=== PATIENT | male | born 1960 | race Caucasian/White ===

== ENCOUNTER 2020-09-20 09:23 | Emergency (ER) | payer OTHER, SELFPAY ==
--- NOTE | ~2020-09-20 | XR_ITS ---
EXAMINATION: XR LUMBOSACRAL SPINE CLINICAL INFORMATION: Low back pain. COMPARISON: None TECHNIQUE: Three views of the lumbosacral spine. FINDINGS: There is normal lumbar lordosis. The vertebral heights, alignment and disc heights are normal. There is moderate bilateral L5-S1 facet joint arthropathy. No acute fracture, lytic or sclerotic process seen. There are multiple sutures seen scattered throughout the upper and mid abdomen. No lytic or sclerotic process seen. XR/XR lumbar spine 2-3V IMPRESSION: Moderate bilateral L5-S1 facet joint arthropathy.
[2020-09-20 09:52] VITALS: BP 127/70; BP 139/85; PULSE 68; PULSE 69; RESP 16; TEMP 37.3; O2SAT 96; BMI 29.5
--- NOTE | 2020-09-20 11:43 | ED.BACK ---
HPI - Back Pain/Injury General Chief Complaint: Back Pain/Injury Stated Complaint: back pain since saturday Time Seen by Provider: 09/20/20 11:41 History of Present Illness HPI Narrative: Patient is a 60-year-old male presents today with having back pain. The back pain is over the lower back on going for the last 2 days. Happen while patient was working. He reached for something subsequently had the back pain. Patient denies any bowel urinary incontinence. No focal weakness. Patient is from home. Has a history of chronic renal disease. Patient denies any fever chills. No history of IV drug use. Pain worsened with movement improved with staying still. Patient is from home. Related Data Previous Rx's Medication Instructions Recorded hydromorphone 2 mg tablet 2 mg PO Q4-6H PRN #14 tab 09/20/20 (Dilaudid) lorazepam 0.5 mg tablet 0.5 mg PO TID PRN 3 Days #10 tab 09/20/20 Allergies Allergy/AdvReac Type Severity Reaction Status Date / Time No Known Drug Allergies Allergy Unknown NONE Unverified 10/29/19 14:57 Review of Systems Review of Systems: Positive back pain No bowel urinary incontinence No focal weakness Yes all other systems are reviewed and are negative [facility] Past Medical History Attestation statement: The following information was validated with the patient. Medical History Colostomy in place Crohn's disease Kidney disease Social History Social History Smoked in Last 30 Days: No Use of substances other than those prescribed or required for medical reasons: No Advance Directives: No Advance Directives Information Provided: No Physical Exam Vital Signs: Vital Signs: Last Vital Signs Temp 99.1 F 09/20/20 09:52 Pulse 74 09/20/20 14:59 Resp 16 09/20/20 14:59 BP 136/70 09/20/20 14:59 Pulse Ox 98 09/20/20 14:59 Body Mass Index 29.5 Appearance: Alert. Oriented X3. No acute distress. Eyes: Pupils equal, round and reactive to light. ENT: Pharynx normal. Neck: Normal inspection. Neck supple. No lymph nodes noted. No crepitus CVS: Normal heart rate and rhythm. Pulses normal. Normal S1 and S2 Respiratory: No respiratory distress. Breath sounds normal. No Wheezing. No rales Abdomen: Soft and nontender. No rigidity. No distention. good BS x4 Skin: Skin warm and dry. Normal skin color. Normal skin turgor. Extremities: No lower extremity edema. Neurovascular intact to all extremities. No Lacerations. No Rash. Sensation in the lower extremity intact. Pulse 2 +at dorsalis pedis. Positive pain on lifting bilateral lower extremity 2 proximally 30 degrees. Reflexes 2+ at patella bilaterally. Neuro: Oriented X 3. No motor deficit. No sensory deficit. Moving all extermities. No slurred speech MDM - Back Pain/Injury MDM Narrative Medical decision making narrative: Patient 60 years old given pain medication x2 doses. Symptom improving now is able to stand. There was no bowel urinary incontinence. There is no focal weakness. X-ray did not show any acute fracture. No evidence for cauda equina syndrome. Will discharge patient home with additional pain meds follow-up on an outpatient basis. Differential Diagnosis Differential diagnosis: Likely lumbar radiculopathy and sciatica Medical Records Attestation: I reviewed the patient's medical records. Lab Data Attestation: I reviewed the patient's lab results. Result diagrams: 09/20/20 11:50 09/20/20 11:50 Labs: Lab Results 09/20/20 09/20/20 Range/Units 11:50 11:50 WBC 9.4 (4.8-10.8) X10*3/uL RBC 4.94 (4.60-5.80) X10*6/uL Hgb 16.4 (14.0-18.0) g/dl Hct 47.7 (42-52) % MCV 96.6 (80-98) fL MCH 33.2 H (27.0-33.0) pg MCHC 34.4 (31.0-36.0) g/dl RDW 13.1 (11.0-16.0) % Plt Count 179 (160-400) X10*3/uL MPV 9.8 (9.4-12.4) fL Immature Gran % (Auto) 0.3 (0.0-0.4) % Neut % (Auto) 72.2 (45-73) % Lymph % (Auto) 19.7 L (20-40) % Schleicher % (Auto) 5.7 (2-11) % Eos % (Auto) 1.3 (0-4) % Baso % (Auto) 0.8 (0-2) % Lymph # (Auto) 1.9 (1.2-4.9) X10*3/uL Schleicher # (Auto) 0.5 (0.1-1.2) X10*3/uL Eos # (Auto) 0.1 (0.0-0.4) X10*3/uL Baso # (Auto) 0.1 (0.0-0.2) X10*3/uL Abs Immat Gran (auto) 0.03 (0.00-0.03) X10*3/uL Absolute Neuts (auto) 6.8 (2.0-8.3) X10*3/uL Absolute Nucleated RBC 0.000 (0.0-0.012) X10*3/uL Nucleated RBC % (auto) 0.0 (0.0-0.2) /100WBC Sodium 138 (135-145) mmol/L Potassium 4.9 (3.3-5.1) mmol/L Chloride 112 H (96-108) mmol/L Carbon Dioxide 20 L (22-29) mmol/L Anion Gap 11 L (12-20) BUN 20 H (9-16) mg/dL Creatinine 1.63 H (0.5-1.4) mg/dL Estim Creat Clear Calc 54.3 Estimated GFR 44 Random Glucose 101 (60-115) mg/dL Calcium 8.4 (8.4-10.2) mg/dL Discharge Plan Discharge Clinical Impression: Lumbar radiculopathy, Sciatica Patient Disposition: Home, Self-Care Instructions: Sciatica (ED), Lumbar Radiculopathy (ED) Prescriptions: New hydromorphone [Dilaudid] 2 mg tablet 2 mg PO Q4-6H PRN (Reason: pain) Qty: 14 RF: 0 lorazepam 0.5 mg tablet 0.5 mg PO TID PRN (Reason: spasm) 3 Days Qty: 10 RF: 0 Referrals: Hansel Martinez MD [Primary Care Provider] - 2 days Stand Alone Forms: Work/School Release
[2020-09-20] MEDS: LORazepam 2 MG/ML VIAL 0.5 MG IVPUSH ×2 (11:52→14:57)
[2020-09-20 11:55] VITALS: BP 154/94; PULSE 75; RESP 16; O2SAT 100
[2020-09-20] MEDS: HYDROmorphone HCl 0.5 MG/0.5 ML SYRINGE IVPUSH ×2 (11:56→14:57)
[2020-09-20 12:05] LABS: MANUAL DIFF FLAG NO
[2020-09-20 12:10] LABS: Basophils Absolute Auto 0.1 X10*3/uL (0.0-0.2); Basophils Percent Auto 0.8 % (0-2); Eosinophils Absolute Auto 0.1 X10*3/uL (0.0-0.4); Eosinophils Percent Auto 1.3 % (0-4); Hematocrit 47.7 % (42-52); Hemoglobin 16.4 g/dl (14.0-18.0); Imm Gran Abs Auto 0.03 X10*3/uL (0.00-0.03); Imm Gran Pct Auto 0.3 % (0.0-0.4); Lymphocytes Absolute Auto 1.9 X10*3/uL (1.2-4.9); Lymphocytes Percent Auto 19.7 % (20-40); Mean Corpuscular HGB Conc 34.4 g/dl (31.0-36.0); Mean Corpuscular Hemoglobin 33.2 pg (27.0-33.0); Mean Corpuscular Volume 96.6 fL (80-98); Mean Platelet Volume 9.8 fL (9.4-12.4); Monocytes Absolute Auto 0.5 X10*3/uL (0.1-1.2); Monocytes Percent Auto 5.7 % (2-11); Neutrophils Absolute Auto 6.8 X10*3/uL (2.0-8.3); Neutrophils Percent Auto 72.2 % (45-73); Platelet Count 179 X10*3/uL (160-400); Red Blood Count 4.94 X10*6/uL (4.60-5.80); Red Cell Distribution Width 13.1 % (11.0-16.0); White Blood Count 9.4 X10*3/uL (4.8-10.8)
[2020-09-20 12:39] LABS: Anion Gap 11 (12-20); Blood Urea Nitrogen 20 mg/dL (9-16); Calcium 8.4 mg/dL (8.4-10.2); Carbon Dioxide 20 mmol/L (22-29); Chloride 112 mmol/L (96-108); Creatinine Clr Calc Pharmacy 54.3; Estimated Glomerular Filt Rate 44; Glucose Random 101 mg/dL (60-115); Potassium 4.9 mmol/L (3.3-5.1); Sodium 138 mmol/L (135-145)
[2020-09-20 14:59] VITALS: BP 136/70; PULSE 74; RESP 16; O2SAT 98
== END 2020-09-20 16:16 | disposition home or self-care (01) ==
PROVIDERS: Emergency Provider Emergency Medicine Emergency Medical Services; PCP Internal Medicine
DX: M54.16 Radiculopathy, lumbar region (principal); M54.32 Sciatica, left side; M54.31 Sciatica, right side
CPT/HCPCS: 36415; 72100; 80048; 85025; 96374; 96375; 96376; 99284; J1170; J2060

== ENCOUNTER 2022-01-25 17:10 | Inpatient (IN) | payer OTHER, SELFPAY ==
--- NOTE | ~2022-01-25 | FL_ITS ---
EXAMINATION: Intraoperative fluoroscopy CLINICAL INFORMATION: Cystoscopy, ureteroscopy and stent placement COMPARISON: CT abdomen pelvis January 25, 2022 TECHNIQUE: Intraoperative fluoroscopy was provided for use by Dr. Escobedo. A total of 12 images were saved to PACS. A radiologist was not present during imaging. Today's dictation is only for administrative purposes to document intraoperative fluoroscopic usage. TOTAL FLUOROSCOPIC TIME: 18 seconds FL/FL guidance in OR FINDINGS~\^^ Intraoperative fluoroscopy provided for use by Dr. Escobedo. Please see operative note for detailed findings.
--- NOTE | ~2022-01-25 | CT_ITS ---
EXAMINATION: CT ABDOMEN AND PELVIS WITHOUT CONTRAST CLINICAL INFORMATION: Left-sided back/flank pain. Question kidney stones. COMPARISON: Lumbar spine x-ray September 2020 TECHNIQUE: Multidetector volumetric imaging was performed from the superior aspect of the liver through the pubic symphysis. Sagittal and coronal reformatted images were obtained on the technologist's workstation. This CT examination was performed using dose optimization techniques as appropriate, variously including the following: *Automated exposure control *Adjustment of mA and/or kV according to patient size (this includes techniques or standardized protocols for targeted exams where dose is matched to indication/reason for exam; i.e. extremities or head) *Use of iterative reconstruction technique DLP: 659 mGy-cm FINDINGS: LUNG BASES: The visualized lung bases are unremarkable. LIVER, GALLBLADDER, AND BILIARY TREE: The liver is normal in size, shape, and attenuation. No focal hepatic lesion or biliary ductal dilatation is present. The gallbladder is unremarkable with no evidence of radiopaque gallstones, gallbladder wall thickening, or obvious pericholecystic inflammatory changes. PANCREAS: Unremarkable. SPLEEN: Unremarkable. ADRENAL GLANDS: Unremarkable. KIDNEYS AND URETERS: There is severe left hydronephrosis and ureteral dilatation from 3 adjacent left distal ureteral stones measuring 3 x 6 mm and 2 x 3 mm and 3 x 6 mm. There are small left lower pole renal stones. The right kidney is normal. BLADDER: Not optimally distended. GASTROINTESTINAL TRACT: Postsurgical changes from colectomy and right lower quadrant ileostomy. 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 There is remaining rectum appears dilated and filled with fluid. Inferiorly this is to the left of midline and it is difficult to exclude a perirectal fluid collection or abscess. ABDOMINAL WALL: No significant hernia is appreciated. LYMPH NODES: Normal. VASCULAR: Unremarkable. PELVIC VISCERA: Unremarkable. OSSEOUS STRUCTURES: Degenerative changes of the spine. CT/CT abdomen pelvis wo IV con IMPRESSION: Severe left hydronephrosis and ureteral dilatation from a 3 adjacent left distal ureteral stones. Small left renal stones. Postsurgical changes following colectomy and right lower quadrant ileostomy. Question dilated fluid-filled rectum in the pelvis versus perirectal fluid collection or abscess. Fleischner guidelines were followed.
[2022-01-25 17:50] VITALS: BP 135/90; PULSE 83; RESP 20; TEMP 36.2; O2SAT 100; BMI 29.4
--- NOTE | 2022-01-25 17:53 | ED.ABDPAIN ---
HPI - Abdominal Pain General Chief Complaint: Abdominal Pain Stated Complaint: Kidney stone? Dehydrated Time Seen by Provider: 01/25/22 19:46 Related Data Home Medications Medication Instructions Recorded Confirmed adalimumab 40 mg/0.4 mL 40 mg subcut QWEEK 01/25/22 01/25/22 subcutaneous pen kit (Humira(CF) Pen) tadalafil 2.5 mg tablet (Cialis) 5 mg PO DAILY PRN Sexual Activity 01/25/22 01/25/22 Allergies Allergy/AdvReac Type Severity Reaction Status Date / Time No Known Drug Allergies Allergy Unknown NONE Verified 01/25/22 20:46 [facility] Past Medical History Medical History Colostomy in place Crohn's disease Kidney disease Surgical History History of ileostomy Family History Family History Father Colon cancer Social History Social History Household Members: Spouse Housing: House Do you presently have visiting nurse or other home services: No Patient Tobacco Use Status: Never used Tobacco Use of substances other than those prescribed or required for medical reasons: No Advance Directives: No Advance Directives Information Provided: No Do you have thoughts of harming others: None Do you have a plan to hurt others: No Plan Recently lost weight without trying: No Nutrition Risks: No Nutritional Risk service: No Current occupational status: employed Physical Exam ED Vital Signs: Vital Signs - 24 hr 01/25/22 17:50 01/25/22 19:53 01/25/22 21:48 Temperature 97.1 F 98.4 F 97.8 F Pulse Rate 83 82 91 Respiratory Rate 20 16 16 Blood Pressure 135/90 H 155/93 H 147/88 H Pulse Oximetry 100 97 98 Oxygen Delivery Method Room Air Room Air Room Air BMI result Body Mass Index 29.4 Course Course Course Narrative: RME-17:55pm - 61yoM c PMHx of kidney stones and has an ileostomy recently had the stomach bug presenting to the ER c c/o left flank/back pain with associated nausea/vomiting unable to keep any fluids down that started this morning. Plan: Labs, UA, CT scan abdomen pelvis with IV contrast ordered. Patient will be sent to the main ER for further evaluation and treatment. Medical Decision Making Lab Data Result Diagrams: 01/26/22 05:21 01/26/22 05:21 Labs: Lab Results 01/25/22 01/25/22 01/25/22 Range/Units 18:53 18:53 18:53 WBC 17.9 H (4.8-10.8) X10*3/uL RBC 5.65 (4.60-5.80) X10*6/uL Hgb 18.5 H (14.0-18.0) g/dl Hct 51.9 (42.0-52.0) % MCV 91.9 (80.0-98.0) fL MCH 32.7 (27.0-33.0) pg MCHC 35.6 (31.0-36.0) g/dl RDW 12.9 (11.0-16.0) % Plt Count 218 (160-400) X10*3/uL MPV 9.9 (9.4-12.4) fL Immature Gran % (Auto) 0.3 (0.0-0.4) % Neut % (Auto) 88.1 H (45-73) % Lymph % (Auto) 7.0 L (20-40) % Routt % (Auto) 4.2 (2-11) % Eos % (Auto) 0.2 (0-4) % Baso % (Auto) 0.2 (0-2) % Lymph # (Auto) 1.3 (1.2-4.9) X10*3/uL Routt # (Auto) 0.8 (0.1-1.2) X10*3/uL Eos # (Auto) 0.0 (0.0-0.4) X10*3/uL Baso # (Auto) 0.0 (0.0-0.2) X10*3/uL Abs Immat Gran (auto) 0.06 H (0.00-0.03) X10*3/uL Absolute Neuts (auto) 15.8 H (2.0-8.3) x10*3/uL Absolute Nucleated RBC 0.000 (0.0-0.012) X10*3/uL Nucleated RBC % (auto) 0.0 (0.0-0.2) /100WBC PT 12.0 (10.0-13.1) SEC INR 1.0 (0.9-1.1) Sodium 126 L (135-145) mmol/L Potassium 3.8 D (3.3-5.1) mmol/L Chloride 97 (96-108) mmol/L Carbon Dioxide 16 L (22-29) mmol/L Anion Gap 17 (12-20) BUN 58 H (9-16) mg/dL Creatinine 3.38 H (0.5-1.4) mg/dL Estim Creat Clear Calc 26.6 Estimated GFR 19 Random Glucose 168 H (60-115) mg/dL Calcium 8.3 L (8.4-10.2) mg/dL Magnesium 2.3 (1.6-2.6) mg/dL Total Bilirubin 0.9 (0.0-1.0) mg/dL AST 77 H (5-37) U/L ALT 74 H (0-40) U/L Alkaline Phosphatase 84 (39-117) U/L Total Protein 9.4 H (6.5-8.0) g/dL Albumin 4.4 (3.5-5.0) g/dL Urine Color Urine Appearance Urine pH (5.0-9.0) Ur Specific Robbins (1.005-1.025) Urine Protein (Neg-Trace) mg/dL Urine Glucose (UA) (Negative) mg/dL Urine Ketones (Negative) mg/dL Urine Blood (Negative) Urine Nitrite (Negative) Ur Leukocyte Esterase (Negative) Urine RBC (0-2) /HPF Urine WBC (0-5) /HPF Ur Squamous Epith Cells (0-2) /HPF Urine Bacteria (None Seen) Hyaline Casts (0-2) /LPF COVID-19 (ALISHA) (Negative) COVID-19 Clin Com 01/25/22 01/25/22 Range/Units 18:53 20:50 WBC (4.8-10.8) X10*3/uL RBC (4.60-5.80) X10*6/uL Hgb (14.0-18.0) g/dl Hct (42.0-52.0) % MCV (80.0-98.0) fL MCH (27.0-33.0) pg MCHC (31.0-36.0) g/dl RDW (11.0-16.0) % Plt Count (160-400) X10*3/uL MPV (9.4-12.4) fL Immature Gran % (Auto) (0.0-0.4) % Neut % (Auto) (45-73) % Lymph % (Auto) (20-40) % Routt % (Auto) (2-11) % Eos % (Auto) (0-4) % Baso % (Auto) (0-2) % Lymph # (Auto) (1.2-4.9) X10*3/uL Routt # (Auto) (0.1-1.2) X10*3/uL Eos # (Auto) (0.0-0.4) X10*3/uL Baso # (Auto) (0.0-0.2) X10*3/uL Abs Immat Gran (auto) (0.00-0.03) X10*3/uL Absolute Neuts (auto) (2.0-8.3) x10*3/uL Absolute Nucleated RBC (0.0-0.012) X10*3/uL Nucleated RBC % (auto) (0.0-0.2) /100WBC PT (10.0-13.1) SEC INR (0.9-1.1) Sodium (135-145) mmol/L Potassium (3.3-5.1) mmol/L Chloride (96-108) mmol/L Carbon Dioxide (22-29) mmol/L Anion Gap (12-20) BUN (9-16) mg/dL Creatinine (0.5-1.4) mg/dL Estim Creat Clear Calc Estimated GFR Random Glucose (60-115) mg/dL Calcium (8.4-10.2) mg/dL Magnesium (1.6-2.6) mg/dL Total Bilirubin (0.0-1.0) mg/dL AST (5-37) U/L ALT (0-40) U/L Alkaline Phosphatase (39-117) U/L Total Protein (6.5-8.0) g/dL Albumin (3.5-5.0) g/dL Urine Color Yellow Urine Appearance Clear Urine pH 5.5 (5.0-9.0) Ur Specific Robbins 1.020 (1.005-1.025) Urine Protein 100 (2+) H (Neg-Trace) mg/dL Urine Glucose (UA) Negative (Negative) mg/dL Urine Ketones Negative (Negative) mg/dL Urine Blood Large (3+) H (Negative) Urine Nitrite Negative (Negative) Ur Leukocyte Esterase Negative (Negative) Urine RBC >20 H (0-2) /HPF Urine WBC 0-5 (0-5) /HPF Ur Squamous Epith Cells 0-2 (0-2) /HPF Urine Bacteria None Seen (None Seen) Hyaline Casts 3-5 (0-2) /LPF COVID-19 (ALISHA) Negative (Negative) COVID-19 Clin Com See Note Medications Administered Generic Name Dose Route Start Last Admin Trade Name Freq PRN Reason Stop Dose Admin Sodium Chloride 1,000 mls @ 75 mls/hr 01/26/22 06:15 01/26/22 06:23 Ns IVCONT 75 mls/hr .[id number] SILVIA Administration Morphine Sulfate 4 mg 01/25/22 22:32 01/26/22 11:50 Morphine Sulfate 4 Mg/Ml Cartridge IVPUSH 4 mg Q4H PRN Administration Pain, Severe (Pain Scale 7-10) Protocol Ondansetron HCl 4 mg 01/25/22 22:29 01/26/22 06:15 Ondansetron Hcl 4 Mg/2 Ml Vial IVPUSH 4 mg Q8H PRN Administration Nausea and Vomiting Sodium Chloride 3 ml 01/26/22 00:00 01/26/22 07:09 0.9 % Sodium Chloride Flush 3 Ml Syringe IVFLUSH Not Given QSHIFT [facility] Discontinued Medications Generic Name Dose Route Start Last Admin Trade Name Freq PRN Reason Stop Dose Admin Hydromorphone HCl 0.5 mg 01/25/22 20:19 01/25/22 20:43 Hydromorphone Hcl 0.5 Mg/0.5 Ml Syringe IVPUSH 01/25/22 20:20 0.5 mg ONCE ONE Administration Protocol Sodium Chloride 1,000 mls @ 999 mls/hr 01/25/22 20:00 01/25/22 22:12 Ns IVCONT 01/25/22 21:00 Infused .Q1H1M SILVIA Infusion Sodium Chloride 1,000 mls @ 999 mls/hr 01/25/22 20:00 01/25/22 22:12 Ns IVCONT 01/25/22 21:00 Infused .Q1H1M SILVIA Infusion Ceftriaxone Sodium 1 gm/ 50 mls @ 100 mls/hr 01/25/22 20:37 01/25/22 22:12 Sodium Chloride IV 01/25/22 21:06 Infused ONCE ONE Infusion Lactated Ringer's 1,000 mls @ 100 mls/hr 01/25/22 22:30 01/26/22 07:01 Lr IVCONT Infused .Q10H SILVIA Infusion Ondansetron HCl 4 mg 01/25/22 19:56 01/25/22 20:08 Ondansetron Hcl 4 Mg/2 Ml Vial IVPUSH 01/25/22 19:57 4 mg ONCE ONE Administration Discharge Plan Discharge Clinical Impression: Acute hyponatremia, Hydronephrosis of left kidney Renal failure (ARF), acute on chronic Qualifiers: Acute renal failure type: unspecified Chronic kidney disease stage: unspecified stage Qualified Code(s): N17.9 - Acute kidney failure, unspecified Patient Disposition: Admitted As Inpatient Interventions: Admission Worksheet (ED) Last Done: 01/26/22 00:19 Discharge Date/Time: 01/26/22 00:44
[2022-01-25 18:58] LABS: MANUAL DIFF FLAG NO
[2022-01-25 19:00] LABS: Basophils Percent Auto 0.2 % (0-2); Eosinophils Percent Auto 0.2 % (0-4); Hematocrit 51.9 % (42.0-52.0); Hemoglobin 18.5 g/dl (14.0-18.0); Imm Gran Abs Auto 0.06 X10*3/uL (0.00-0.03); Imm Gran Pct Auto 0.3 % (0.0-0.4); Lymphocytes Absolute Auto 1.3 X10*3/uL (1.2-4.9); Mean Corpuscular HGB Conc 35.6 g/dl (31.0-36.0); Mean Corpuscular Hemoglobin 32.7 pg (27.0-33.0); Mean Corpuscular Volume 91.9 fL (80.0-98.0); Mean Platelet Volume 9.9 fL (9.4-12.4); Monocytes Absolute Auto 0.8 X10*3/uL (0.1-1.2); Monocytes Percent Auto 4.2 % (2-11); Neutrophils Absolute Auto 15.8 x10*3/uL (2.0-8.3); Neutrophils Percent Auto 88.1 % (45-73); Platelet Count 218 X10*3/uL (160-400); Red Blood Count 5.65 X10*6/uL (4.60-5.80); Red Cell Distribution Width 12.9 % (11.0-16.0); White Blood Count 17.9 X10*3/uL (4.8-10.8)
[2022-01-25 19:01] LABS: Appearance Urine Clear; Color Urine Yellow; Glucose Urine UA Negative (Negative); Leukocyte Esterase Urine Negative (Negative); Nitrite Urine Negative (Negative); PH 5.5 (5.0-9.0); UMIC TRIGGER UACC YES; Urine Blood Large (3+) (Negative); Urine Ketones Negative (Negative); Urine Protein 100 (2+) mg/dL (Neg-Trace)
[2022-01-25 19:07] LABS: Bacteria Urine None Seen (None Seen); RBC Urine >20 /HPF (0-2); Squamous Epithelial Cell Urine 0-2 /HPF (0-2); WBC Urine 0-5 /HPF (0-5)
[2022-01-25 19:18] LABS: Alanine Aminotransferase 74 U/L (0-40); Albumin Level 4.4 g/dL (3.5-5.0); Alkaline Phosphatase 84 U/L (39-117); Anion Gap 17 (12-20); Aspartate Amino Transferase 77 U/L (5-37); Bilirubin Total 0.9 mg/dL (0.0-1.0); Blood Urea Nitrogen 58 mg/dL (9-16); Calcium 8.3 mg/dL (8.4-10.2); Carbon Dioxide 16 mmol/L (22-29); Chloride 97 mmol/L (96-108); Creatinine Clr Calc Pharmacy 26.6; Estimated Glomerular Filt Rate 19; Glucose Random 168 mg/dL (60-115); Magnesium 2.3 mg/dL (1.6-2.6); Potassium 3.8 mmol/L (3.3-5.1); Sodium 126 mmol/L (135-145); Total Protein 9.4 g/dL (6.5-8.0)
--- NOTE | 2022-01-25 19:52 | ED.GENADULT ---
HPI - General Adult General Chief complaint: Abdominal Pain Stated complaint: Kidney stone? Dehydrated Time Seen by Provider: 01/25/22 19:46 Source: patient Mode of arrival: ambulatory Limitations: no limitations History of Present Illness HPI narrative: THIS IS A VERY PLEASANT 7 YEARS OLD MALE WITH HISTORY OF CROHN DISEASE STATUS POST COLECTOMY, HAS ILEOSTOMY BAG PRESENTED TO EMERGENCY ROOM BECAUSE OF VOMITING , HE STATES THAT OVER THE WEEKEND HE HAD DIARRHEA FOR FEW DAYS DIARRHEA NOW RESOLVED THE AND WAS VOMITING AND TODAY Onset (ago): day(s) (4) Radiation: non-radiation Severity: moderate Relieving factors: none Exacerbating factors: none Related Data Home Medications Medication Instructions Recorded Confirmed adalimumab 40 mg/0.4 mL 40 mg subcut QWEEK 01/25/22 01/25/22 subcutaneous pen kit (Humira(CF) Pen) tadalafil 2.5 mg tablet (Cialis) 5 mg PO DAILY PRN Sexual Activity 01/25/22 01/25/22 Allergies Allergy/AdvReac Type Severity Reaction Status Date / Time No Known Drug Allergies Allergy Unknown NONE Verified 01/25/22 20:46 Review of Systems Constitutional: Constitutional: Reports no additional constitutional complaints Eyes: Eyes: Reports no additional eye complaints Cardiovascular: Cardiovascular: Reports no additional cardiovascular complaints Respiratory: Respiratory: Reports no additional respiratory complaints Gastrointestinal: Gastrointestinal: Reports loose stools, Reports nausea and Reports vomiting Musculoskeletal: Musculoskeletal: Reports no additional musculoskeletal complaints PMFSH Past Medical History Medical History Colostomy in place Crohn's disease Kidney disease Social History Social History Advance Directives: No Advance Directives Information Provided: No Physical Exam ED Vital Signs: Vital Signs - 24 hr 01/25/22 17:50 01/25/22 19:53 01/25/22 21:48 Temperature 97.1 F 98.4 F 97.8 F Pulse Rate 83 82 91 Respiratory Rate 20 16 16 Blood Pressure 135/90 H 155/93 H 147/88 H Pulse Oximetry 100 97 98 Oxygen Delivery Method Room Air Room Air Room Air BMI result Body Mass Index 29.4 Const Other: HE LOOKS WELL IS NOT TOXIC-APPEARING General: cooperative Orientation/consciousness: oriented to person, oriented to place, oriented to time and patient oriented x3 Limitations: no limitations HENMT Head: Yes normal to inspection General nose exam: Normal external nose present Face and sinus: Yes normal facial exam Mouth: Normal oral and palatal mucosa present Throat: Yes posterior oropharynx normal Neck Neck: Yes normal visual inspection Chest Chest palpation & inspection: normal inspection of the chest Resp Effort & Inspection: normal respiratory effort Auscultation: clear to auscultation bilaterally Cardio Jugular venous distension: no JVD Rate: regular rate Rhythm: regular rhythm GI Inspection: Yes normal to inspection Palpation (GI): Soft to palpation, not firm and nontender General: Yes no CVA tenderness Back/Spine/Pelvis Back: no CVA tenderness Skin General skin exam: no rashes or lesions noted and elasticity normal Lesions: no lesions Neuro General: oriented to person, oriented to place, oriented to time and patient oriented x3 Course Reevaluation(s) Reevaluation #1: DISCUSSED WITH UROLOGIST dR WOOTEN Time: 20:35 Reevaluation #2: SPOKE WITH HOSPITALIST Time: 20:36 Medications Administered Generic Name Dose Route Start Last Admin Trade Name Freq PRN Reason Stop Dose Admin Lactated Ringer's 1,000 mls @ 100 mls/hr 01/25/22 22:30 01/25/22 22:49 Lr IVCONT 100 mls/hr .Q10H SILVIA Administration Discontinued Medications Generic Name Dose Route Start Last Admin Trade Name Freq PRN Reason Stop Dose Admin Hydromorphone HCl 0.5 mg 01/25/22 20:19 01/25/22 20:43 Hydromorphone Hcl 0.5 Mg/0.5 Ml Syringe IVPUSH 01/25/22 20:20 0.5 mg ONCE ONE Administration Protocol Sodium Chloride 1,000 mls @ 999 mls/hr 01/25/22 20:00 01/25/22 22:12 Ns IVCONT 01/25/22 21:00 Infused .Q1H1M SILVIA Infusion Sodium Chloride 1,000 mls @ 999 mls/hr 01/25/22 20:00 01/25/22 22:12 Ns IVCONT 01/25/22 21:00 Infused .Q1H1M SILVIA Infusion Ceftriaxone Sodium 1 gm/ 50 mls @ 100 mls/hr 01/25/22 20:37 01/25/22 22:12 Sodium Chloride IV 01/25/22 21:06 Infused ONCE ONE Infusion Ondansetron HCl 4 mg 01/25/22 19:56 01/25/22 20:08 Ondansetron Hcl 4 Mg/2 Ml Vial IVPUSH 01/25/22 19:57 4 mg ONCE ONE Administration Medical Decision Making Differential Diagnosis renal failure/sepsis/kidney stones Consult Healthcare Provider Management of the patient was discussed with: Hospitalist and Instructor [employer] (urologist) Lab Data MDM Lab Attestation statement: I reviewed the patient's lab results. Result Diagrams: 01/25/22 18:53 01/25/22 18:53 Labs: Lab Results 01/25/22 01/25/22 01/25/22 Range/Units 18:53 18:53 18:53 WBC 17.9 H (4.8-10.8) X10*3/uL RBC 5.65 (4.60-5.80) X10*6/uL Hgb 18.5 H (14.0-18.0) g/dl Hct 51.9 (42.0-52.0) % MCV 91.9 (80.0-98.0) fL MCH 32.7 (27.0-33.0) pg MCHC 35.6 (31.0-36.0) g/dl RDW 12.9 (11.0-16.0) % Plt Count 218 (160-400) X10*3/uL MPV 9.9 (9.4-12.4) fL Immature Gran % (Auto) 0.3 (0.0-0.4) % Neut % (Auto) 88.1 H (45-73) % Lymph % (Auto) 7.0 L (20-40) % Mathews % (Auto) 4.2 (2-11) % Eos % (Auto) 0.2 (0-4) % Baso % (Auto) 0.2 (0-2) % Lymph # (Auto) 1.3 (1.2-4.9) X10*3/uL Mathews # (Auto) 0.8 (0.1-1.2) X10*3/uL Eos # (Auto) 0.0 (0.0-0.4) X10*3/uL Baso # (Auto) 0.0 (0.0-0.2) X10*3/uL Abs Immat Gran (auto) 0.06 H (0.00-0.03) X10*3/uL Absolute Neuts (auto) 15.8 H (2.0-8.3) x10*3/uL Absolute Nucleated RBC 0.000 (0.0-0.012) X10*3/uL Nucleated RBC % (auto) 0.0 (0.0-0.2) /100WBC PT 12.0 (10.0-13.1) SEC INR 1.0 (0.9-1.1) Sodium 126 L (135-145) mmol/L Potassium 3.8 D (3.3-5.1) mmol/L Chloride 97 (96-108) mmol/L Carbon Dioxide 16 L (22-29) mmol/L Anion Gap 17 (12-20) BUN 58 H (9-16) mg/dL Creatinine 3.38 H (0.5-1.4) mg/dL Estim Creat Clear Calc 26.6 Estimated GFR 19 Random Glucose 168 H (60-115) mg/dL Calcium 8.3 L (8.4-10.2) mg/dL Magnesium 2.3 (1.6-2.6) mg/dL Total Bilirubin 0.9 (0.0-1.0) mg/dL AST 77 H (5-37) U/L ALT 74 H (0-40) U/L Alkaline Phosphatase 84 (39-117) U/L Total Protein 9.4 H (6.5-8.0) g/dL Albumin 4.4 (3.5-5.0) g/dL Urine Color Urine Appearance Urine pH (5.0-9.0) Ur Specific Greer (1.005-1.025) Urine Protein (Neg-Trace) mg/dL Urine Glucose (UA) (Negative) mg/dL Urine Ketones (Negative) mg/dL Urine Blood (Negative) Urine Nitrite (Negative) Ur Leukocyte Esterase (Negative) Urine RBC (0-2) /HPF Urine WBC (0-5) /HPF Ur Squamous Epith Cells (0-2) /HPF Urine Bacteria (None Seen) Hyaline Casts (0-2) /LPF COVID-19 (ALISHA) (Negative) COVID-19 Clin Com 01/25/22 01/25/22 Range/Units 18:53 20:50 WBC (4.8-10.8) X10*3/uL RBC (4.60-5.80) X10*6/uL Hgb (14.0-18.0) g/dl Hct (42.0-52.0) % MCV (80.0-98.0) fL MCH (27.0-33.0) pg MCHC (31.0-36.0) g/dl RDW (11.0-16.0) % Plt Count (160-400) X10*3/uL MPV (9.4-12.4) fL Immature Gran % (Auto) (0.0-0.4) % Neut % (Auto) (45-73) % Lymph % (Auto) (20-40) % Mathews % (Auto) (2-11) % Eos % (Auto) (0-4) % Baso % (Auto) (0-2) % Lymph # (Auto) (1.2-4.9) X10*3/uL Mathews # (Auto) (0.1-1.2) X10*3/uL Eos # (Auto) (0.0-0.4) X10*3/uL Baso # (Auto) (0.0-0.2) X10*3/uL Abs Immat Gran (auto) (0.00-0.03) X10*3/uL Absolute Neuts (auto) (2.0-8.3) x10*3/uL Absolute Nucleated RBC (0.0-0.012) X10*3/uL Nucleated RBC % (auto) (0.0-0.2) /100WBC PT (10.0-13.1) SEC INR (0.9-1.1) Sodium (135-145) mmol/L Potassium (3.3-5.1) mmol/L Chloride (96-108) mmol/L Carbon Dioxide (22-29) mmol/L Anion Gap (12-20) BUN (9-16) mg/dL Creatinine (0.5-1.4) mg/dL Estim Creat Clear Calc Estimated GFR Random Glucose (60-115) mg/dL Calcium (8.4-10.2) mg/dL Magnesium (1.6-2.6) mg/dL Total Bilirubin (0.0-1.0) mg/dL AST (5-37) U/L ALT (0-40) U/L Alkaline Phosphatase (39-117) U/L Total Protein (6.5-8.0) g/dL Albumin (3.5-5.0) g/dL Urine Color Yellow Urine Appearance Clear Urine pH 5.5 (5.0-9.0) Ur Specific Greer 1.020 (1.005-1.025) Urine Protein 100 (2+) H (Neg-Trace) mg/dL Urine Glucose (UA) Negative (Negative) mg/dL Urine Ketones Negative (Negative) mg/dL Urine Blood Large (3+) H (Negative) Urine Nitrite Negative (Negative) Ur Leukocyte Esterase Negative (Negative) Urine RBC >20 H (0-2) /HPF Urine WBC 0-5 (0-5) /HPF Ur Squamous Epith Cells 0-2 (0-2) /HPF Urine Bacteria None Seen (None Seen) Hyaline Casts 3-5 (0-2) /LPF COVID-19 (ALISHA) Negative (Negative) COVID-19 Clin Com See Note Independent Interpretation I performed an independent interpretation of an: CT Scan Interpretation: BLADDER: Not optimally distended.? GASTROINTESTINAL TRACT: Postsurgical changes from colectomy and right lower quadrant ileostomy. 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 There is remaining rectum appears dilated and filled with fluid. Inferiorly this is to the left of midline and it is difficult to exclude a perirectal fluid collection or abscess. ABDOMINAL WALL: No significant hernia is appreciated.? LYMPH NODES: Normal. VASCULAR: Unremarkable. PELVIC VISCERA: Unremarkable.? OSSEOUS STRUCTURES: Degenerative changes of the spine. CT/CT abdomen pelvis wo IV con IMPRESSION: Severe left hydronephrosis and ureteral dilatation from a 3 adjacent left distal ureteral stones. Small left renal stones. ? Postsurgical changes following colectomy and right lower quadrant ileostomy. Question dilated fluid-filled rectum in the pelvis versus perirectal fluid collection or abscess.? ? Fleischner guidelines were followed. Radiology Impression Discussion of test interpretation with radiology: I have reviewed the radiologist's reading. Radiologist Impression: ght lower quadrant ileostomy. 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 There is remaining rectum appears dilated and filled with fluid. Inferiorly this is to the left of midline and it is difficult to exclude a perirectal fluid collection or abscess. ABDOMINAL WALL: No significant hernia is appreciated.? LYMPH NODES: Normal. VASCULAR: Unremarkable. PELVIC VISCERA: Unremarkable.? OSSEOUS STRUCTURES: Degenerative changes of the spine. CT/CT abdomen pelvis wo IV con IMPRESSION: Severe left hydronephrosis and ureteral dilatation from a 3 adjacent left distal ureteral stones. Small left renal stones. ? Postsurgical changes following colectomy and right lower quadrant ileostomy. Question dilated fluid-filled rectum in the pelvis versus perirectal fluid collection or abscess.? ? Fleischner guidelines were followed. Dictated By: Bridget Montaño MD Signed By: <Electronically signed by Bridget Montaño MD in [place]> 01/25/221953 DD/ 23 TD/TT:? [employer]: [employer] Discharge Plan Discharge Clinical Impression: Renal failure (ARF), acute on chronic, Acute hyponatremia, Hydronephrosis of left kidney
[2022-01-25 19:53] VITALS: BP 155/93; PULSE 82; RESP 16; TEMP 36.9; O2SAT 97
[2022-01-25] MEDS: 0.9 % Sodium Chloride 1,000 ML 999 ML IVCONT ×2 (20:07→20:08)
[2022-01-25] MEDS: ondansetron HCL 4 MG/2 ML VIAL IVPUSH (20:08)
[2022-01-25] MEDS: HYDROmorphone HCl 0.5 MG/0.5 ML SYRINGE IVPUSH (20:43)
[2022-01-25] MEDS: cefTRIAXone sodium 1 GM in 0.9 % Sodium Chloride 50 ML IV (20:44)
[2022-01-25 21:15] LABS: COVID-19 Test Negative (Negative)
[2022-01-25 21:48] VITALS: BP 147/88; PULSE 91; RESP 16; TEMP 36.6; O2SAT 98
--- NOTE | 2022-01-25 22:12 | PC.NURSE ---
Pt resting quietly, no needs expressed at this time.
--- NOTE | 2022-01-25 22:33 | P.HPHOSP_ITS ---
History of Present Illness Date of Service: 01/25/22 Chief Complaint: flank pain 7-year-old male with past medical history of Crohn's presents to the hospital with complaints of left flank pain. Patient reports that on Saturday he developed significant diarrhea which is typical of his Crohn's disease, then this morning he started developing left flank pain that progressively worsened, pain is constant, 8/10, radiating down the groin, associated with vomiting. No relieving or exacerbating factors. Patient reports that he has history of kidney stones and this felt like another kidney stone. He denies any fever no chills, no chest pain no palpitations, no 8 urinary symptoms including no dysuria, frequency or urgency, no lower extremity edema. No numbness tingling On arrival to the ED patient hemodynamically stable with no significant abnormal vitals Labs are significant for WBC count of 17.9, sodium 110 is 6, creatinine of 3.38 with a baseline of 1.63 from September, AST of 77, ALT of 74, urine negative for acute infection but shows large RBC and blood Abdomen pelvic CT shows severe left hydronephrosis and ureteral dilatation from a 3 adjacent left distal ureteral stones, small left renal stones, urology consult, will see patient in a.m. Review of Systems Review of Systems: Yes all other systems are reviewed and are negative [facility] Medical History Colostomy in place Crohn's disease Kidney disease Family History Father Colon cancer Surgical History History of ileostomy Social History Household Members: Spouse Housing: House Do you presently have visiting nurse or other home services: No Patient Tobacco Use Status: Never used Tobacco Use of substances other than those prescribed or required for medical reasons: No Advance Directives: No Advance Directives Information Provided: No Do you have thoughts of harming others: None Do you have a plan to hurt others: No Plan Recently lost weight without trying: No Nutrition Risks: No Nutritional Risk Meds Allergies Allergy/AdvReac Type Severity Reaction Status Date / Time No Known Drug Allergies Allergy Unknown NONE Verified 01/25/22 20:46 Active Medications: Current Medications Pharmacy Consult (Consult Rx Perform Med Rec) 1 each MISCELLANE ONCE PRN PRN Reason: Consult order Home Medications Medication Instructions Recorded Confirmed Last Taken Type adalimumab 40 mg/0.4 mL 40 mg subcut QWEEK 01/25/22 01/25/22 Unknown History subcutaneous pen kit (Humira(CF) Pen) tadalafil 2.5 mg tablet (Cialis) 5 mg PO DAILY PRN Sexual Activity 01/25/22 01/25/22 Unknown History Physical Exam Vital Signs and Narrative: Vital Signs: Last Vital Signs Temp 97.8 F 01/25/22 21:48 Pulse 91 01/25/22 21:48 Resp 16 01/25/22 21:48 BP 147/88 H 01/25/22 21:48 Pulse Ox 98 01/25/22 21:48 O2 Del Method 01/25/22 21:48 BMI result Body Mass Index 29.4 Const: General: cooperative and no acute distress Orientation/con sciousness: patient oriented x3 Eyes: General: appearance normal, both eyes and all related structures Pupils: Equal, round and reactive pupils present Resp: Effort & Inspection: normal respiratory effort Auscultation: clear to auscultation bilaterally Cardio: Rate: regular rate Rhythm: regular rhythm GI: Palpation (GI): Soft to palpation Auscultation: normal bowel sounds : Other: left CVA tenderness Skin: General skin exam: no rashes or lesions noted Neuro: General: patient oriented x3 Cranial nerves: Yes Equal, round and reactive pupils present Cognition (Neuro): normal cognition Extrem: General: Yes normal to inspection and Yes no pedal edema Results Labs CBC and Chem 7: 01/25/22 18:53 01/25/22 23:23 Labs: Laboratory Results - last 24 hr 01/25/22 01/25/22 01/25/22 18:53 18:53 18:53 MCV 91.9 MCH 32.7 MCHC 35.6 RDW 12.9 Plt Count 218 MPV 9.9 Immature Gran % (Auto) 0.3 Neut % (Auto) 88.1 H Lymph % (Auto) 7.0 L [place] % (Auto) 4.2 Eos % (Auto) 0.2 Baso % (Auto) 0.2 Lymph # (Auto) 1.3 [place] # (Auto) 0.8 Eos # (Auto) 0.0 Baso # (Auto) 0.0 Abs Immat Gran (auto) 0.06 H Absolute Neuts (auto) 15.8 H Absolute Nucleated RBC 0.000 Nucleated RBC % (auto) 0.0 PT 12.0 INR 1.0 Anion Gap 17 Estim Creat Clear Calc 26.6 Estimated GFR 19 Random Glucose 168 H Calcium 8.3 L Magnesium 2.3 Total Bilirubin 0.9 AST 77 H ALT 74 H Alkaline Phosphatase 84 Total Protein 9.4 H Albumin 4.4 Urine Color Urine Appearance Urine pH Ur Specific [place] Urine Protein Urine Glucose (UA) Urine Ketones Urine Blood Urine Nitrite Ur Leukocyte Esterase Urine RBC Urine WBC Ur Squamous Epith Cells Urine Bacteria Hyaline Casts COVID-19 (ALISHA) COVID-19 Filter Squad Com 01/25/22 01/25/22 18:53 20:50 MCV MCH MCHC RDW Plt Count MPV Immature Gran % (Auto) Neut % (Auto) Lymph % (Auto) [place] % (Auto) Eos % (Auto) Baso % (Auto) Lymph # (Auto) [place] # (Auto) Eos # (Auto) Baso # (Auto) Abs Immat Gran (auto) Absolute Neuts (auto) Absolute Nucleated RBC Nucleated RBC % (auto) PT INR Anion Gap Estim Creat Clear Calc Estimated GFR Random Glucose Calcium Magnesium Total Bilirubin AST ALT Alkaline Phosphatase Total Protein Albumin Urine Color Yellow Urine Appearance Clear Urine pH 5.5 Ur Specific [place] 1.020 Urine Protein 100 (2+) H Urine Glucose (UA) Negative Urine Ketones Negative Urine Blood Large (3+) H Urine Nitrite Negative Ur Leukocyte Esterase Negative Urine RBC >20 H Urine WBC 0-5 Ur Squamous Epith Cells 0-2 Urine Bacteria None Seen Hyaline Casts 3-5 COVID-19 (ALISHA) Negative COVID-19 Clin Com See Note Imaging Radiologist's Impressions: Impressions Abdomen/Pelvis CT 01/25/22 19:24 IMPRESSION: Severe left hydronephrosis and ureteral dilatation from a 3 adjacent left distal ureteral stones. Small left renal stones. Postsurgical changes following colectomy and right lower quadrant ileostomy. Question dilated fluid-filled rectum in the pelvis versus perirectal fluid collection or abscess. Fleischner guidelines were followed. Assessment and Plan (1) Hydronephrosis with renal and ureteral calculous obstruction: Status: Acute (2) Renal failure (ARF), acute on chronic: Qualifiers: Acute renal failure type: unspecified Chronic kidney disease stage: unspecified stage Qualified Code(s): N17.9 - Acute kidney failure, unspecified; N18.9 - Chronic kidney disease, unspecified Status: Acute (3) Acute hyponatremia: Status: Acute Plan 61-year-old male with past medical history of Crohn's disease presents to the hospital with left flank pain found to have obstructing kidney stone # hydronephrosis with obstructing ureteral calculus - will make patient NPO - scheduled for surgical intervention by Urology in a.m. - IV antibiotics - IV fluids # [place] on CKD - likely secondary to dehydration - will treat with IV fluids - follow BMP # hyponatremia - unclear etiology - asymptomatic - appears acute - will treat with NS - follow BMP q.6 hours # Crohn's - continue home medications DVT prophylaxis: SCDs in the setting of surgical intervention in a.m. given patient's calculus requiring surgical intervention as well as management of severe [place] patient will require minimum too late inpatient hospital stay for further management and monitoring Time Spent With Patient Time: Total time managing care of this patient today ____ minutes. Quality Stroke Does the patient have a stroke diagnosis?: No VTE Prior VTE?: No VTE Risk Level:: Medical - moderate - high VTE Device Contraindication: N/A - Device Ordered VTE Drug Contraindication: Treatment Not Indicated
[2022-01-25] MEDS: Lactated Ringers 1,000 ML 100 ML IVCONT (22:49)
[2022-01-25] MEDS: Morphine Sulfate 4 MG/ML CARTRIDGE IVPUSH (23:31)
--- NOTE | 2022-01-25 23:35 | PC.NURSE ---
Pt c/o increasing pain, pt given PRN pain medications.
[2022-01-25 23:57] VITALS: BP 141/82; PULSE 91; RESP 16; TEMP 36.9; O2SAT 95
[2022-01-26] VITALS (11 sets, daily range): BP systolic 113–160; BP diastolic 71–92; PULSE 84–93; RESP 16–18; TEMP 36.3–37.3; O2SAT 97–99
[2022-01-26 00:16] LABS: Anion Gap 16 (12-20); Blood Urea Nitrogen 58 mg/dL (9-16); Calcium 7.3 mg/dL (8.4-10.2); Carbon Dioxide 15 mmol/L (22-29); Chloride 103 mmol/L (96-108); Creatinine Clr Calc Pharmacy 29.3; Estimated Glomerular Filt Rate 21; Glucose Random 125 mg/dL (60-115); Potassium 4.4 mmol/L (3.3-5.1); Sodium 130 mmol/L (135-145)
[2022-01-26] MEDS: Morphine Sulfate 4 MG/ML CARTRIDGE IVPUSH ×3 (03:09→11:50)
[2022-01-26 05:52] LABS: MANUAL DIFF FLAG NO
[2022-01-26 06:00] LABS: Basophils Percent Auto 0.1 % (0-2); Hematocrit 46.8 % (42.0-52.0); Hemoglobin 16.6 g/dl (14.0-18.0); Imm Gran Abs Auto 0.07 X10*3/uL (0.00-0.03); Imm Gran Pct Auto 0.5 % (0.0-0.4); Lymphocytes Absolute Auto 1.4 X10*3/uL (1.2-4.9); Lymphocytes Percent Auto 9.4 % (20-40); Mean Corpuscular HGB Conc 35.5 g/dl (31.0-36.0); Mean Platelet Volume 10.2 fL (9.4-12.4); Monocytes Absolute Auto 1.1 X10*3/uL (0.1-1.2); Monocytes Percent Auto 7.4 % (2-11); Neutrophils Absolute Auto 12.4 x10*3/uL (2.0-8.3); Neutrophils Percent Auto 82.6 % (45-73); Platelet Count 177 X10*3/uL (160-400); Red Blood Count 5.03 X10*6/uL (4.60-5.80); Red Cell Distribution Width 12.8 % (11.0-16.0); White Blood Count 14.9 X10*3/uL (4.8-10.8)
[2022-01-26] MEDS: ondansetron HCL 4 MG/2 ML VIAL IVPUSH (06:15)
[2022-01-26 06:17] LABS: Anion Gap 15 (12-20); Blood Urea Nitrogen 56 mg/dL (9-16); Calcium 7.5 mg/dL (8.4-10.2); Carbon Dioxide 16 mmol/L (22-29); Chloride 103 mmol/L (96-108); Creatinine Clr Calc Pharmacy 28.6; Estimated Glomerular Filt Rate 20; Glucose Random 111 mg/dL (60-115); Potassium 4.1 mmol/L (3.3-5.1); Sodium 130 mmol/L (135-145)
[2022-01-26] MEDS: 0.9 % Sodium Chloride 1,000 ML 75 ML IVCONT ×2 (06:23→20:10)
--- NOTE | 2022-01-26 08:33 | PM.UROCN ---
History of Present Illness Consult details Consult date: 01/26/22 Narrative: 61-year-old male with past medical history of Crohn's, he states he had ilieostomy at age 19, has had a h/o kidney stones and passed stones in the past. He presents to the hospital with complaints of left flank pain.? Patient reports a viral infection with symptoms of vomiting, he started developing left flank pain that progressively worsened, pain is constant, 8/10, radiating down the groin, associated with vomiting.? No relieving or exacerbating factors.? He denies any fever no chills, no chest pain no palpitations, no 8 urinary symptoms including no dysuria, frequency or urgency, no lower extremity edema.? No numbness tingling. He has chronic kidney disease and is followed by Nephrology, labs on admission: Labs are significant for? WBC count of 17.9, sodium 110 is 6, creatinine of 3.38 with a baseline of 1.63 from September. Abdomen pelvic CT shows severe left hydronephrosis and ureteral dilatation from a 3 adjacent left distal ureteral stones, small left renal stones, Review of Systems Review of Systems: 10 point ROS negative other than stated in HPI [facility] Past Medical History Medical History Colostomy in place Crohn's disease Kidney disease Family History Family History Father Colon cancer Surgical History Surgical History History of ileostomy Social History Social History Household Members: Spouse Housing: House Do you presently have visiting nurse or other home services: No Patient Tobacco Use Status: Never used Tobacco Use of substances other than those prescribed or required for medical reasons: No Advance Directives: No Advance Directives Information Provided: No Do you have thoughts of harming others: None Do you have a plan to hurt others: No Plan Recently lost weight without trying: No Nutrition Risks: No Nutritional Risk Meds Allergies Allergy/AdvReac Type Severity Reaction Status Date / Time No Known Drug Allergies Allergy Unknown NONE Verified 01/25/22 20:46 Active Medications: Current Medications Acetaminophen (Acetaminophen 325 Mg Tablet) 650 mg PO Q6H PRN PRN Reason: Pain, Mild (Pain Scale 1-3) Docusate Sodium (Docusate Sodium 100 Mg Capsule) 100 mg PO DAILY PRN PRN Reason: Constipation Ceftriaxone Sodium 1 gm/ (Sodium Chloride) 50 mls @ 100 mls/hr IV Q24H [facility] Sodium Chloride (Ns) 1,000 mls @ 75 mls/hr IVCONT .[id number] [facility] Last Admin: 01/26/22 06:23 Dose: 75 mls/hr Morphine Sulfate (Morphine Sulfate 4 Mg/Ml Cartridge) 4 mg IVPUSH Q4H PRN; Protocol PRN Reason: Pain, Severe (Pain Scale 7-10) Last Admin: 01/26/22 07:16 Dose: 4 mg Ondansetron HCl (Ondansetron Hcl 4 Mg/2 Ml Vial) 4 mg IVPUSH Q8H PRN PRN Reason: Nausea and Vomiting Last Admin: 01/26/22 06:15 Dose: 4 mg Pharmacy Consult (Consult Rx Perform Med Rec) 1 each MISCELLANE ONCE PRN PRN Reason: Consult order Sodium Chloride (0.9 % Sodium Chloride Flush 3 Ml Syringe) 3 ml IVFLUSH QSHIFT [facility] Last Admin: 01/26/22 07:09 Dose: Not Given Home Medications Medication Instructions Recorded Confirmed Last Taken Type adalimumab 40 mg/0.4 mL 40 mg subcut QWEEK 01/25/22 01/25/22 Unknown History subcutaneous pen kit (Humira(CF) Pen) tadalafil 2.5 mg tablet (Cialis) 5 mg PO DAILY PRN Sexual Activity 01/25/22 01/25/22 Unknown History Physical Exam Vital Signs: Vital Signs: Last Vital Signs Temp 98.9 F 01/26/22 08:00 Pulse 85 01/26/22 08:00 Resp 18 01/26/22 08:00 BP 134/74 01/26/22 08:00 Pulse Ox 97 01/26/22 08:00 O2 Del Method 01/26/22 08:00 BMI result Body Mass Index 29.4 Const: General: no acute distress and well developed Orientation/consciousness: patient oriented x3 HEENT: Head: Yes normocephalic and Yes atraumatic Eyes: Conjunctivae: conjunctivae normal Neck: Neck: Yes normal visual inspection Chest: Chest palpation & inspection: normal inspection of the chest Resp: Effort & Inspection: normal respiratory effort Cardio: Rate: regular rate GI: Other: right lower quadrant - iieostomy Inspection: Yes normal to inspection Palpation (GI): Soft to palpation : General: Yes CVA tenderness (Left) Back/Spine/Pelvis: Back: CVA tenderness (Left) Skin: General skin exam: no rashes or lesions noted Neuro: General: patient oriented x3 Extrem: General: No pedal edema Psych: Appearance: grossly normal Affect: normal affect Results Labs Result diagrams: 01/26/22 05:21 01/26/22 05:21 Labs: Abnormal lab results 01/25/22 01/25/22 01/25/22 Range/Units 18:53 18:53 18:53 WBC 17.9 H (4.8-10.8) X10*3/uL Hgb 18.5 H (14.0-18.0) g/dl Immature Gran % (Auto) (0.0-0.4) % Neut % (Auto) 88.1 H (45-73) % Lymph % (Auto) 7.0 L (20-40) % Abs Immat Gran (auto) 0.06 H (0.00-0.03) X10*3/uL Absolute Neuts (auto) 15.8 H (2.0-8.3) x10*3/uL Sodium 126 L (135-145) mmol/L Carbon Dioxide 16 L (22-29) mmol/L BUN 58 H (9-16) mg/dL Creatinine 3.38 H (0.5-1.4) mg/dL Random Glucose 168 H (60-115) mg/dL Calcium 8.3 L (8.4-10.2) mg/dL AST 77 H (5-37) U/L ALT 74 H (0-40) U/L Total Protein 9.4 H (6.5-8.0) g/dL Urine Protein 100 (2+) H (Neg-Trace) mg/dL Urine Blood Large (3+) H (Negative) Urine RBC >20 H (0-2) /HPF 01/25/22 01/26/22 01/26/22 Range/Units 23:23 05:21 05:21 WBC 14.9 H (4.8-10.8) X10*3/uL Hgb (14.0-18.0) g/dl Immature Gran % (Auto) 0.5 H (0.0-0.4) % Neut % (Auto) 82.6 H (45-73) % Lymph % (Auto) 9.4 L (20-40) % Abs Immat Gran (auto) 0.07 H (0.00-0.03) X10*3/uL Absolute Neuts (auto) 12.4 H (2.0-8.3) x10*3/uL Sodium 130 L 130 L (135-145) mmol/L Carbon Dioxide 15 L 16 L (22-29) mmol/L BUN 58 H 56 H (9-16) mg/dL Creatinine 3.07 H 3.14 H (0.5-1.4) mg/dL Random Glucose 125 H (60-115) mg/dL Calcium 7.3 L D 7.5 L (8.4-10.2) mg/dL AST (5-37) U/L ALT (0-40) U/L Total Protein (6.5-8.0) g/dL Urine Protein (Neg-Trace) mg/dL Urine Blood (Negative) Urine RBC (0-2) /HPF Short CBC 01/25/22 01/26/22 Range/Units 18:53 05:21 WBC 17.9 H 14.9 H (4.8-10.8) X10*3/uL Hgb 18.5 H 16.6 (14.0-18.0) g/dl Hct 51.9 46.8 (42.0-52.0) % Plt Count 218 177 (160-400) X10*3/uL BMP 01/25/22 01/25/22 01/26/22 18:53 23:23 05:21 Sodium 126 L 130 L 130 L Potassium 3.8 D 4.4 4.1 Chloride 97 103 103 Carbon Dioxide 16 L 15 L 16 L BUN 58 H 58 H 56 H Creatinine 3.38 H 3.07 H 3.14 H Calcium 8.3 L 7.3 L D 7.5 L Liver Function 01/25/22 Range/Units 18:53 Total Bilirubin 0.9 (0.0-1.0) mg/dL AST 77 H (5-37) U/L ALT 74 H (0-40) U/L Alkaline Phosphatase 84 (39-117) U/L Albumin 4.4 (3.5-5.0) g/dL Urine 01/25/22 Range/Units 18:53 Urine Color Yellow Urine Appearance Clear Urine pH 5.5 (5.0-9.0) Ur Specific [place] 1.020 (1.005-1.025) Urine Protein 100 (2+) H (Neg-Trace) mg/dL Urine Glucose (UA) Negative (Negative) mg/dL Imaging Abdomen CT scan report/results: report reviewed and image reviewed CT scan - pelvis: report reviewed and image reviewed Additional studies: Date of Service: 01/25/22 EXAMINATION: CT ABDOMEN AND PELVIS WITHOUT CONTRAST? CLINICAL INFORMATION: Left-sided back/flank pain. Question kidney stones.? COMPARISON: Lumbar spine x-ray September 2020? FINDINGS: LUNG BASES: The visualized lung bases are unremarkable.? LIVER, GALLBLADDER, AND BILIARY TREE: The liver is normal in size, shape, and attenuation. No focal hepatic lesion or biliary ductal dilatation is present. The gallbladder is unremarkable with no evidence of radiopaque gallstones, gallbladder wall thickening, or obvious pericholecystic inflammatory changes.? PANCREAS: Unremarkable.? SPLEEN: Unremarkable.? ADRENAL GLANDS: Unremarkable.? KIDNEYS AND URETERS: There is severe left hydronephrosis and ureteral dilatation from 3 adjacent left distal ureteral stones measuring 3 x 6 mm and 2 x 3 mm and 3 x 6 mm. There are small left lower pole renal stones. The right kidney is normal. BLADDER: Not optimally distended.? GASTROINTESTINAL TRACT: Postsurgical changes from colectomy and right lower quadrant ileostomy. 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 There is remaining rectum appears dilated and filled with fluid. Inferiorly this is to the left of midline and it is difficult to exclude a perirectal fluid collection or abscess. ABDOMINAL WALL: No significant hernia is appreciated.? LYMPH NODES: Normal. VASCULAR: Unremarkable. PELVIC VISCERA: Unremarkable.? OSSEOUS STRUCTURES: Degenerative changes of the spine. IMPRESSION: Severe left hydronephrosis and ureteral dilatation from a 3 adjacent left distal ureteral stones. Small left renal stones. ? Postsurgical changes following colectomy and right lower quadrant ileostomy. Question dilated fluid-filled rectum in the pelvis versus perirectal fluid collection or abscess.? ? Assessment and Plan (1) Hydronephrosis with renal and ureteral calculous obstruction: Status: Acute (2) Renal failure (ARF), acute on chronic: Qualifiers: Acute renal failure type: unspecified Chronic kidney disease stage: unspecified stage Qualified Code(s): N17.9 - Acute kidney failure, unspecified; N18.9 - Chronic kidney disease, unspecified Status: Acute Plan Plan for Cystoscopy, Left ureteral stent possible ureteroscopy, laser lithotripsy. Risks discussed included but not limited to, possible need to repeat procedure if stone is not completely fragmented, Irritative voiding symptoms, bladder spasms, urgency, blood in urine. Time Spent With Patient Time: Total time managing care of this patient today ____ minutes. Procedures Date of Service Date of Service: 01/26/22
--- NOTE | 2022-01-26 09:37 | PHA.MEDREC ---
Pharmacy Consult ? Medication Reconciliation Pharmacy has completed the medication reconciliation. TEE Elizalde spoke with patient 01/25 and patient reported he was BP medication. Contact [facility] pharmacy this morning they have no medications on file. Almita Perez, PharmD
--- NOTE | 2022-01-26 10:04 | HO.PM.IMPN ---
Subjective Subjective Date of Service: 01/26/22 Interval History: 7-year-old male admitted with severe left hydronephrosis secondary to left distal ureteral stone. Pain control adequate overnight Review of Systems Denies chest pain Denies shortness of breath Denies nausea vomiting diarrhea Denies fever chills Admits left leg pain Physical Exam Vital Signs: Vital Signs: Last Vital Signs Temp 98.9 F 01/26/22 08:00 Pulse 85 01/26/22 08:00 Resp 18 01/26/22 08:00 BP 134/74 01/26/22 08:00 Pulse Ox 97 01/26/22 08:00 O2 Del Method 01/26/22 08:00 BMI result Body Mass Index 29.4 Const: Other: No acute distress lying comfortably in bed Resp: Other: Clear to auscultation bilaterally no rales rhonchi or wheezes Cardio: Other: No S4; positive S1-S2; no S3 murmurs rubs or gallops GI: Other: Soft nontender nondistended normoactive bowel sounds Extrem: Other: No edema bilaterally Objective Data Active Medications Acetaminophen (Acetaminophen 325 Mg Tablet) 650 mg PO Q6H PRN PRN Reason: Pain, Mild (Pain Scale 1-3) Docusate Sodium (Docusate Sodium 100 Mg Capsule) 100 mg PO DAILY PRN PRN Reason: Constipation Ceftriaxone Sodium 1 gm/ (Sodium Chloride) 50 mls @ 100 mls/hr IV Q24H [facility] Sodium Chloride (Ns) 1,000 mls @ 75 mls/hr IVCONT .[id number] [facility] Last Admin: 01/26/22 06:23 Dose: 75 mls/hr Documented By: CLIFTON Morphine Sulfate (Morphine Sulfate 4 Mg/Ml Cartridge) 4 mg IVPUSH Q4H PRN; Protocol PRN Reason: Pain, Severe (Pain Scale 7-10) Last Admin: 01/26/22 07:16 Dose: 4 mg Documented By: VASQUEZ Ondansetron HCl (Ondansetron Hcl 4 Mg/2 Ml Vial) 4 mg IVPUSH Q8H PRN PRN Reason: Nausea and Vomiting Last Admin: 01/26/22 06:15 Dose: 4 mg Documented By: CLIFTON Pharmacy Consult (Consult Rx Perform Med Rec) 1 each MISCELLANE ONCE PRN PRN Reason: Consult order Sodium Chloride (0.9 % Sodium Chloride Flush 3 Ml Syringe) 3 ml IVFLUSH QSHIFT [facility] Last Admin: 01/26/22 07:09 Dose: Not Given Documented By: VASQUEZ Non-Admin Reason: IV Running Labs CBC & Chem 7: 01/26/22 05:21 01/26/22 05:21 Labs: Laboratory Results - last 24 hr 01/25/22 01/25/22 01/25/22 18:53 18:53 18:53 MCV 91.9 MCH 32.7 MCHC 35.6 RDW 12.9 Plt Count 218 MPV 9.9 Immature Gran % (Auto) 0.3 Neut % (Auto) 88.1 H Lymph % (Auto) 7.0 L [place] % (Auto) 4.2 Eos % (Auto) 0.2 Baso % (Auto) 0.2 Lymph # (Auto) 1.3 [place] # (Auto) 0.8 Eos # (Auto) 0.0 Baso # (Auto) 0.0 Abs Immat Gran (auto) 0.06 H Absolute Neuts (auto) 15.8 H Absolute Nucleated RBC 0.000 Nucleated RBC % (auto) 0.0 PT 12.0 INR 1.0 Anion Gap 17 Estim Creat Clear Calc 26.6 Estimated GFR 19 Random Glucose 168 H Calcium 8.3 L Magnesium 2.3 Total Bilirubin 0.9 AST 77 H ALT 74 H Alkaline Phosphatase 84 Total Protein 9.4 H Albumin 4.4 Urine Color Urine Appearance Urine pH Ur Specific [place] Urine Protein Urine Glucose (UA) Urine Ketones Urine Blood Urine Nitrite Ur Leukocyte Esterase Urine RBC Urine WBC Ur Squamous Epith Cells Urine Bacteria Hyaline Casts COVID-19 (ALISHA) COVID-19 Clin Com 01/25/22 01/25/22 01/25/22 18:53 20:50 23:23 MCV MCH MCHC RDW Plt Count MPV Immature Gran % (Auto) Neut % (Auto) Lymph % (Auto) [place] % (Auto) Eos % (Auto) Baso % (Auto) Lymph # (Auto) [place] # (Auto) Eos # (Auto) Baso # (Auto) Abs Immat Gran (auto) Absolute Neuts (auto) Absolute Nucleated RBC Nucleated RBC % (auto) PT INR Anion Gap 16 Estim Creat Clear Calc 29.3 Estimated GFR 21 Random Glucose 125 H Calcium 7.3 L D Magnesium Total Bilirubin AST ALT Alkaline Phosphatase Total Protein Albumin Urine Color Yellow Urine Appearance Clear Urine pH 5.5 Ur Specific [place] 1.020 Urine Protein 100 (2+) H Urine Glucose (UA) Negative Urine Ketones Negative Urine Blood Large (3+) H Urine Nitrite Negative Ur Leukocyte Esterase Negative Urine RBC >20 H Urine WBC 0-5 Ur Squamous Epith Cells 0-2 Urine Bacteria None Seen Hyaline Casts 3-5 COVID-19 (ALISHA) Negative COVID-19 Clin Com See Note 01/26/22 01/26/22 05:21 05:21 MCV 93.0 MCH 33.0 MCHC 35.5 RDW 12.8 Plt Count 177 MPV 10.2 Immature Gran % (Auto) 0.5 H Neut % (Auto) 82.6 H Lymph % (Auto) 9.4 L [place] % (Auto) 7.4 Eos % (Auto) 0.0 Baso % (Auto) 0.1 Lymph # (Auto) 1.4 [place] # (Auto) 1.1 Eos # (Auto) 0.0 Baso # (Auto) 0.0 Abs Immat Gran (auto) 0.07 H Absolute Neuts (auto) 12.4 H Absolute Nucleated RBC 0.000 Nucleated RBC % (auto) 0.0 PT INR Anion Gap 15 Estim Creat Clear Calc 28.6 Estimated GFR 20 Random Glucose 111 Calcium 7.5 L Magnesium Total Bilirubin AST ALT Alkaline Phosphatase Total Protein Albumin Urine Color Urine Appearance Urine pH Ur Specific [place] Urine Protein Urine Glucose (UA) Urine Ketones Urine Blood Urine Nitrite Ur Leukocyte Esterase Urine RBC Urine WBC Ur Squamous Epith Cells Urine Bacteria Hyaline Casts COVID-19 (ALISHA) COVID-19 Clin Com Assessment and Plan (1) Hydronephrosis with renal and ureteral calculous obstruction: Status: Acute (2) Renal failure (ARF), acute on chronic: Status: Acute Plan 61-year-old male with past medical history of Crohn's disease presents to the hospital with left flank pain found to have obstructing kidney stone 1.Hydronephrosis with obstructing ureteral calculus - NPO - scheduled for surgical intervention by Urology this afternoon - IV antibiotics - IV fluids 2.[place] on CKD - likely secondary to dehydration.. Follow response to stone removal and stent placement - will treat with IV fluids - follow renals/divalents 3.Hyponatremia - follow clinically 4. Crohn's - continue home medications -no acute issues DVT prophylaxis: SCDs in the setting of surgical intervention in a.m. Will require ongoing hospitalization for IV antibiotics to treat hydro and left ureteral stone prior to removal Time Spent With Patient Time: Total time managing care of this patient today ____ minutes. Quality Stroke Does the patient have a stroke diagnosis?: No VTE Prior VTE?: No VTE Risk Level:: Medical - moderate - high VTE Device Contraindication: N/A - Device Ordered VTE Drug Contraindication: Treatment Not Indicated
--- NOTE | 2022-01-26 11:19 | P.CDIC_ITS ---
CDI Concurrent Query Documentation Clarification: PHYSICIAN'S DOCUMENTATION REQUEST Date of Query: 01/26/22 1119 Patient Name: Sarbjit Jay Admit Date: 01/25/22 Dear Doctor, A review of the medical record indicates additional documentation may be needed. Please review below and update the documentation accordingly. Is there a diagnosis that correlates with these lab findings: Risk Factors/Clinical Indicators/Treatments LABS: calcium 7.3 7.5 Based on the above, could you clarify in the Progress Notes the appropriate diagnosis, if significant, that supports the above abnormalities and additional evaluation, monitoring, and/or treatment rendered: * Hypocalcemia * Labs indicate a diagnosis of (please specify) * Other (please specify) * Unable to determine Use of terms such as suspected, likely, concern for, or probable (associated with a specific diagnosis that is being evaluated, monitored, or treated as if it exists) are acceptable and can be coded in the inpatient setting, when documented at the time of discharge. Thank you, Heather Fan [place], CDIS Extension: [phone] Please use your independent medical judgment in providing your response. THIS QUERY IS PART OF THE PERMANENT MEDICAL RECORD Provider Response: Other Other Diagnosis: Hypocalcemia
--- NOTE | 2022-01-26 11:23 | MHC.CM.PN ---
EMR REVIEWED, PT ADMITTED W/OBSTRUCTING KIDNEY STONE W/PLAN FOR OR TODAY, CM MET W/PT WHO REPORTS HE LIVES W/, IS INDEP W/ALL CARE, DENIES USE OF DME AND HOME SERVICES AND DOES NOT ANTIC NEED. PT VERIFIES PCP COLT SIMPSON, PFIZER X2 AND MODERNA X2, HCP IS [facility] AND COPY REQUESTED. D/C PLAN: HOME SELF CARE WHEN MEDICALLY CLEAR W/FAMILY FOR TRANSPORT
--- NOTE | 2022-01-26 15:33 | HO.ANESPROP2 ---
HPI - Anesthesia Eval Consult details Narrative: ureter-blocking stone PMFSH Active Problems Active Problems: All Active Problems (Updated 01/26/22 @ 10:07 by Merrill Bass DO) Crohn's disease (Acute) Hydronephrosis with renal and ureteral calculous obstruction (Acute) Renal failure (ARF), acute on chronic (Acute) Acute hyponatremia (Acute) Hydronephrosis of left kidney (Acute) Past Medical History Medical History Colostomy in place Crohn's disease Kidney disease Family History Family History Father Colon cancer Family history of problems with anesthesia: No Surgical History Surgical History History of ileostomy History of Problems with Anesthesia: No Social History Social History Household Members: Spouse Housing: House Do you presently have visiting nurse or other home services: No Patient Tobacco Use Status: Never used Tobacco Use of substances other than those prescribed or required for medical reasons: No Currently Displaying Signs/Symptoms of Drug Intoxication Withdrawal: No Advance Directives: No Advance Directives Information Provided: No Do you have thoughts of harming others: None Do you have a plan to hurt others: No Plan Recently lost weight without trying: No Nutrition Risks: No Nutritional Risk service: No Current occupational status: employed Meds Allergies Allergy/AdvReac Type Severity Reaction Status Date / Time No Known Drug Allergies Allergy Unknown NONE Verified 01/25/22 20:46 Active Medications: Current Medications Acetaminophen (Acetaminophen 325 Mg Tablet) 650 mg PO Q6H PRN PRN Reason: Pain, Mild (Pain Scale 1-3) Docusate Sodium (Docusate Sodium 100 Mg Capsule) 100 mg PO DAILY PRN PRN Reason: Constipation Ceftriaxone Sodium 1 gm/ (Sodium Chloride) 50 mls @ 100 mls/hr IV Q24H [facility] Sodium Chloride (Ns) 1,000 mls @ 75 mls/hr IVCONT .[id number] [facility] Last Admin: 01/26/22 06:23 Dose: 75 mls/hr Morphine Sulfate (Morphine Sulfate 4 Mg/Ml Cartridge) 4 mg IVPUSH Q4H PRN; Protocol PRN Reason: Pain, Severe (Pain Scale 7-10) Last Admin: 01/26/22 11:50 Dose: 4 mg Ondansetron HCl (Ondansetron Hcl 4 Mg/2 Ml Vial) 4 mg IVPUSH Q8H PRN PRN Reason: Nausea and Vomiting Last Admin: 01/26/22 06:15 Dose: 4 mg Pharmacy Consult (Consult Rx Perform Med Rec) 1 each MISCELLANE ONCE PRN PRN Reason: Consult order Sodium Chloride (0.9 % Sodium Chloride Flush 3 Ml Syringe) 3 ml IVFLUSH QSHIFT [facility] Last Admin: 01/26/22 07:09 Dose: Not Given Home Medications Medication Instructions Recorded Confirmed Last Taken Type adalimumab 40 mg/0.4 mL 40 mg subcut QWEEK 01/25/22 01/25/22 Unknown History subcutaneous pen kit (Humira(CF) Pen) tadalafil 2.5 mg tablet (Cialis) 5 mg PO DAILY PRN Sexual Activity 01/25/22 01/25/22 Unknown History Exam Exam Date and Time: January 26, 2022 1533 Height,Weight and Vital Signs: Height 5 ft 10 in Weight 92.986 kg Last Vital Signs Temp 97.6 F 01/26/22 15:04 Pulse 85 01/26/22 15:04 Resp 18 01/26/22 15:04 BP 141/74 H 01/26/22 15:04 Pulse Ox 98 01/26/22 15:04 O2 Del Method 01/26/22 15:04 Pertinent Lab Results Pertinent Lab Results: Laboratory Tests 01/25/22 01/25/22 01/25/22 18:53 18:53 18:53 WBC 17.9 H RBC 5.65 Hgb 18.5 H Hct 51.9 MCV 91.9 MCH 32.7 MCHC 35.6 RDW 12.9 Plt Count 218 MPV 9.9 Immature Gran % (Auto) 0.3 Neut % (Auto) 88.1 H Lymph % (Auto) 7.0 L [place] % (Auto) 4.2 Eos % (Auto) 0.2 Baso % (Auto) 0.2 Lymph # (Auto) 1.3 [place] # (Auto) 0.8 Eos # (Auto) 0.0 Baso # (Auto) 0.0 Abs Immat Gran (auto) 0.06 H Absolute Neuts (auto) 15.8 H Absolute Nucleated RBC 0.000 Nucleated RBC % (auto) 0.0 PT 12.0 INR 1.0 Sodium 126 L Potassium 3.8 D Chloride 97 Carbon Dioxide 16 L Anion Gap 17 BUN 58 H Creatinine 3.38 H Estim Creat Clear Calc 26.6 Estimated GFR 19 Random Glucose 168 H Calcium 8.3 L Magnesium 2.3 Total Bilirubin 0.9 AST 77 H ALT 74 H Alkaline Phosphatase 84 Total Protein 9.4 H Albumin 4.4 Urine Color Urine Appearance Urine pH Ur Specific [place] Urine Protein Urine Glucose (UA) Urine Ketones Urine Blood Urine Nitrite Ur Leukocyte Esterase Urine RBC Urine WBC Ur Squamous Epith Cells Urine Bacteria Hyaline Casts COVID-19 (ALISHA) COVID-19 Clin Com 01/25/22 01/25/22 01/25/22 18:53 20:50 23:23 WBC RBC Hgb Hct MCV MCH MCHC RDW Plt Count MPV Immature Gran % (Auto) Neut % (Auto) Lymph % (Auto) [place] % (Auto) Eos % (Auto) Baso % (Auto) Lymph # (Auto) [place] # (Auto) Eos # (Auto) Baso # (Auto) Abs Immat Gran (auto) Absolute Neuts (auto) Absolute Nucleated RBC Nucleated RBC % (auto) PT INR Sodium 130 L Potassium 4.4 Chloride 103 Carbon Dioxide 15 L Anion Gap 16 BUN 58 H Creatinine 3.07 H Estim Creat Clear Calc 29.3 Estimated GFR 21 Random Glucose 125 H Calcium 7.3 L D Magnesium Total Bilirubin AST ALT Alkaline Phosphatase Total Protein Albumin Urine Color Yellow Urine Appearance Clear Urine pH 5.5 Ur Specific [place] 1.020 Urine Protein 100 (2+) H Urine Glucose (UA) Negative Urine Ketones Negative Urine Blood Large (3+) H Urine Nitrite Negative Ur Leukocyte Esterase Negative Urine RBC >20 H Urine WBC 0-5 Ur Squamous Epith Cells 0-2 Urine Bacteria None Seen Hyaline Casts 3-5 COVID-19 (ALISHA) Negative COVID-19 Clin Com See Note 01/26/22 01/26/22 05:21 05:21 WBC 14.9 H RBC 5.03 Hgb 16.6 Hct 46.8 MCV 93.0 MCH 33.0 MCHC 35.5 RDW 12.8 Plt Count 177 MPV 10.2 Immature Gran % (Auto) 0.5 H Neut % (Auto) 82.6 H Lymph % (Auto) 9.4 L [place] % (Auto) 7.4 Eos % (Auto) 0.0 Baso % (Auto) 0.1 Lymph # (Auto) 1.4 [place] # (Auto) 1.1 Eos # (Auto) 0.0 Baso # (Auto) 0.0 Abs Immat Gran (auto) 0.07 H Absolute Neuts (auto) 12.4 H Absolute Nucleated RBC 0.000 Nucleated RBC % (auto) 0.0 PT INR Sodium 130 L Potassium 4.1 Chloride 103 Carbon Dioxide 16 L Anion Gap 15 BUN 56 H Creatinine 3.14 H Estim Creat Clear Calc 28.6 Estimated GFR 20 Random Glucose 111 Calcium 7.5 L Magnesium Total Bilirubin AST ALT Alkaline Phosphatase Total Protein Albumin Urine Color Urine Appearance Urine pH Ur Specific [place] Urine Protein Urine Glucose (UA) Urine Ketones Urine Blood Urine Nitrite Ur Leukocyte Esterase Urine RBC Urine WBC Ur Squamous Epith Cells Urine Bacteria Hyaline Casts COVID-19 (ALISHA) COVID-19 Clin Com Airway Mallampati Class: II TM Dist: >3cm Neck ROM: Full Heart: RRR Lungs: CTA Assessment and Plan Assessment Anesthesia Assessment: Anesthesia Plan Discussed and Chart Reviewed Final Anesthetic Review Family History of Problems with Anesthesia: No History of Problems with Anesthesia: No NPO: Yes ASA Class: III and Emergency Final Preanesthetic Review: No Changes in Pt Med Stat, Meds/Allgs Chart Reviewed and Consent Obtained/Reviewed Patient Risk: Intermediate Procedure Risk: Low Anesthetic Plan Anesthetic Plan: GA Disposition: Standard PACU
--- NOTE | 2022-01-26 16:12 | P.HPSUR_ITS ---
Pre-Procedural Eval Section A Date of Service: 01/26/22 The patient is an INPATIENT: Yes Section B Chief Complaint: obstructing kidney stone, [place] Allergies: Allergies Allergy/AdvReac Type Severity Reaction Status Date / Time No Known Drug Allergies Allergy Unknown NONE Verified 01/25/22 20:46 Plan Diagnosis/Plan: Unchanged I have reviewed the history and physical and performed a pertinent physical examination on my patient. No changes have occurred unless specified. Plan for Cystoscopy, Left ureteral stent, possible ureteroscopy, laser li thotripsy. Risks discussed included but not limited to, possible need to repeat procedure if stone is not completely fragmented, Irritative voiding symptoms, bladder spasms, urgency, blood in urine. Time Spent With Patient Time: Total time managing care of this patient today ____ minutes.
--- NOTE | 2022-01-26 17:11 | W.PM.OPN ---
Operative Note Operative Note Date of Service: 01/26/22 Narrative: PreOperative Diagnosis:?? Left obstructive ureteral stones Post Operative Diagnosis:?? left obstructive ureteral stones Procedure: - Cystoscopy, Left retrograde, insertion 6 [place] by 26 cm on the left, Right retrograde Surgeon:?Dr Minnie Evangelista Anesthesia:? General Indications for procedure: Sarbjit is a 61-year-old male with history of Crohn's disease status post bowel resection and APR, status post ileostomy, history of kidney stones admitted with left flank pain acute kidney injury on top of chronic kidney disease secondary to obstructing left ureteral stones. Procedure: After informed consent was verified the patient was brought to the operating placed on the OR table in supine position.? General Anesthesia was administered per protocol.? The patient was placed in lithotomy position, prepped and draped in the usual sterile fashion.? Safety pause time-out and side of surgery confirmed.? Antibiotics confirmed. 2% lidocaine jelly 10 mL was passed transurethrally. A 22 [place]inese cystoscope was inserted transurethrally, the bulbous urethra was within normal limits. The prostatic urethra was nonobstructive. The bladder was visualized.? The trigone was irregular, an open-ended was passed through the right ureteral orifice and a retrograde was done noting the distal right ureter. An open-ended ureteral catheter was passed into the left ureteral orifice and a retrograde examination was performed. There was a filling defect in the Upper 3rd of the distal ureter and significant dilatation proximal. A guidewire was passed through the ureteral catheter into the kidney. There was brown tinged cloudy urine consistent with low blood and pyuria that was draining from the left kidney.A? 6 [place] by 26 cm stent was placed into the ureter and renal pelvis under a combination of fluoroscopy and direct visualization. The bladder was emptied.? The rigid cystoscope was removed. ? The patient tolerated the procedure well and was brought to the recovery room in stable condition. Complications: None Drains: Ureteral stent as dictated above
[2022-01-26] MEDS: cefTRIAXone sodium 1 GM in 0.9 % Sodium Chloride 50 ML IV (20:08)
[2022-01-27 03:29] VITALS: BP 110/61; PULSE 73; RESP 16; TEMP 36.4; O2SAT 98
[2022-01-27 06:41] LABS: Anion Gap 11 (12-20); Blood Urea Nitrogen 54 mg/dL (9-16); Calcium 7.4 mg/dL (8.4-10.2); Carbon Dioxide 18 mmol/L (22-29); Chloride 109 mmol/L (96-108); Creatinine Clr Calc Pharmacy 31.3; Estimated Glomerular Filt Rate 23; Glucose Random 91 mg/dL (60-115); Potassium 4.1 mmol/L (3.3-5.1); Sodium 134 mmol/L (135-145)
[2022-01-27] MEDS: 0.9 % Sodium Chloride Flush 3 ML SYRINGE IVFLUSH (07:09)
[2022-01-27 07:33] VITALS: BP 100/57; PULSE 71; RESP 17; TEMP 36.2; O2SAT 96
[2022-01-27] MEDS: Lactated Ringers 1,000 ML 150 ML IVCONT ×2 (10:57→17:12)
--- NOTE | 2022-01-27 11:06 | HO.POSTANES ---
Post Anesthesia Evaluation Post Anesthesia Evaluation Vital Signs: Vital Signs Temp Pulse Resp BP Pulse Ox O2 Del Method 01/27/22 07:33 97.1 F 71 17 100/57 L 96 Room Air 01/27/22 03:29 97.6 F 73 16 110/61 98 Anesthesia: General LMA Mental Status: Awake Pain Control: Satisfactory Nausea/Vomiting: None Hydration: Adequate Anesthesia-Related Issues: No Anes. Related Issues
[2022-01-27 12:08] LABS: Anion Gap 11 (12-20); Blood Urea Nitrogen 55 mg/dL (9-16); Calcium 7.5 mg/dL (8.4-10.2); Carbon Dioxide 19 mmol/L (22-29); Chloride 110 mmol/L (96-108); Estimated Glomerular Filt Rate 24; Glucose Random 76 mg/dL (60-115); Potassium 3.4 mmol/L (3.3-5.1); Sodium 137 mmol/L (135-145)
--- NOTE | 2022-01-27 12:14 | HO.PM.IMPN ---
Subjective Subjective Date of Service: 01/27/22 Interval History: Admitted for left hydronephrosis secondary to obstructing renal calculus. Did well with stenting; creatinine slow to return to baseline. No acute issues overnight Review of Systems Denies chest pain Denies shortness of breath Denies nausea vomiting diarrhea Denies fever chills Admits left leg pain Physical Exam Vital Signs: Vital Signs: Last Vital Signs Temp 97.1 F 01/27/22 07:33 Pulse 71 01/27/22 07:33 Resp 17 01/27/22 07:33 BP 100/57 L 01/27/22 07:33 Pulse Ox 96 01/27/22 07:33 O2 Del Method 01/27/22 07:33 O2 Flow Rate 6 01/26/22 17:22 BMI result Body Mass Index 29.4 Const: Other: No acute distress lying comfortably in bed Resp: Other: Clear to auscultation bilaterally no rales rhonchi or wheezes Cardio: Other: No S4; positive S1-S2; no S3 murmurs rubs or gallops GI: Other: Soft nontender nondistended normoactive bowel sounds Extrem: Other: No edema bilaterally Objective Data Active Medications Acetaminophen (Acetaminophen 325 Mg Tablet) 650 mg PO Q6H PRN PRN Reason: Pain, Mild (Pain Scale 1-3) Docusate Sodium (Docusate Sodium 100 Mg Capsule) 100 mg PO DAILY PRN PRN Reason: Constipation Fentanyl (Fentanyl Citrate/Pf 100 Mcg/2 Ml Vial) 25 mcg IVPUSH Q5M PRN; Protocol PRN Reason: Pain, Moderate (Pain Scale 4-6 Hydromorphone HCl (Hydromorphone Hcl 0.5 Mg/0.5 Ml Syringe) 0.5 mg IVPUSH Q5M PRN; Protocol PRN Reason: Pain, Severe (Pain Scale 7-10) Ceftriaxone Sodium 1 gm/ (Sodium Chloride) 50 mls @ 100 mls/hr IV Q24H [facility] Last Infusion: 01/26/22 20:48 Dose: 0 mls/hr Documented By: CHIARA Promethazine HCl 12.5 mg/ (Sodium Chloride) 50.5 mls @ 202 mls/hr IV ONCE PRN PRN Reason: Nausea and Vomiting Lactated Ringer's (Lr) 1,000 mls @ 150 mls/hr IVCONT .[id number] [facility] Last Admin: 01/27/22 10:57 Dose: 150 mls/hr Documented By: SIDNEY Morphine Sulfate (Morphine Sulfate 4 Mg/Ml Cartridge) 4 mg IVPUSH Q4H PRN; Protocol PRN Reason: Pain, Severe (Pain Scale 7-10) Last Admin: 01/26/22 11:50 Dose: 4 mg Documented By: MEHRDAD Ondansetron HCl (Ondansetron Hcl 4 Mg/2 Ml Vial) 4 mg IVPUSH Q8H PRN PRN Reason: Nausea and Vomiting Last Admin: 01/26/22 06:15 Dose: 4 mg Documented By: CLIFTON Pharmacy Consult (Consult Rx Perform Med Rec) 1 each MISCELLANE ONCE PRN PRN Reason: Consult order Sodium Chloride (0.9 % Sodium Chloride Flush 3 Ml Syringe) 3 ml IVFLUSH QSHIFT [facility] Last Admin: 01/27/22 07:09 Dose: 3 ml Documented By: SIDNEY Labs CBC & Chem 7: 01/26/22 05:21 01/27/22 11:38 Labs: Laboratory Results - last 24 hr 01/27/22 01/27/22 05:57 11:38 Anion Gap 11 L 11 L Estim Creat Clear Calc 31.3 33.0 Estimated GFR 23 24 Random Glucose 91 76 Calcium 7.4 L 7.5 L Microbiology Microbiology Results: Microbiology 01/26/22 16:50 Urine Culture - Preliminary Urine clean catch - Clean Catch Midstream No growth to date. Assessment and Plan (1) Hydronephrosis with renal and ureteral calculous obstruction: Status: Acute (2) Renal failure (ARF), acute on chronic: Status: Acute Plan 61-year-old male with past medical history of Crohn's disease presents to the hospital with left flank pain found to have obstructing kidney stone 1.Hydronephrosis with obstructing ureteral calculus - no issues with stenting -follow-up cultures 2.[place] on CKD - sluggish response in creatinine after stent - will treat with IV fluids - follow renals/divalents in a.m. 3.Hyponatremia - normalized - follow clinically 4. Crohn's - continue home medications -no acute issues DVT prophylaxis: SCDs in the setting of surgical intervention in a.m. Will require ongoing hospitalization for IV antibiotics to treat hydro and left ureteral stone prior to removal Time Spent With Patient Time: Total time managing care of this patient today ____ minutes. Quality Stroke Does the patient have a stroke diagnosis?: No VTE Prior VTE?: No VTE Risk Level:: Medical - moderate - high VTE Device Contraindication: N/A - Device Ordered VTE Drug Contraindication: Treatment Not Indicated
--- NOTE | 2022-01-27 12:53 | P.PNUR_ITS ---
Subjective Subjective Date of Service: 01/27/22 Patient reports: no new complaints Interval history: 61-year-old male with past medical history of Crohn's, he states he had ilieostomy at age 19, has had a h/o kidney stones and passed stones in the past.? He presents to the hospital with complaints of left flank pain.? He has chronic kidney disease and is followed by Nephrology, labs on admission: Labs are significant for? WBC count of 17.9, sodium 110 is 6, creatinine of 3.38 with a baseline of 1.63 from September. Abdomen pelvic CT shows severe left hydronephro sis and ureteral dilatation from a 3 adjacent left distal ureteral stones, small left renal stones S/P cystoscopy left ureteral stent on 01/26/2022. Renal function improving slowly. Plan will be for further stone management as an outpatient. Physical Exam Vital Signs: Vital Signs: Last Vital Signs Temp 97.1 F 01/27/22 07:33 Pulse 71 01/27/22 07:33 Resp 17 01/27/22 07:33 BP 100/57 L 01/27/22 07:33 Pulse Ox 96 01/27/22 07:33 O2 Del Method 01/27/22 07:33 O2 Flow Rate 6 01/26/22 17:22 BMI result Body Mass Index 29.4 Const: General: no acute distress and well developed Orientatio n/consciousness: patient oriented x3 HEENT: Head: Yes normocephalic and Yes atraumatic Eyes: Conjunctivae: conjunctivae normal Neck: Neck: Yes normal visual inspection Chest: Chest palpation & inspection: normal inspection of the chest Resp: Effort & Inspection: normal respiratory effort Cardio: Rate: regular rate GI: Inspection: Yes normal to inspection Palpation (GI): Soft to palpation Skin: General skin exam: no rashes or lesions noted Neuro: General: patient oriented x3 Extrem: General: No pedal edema Psych: Appearance: grossly normal Affect: normal affect Urology Results Labs CBC & Chem 7: 01/26/22 05:21 01/27/22 11:38 Labs: Laboratory Results - last 24 hr 01/27/22 01/27/22 05:57 11:38 Sodium 134 L 137 Potassium 4.1 3.4 Chloride 109 H 110 H Carbon Dioxide 18 L 19 L Anion Gap 11 L 11 L BUN 54 H 55 H Creatinine 2.87 H 2.72 H Estim Creat Clear Calc 31.3 33.0 Estimated GFR 23 24 Random Glucose 91 76 Calcium 7.4 L 7.5 L Progress Note: A&P Assessment and plan (1) Crohn's disease: Status: Acute (2) Hydronephrosis with renal and ureteral calculous obstruction: Status: Acute (3) Renal failure (ARF), acute on chronic: Status: Acute Plan S/P cystoscopy left ureteral stent on 01/26/2022. Renal function improving slowly. Plan will be for further stone management as an outpatient. Time Spent With Patient Time: Total time managing care of this patient today ____ minutes. Progress Note: Quality Stroke Does the patient have a stroke diagnosis?: No
[2022-01-27 15:09] VITALS: BP 114/61; PULSE 75; RESP 18; TEMP 37.6; O2SAT 97
[2022-01-27 17:51] LABS: Anion Gap 10 (12-20); Blood Urea Nitrogen 54 mg/dL (9-16); Calcium 7.7 mg/dL (8.4-10.2); Carbon Dioxide 21 mmol/L (22-29); Chloride 111 mmol/L (96-108); Creatinine Clr Calc Pharmacy 34.7; Estimated Glomerular Filt Rate 25; Glucose Random 100 mg/dL (60-115); Potassium 3.5 mmol/L (3.3-5.1); Sodium 138 mmol/L (135-145)
[2022-01-27 19:24] VITALS: BP 114/57; PULSE 68; RESP 18; TEMP 36.6; O2SAT 97
[2022-01-27] MEDS: cefTRIAXone sodium 1 GM in 0.9 % Sodium Chloride 50 ML IV (20:22)
[2022-01-28] MEDS: Lactated Ringers 1,000 ML 150 ML IVCONT (00:20)
[2022-01-28 06:07] LABS: Hematocrit 44.9 % (42.0-52.0); Hemoglobin 15.8 g/dl (14.0-18.0); Mean Corpuscular HGB Conc 35.2 g/dl (31.0-36.0); Mean Corpuscular Hemoglobin 33.4 pg (27.0-33.0); Mean Corpuscular Volume 94.9 fL (80.0-98.0); Mean Platelet Volume 10.1 fL (9.4-12.4); Platelet Count 166 X10*3/uL (160-400); Red Blood Count 4.73 X10*6/uL (4.60-5.80); Red Cell Distribution Width 13.2 % (11.0-16.0)
[2022-01-28 06:42] LABS: Alanine Aminotransferase 36 U/L (0-40); Albumin Level 3.1 g/dL (3.5-5.0); Alkaline Phosphatase 53 U/L (39-117); Anion Gap 12 (12-20); Aspartate Amino Transferase 30 U/L (5-37); Bilirubin Total 0.7 mg/dL (0.0-1.0); Blood Urea Nitrogen 43 mg/dL (9-16); Calcium 7.8 mg/dL (8.4-10.2); Carbon Dioxide 21 mmol/L (22-29); Chloride 113 mmol/L (96-108); Creatinine Clr Calc Pharmacy 40.1; Estimated Glomerular Filt Rate 30; Glucose Fasting 84 mg/dL (60-99); Potassium 3.6 mmol/L (3.3-5.1); Sodium 142 mmol/L (135-145); Total Protein 6.8 g/dL (6.5-8.0)
--- NOTE | 2022-01-28 08:46 | MHC.CM.PN ---
PT MEDICALLY CLEARED FOR D/C HOME SELF-CARE W/ FOR TRANSPORT
--- NOTE | 2022-01-28 09:55 | PM.DS ---
DS: Providers Provider Date of Service: 01/28/22 Date of admission: 01/25/22 22:30 Date of discharge: 01/28/22 Primary care physician: Hansel Martinez MD Consults: 01/25/22 22:32 Consult to Urology Routine Consulting Provider: Minnie Evangelista Reason for consultation: obstructing stone Has provider been notified: No 01/28/22 07:13 Consult to Nephrology Stat Consulting Provider: Reinier Babb Reason for consultation: [place] Has provider been notified: Yes DS: Diagnosis Discharge Diagnosis (1) Crohn's disease: Status: Acute (2) Hydronephrosis with renal and ureteral calculous obstruction: Status: Acute (3) Renal failure (ARF), acute on chronic: Status: Acute DS: Summary Hospital Course Hospital Course: 61-year-old male with past medical history of Crohn's presents to the hospital with complaints of left flank pain.? Patient reports that on Saturday he developed significant diarrhea which is typical of his Crohn's disease, then this morning he started developing left flank pain that progressively worsened, pain is constant, 8/10, radiating down the groin, associated with vomiting.? No relieving or exacerbating factors.? Patient reports that he has history of kidney stones and this felt like another kidney stone.? He denies any fever no chills, no chest pain no palpitations, no 8 urinary symptoms including no dysuria, frequency or urgency, no lower extremity edema.? No numbness tingling On arrival to the ED patient hemodynamically stable with no significant abnormal vitals Labs are significant for? WBC count of 17.9, sodium 110 is 6, creatinine of 3.38 with a baseline of 1.63 from September, AST of 77, ALT of 74, urine negative for acute infection but shows large RBC and blood Abdomen pelvic CT shows severe left hydronephrosis and ureteral dilatation from a 3 adjacent left distal ureteral stones, small left renal stones. [facility] Admitted to general medical floor. Seen in consultation by Urology; on 01/26/2022 underwent cystoscopy left retrograde with insertion of 6 [place] by 26 cm stent with removal of stone. Postprocedure his creatinine remained somewhat elevated; he was kept additional 24 hours on IV fluids and creatinine was less than 2.5 he was seen in consultation by Nephrology who agreed was appropriate for discharge and he can follow up with Dr. Mendez whom he was seen in the past Time Spent with Patient Time attestation: Total time managing care of this patient today ____ minutes. Discharge coordination time: Greater than 30 minutes Quality: Safe Use of Opioids Does Pt have an Active Cancer Diagnosis on the Problem List?: No Quality: Stroke Does the patient have a stroke diagnosis?: No Physical Exam Vital Signs: Vital Signs: Last Vital Signs Temp 97.8 F 01/27/22 19:24 Pulse 68 01/27/22 19:24 Resp 18 01/27/22 19:24 BP 114/57 L 01/27/22 19:24 Pulse Ox 97 01/27/22 19:24 O2 Del Method 01/27/22 19:24 O2 Flow Rate 6 01/26/22 17:22 BMI result Body Mass Index 29.4 Const: Other: No acute distress lying comfortably in bed Resp: Other: Clear to auscultation bilaterally no rales rhonchi or wheezes Cardio: Other: No S4; positive S1-S2; no S3 murmurs rubs or gallops GI: Other: Soft nontender nondistended normoactive bowel sounds Extrem: Other: No edema bilaterally DS: Data Data Completed and Pending Labs on day of discharge: Laboratory Results - last 24 hr 01/27/22 01/27/22 01/28/22 11:38 17:13 05:03 WBC 10.0 RBC 4.73 Hgb 15.8 Hct 44.9 MCV 94.9 MCH 33.4 H MCHC 35.2 RDW 13.2 Plt Count 166 MPV 10.1 Absolute Nucleated RBC 0.000 Nucleated RBC % (auto) 0.0 Sodium 137 138 Potassium 3.4 3.5 Chloride 110 H 111 H Carbon Dioxide 19 L 21 L Anion Gap 11 L 10 L BUN 55 H 54 H Creatinine 2.72 H 2.59 H Estim Creat Clear Calc 33.0 34.7 Estimated GFR 24 25 Random Glucose 76 100 Fasting Glucose Calcium 7.5 L 7.7 L Total Bilirubin AST ALT Alkaline Phosphatase Total Protein Albumin 01/28/22 05:03 WBC RBC Hgb Hct MCV MCH MCHC RDW Plt Count MPV Absolute Nucleated RBC Nucleated RBC % (auto) Sodium 142 Potassium 3.6 Chloride 113 H Carbon Dioxide 21 L Anion Gap 12 BUN 43 H Creatinine 2.24 H Estim Creat Clear Calc 40.1 Estimated GFR 30 Random Glucose Fasting Glucose 84 Calcium 7.8 L Total Bilirubin 0.7 AST 30 ALT 36 Alkaline Phosphatase 53 Total Protein 6.8 Albumin 3.1 L Preliminary micro results at discharge 01/26/22 16:50 Urine Culture - Preliminary Urine clean catch - Clean Catch Midstream No growth to date. Discharge Plan Discharge Anticipated Discharge Date/Time: 01/28/22 09:54 Patient Disposition: Home, Self-Care Discharge Diagnosis: Hydronephrosis with renal and ureteral calculus obstruction on the left Referrals: Hansel Martinez MD [Primary Care Provider] - 1 Week Discharge Medications: Continued tadalafil [Cialis] 2.5 mg Tablet 5 mg PO DAILY PRN (Reason: Sexual Activity) Rx Instructions: administer approximately 30min before sexual activity; do not use more than 1 dose per 24hrs Humira(CF) Pen 40 mg/0.4 mL pen injector kit 40 mg subcut QWEEK Discharge Orders: Discharge Order (Routine); Ordered 01/28/22 Ordered By: Merrill Bass Diet: Advance to usual diet Activity on Discharge: As tolerated Stand Alone Forms: Patient Portal Discharge page Care Plan Goals: Resume all pre-hospital medications Health Concerns: Follow-up with urology as indicated Plan of Treatment: Plenty of fluids. Follow-up with PCP 2 weeks Assessment: See discharge summary
== END 2022-01-28 10:18 | disposition home or self-care (01) | DRG 660 ==
LOC: HO.ED 19:46 → HO.EDOVER 22:46 → HO.S3 01-26 00:07
PROVIDERS: Physician Assistant Medical; Urology; Admitting Provider Internal Medicine; Emergency Provider Emergency Medicine; PCP Internal Medicine; Visit Provider Hospitalist
PROC: 0T778DZ Dilation of Left Ureter with Intraluminal Device, Via Natural or Artificial Opening Endoscopic (ICD-10-PCS; principal; 2022-01-26 16:10)
DX: N13.2 Hydronephrosis with renal and ureteral calculous obstruction (principal); E87.1 Hypo-osmolality and hyponatremia; K50.90 Crohn's disease, unspecified, without complications; N17.9 Acute kidney failure, unspecified; E86.0 Dehydration; N18.9 Chronic kidney disease, unspecified; E83.51 Hypocalcemia; Z20.822 Contact with and (suspected) exposure to COVID-19; Z93.2 Ileostomy status; Z79.899 Other long term (current) drug therapy
CPT/HCPCS: 36415; 74176; 80048; 80053; 81001; 81003; 83735; 85025; 85027; 85610; 87086; 87635; 96361; 96374; 96375; 99285; C2617; J0690; J0696; J1100; J1170; J2270; J2405; J3010; Q9967

== ENCOUNTER 2022-02-20 08:17 | Outpatient (REF) | payer OTHER, SELFPAY ==
--- NOTE | ~2022-02-20 | XR_ITS ---
EXAMINATION: XR ABDOMEN KUB CLINICAL INDICATION: Renal calculus COMPARISON: CT abdomen pelvis on 01/25/2022 TECHNIQUE: AP view of the abdomen. FINDINGS: The bowel gas pattern is normal with no evidence of ileus or obstruction. No unusual soft tissue calcifications are noted. The bones are unremarkable. There is a left-sided ureteral stent. There are are multiple surgical clips throughout the abdomen. XR/XR KUB IMPRESSION: No renal calculi.
== END 2022-02-20 08:18 | disposition home or self-care (01) ==
LOC: HO.XRAY 08:17
PROVIDERS: PCP Internal Medicine; Visit Provider Urology
DX: N13.2 Hydronephrosis with renal and ureteral calculous obstruction (principal)
CPT/HCPCS: 74018; 87086

== ENCOUNTER 2022-03-06 05:51 | Day surgery (SDC) | payer OTHER, SELFPAY ==
[2022-02-28 15:08] VITALS: BMI 30.4
--- NOTE | 2022-03-05 09:49 | P.CONAN_ITS ---
Documented by User: Nimisha Tuttle NP 03/05/22 09:52 HPI - Anesthesia Eval Consult details Narrative: 62yo M for Left Cystoscopy, Ureteroroscopy, Retro, Laser,with poss stent placement s/p cysto 01/2022 with GA-LMA 5 ileostomy in situ PMFSH Active Problems Active Problems: All Active Problems (Updated 02/28/22 @ 15:07 by Pau Mckinney RN) Crohn's disease (Acute) Past Medical History Medical History (Updated 02/28/22 @ 15:07 by Pau Mckinney RN) Colostomy in place Crohn's disease Family history of adverse response to anesthesia in father Kidney disease Renal calculus Family History Family History Father Colon cancer Family history of problems with anesthesia: No Surgical History Surgical History (Updated 02/28/22 @ 15:06 by Pau Mckinney RN) H/O colonoscopy History of ileostomy Hx of cystoscopy History of Problems with Anesthesia: No Social History Social History Household Members: Spouse Housing: House Are you a primary long term care social worker to a significant other at home: No Do you presently have visiting nurse or other home services: No Patient Tobacco Use Status: Never used Tobacco Use of substances other than those prescribed or required for medical reasons: No Have you been hit, kicked, punched, or otherwise hurt by someone within the past year? If so, by whom?: No Are you DNR?: No Advance Directives: No Advance Directives Information Provided: Yes (brochure mailed) Advance Directives on File: No Recently lost weight without trying: No Eating poorly because of decreased appetite: No Nutrition Risks: No Nutritional Risk Poor oral hygiene: No service: No Current occupational status: employed Meds Allergies Allergy/AdvReac Type Severity Reaction Status Date / Time No Known Allergies Allergy Verified 02/28/22 14:57 Home Medications Medication Instructions Recorded Confirmed Last Taken Type adalimumab 40 mg/0.4 mL 40 mg subcut QWEEK 01/25/22 02/28/22 Unknown History subcutaneous pen kit (Humira(CF) Pen) tadalafil 2.5 mg tablet (Cialis) 5 mg PO DAILY PRN Sexual Activity 12/15/22 01/18/23 Unknown History losartan 25 mg tablet 12.5 mg PO DAILY 02/28/22 02/28/22 03/02/22 History Exam Exam Date and Time: March 05, [id number] Height,Weight and Vital Signs: Height 5 ft 9 in Weight 93.44 kg Pertinent Lab Results Pertinent Lab Results: Laboratory Tests 01/28/22 05:03 WBC 10.0 Hgb 15.8 Hct 44.9 Plt Count 166 Assessment and Plan Assessment Anesthesia Assessment: Chart Reviewed Final Anesthetic Review Family History of Problems with Anesthesia: No History of Problems with Anesthesia: No Documented by User: Catracho Dougherty MD 03/06/22 07:31 [facility] Past Medical History Medical History (Updated 02/28/22 @ 15:07 by Pau Mckinney RN) Colostomy in place Crohn's disease Family history of adverse response to anesthesia in father Kidney disease Renal calculus Family History Family History Father Colon cancer Family history of problems with anesthesia: No Surgical History Surgical History (Updated 02/28/22 @ 15:06 by Pau Mckinney RN) H/O colonoscopy History of ileostomy Hx of cystoscopy History of Problems with Anesthesia: No Social History Social History Household Members: Spouse Housing: House Are you a primary long term care social worker to a significant other at home: No Do you presently have visiting nurse or other home services: No Patient Tobacco Use Status: Never used Tobacco Use of substances other than those prescribed or required for medical reasons: No Have you been hit, kicked, punched, or otherwise hurt by someone within the past year? If so, by whom?: No Are you DNR?: No Advance Directives: No Advance Directives Information Provided: Yes (brochure mailed) Advance Directives on File: No Recently lost weight without trying: No Eating poorly because of decreased appetite: No Nutrition Risks: No Nutritional Risk Poor oral hygiene: No service: No Current occupational status: employed Meds Allergies Allergy/AdvReac Type Severity Reaction Status Date / Time No Known Allergies Allergy Verified 02/28/22 14:57 Home Medications Medication Instructions Recorded Confirmed Last Taken Type adalimumab 40 mg/0.4 mL 40 mg subcut QWEEK 01/25/22 02/28/22 Unknown History subcutaneous pen kit (Humira(CF) Pen) tadalafil 2.5 mg tablet (Cialis) 5 mg PO DAILY PRN Sexual Activity 01/25/22 02/28/22 Unknown History losartan 25 mg tablet 12.5 mg PO DAILY 02/28/22 02/28/22 03/02/22 History Exam Narrative Narrative: bun/creat /1.8 Airway Mallampati Class: III TM Dist: >3cm Neck ROM: Full Heart: ok Lungs: ok Assessment and Plan Final Anesthetic Review Family History of Problems with Anesthesia: No History of Problems with Anesthesia: No NPO: Yes ASA Class: III Final Preanesthetic Review: No Changes in Pt Med Stat, Meds/Allgs Chart Reviewed, Consent Obtained/Reviewed and Anes Risks/Benef Reviewed Patient Risk: Intermediate Procedure Risk: Low Anesthetic Plan Anesthetic Plan: GA and Agree w/ Assess. and Plan Disposition: Standard PACU
[2022-03-06] VITALS (8 sets, daily range): BP systolic 105–136; BP diastolic 70–85; PULSE 66–80; RESP 14–18; TEMP 36.2–36.6; O2SAT 95–98; BMI 30.2
--- NOTE | ~2022-03-06 | FL_ITS ---
EXAMINATION: XR FLUOROSCOPY WITH IMAGES CLINICAL INFORMATION: Left hydronephrosis and hydroureter. Left ureteral calculi. COMPARISON: KUB 02/20/2022, CT abdomen and pelvis noncontrast 01/25/2022 TECHNIQUE: Fluoroscopy Supervised By: Dr. Evangelista. Fluoroscopy Time: 46 seconds. Cumulative Dose: 19.91 mGy. Images: 2. FINDINGS: A left ureteral stent is in position. There are scattered surgical clips again seen throughout the abdomen. FL/FL guidance in OR IMPRESSION: Fluoroscopy for urologic procedures.
[2022-03-06] MEDS: Lactated Ringers 1,000 ML 100 ML IVCONT (06:29)
--- NOTE | 2022-03-06 06:30 | P.HPSUR_ITS ---
Pre-Procedural Eval Section A Date of Service: 03/06/22 The patient is an INPATIENT: No Section B Chief Complaint: Calculus of ureter Details of Present Illness: 61-year-old male with past medical history of Crohn's, he states he had ilieostomy at age 19, has had a h/o kidney stones and passed stones in the past. He has chronic kidney disease and is followed by Nephrology, He had recent hospital admission; labs on admission: Labs are significant for WBC count of 17.9, sodium 110 is 6, creatinine of 3.38 with a baseline of 1.63 from September. Abdomen pelvic CT shows severe left hydronephrosis and ureteral dilatation from a 3 adjacent left distal ureteral stones, small left renal stones. S/P cystoscopy left ureteral stent on 01/26/2022. Allergies: Allergies Allergy/AdvReac Type Severity Reaction Status Date / Time No Known Allergies Allergy Verified 02/28/22 14:57 Review of Systems Review of Systems Comment: 10 point ROS negative other than stated in HPI Exam Surgical H&P Exam: Normal: HEENT, Normal: Heart, Normal: Lungs, Normal: Extremit ies and Normal: Neurological Plan Diagnosis/Plan: Unchanged I have reviewed the history and physical and performed a pertinent physical examination on my patient. No changes have occurred unless specified. Plan for Cystoscopy, Left ureteroscopy, possible laser lithotripsy, possible ureteral stent exchange. Risks discussed included but not limited to, possible need to repeat procedure if stone is not completely fragmented, Irritative voiding symptoms, bladder spasms, urgency, blood in urine. Time Spent With Patient Time: Total time managing care of this patient today ____ minutes.
[2022-03-06 06:46] LABS: Anion Gap 12 (12-20); Blood Urea Nitrogen 21 mg/dL (9-16); Calcium 8.9 mg/dL (8.4-10.2); Carbon Dioxide 25 mmol/L (22-29); Chloride 108 mmol/L (96-108); Creatinine Clr Calc Pharmacy 48.8; Estimated Glomerular Filt Rate 39; Glucose Fasting 103 mg/dL (60-99); Potassium 4.6 mmol/L (3.3-5.1); Sodium 140 mmol/L (135-145)
--- NOTE | 2022-03-06 08:55 | P.OP_ITS ---
Operative Note Operative Note Date of Service: 03/06/22 Narrative: PreOperative Diagnosis:?? Left obstructive ureteral stones Post Operative Diagnosis:??? left obstructive ureteral stones Procedure:? - ??Cystoscopy, ? Left ureteroscopy,?stent exchange 6 [place] by? 26 cm? on the left, ? Surgeon:?Tenzin Evangelista Anesthesia:? General Indications for procedure:??Sarbjit is a 61-year-old male with history of Crohn's disease status post bowel resection and APR,? status post ileostomy, history of kidney stones, chronic kidney? disease, s/p left ureteral stent secondary to obstructing left ureteral stones. Procedure:??After informed consent was verified the patient was brought to the operating placed on the OR table in supine position.? General Anesthesia was administered per protocol.? The patient was placed in? lithotomy position, p repped and draped in the usual sterile fashion.? Safety pause time-out and side of surgery confirmed.? Antibiotics confirmed.? 2% lidocaine jelly? 10 mL was passed transurethrally.? A 22 [place] cystoscope was inserted transurethrally,? the bulbous urethra was within normal limits.? The prostatic urethra had obstructive median lobe. The bladder was visualized.? ? The trigone was irregular, the distal end of the stent was noted and a grasping forceps was used to pull the stent distally out the the penile meatus. The guide wire was then passed through the stent into the kidney. Initially a rigid ureteroscope was used and passed alongside the guide wire into the distal ureter but was difficult to manipulate past the distal ureter. The ureteroscope was removed. An access shealth was passed over the guide wire and a second guide wire was placed and used as a safety. The flexible ureteroscope was passed over one guide wire, there was inflammatory changes and oozing of blood from the ureteral mucosa and due to the tissue swelling, edema and tortuousity, the flexible ureteroscope was not able to be muanipulated beyond the distal ureter, no stones were visualized. After removing the ureteroscope, the cystoscope was passed over the safety wire and 6 [place] by? 26 cm stent was placed into the ureter and renal pelvis? under a combination of fluoroscopy and direct visualization.? The bladder was emptied.? The rigid cystoscope was removed. ?2% lidocaine jelly? 10 mL was passed transurethrally.? The patient tolerated the procedure well and was? brought to? the recovery room in stable condition. Complications:?None Drains:? Ureteral stent as dictated above
== END 2022-03-06 10:35 | disposition home or self-care (01) ==
PROVIDERS: Nurse Practitioner; PCP Internal Medicine; Visit Provider Urology
PROC: (CPT 52332; principal; 2022-03-06 07:30)
DX: N20.1 Calculus of ureter (principal); K50.90 Crohn's disease, unspecified, without complications; Z93.2 Ileostomy status; Z79.899 Other long term (current) drug therapy
CPT/HCPCS: 52332; 36415; 80048; C1769; C1894; C2617; J0690; J1885; J3010; Q9967

== ENCOUNTER 2022-03-26 05:57 | Emergency (ER) | payer OTHER, SELFPAY ==
--- NOTE | ~2022-03-26 | US_ITS ---
EXAMINATION: US KIDNEY, LEFT CLINICAL INFORMATION: Flank pain. History urinary tract calculi. COMPARISON: CT abdomen and pelvis 01/25/2022. Fluoroscopic spot views left urinary tract 03/06/2022. TECHNIQUE: Real-time imaging of the left kidney and bladder is performed using grayscale imaging and color Doppler. FINDINGS: RIGHT KIDNEY: Not imaged. LEFT KIDNEY/BLADDER: 14.7 x 6.1 x 8.1 cm (SAG x AP x TRV). There is prominent hydronephrosis. A ureteral stent is present with proximal end residing at the ureteropelvic junction. The distal end of the ureteral stent is in the urinary bladder. There is nonspecific intermediate echogenicity clumped debris in the bladder near the distal ureteral stent measuring approximately 1.6 x 1.8 cm. There is no visible cystic or solid renal mass. No perinephric fluid. No visible ureteral or bladder calculi. US/US renal LT IMPRESSION: -Prominent left hydronephrosis. Nonspecific clumped debris in the urinary bladder adjacent to distal end of the left ureteral stent. Proximal end of ureteral stent at UPJ.
[2022-03-26 06:08] VITALS: BP 171/107; PULSE 94; RESP 14; TEMP 36.6; O2SAT 99; BMI 30.2
[2022-03-26 06:25] LABS: Basophils Absolute Auto 0.1 X10*3/uL (0.0-0.2); Basophils Percent Auto 0.6 % (0-2); Eosinophils Percent Auto 0.3 % (0-4); Hematocrit 46.1 % (42.0-52.0); Hemoglobin 16.2 g/dl (14.0-18.0); Imm Gran Abs Auto 0.05 X10*3/uL (0.00-0.03); Imm Gran Pct Auto 0.4 % (0.0-0.4); Lymphocytes Absolute Auto 1.8 X10*3/uL (1.2-4.9); Lymphocytes Percent Auto 12.6 % (20-40); MANUAL DIFF FLAG NO; Mean Corpuscular HGB Conc 35.1 g/dl (31.0-36.0); Mean Corpuscular Hemoglobin 32.7 pg (27.0-33.0); Mean Corpuscular Volume 93.1 fL (80.0-98.0); Mean Platelet Volume 8.9 fL (9.4-12.4); Monocytes Absolute Auto 1.1 X10*3/uL (0.1-1.2); Monocytes Percent Auto 7.4 % (2-11); Neutrophils Absolute Auto 11.2 x10*3/uL (2.0-8.3); Neutrophils Percent Auto 78.7 % (45-73); Platelet Count 186 X10*3/uL (160-400); Red Blood Count 4.95 X10*6/uL (4.60-5.80); Red Cell Distribution Width 13.1 % (11.0-16.0); White Blood Count 14.2 X10*3/uL (4.8-10.8)
[2022-03-26 06:46] LABS: Alanine Aminotransferase 22 U/L (0-40); Albumin Level 3.6 g/dL (3.5-5.0); Alkaline Phosphatase 62 U/L (39-117); Anion Gap 16 (12-20); Aspartate Amino Transferase 22 U/L (5-37); Blood Urea Nitrogen 18 mg/dL (9-16); Calcium 8.2 mg/dL (8.4-10.2); Carbon Dioxide 21 mmol/L (22-29); Chloride 101 mmol/L (96-108); Creatinine Clr Calc Pharmacy 36.5; Estimated Glomerular Filt Rate 28; Glucose Random 119 mg/dL (60-115); Potassium 3.9 mmol/L (3.3-5.1); Sodium 134 mmol/L (135-145); Total Protein 7.6 g/dL (6.5-8.0)
--- NOTE | 2022-03-26 06:59 | ED.ABDPAIN ---
HPI - Abdominal Pain General Chief Complaint: General Medical Stated Complaint: kidney stone Time Seen by Provider: 03/26/22 06:44 Source: patient and old records reviewed Mode of arrival: ambulatory Limitations: no limitations History of Present Illness HPI narrative: 62 yo male with hx of Crohns on Humira with ileostomy, HTN, and kidney stones with reported ESWL in February and stent in January by Dr. Yost who comes in with c/o 24 hours of L flank pain that he states feels like a typical stone to him. He has been able to urinate. Has no fevers or vomiting. He denies change in ostomy. He tried to flush the stone out on its own but states the pain persists. MD elicited complaint: flank pain Pertinent past history: kidney stones Onset (ago): day(s) (1) Pain Consistency: constant Location: L flank Severity: moderate Quality: stabbing Radiation: none Migration to: no migration Exacerbating factors: nothing Context: history of similar episodes Associated symptoms: denies other symptoms Related Data Home Medications Medication Instructions Recorded Confirmed adalimumab 40 mg/0.4 mL 40 mg subcut QWEEK 01/25/22 02/28/22 subcutaneous pen kit (Humira(CF) Pen) tadalafil 2.5 mg tablet (Cialis) 5 mg PO DAILY PRN Sexual Activity 01/25/22 02/28/22 losartan 25 mg tablet 12.5 mg PO DAILY 02/28/22 02/28/22 Previous Rx's Medication Instructions Recorded cefuroxime axetil 500 mg tablet 500 mg PO BID 7 days #14 tabs 03/06/22 oxybutynin chloride 10 mg 10 mg PO DAILY bladder spasms, 03/06/22 tablet,extended release 24 hr leakage #90 tabs oxycodone-acetaminophen 5 mg-325 1 tab PO Q6H PRN pain #10 tabs 03/06/22 mg tablet (Percocet) morphine 15 mg immediate release 15 mg PO TID PRN pain #10 tabs 03/26/22 tablet ondansetron 4 mg disintegrating 4 mg PO Q8H PRN nausea and 03/26/22 tablet vomiting #20 tabs Allergies Allergy/AdvReac Type Severity Reaction Status Date / Time No Known Allergies Allergy Verified 02/28/22 14:57 Review of Systems Review of Systems Constitutional : No Weight loss, No Fever, No Chills ENT/Mouth : No sore throat, No Rhinorrhea Eyes: No Swelling, No Redness Cardiovascular : No Chest Pain, No SOB, NoEdema Respiratory : No Cough, No Sputum, No Wheezing Gastrointestinal : no Nausea, no Vomiting, no Diarrhea, positive abdominal Pain, No Hematochezia, No Melena Genitourinary : No Dysuria, No Urinary Frequency, No Hematuria, No Urgency Musculoskeletal : No joint pain, No Myalgias, No Joint Swelling Skin : No Skin Lesions, No rash Neuro : No Weakness, No Numbness, No Dizziness, No Headache Psych : No Anxiety/Panic, No Depression Heme/Lymph: No Bruising, No Lymphadenopathy Endocrine : No Polyuria, No Polydipsia All other systems reviewed and are negative. [facility] Past Medical History Attestation statement: The following information was validated with the patient. Medical History Colostomy in place Crohn's disease Family history of adverse response to anesthesia in father Kidney disease Renal calculus Surgical History H/O colonoscopy History of ileostomy Hx of cystoscopy Family History Family History Father Colon cancer Social History Social History Household Members: Spouse Housing: House Are you a primary career and transition teacher to a significant other at home: No Do you presently have visiting nurse or other home services: No Patient Tobacco Use Status: Never used Tobacco Advance Directives: Yes Advance Directives Information Provided: Yes Advance Directives on File: No service: No Current occupational status: employed Physical Exam ED Vital Signs: Vital Signs - 24 hr 03/26/22 06:08 03/26/22 09:50 03/26/22 12:51 Temperature 97.8 F 98.7 F 98.6 F Pulse Rate 94 83 80 Respiratory Rate 14 16 16 Blood Pressure 171/107 H 153/85 H 128/78 Pulse Oximetry 99 96 94 Oxygen Delivery Method Room Air Room Air Room Air 03/26/22 14:47 Temperature 97.7 F Pulse Rate 74 Respiratory Rate 16 Blood Pressure 130/72 Pulse Oximetry 94 Oxygen Delivery Method Room Air BMI result Body Mass Index 30.2 Appearance: Alert. Oriented X3. No acute distress. Eyes: Pupils equal, round and reactive to light. ENT: Pharynx normal. Neck: Normal inspection. Neck supple. CVS: Normal heart rate and rhythm. Pulses normal. Respiratory: No respiratory distress. Breath sounds normal. Abdomen: Soft and nontender. Ostomy is productive Skin: Skin warm and dry. Normal skin color. Normal skin turgor. Extremities: No lower extremity edema. No calf ttp Neuro: Oriented X 3. No motor deficit. No sensory deficit. Course Course Course Narrative: Dr. Ying aware and will review images discussed with Dr. Ying - call the office this afternoon and he can follow up as outpatient discussed US findings. can be managed as outpatient per Dr. Ying Medical Decision Making Medical Decision Making [facility] Narrative: 62 yo male with hx of Crohns on Humira with ileostomy, HTN, and kidney stones with reported ESWL in February and stent in January at this time L flank pain feels typical of his stone. He denies fevers, n/v change in ostomy. He has a benign abdominal exam at this time. Will obtain basic labs, UA, US to evaluate for hydronephrosis and treat pain with IV dilaudid. Dispo per results and findings. Differential Diagnosis Differential Diagnoses: The differential diagnosis associated with the presentation includes constipation, UTI, renal colic Consult Healthcare Provider Management of the patient was discussed with: Political Theory Professor Lab Data [facility] Lab Attestation statement: I reviewed the patient's lab results. 03/26/22 06:22 03/26/22 06:22 Labs: Lab Results 03/26/22 03/26/22 03/26/22 Range/Units 06:22 06:22 07:12 WBC 14.2 H (4.8-10.8) X10*3/uL RBC 4.95 (4.60-5.80) X10*6/uL Hgb 16.2 (14.0-18.0) g/dl Hct 46.1 (42.0-52.0) % MCV 93.1 (80.0-98.0) fL MCH 32.7 (27.0-33.0) pg MCHC 35.1 (31.0-36.0) g/dl RDW 13.1 (11.0-16.0) % Plt Count 186 (160-400) X10*3/uL MPV 8.9 L (9.4-12.4) fL Immature Gran % (Auto) 0.4 (0.0-0.4) % Neut % (Auto) 78.7 H (45-73) % Lymph % (Auto) 12.6 L (20-40) % [place] % (Auto) 7.4 (2-11) % Eos % (Auto) 0.3 (0-4) % Baso % (Auto) 0.6 (0-2) % Lymph # (Auto) 1.8 (1.2-4.9) X10*3/uL [place] # (Auto) 1.1 (0.1-1.2) X10*3/uL Eos # (Auto) 0.0 (0.0-0.4) X10*3/uL Baso # (Auto) 0.1 (0.0-0.2) X10*3/uL Abs Immat Gran (auto) 0.05 H (0.00-0.03) X10*3/uL Absolute Neuts (auto) 11.2 H (2.0-8.3) x10*3/uL Absolute Nucleated RBC 0.000 (0.0-0.012) X10*3/uL Nucleated RBC % (auto) 0.0 (0.0-0.2) /100WBC Sodium 134 L (135-145) mmol/L Potassium 3.9 (3.3-5.1) mmol/L Chloride 101 (96-108) mmol/L Carbon Dioxide 21 L (22-29) mmol/L Anion Gap 16 (12-20) BUN 18 H (9-16) mg/dL Creatinine 2.39 H (0.5-1.4) mg/dL Estim Creat Clear Calc 36.5 Estimated GFR 28 Random Glucose 119 H (60-115) mg/dL Calcium 8.2 L D (8.4-10.2) mg/dL Total Bilirubin 1.0 (0.0-1.0) mg/dL AST 22 (5-37) U/L ALT 22 (0-40) U/L Alkaline Phosphatase 62 (39-117) U/L Total Protein 7.6 (6.5-8.0) g/dL Albumin 3.6 (3.5-5.0) g/dL Urine Color Yellow Urine Appearance Turbid Urine pH 5.0 (5.0-9.0) Ur Specific [place] 1.015 (1.005-1.025) Urine Protein 100 (2+) H (Neg-Trace) mg/dL Urine Glucose (UA) Negative (Negative) mg/dL Urine Ketones Negative (Negative) mg/dL Urine Blood Large (3+) H (Negative) Urine Nitrite Negative (Negative) Ur Leukocyte Esterase Negative (Negative) Urine RBC 11-20 H (0-2) /HPF Urine WBC 0-5 (0-5) /HPF Ur Squamous Epith Cells 0-2 (0-2) /HPF Other Crystals Present Urine Bacteria None Seen (None Seen) Hyaline Casts 0-2 (0-2) /LPF Granular Casts Present COVID-19 (ALISHA) (Negative) COVID-19 Clin Com 03/26/22 Range/Units 15:02 WBC (4.8-10.8) X10*3/uL RBC (4.60-5.80) X10*6/uL Hgb (14.0-18.0) g/dl Hct (42.0-52.0) % MCV (80.0-98.0) fL MCH (27.0-33.0) pg MCHC (31.0-36.0) g/dl RDW (11.0-16.0) % Plt Count (160-400) X10*3/uL MPV (9.4-12.4) fL Immature Gran % (Auto) (0.0-0.4) % Neut % (Auto) (45-73) % Lymph % (Auto) (20-40) % [place] % (Auto) (2-11) % Eos % (Auto) (0-4) % Baso % (Auto) (0-2) % Lymph # (Auto) (1.2-4.9) X10*3/uL [place] # (Auto) (0.1-1.2) X10*3/uL Eos # (Auto) (0.0-0.4) X10*3/uL Baso # (Auto) (0.0-0.2) X10*3/uL Abs Immat Gran (auto) (0.00-0.03) X10*3/uL Absolute Neuts (auto) (2.0-8.3) x10*3/uL Absolute Nucleated RBC (0.0-0.012) X10*3/uL Nucleated RBC % (auto) (0.0-0.2) /100WBC Sodium (135-145) mmol/L Potassium (3.3-5.1) mmol/L Chloride (96-108) mmol/L Carbon Dioxide (22-29) mmol/L Anion Gap (12-20) BUN (9-16) mg/dL Creatinine (0.5-1.4) mg/dL Estim Creat Clear Calc Estimated GFR Random Glucose (60-115) mg/dL Calcium (8.4-10.2) mg/dL Total Bilirubin (0.0-1.0) mg/dL AST (5-37) U/L ALT (0-40) U/L Alkaline Phosphatase (39-117) U/L Total Protein (6.5-8.0) g/dL Albumin (3.5-5.0) g/dL Urine Color Urine Appearance Urine pH (5.0-9.0) Ur Specific [place] (1.005-1.025) Urine Protein (Neg-Trace) mg/dL Urine Glucose (UA) (Negative) mg/dL Urine Ketones (Negative) mg/dL Urine Blood (Negative) Urine Nitrite (Negative) Ur Leukocyte Esterase (Negative) Urine RBC (0-2) /HPF Urine WBC (0-5) /HPF Ur Squamous Epith Cells (0-2) /HPF Other Crystals Urine Bacteria (None Seen) Hyaline Casts (0-2) /LPF Granular Casts COVID-19 (ALISHA) Negative (Negative) COVID-19 Clin Com See Note Independent Interpretation I performed an independent interpretation of an: Ultrasound External Record Review External record reviewed: Office record Prescription Management I considered prescription management with: Pain Medication and Other Medications Administered Discontinued Medications Generic Name Dose Route Start Last Admin Trade Name Freq PRN Reason Stop Dose Admin Hydromorphone HCl 0.5 mg 03/26/22 06:45 03/26/22 07:01 Hydromorphone Hcl 0.5 Mg/0.5 Ml Syringe IVPUSH 03/26/22 06:46 0.5 mg ONCE ONE Administration Protocol Hydromorphone HCl 1 mg 03/26/22 11:31 03/26/22 11:38 Hydromorphone Hcl 1 Mg/Ml Syringe IVPUSH 03/26/22 11:32 1 mg ONCE ONE Administration Protocol Lactated Ringer's 1,000 mls @ 999 mls/hr 03/26/22 06:45 03/26/22 10:22 Lr IV 03/26/22 07:45 Infused .Q1H1M SILVIA Infusion Lactated Ringer's 1,000 mls @ 100 mls/hr 03/26/22 11:15 03/26/22 11:38 Lr IVCONT 100 mls/hr .Q10H SILVIA Administration Ondansetron HCl 4 mg 03/26/22 06:45 03/26/22 07:01 Ondansetron Hcl 4 Mg/2 Ml Vial IVPUSH 03/26/22 06:46 4 mg ONCE ONE Administration Discharge Plan Discharge Clinical Impression: Acute left flank pain Patient Disposition: Home, Self-Care Instructions: Flank Pain (ED) Additional Instructions: return to ED for any worsening symptoms or concerns please follow up with your urologist - call the office today as it seems you have an outpatient appointment tomorrow return tonight for severe pain, nausea, vomiting, fevers or any other concerns. Prescriptions: New morphine 15 mg tablet 15 mg PO TID PRN (Reason: pain) Qty: 10 0RF Rx Instructions: partial fill okay; Partial Fill upon patient request. ondansetron 4 mg tablet,disintegrating 4 mg PO Q8H PRN (Reason: nausea and vomiting) Qty: 20 0RF No Action losartan 25 mg Tablet 12.5 mg PO DAILY cefuroxime axetil 500 mg tablet 500 mg PO BID 7 Days Qty: 14 0RF oxycodone-acetaminophen [Percocet] 5-325 mg tablet 1 tab PO Q6H PRN (Reason: pain) Qty: 10 0RF Rx Instructions: Partial Fill upon patient request. oxybutynin chloride 10 mg tablet extended release 24hr 10 mg PO DAILY Qty: 90 3RF tadalafil [Cialis] 2.5 mg Tablet 5 mg PO DAILY PRN (Reason: Sexual Activity) Rx Instructions: administer approximately 30min before sexual activity; do not use more than 1 dose per 24hrs Humira(CF) Pen 40 mg/0.4 mL pen injector kit 40 mg subcut QWEEK Referrals: Minnie Evangelista MD [Physician] - 1 day (call office today) Interventions: ED Discharge Assessment Last Done: 03/26/22 15:53 Discharge Date/Time: 03/26/22 15:53
[2022-03-26] MEDS: HYDROmorphone HCl 0.5 MG/0.5 ML SYRINGE IVPUSH (07:01)
[2022-03-26] MEDS: ondansetron HCL 4 MG/2 ML VIAL IVPUSH (07:01)
[2022-03-26] MEDS: Lactated Ringers 1,000 ML 999 ML IV (07:05)
[2022-03-26 07:25] LABS: Appearance Urine Turbid; Color Urine Yellow; Glucose Urine UA Negative (Negative); Leukocyte Esterase Urine Negative (Negative); Nitrite Urine Negative (Negative); Specific Gravity - Urine 1.015 (1.005-1.025); UMIC TRIGGER UACC YES; Urine Blood Large (3+) (Negative); Urine Ketones Negative (Negative); Urine Protein 100 (2+) mg/dL (Neg-Trace)
[2022-03-26 07:43] LABS: Bacteria Urine None Seen (None Seen); Granular Casts Urine Present; Hyaline Casts Urine 0-2 /LPF (0-2); Other Crystals Urine Present; Squamous Epithelial Cell Urine 0-2 /HPF (0-2); WBC Urine 0-5 /HPF (0-5)
[2022-03-26 09:50] VITALS: BP 153/85; PULSE 83; RESP 16; TEMP 37.1; O2SAT 96
[2022-03-26] MEDS: HYDROmorphone HCl 1 MG/ML SYRINGE IVPUSH (11:38)
[2022-03-26] MEDS: Lactated Ringers 1,000 ML 100 ML IVCONT (11:38)
--- NOTE | 2022-03-26 11:47 | PC.NURSE ---
Alert and oriented, resp even and unlabored. Ambulates with steady gait to the bathroom. LR running and medicated for pain per the MAR. Awaiting urology
[2022-03-26 12:51] VITALS: BP 128/78; PULSE 80; RESP 16; TEMP 37; O2SAT 94
[2022-03-26 14:47] VITALS: BP 130/72; PULSE 74; RESP 16; TEMP 36.5; O2SAT 94
[2022-03-26 15:23] LABS: COVID-19 Test Negative (Negative); IDNOW Serial# 55D5AD1C
== END 2022-03-26 15:53 | disposition home or self-care (01) ==
PROVIDERS: Emergency Provider Emergency Medicine; PCP Internal Medicine
DX: R10.9 Unspecified abdominal pain (principal); K50.90 Crohn's disease, unspecified, without complications; Z93.3 Colostomy status; Z20.822 Contact with and (suspected) exposure to COVID-19
CPT/HCPCS: 36415; 76775; 80053; 81001; 85025; 87635; 96361; 96374; 96375; 96376; 99284; J1170; J2405

== ENCOUNTER → 2022-03-27 09:34 | Outpatient (BNVA) | payer OTHER, SELFPAY | PROVIDERS: PCP Internal Medicine; Visit Provider Nurse Practitioner Family | DX: Z13.89 Encounter for screening for other disorder (principal) ==

== ENCOUNTER 2022-04-19 07:44 | Outpatient (REF) | payer OTHER, SELFPAY ==
--- NOTE | ~2022-04-19 | CT_ITS ---
EXAMINATION: CT KIDNEY STONE CLINICAL INFORMATION: Calculus of kidney. COMPARISON: Left renal ultrasound 03/26/2022 the right kidneys. TECHNIQUE: 5 mm thin axial and reformatted 3 mm thin sagittal and coronal images of abdomen and pelvis were obtained without contrast. This CT examination was performed using dose optimization technique as appropriate, variously including the following: Automated exposure control Adjustment of MA and/or KV according to patient size(this includes techniques or standardized protocols for targeted exams where dose is matched to indication/reason for exam; extremities or head. Use of iterative reconstruction techniques. DLP: 528.00 mGy-cm FINDINGS: Lung bases: Lung bases are clear. Heart size is normal. Liver, gallbladder and ducts: The liver is homogeneous in density, normal size and contour. No focal lesions or intrahepatic ductal dilatation. The gallbladder is contracted. Pancreas: Unremarkable. Spleen: Unremarkable. Adrenal glands: Unremarkable. Kidneys and ureters: The right kidney is slightly malrotated and lies in anterior posterior destruction. No radiopaque calculi or hydronephrosis seen. It measures 10.83 cm. Left kidney measures 10.4 cm in length. There is a left ureteral stent in good position. There is a left ureteral thickening and mild hydronephrosis. No radiopaque calculi seen along the course of the ureter. A radiopaque calculi as was visualized in the left distal ureter on the previous CT 01/25/2022. GI tract: There is colectomy changes with right lower quadrant ileostomy. The small bowel loops are widely patent. The ileostomy appears patent. Haziness is seen in the mesentery. Lymphovascular structures: The abdominal aorta is normal caliber. Small shotty lymph nodes are seen in the retroperitoneum. Abdominal wall: There is a right lower quadrant ileostomy. No evidence of abdominal wall hernia. Pelvis: There is a blind-ending rectal stump with complex fluid within. The stump is approximately 10 cm long. No fat stranding seen in the perirectal soft tissues. The prostate gland is normal size. Osseous structures: No aggressive lytic or sclerotic process seen. CT/CT kidney stone IMPRESSION: 1. Left internal ureteral stent with ureteral wall thickening throughout but no radiopaque calculi seen along the course of the ureteral stent. There is mild hydronephrosis. No radiopaque calculi seen in the kidneys. 2. Total colectomy with right lower quadrant ileostomy which appears widely patent. 3. Contracted gallbladder.
== END 2022-04-19 07:45 | disposition home or self-care (01) ==
LOC: HO.CT 07:44
PROVIDERS: Visit Provider Nurse Practitioner Family
DX: N20.0 Calculus of kidney (principal)
CPT/HCPCS: 74176

== ENCOUNTER → 2022-05-07 08:40 | Outpatient (BNVA) | payer OTHER, SELFPAY | PROVIDERS: PCP Internal Medicine; Visit Provider Urology | DX: Z13.89 Encounter for screening for other disorder (principal) ==

== ENCOUNTER 2022-06-19 05:54 | Day surgery (SDC) | payer OTHER, SELFPAY ==
--- NOTE | 2022-06-18 09:50 | P.CONAN_ITS ---
Documented by User: Nimisha Tuttle NP 06/18/22 09:51 HPI - Anesthesia Eval Consult details Narrative: 62yo M for Cystoscopy & Stent Removal with left retro grade s/p cyst 02/2022 with GA-LMA 4 ileostomy PMFSH Active Problems Active Problems: All Active Problems (Updated 05/07/22 @ 08:57 by Minnie Evangelista MD) Recurrent nephrolithiasis (Acute) Hematuria (Acute) Chronic kidney disease (Acute) Hydronephrosis (Acute) Ureteral stent present (Acute) Left ureteral calculus (Acute) Crohn's disease (Acute) Past Medical History Medical History Colostomy in place Crohn's disease Family history of adverse response to anesthesia in father Kidney disease Renal calculus Family History Family History Father Colon cancer Family history of problems with anesthesia: No Surgical History Surgical History H/O colonoscopy History of ileostomy Hx of cystoscopy History of Problems with Anesthesia: No Social History Social History Household Members: Spouse Housing: House Are you a primary elderly caregiver to a significant other at home: No Do you presently have visiting nurse or other home services: No Patient Tobacco Use Status: Never used Tobacco Are you DNR?: No Advance Directives: No Advance Directives Information Provided: Yes Nutrition Risks: No Nutritional Risk service: No Current occupational status: employed Meds Allergies Allergy/AdvReac Type Severity Reaction Status Date / Time No Known Allergies Allergy Verified 06/19/22 06:26 Home Medications Medication Instructions Recorded Confirmed Last Taken Type adalimumab 40 mg/0.4 mL 40 mg subcut QWEEK 01/25/22 06/14/22 Unknown History subcutaneous pen kit (Humira(CF) Pen) losartan 25 mg tablet 12.5 mg PO DAILY 02/28/22 06/14/22 03/02/22 History Exam Exam Date and Time: June 18, 2022 0950 Pertinent Lab Results Pertinent Lab Results: Laboratory Tests 03/26/22 03/26/22 06:22 06:22 WBC 14.2 H Hgb 16.2 Hct 46.1 Plt Count 186 Sodium 134 L Potassium 3.9 Chloride 101 Carbon Dioxide 21 L BUN 18 H Creatinine 2.39 H Assessment and Plan Assessment Anesthesia Assessment: Chart Reviewed Final Anesthetic Review Family History of Problems with Anesthesia: No History of Problems with Anesthesia: No Documented by User: Catracho Dougherty MD 06/19/22 07:52 PMFSH Past Medical History Medical History Colostomy in place Crohn's disease Family history of adverse response to anesthesia in father Kidney disease Renal calculus Family History Family History Father Colon cancer Surgical History Surgical History H/O colonoscopy History of ileostomy Hx of cystoscopy Social History Social History Household Members: Spouse Housing: House Are you a primary elderly caregiver to a significant other at home: No Do you presently have visiting nurse or other home services: No Patient Tobacco Use Status: Never used Tobacco Are you DNR?: No Advance Directives: No Advance Directives Information Provided: Yes Nutrition Risks: No Nutritional Risk service: No Current occupational status: employed Meds Allergies Allergy/AdvReac Type Severity Reaction Status Date / Time No Known Allergies Allergy Verified 06/19/22 06:26 Home Medications Medication Instructions Recorded Confirmed Last Taken Type adalimumab 40 mg/0.4 mL 40 mg subcut QWEEK 01/25/22 06/14/22 Unknown History subcutaneous pen kit (Humira(CF) Pen) losartan 25 mg tablet 12.5 mg PO DAILY 02/28/22 06/14/22 03/02/22 History Exam Narrative Narrative: CKD, creat 2.3 Airway Mallampati Class: I TM Dist: >3cm Neck ROM: Full Heart: ok Lungs: ok Assessment and Plan Assessment Anesthesia Assessment: Anesthesia Plan Discussed Final Anesthetic Review NPO: Yes ASA Class: III Final Preanesthetic Review: No Changes in Pt Med Stat, Meds/Allgs Chart Reviewed, Consent Obtained/Reviewed and Anes Risks/Benef Reviewed Patient Risk: Intermediate Procedure Risk: Low Anesthetic Plan Anesthetic Plan: GA and Agree w/ Assess. and Plan Disposition: Standard PACU
--- NOTE | ~2022-06-19 | FL_ITS ---
EXAMINATION: XR FLUOROSCOPY WITH IMAGES CLINICAL INFORMATION: Reason flank pain, history urinary tract calculi. COMPARISON: CT abdomen 04/19/2022, 01/25/2022 TECHNIQUE: Fluoroscopy Supervised By: Dr. Evangelista. Fluoroscopy Time: 5 seconds. Cumulative Dose: 1.62 mGy. Images: 1. FINDINGS: Cannula seen overlying bladder base. Left ureteral stent noted on CT not visualized. FL/FL guidance in OR IMPRESSION: Fluoroscopy for urologic procedure.
[2022-06-19 06:07] VITALS: BMI 29.5
[2022-06-19] MEDS: Lactated Ringers 1,000 ML 100 ML IVCONT (06:14)
[2022-06-19 06:25] VITALS: BP 132/84; PULSE 65; RESP 18; TEMP 36.3; O2SAT 98
--- NOTE | 2022-06-19 06:59 | MHC.SHP ---
Pre-Procedural Eval Section A Date of Service: 06/19/22 The patient is an INPATIENT: No The History & Physical has been completed within 30 days and I have reviewed it.: No Section B Chief Complaint: Unspecified hydronephrosis Details of Present Illness: Sarbjit is a 62 year old male with history of kidney stones. S/P left ureteral stent for hydronephrosis. The patient states passing stones while voiding complains having gross hematuria with increased physical activity since stent in place. CTAP scan results reviewed?04/19/2022-- Left internal ureteral stent with ureteral wall thickening along the stent and no stone was seen around the stent. Kidneys: WNL, no renal calculi visualized. Relevant Family History (Specify if Yes): No Allergies: Allergies Allergy/AdvReac Type Severity Reaction Status Date / Time No Known Allergies Allergy Verified 06/19/22 06:26 Exam Surgical H&P Exam: Normal: HEENT, Normal: Heart, Normal: Lungs and Normal: Extremities Plan Diagnosis/Plan: Unchanged I have reviewed the history and physical and performed a pertinent physical examination on my patient. No changes have occurred unless specified. Cystoscopy Left retrograde, left ureteral stent removal. Time Spent With Patient Time: Total time managing care of this patient today ____ minutes.
[2022-06-19 08:14] VITALS: BP 132/88; PULSE 80; RESP 14; TEMP 36.9; O2SAT 97
--- NOTE | 2022-06-19 08:15 | P.OP_ITS ---
Operative Note Operative Note Date of Service: 06/19/22 Narrative: PreOperative Diagnosis:?? Left hydronephrosis Post Operative Diagnosis:?? ?Left hydronephrosis Procedure:- cystoscopy, left stent removal Surgeon:?Dr Minnie Evangelista Anesthesia:? General Indications for procedure: 62 year old male with history of kidney stones.? S/P left ureteral stent for hydronephrosis.? The patient states he passed stones at home, follow-up- CTAP scan results reviewed?04/19/2022-- Left internal ureteral stent with ureteral wall thickening along the stent and no stone was seen around the stent. Kidneys: WNL, no renal calculi visualized. Procedure: After informed consent was verified the patient was brought to the operating placed on the OR table in supine position.? General Anesthesia was administered per protocol.? The patient was placed in lithotomy position, prepped and draped in the usual sterile fashion.? Safety pause time-out and side of surgery confirmed.? Antibiotics confirmed. 2% lidocaine jelly 10 mL was passed transurethrally. A 22 Ethiopian cystoscope was inserted transurethrally, the bulbous urethra was within normal limits. The prostatic urethra was noted elevated median lobe. The bladder was visualized.? The stent was visualized there was significant calcification of the distal end of the stent. There were edematous changes at the left ureteral orifice an expected finding due to the presence of the stent. Using the grasping forceps the stent was removed without difficulty. Attempts with open -ended ureteral catheter and retrograde was done, due to edema at left hemitrigone once stent was removed left ureteral orifice opening not easily visualized and due to CAT scan findings no further attempts pursued. The bladder was emptied.? The rigid cystoscope was removed. ? The patient tolerated the procedure well and was brought to the recovery room in stable condition. Complications: None Drains: None
[2022-06-19 08:19] VITALS: BP 133/84; PULSE 81; RESP 17; O2SAT 97
[2022-06-19 08:24] VITALS: BP 128/88; PULSE 75; RESP 17; O2SAT 98
[2022-06-19 08:29] VITALS: BP 131/87; PULSE 72; RESP 17; O2SAT 98
[2022-06-19 08:48] VITALS: BP 113/75; PULSE 65; RESP 17; TEMP 36.3; O2SAT 98
[2022-06-19 11:17] LABS: Anion Gap 9 (12-20); Blood Urea Nitrogen 19 mg/dL (9-16); Calcium 8.5 mg/dL (8.4-10.2); Carbon Dioxide 25 mmol/L (22-29); Chloride 112 mmol/L (96-108); Creatinine Clr Calc Pharmacy 43.1; Estimated Glomerular Filt Rate 34; Glucose Fasting 103 mg/dL (60-99); Potassium 4.7 mmol/L (3.3-5.1); Sodium 141 mmol/L (135-145)
== END 2022-06-19 09:22 | disposition home or self-care (01) ==
PROVIDERS: Nurse Practitioner; PCP Internal Medicine; Visit Provider Urology
PROC: (CPT 52310; principal; 2022-06-19 07:30)
DX: N13.30 Unspecified hydronephrosis (principal); Z96.0 Presence of urogenital implants; Z87.442 Personal history of urinary calculi; N18.9 Chronic kidney disease, unspecified; K50.90 Crohn's disease, unspecified, without complications; R31.9 Hematuria, unspecified; Z79.899 Other long term (current) drug therapy; Z93.2 Ileostomy status; Z90.49 Acquired absence of other specified parts of digestive tract
CPT/HCPCS: 52310; 36415; 80048; C1758; J0690; J3010; Q9967

== ENCOUNTER 2022-07-05 06:37 | Outpatient (REF) | payer OTHER, SELFPAY ==
--- NOTE | ~2022-07-05 | XR_ITS ---
EXAMINATION: Bilateral shoulder x-ray CLINICAL INFORMATION: Pain COMPARISON: None. TECHNIQUE: 3 views of each shoulder FINDINGS: Left: Bone alignment is normal. No fracture or dislocation. Normal glenohumeral joint. Mild arthritis at the acromioclavicular joint. Normal soft tissues. Right: Bone alignment is normal. No fracture or dislocation. Normal glenohumeral joint. Mild arthritis at the acromioclavicular joint. Normal soft tissues. XR/XR shoulder LT min 2V IMPRESSION: Mild bilateral acromioclavicular joint arthritis.
--- NOTE | ~2022-07-05 | XR_ITS ---
EXAMINATION: Bilateral shoulder x-ray CLINICAL INFORMATION: Pain COMPARISON: None. TECHNIQUE: 3 views of each shoulder FINDINGS: Left: Bone alignment is normal. No fracture or dislocation. Normal glenohumeral joint. Mild arthritis at the acromioclavicular joint. Normal soft tissues. Right: Bone alignment is normal. No fracture or dislocation. Normal glenohumeral joint. Mild arthritis at the acromioclavicular joint. Normal soft tissues. XR/XR shoulder RT min 2V IMPRESSION: Mild bilateral acromioclavicular joint arthritis.
== END 2022-07-05 06:38 | disposition home or self-care (01) ==
LOC: HO.HOSX 06:37
PROVIDERS: Visit Provider Physician Assistant
DX: M19.011 Primary osteoarthritis, right shoulder (principal); M75.81 Other shoulder lesions, right shoulder; M25.512 Pain in left shoulder
CPT/HCPCS: 20610; 73030; J1040

== ENCOUNTER 2022-07-11 13:22 | Outpatient (AMB) | payer OTHER, SELFPAY ==
--- NOTE | 2022-07-11 13:22 | A.OFFVIS_ITS ---
Intake Intake Visit Reasons: post op follow up Driver License Reviewing Officer Required: No Allergies No Known Allergies Allergy (Verified 07/11/22 13:23) HPI HPI Comments History of Present Illness0 Details Sarbjit is a 62-year-old male who is here for tele-health visit for s/p cystoscopy and left stent removal. The patient underwent the procedure on 06/19/22 for left kidney stone. LV--05/07/2022--The patient states passing stones while voiding before his last visit with PROTECTION AGENT Myrna Lang. Complains having gross hematuria after a physical activity. The patient has h/o chronic kidney disease. He is going to follow-up with nephrology after the stent is removed and will undergo 24-hour urine testing. CTAP scan results reviewed?04/19/2022-- Left internal ureteral stent with ureteral wall thickening along the stent and no stone was seen around the stent. Kidneys: WNL, no renal calculi visualized. CAT scan results reviewed--01/25/2022-- Suggestive of severe left hydronephrosis and ureteral dilatation from 3 adjacent left distal ureteral stones measuring 3 x 6 mm and 2 x 3 mm and 3 x 6 mm. There are small left lower pole renal stones. Plan: Outpatient procedure will be scheduled for removal of stent. Patient was educated to drink adequate amount of water. 07/11/2022-- The patient states doing well post the procedure. Denies pain and hematuria. The patient is following up tool maintenance technician and states that he completed 24-hour urine collection test which they will be reviewing with him. I will continue to monitor for kidney stones. Plan: Renal US in prior. Tele-health follow-up after 6 months. ON LICENSE OF [facility] Medical History (Updated 07/11/22 @ 14:57 by Justin Clifford) Colostomy in place Crohn's disease Family history of adverse response to anesthesia in father Kidney disease Renal calculus Surgical History H/O colonoscopy History of ileostomy Hx of cystoscopy Family History Father Colon cancer Social History Household Members: Spouse Housing: House Are you a primary foster care case manager to a significant other at home: No Do you presently have visiting nurse or other home services: No Patient Tobacco Use Status: Never used Tobacco service: No Current occupational status: employed 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, right handed Review of Systems Const Reports no additional complaints Eyes Reports no additional complaints ENT Denies neck pain Card Denies leg edema Resp Denies cough GI Denies constipation Musc Reports no additional complaints and Denies neck pain Skin/Breast Denies rash and Denies unusual bruising Neuro Reports no additional complaints Psych Reports no additional complaints Endo Reports no additional complaints Akhil/Lymph Reports no additional complaints Aller/Immun Reports no additional complaints Assessment & Plan Assessment & Plan (1) Crohn's disease: Code(s): K50.90 - Crohn's disease, unspecified, without complications (2) Chronic kidney disease: Code(s): N18.9 - Chronic kidney disease, unspecified (3) Renal calculus: Code(s): N20.0 - Calculus of kidney Plan Renal US in prior. Tele-health follow-up after 6 months. Patient Instructions: The patient had an opportunity to ask questions regarding treatment plan. All questions were answered. Laboratory studies and physical exam results were discussed and reviewed in detail. No major barriers to understanding were identified. The patient expressed understanding and agreement with the above treatment plan. The patient is aware they should contact our office by phone for worsening of their current condition or the appearance of new symptoms. Compliance is encouraged with any medications and followup testing that is ordered. It is a privilege to be allowed the opportunity to participate in the urologic care of your patient. If you have any questions or concerns regarding treatment for the above conditions please do not hesitate to contact me. The office telephone contact is [phone]. This note is constructed in part using voice recognition software. While every effort has been made to ensure accuracy motor grader operator errors may have been included. Yours sincerely, Minnie Evangelista MD Telehealth Telehealth Location of provider rendering services: practice address Location of patient: address on file Patient Identification confirmed using: Name, : Yes Telehealth method: voice only Patient verbally consented to treatment: Yes Patient verbally consented to billing insurance company: Yes Patient informed of any privacy concerns related to visit: Yes Minutes spent on Phone/Video with Pt.: 15 Coding Level of Care Code Tele New Pt Level 3 (56728) Diagnoses Crohn's disease K50.90 Chronic kidney disease N18.9 Renal calculus N20.0
== END 2022-07-11 15:19 | disposition home or self-care (01) ==
LOC: HO.HUSH 13:22
PROVIDERS: PCP Internal Medicine; Visit Provider Urology
DX: K50.90 Crohn's disease, unspecified, without complications (principal); N18.9 Chronic kidney disease, unspecified; N20.0 Calculus of kidney
CPT/HCPCS: 99213

== ENCOUNTER → 2022-07-11 13:22 | Outpatient (BNVA) | payer OTHER, SELFPAY | PROVIDERS: PCP Internal Medicine; Visit Provider Urology ==

== ENCOUNTER 2023-04-08 14:07 | Outpatient (AMB) | payer OTHER, SELFPAY ==
--- NOTE | 2023-04-08 14:15 | A.OFFVIS_ITS ---
Intake Vital Signs 04/08/23 14:19 Height 5 ft 9 in Weight 200 lb BMI 29.5 Intake Visit Reasons: O/V rt shdr O.A pain s/p inj Intake Note: Sarbjit 63 yr old male presents today for his right shoulder O.A pain S/P injection from 07/05/22. States injection lasted till february and he is now having mild pain. States he would like to discuss repeat of injection today. Allergies No Known Allergies Allergy (Verified 04/08/23 14:19) HPI O/V rt shdr O.A pain s/p inj HPI Details 63-year-old male who returns to the [facility] today for a follow-up of right shoulder pain. He had his last injection on 07/05/22 which provided him relief until February. He currently states he has mild pain in his shoulder. He would like to repeat the injection today. [facility] Medical History (Updated 07/11/22 @ 14:57 by Justin Clifford) Family history of adverse response to anesthesia in father Renal calculus Colostomy in place Kidney disease Crohn's disease Surgical History H/O colonoscopy Hx of cystoscopy History of ileostomy Family History Father Colon cancer Social History Household Members: Spouse Housing: House Are you a primary careers adviser to a significant other at home: No Do you presently have visiting nurse or other home services: No Patient Tobacco Use Status: Never used Tobacco service: No Current occupational status: employed 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, right handed Review of Systems Const All systems reviewed & are unremarkable except as noted in HPI and below Physical Exam Vital Signs: BMI result Body Mass Index 29.5 Const General: cooperative, healthy appearing, comfortable, no acute distress, well developed and alert Orientation/consciousness: patient oriented x3 HEENT Head: Yes normal to inspection, Yes normocephalic and Yes atraumatic Eyes General: appearance normal, both eyes and all related structures Resp Effort & Inspection: normal respiratory effort and able to speak in complete sentences Cardio Rate: regular rate Peripheral pulses: Peripheral pulses 2+ throughout GI Palpation (GI): Soft to palpation Skin Lesions: no lesions Rashes: no rashes Neuro General: patient oriented x3 Extrem Other: Right shoulder normal to inspection. Tenderness over the bicipital groove and along the deltoid region of the shoulder. Forward flexion to 175, external rotation to 90, internal rotation to S1. 5/5 RTC strength. Positive Lynn and cross body abduction. NVI. Office Procedures Joint Injection/Drain Joint Injection/Drain Primary Site: right shoulder Prep: site was prepped using aseptic technique, ethochloride spray was applied and injection warnings given Injected: 80 mg of, DepoMedrol, with 8 mL of, 1% plain lidocaine and in the subcromial space Approach Used: posterolateral Procedure: The patient tolerated the procedure well and there was some relief with the local anesthesia Coding 42596 - Glenohumeral/Tronchanteric Bursa/Intraarticular Procedure code (CPT) selection complete Assessment & Plan Assessment & Plan (1) Tendinitis of right rotator cuff: Code(s): M75.81 - Other shoulder lesions, right shoulder (2) Osteoarthritis of right AC (acromioclavicular) joint: Code(s): M19.011 - Primary osteoarthritis, right shoulder Plan We discussed options today which include steroid injection. They did consent to move forward with the right shoulder injection, which was tolerated well. I recommended rest, ice and elevation and OTC anti-inflammatories PRN for discomfort. If symptoms persist or worsens over the next 6-8 weeks, patient will contact the office, otherwise follow-up as needed. Patient Instructions: Scribed for Domingo Mckinney PA-C, by Husam Pineda medical records receptionist, on 04/08/2023 at 2:30 PM EST. IDomingo PA-C, have personally reviewed and agree with the information entered by the scribe. Coding Level of Care Code Est Pt Level 3 (69341) Diagnoses Tendinitis of right rotator cuff M75.81 Osteoarthritis of right AC (acromioclavicular) joint M19.011 CPT Codes Coding - Joint 7: 07464 - Glenohumeral/Tronchanteric Bursa/Intraarticular ([id number])
[2023-04-08 14:19] VITALS: BMI 29.5
== END 2023-04-08 14:52 | disposition home or self-care (01) ==
PROVIDERS: PCP Internal Medicine; Visit Provider Physician Assistant
DX: M75.81 Other shoulder lesions, right shoulder (principal); M19.011 Primary osteoarthritis, right shoulder
CPT/HCPCS: 20610; 99213

== ENCOUNTER → 2023-04-08 14:07 | Outpatient (BNVA) | payer OTHER, SELFPAY | PROVIDERS: PCP Internal Medicine; Visit Provider Physician Assistant | DX: M19.011 Primary osteoarthritis, right shoulder (principal); M75.81 Other shoulder lesions, right shoulder | CPT/HCPCS: 20610; J1040 ==

== ENCOUNTER 2023-04-08 21:20 | Emergency (ER) | payer OTHER, SELFPAY ==
--- NOTE | ~2023-04-08 | CT_ITS ---
EXAMINATION: CT ABDOMEN AND PELVIS WITHOUT CONTRAST CLINICAL INFORMATION: Left flank pain with history of kidney stone COMPARISON: 04/19/2022 TECHNIQUE: Multidetector volumetric imaging was performed from the superior aspect of the liver through the pubic symphysis. Sagittal and coronal reformatted images were obtained on the technologist's workstation. This CT examination was performed using dose optimization techniques as appropriate, variously including the following: *Automated exposure control *Adjustment of mA and/or kV according to patient size (this includes techniques or standardized protocols for targeted exams where dose is matched to indication/reason for exam; i.e. extremities or head) *Use of iterative reconstruction technique DLP: 616 mGy-cm FINDINGS: LUNG BASES: Mild bibasilar atelectasis. LIVER, GALLBLADDER, AND BILIARY TREE: The liver is normal in size, shape, and attenuation. No focal hepatic lesion or biliary ductal dilatation is identified on this noncontrast exam. Cholelithiasis is noted. PANCREAS: Unremarkable. SPLEEN: Unremarkable. ADRENAL GLANDS: Unremarkable. KIDNEYS AND URETERS: There is a distal left ureteral calculus measuring approximately 8 mm with severe hydronephrosis and perinephric stranding. Additional smaller faint calcifications are present near the left ureterovesicular junction. There is also a small amount of calcification which appears layering in the mid to lower left renal calyces. No right-sided hydronephrosis or obstructing calculus. BLADDER: Mildly distended. There is a 4 mm calcification along the right aspect of the posterior bladder. GASTROINTESTINAL TRACT: Patient appears status post colectomy with fluid-filled rectal stump, similar to prior. No convincing evidence for bowel obstruction. ABDOMINAL WALL: Redemonstrated right lower quadrant ileostomy. LYMPH NODES: Normal. VASCULAR: Unremarkable. PELVIC VISCERA: Unremarkable. OSSEOUS STRUCTURES: Degenerative changes are noted in the spine. CT/CT abdomen pelvis wo IV con IMPRESSION: 1. Distal left ureteral calculus measuring approximately 8 mm with severe hydronephrosis. Additional smaller calcifications noted near the left ureterovesicular junction. 2. Calcification in the right aspect of the bladder measuring 4 mm. 3. Cholelithiasis.
[2023-04-08 21:50] VITALS: BP 163/88; PULSE 74; RESP 20; TEMP 36.7; O2SAT 97; BMI 30.2
[2023-04-08 22:06] LABS: MANUAL DIFF FLAG NO
[2023-04-08 22:10] LABS: Basophils Absolute Auto 0.1 X10*3/uL (0.0-0.2); Basophils Percent Auto 0.7 % (0-2); Eosinophils Percent Auto 0.1 % (0-4); Hematocrit 47.3 % (42.0-52.0); Hemoglobin 16.4 g/dl (14.0-18.0); Imm Gran Abs Auto 0.06 X10*3/uL (0.00-0.03); Imm Gran Pct Auto 0.4 % (0.0-0.4); Lymphocytes Absolute Auto 1.8 X10*3/uL (1.2-4.9); Lymphocytes Percent Auto 12.8 % (20-40); Mean Corpuscular HGB Conc 34.7 g/dl (31.0-36.0); Mean Corpuscular Hemoglobin 32.5 pg (27.0-33.0); Mean Corpuscular Volume 93.7 fL (80.0-98.0); Mean Platelet Volume 9.7 fL (9.4-12.4); Monocytes Absolute Auto 0.5 X10*3/uL (0.1-1.2); Monocytes Percent Auto 3.8 % (2-11); Neutrophils Absolute Auto 11.3 x10*3/uL (2.0-8.3); Neutrophils Percent Auto 82.2 % (45-73); Platelet Count 168 X10*3/uL (160-400); Red Blood Count 5.05 X10*6/uL (4.60-5.80); Red Cell Distribution Width 12.8 % (11.0-16.0); White Blood Count 13.7 X10*3/uL (4.8-10.8)
[2023-04-08 22:23] LABS: Alanine Aminotransferase 21 U/L (0-40); Albumin Level 3.9 g/dL (3.5-5.0); Alkaline Phosphatase 65 U/L (39-117); Anion Gap 12 (12-20); Aspartate Amino Transferase 23 U/L (5-37); Bilirubin Total 0.5 mg/dL (0.0-1.0); Blood Urea Nitrogen 17 mg/dL (9-16); Carbon Dioxide 22 mmol/L (22-29); Chloride 107 mmol/L (96-108); Creatinine Clr Calc Pharmacy 45.3; Estimated Glomerular Filt Rate 36; Glucose Random 137 mg/dL (60-115); Potassium 4.4 mmol/L (3.3-5.1); Sodium 137 mmol/L (135-145); Total Protein 8.4 g/dL (6.5-8.0)
[2023-04-09 02:00] VITALS: BP 173/98; PULSE 84; RESP 18; TEMP 36.4; O2SAT 98
--- NOTE | 2023-04-09 03:04 | ED_ITS ---
HPI - Male Genitourinary General Chief complaint: Urogenital-Male Stated complaint: left lower back pain-kidney stones Time Seen by Provider: 04/09/23 02:07 Source: patient Mode of arrival: ambulatory Limitations: no limitations History of Present Illness HPI Narrative: Patient's history of kidney stone comes here for pain in the left flank area started earlier today history with nausea pain localized to left flank radiating to left upper abdomen no fever no chills no hematuria no urinary symptoms patient had ureteric stent last year Related Data Home Medications Medication Instructions Recorded Confirmed adalimumab 40 mg/0.4 mL 40 mg subcut QWEEK 01/25/22 06/14/22 subcutaneous pen kit (Humira(CF) Pen) losartan 25 mg tablet 12.5 mg PO DAILY 02/28/22 06/14/22 Allergies Allergy/AdvReac Type Severity Reaction Status Date / Time No Known Allergies Allergy Verified 04/08/23 21:50 Review of Systems 2 Review of Systems: Yes all other systems are reviewed and are negative PMFSH Past Medical History Medical History Family history of adverse response to anesthesia in father Renal calculus Colostomy in place Kidney disease Crohn's disease Surgical History H/O colonoscopy Hx of cystoscopy History of ileostomy Family History Family History Father Colon cancer Social History Social History Household Members: Spouse Housing: House Are you a primary career technical education instructor to a significant other at home: No Do you presently have visiting nurse or other home services: No Alcohol intake: current Alcohol intake frequency: holidays/special occasions only Patient Tobacco Use Status: Never used Tobacco Smoked in Last 30 Days: No Use of substances other than those prescribed or required for medical reasons: No Advance Directives: No Advance Directives Information Provided: No service: No Current occupational status: employed 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 Oriented X3. In moderate distress Eyes: No pallor or icterus ENT: Pharynx normal. Oral Mucosa moist Neck: Normal inspection. Neck supple. CVS: Normal heart rate and rhythm. Pulses normal. Respiratory: No respiratory distress. Equal air entry bilateral, Abdomen: Soft and nontender. Bowel sounds are present, no mass palpable ,left CVA tenderness++ Skin: Skin warm and dry. Normal skin color. Normal skin turgor. Extremities: No lower extremity edema. No calf tenderness Neuro: Oriented X 3. No motor deficit. Medications Administered Discontinued Medications Generic Name Dose Route Start Last Admin Trade Name Freq PRN Reason Stop Dose Admin Dexamethasone Sodium Phosphate 10 mg 04/09/23 05:08 04/09/23 05:17 Dexamethasone Sod Phosphate 10 Mg/Ml Vial IVPUSH 04/09/23 05:09 10 mg ONCE ONE Administration Sodium Chloride 1,000 mls @ 999 mls/hr 04/09/23 03:06 04/09/23 04:30 Ns IV 04/09/23 04:06 Infused .Q1H1M ONE Infusion Sodium Chloride 1,000 mls @ 999 mls/hr 04/09/23 05:08 04/09/23 05:19 Ns IV 04/09/23 06:08 999 mls/hr .Q1H1M ONE Administration Ketorolac Tromethamine 30 mg 04/09/23 03:07 04/09/23 03:30 Ketorolac Tromethamine 30 Mg/Ml Vial IVPUSH 04/09/23 03:08 30 mg ONCE ONE Administration Morphine Sulfate 4 mg 04/09/23 03:07 04/09/23 03:27 Morphine Sulfate 4 Mg/Ml Cartridge IVPUSH 04/09/23 03:08 4 mg ONCE ONE Administration Protocol Ondansetron HCl 4 mg 04/09/23 03:07 04/09/23 03:26 Ondansetron Hcl 4 Mg/2 Ml Vial IVPUSH 04/09/23 03:08 4 mg ONCE ONE Administration Tamsulosin HCl 0.4 mg 04/09/23 05:08 04/09/23 05:17 Tamsulosin Hcl 0.4 Mg Capsule PO 04/09/23 05:09 0.4 mg ONCE ONE Administration Medical Decision Making Medical Decision Making [facility] Narrative: 05:00 Patient feeling much better now CT scan showed 8 mm left urinating distal stone with severe hydronephrosis will continue IV fluids Flomax steroids plan for admission/discharge depending upon pain level 630 AM patient is still feeling discomfort. Case discussed with Dr. Ying will take the patient to OR today NPO for now Differential Diagnosis Differential Diagnoses: The differential diagnosis associated with the presentation includes Renal colic/UTI Admission/Observation Consideration of admission/observation: Escalation of care including admission/observation considered Lab Data [facility] Lab Attestation statement: I reviewed the patient's lab results. 04/08/23 22:01 04/08/23 22:01 Labs: Lab Results 04/08/23 04/09/23 Range/Units 22:01 05:23 WBC 13.7 H (4.8-10.8) X10*3/uL RBC 5.05 (4.60-5.80) X10*6/uL Hgb 16.4 (14.0-18.0) g/dl Hct 47.3 (42.0-52.0) % MCV 93.7 (80.0-98.0) fL MCH 32.5 (27.0-33.0) pg MCHC 34.7 (31.0-36.0) g/dl RDW 12.8 (11.0-16.0) % Plt Count 168 (160-400) X10*3/uL MPV 9.7 (9.4-12.4) fL Immature Gran % (Auto) 0.4 (0.0-0.4) % Neut % (Auto) 82.2 H (45-73) % Lymph % (Auto) 12.8 L (20-40) % [place] % (Auto) 3.8 (2-11) % Eos % (Auto) 0.1 (0-4) % Baso % (Auto) 0.7 (0-2) % Lymph # (Auto) 1.8 (1.2-4.9) X10*3/uL [place] # (Auto) 0.5 (0.1-1.2) X10*3/uL Eos # (Auto) 0.0 (0.0-0.4) X10*3/uL Baso # (Auto) 0.1 (0.0-0.2) X10*3/uL Abs Immat Gran (auto) 0.06 H (0.00-0.03) X10*3/uL Absolute Neuts (auto) 11.3 H (2.0-8.3) x10*3/uL Absolute Nucleated RBC 0.000 (0.0-0.012) X10*3/uL Nucleated RBC % (auto) 0.0 (0.0-0.2) /100WBC Sodium 137 (135-145) mmol/L Potassium 4.4 (3.3-5.1) mmol/L Chloride 107 (96-108) mmol/L Carbon Dioxide 22 (22-29) mmol/L Anion Gap 12 (12-20) BUN 17 H (9-16) mg/dL Creatinine 1.90 H (0.5-1.4) mg/dL Estim Creat Clear Calc 45.3 Estimated GFR 36 Random Glucose 137 H (60-115) mg/dL Calcium 9.0 (8.4-10.2) mg/dL Total Bilirubin 0.5 (0.0-1.0) mg/dL AST 23 (5-37) U/L ALT 21 (0-40) U/L Alkaline Phosphatase 65 (39-117) U/L Total Protein 8.4 H (6.5-8.0) g/dL Albumin 3.9 (3.5-5.0) g/dL Urine Color Yellow Urine Appearance Turbid Urine pH 5.0 (5.0-9.0) Ur Specific [place] 1.025 (1.005-1.025) Urine Protein 100 (2+) H (Neg-Trace) mg/dL Urine Glucose (UA) Negative (Negative) mg/dL Urine Ketones Negative (Negative) mg/dL Urine Blood Large (3+) H (Negative) Urine Nitrite Negative (Negative) Ur Leukocyte Esterase Negative (Negative) Urine RBC >20 H (0-2) /HPF Urine WBC 0-5 (0-5) /HPF Ur Squamous Epith Cells 0-2 (0-2) /HPF Other Crystals Present Urine Bacteria None Seen (None Seen) Hyaline Casts 3-5 (0-2) /LPF Independent Interpretation I performed an independent interpretation of an: CT Scan Radiology Impression Discussion of test interpretation with radiology: I have reviewed the radiologist's reading. Radiologist Impression: CT/CT abdomen pelvis wo IV con IMPRESSION: 1. Distal left ureteral calculus measuring approximately 8 mm with severe hydronephrosis. Additional smaller calcifications noted near the left ureterovesicular junction. 2. Calcification in the right aspect of the bladder measuring 4 mm. 3. Cholelithiasis. Discharge Plan Discharge Clinical Impression: Urinary tract obstruction by kidney stone Patient Disposition: Still a Patient Prescriptions: No Action losartan 25 mg Tablet 12.5 mg PO DAILY Humira(CF) Pen 40 mg/0.4 mL pen injector kit 40 mg subcut QWEEK
[2023-04-09] MEDS: 0.9 % Sodium Chloride 1,000 ML 999 ML IV ×2 (03:25→05:19)
[2023-04-09] MEDS: ondansetron HCL 4 MG/2 ML VIAL IVPUSH (03:26)
[2023-04-09 03:27] VITALS: RESP 16
[2023-04-09] MEDS: Morphine Sulfate 4 MG/ML CARTRIDGE IVPUSH (03:27)
[2023-04-09] MEDS: Ketorolac Tromethamine 30 MG/ML VIAL IVPUSH (03:30)
[2023-04-09] MEDS: Tamsulosin HCL 0.4 MG CAPSULE PO (05:17)
[2023-04-09] MEDS: dexAMETHasone sod phosphate 10 MG/ML VIAL IVPUSH (05:17)
[2023-04-09 05:25] VITALS: BP 164/100; PULSE 96; RESP 16; TEMP 36.3; O2SAT 95
[2023-04-09 05:29] LABS: Appearance Urine Turbid; Color Urine Yellow; Glucose Urine UA Negative (Negative); Leukocyte Esterase Urine Negative (Negative); Nitrite Urine Negative (Negative); Specific Gravity - Urine 1.025 (1.005-1.025); UMIC TRIGGER UACC YES; Urine Blood Large (3+) (Negative); Urine Ketones Negative (Negative); Urine Protein 100 (2+) mg/dL (Neg-Trace)
[2023-04-09 05:43] LABS: Bacteria Urine None Seen (None Seen); Other Crystals Urine Present; RBC Urine >20 /HPF (0-2); Squamous Epithelial Cell Urine 0-2 /HPF (0-2); WBC Urine 0-5 /HPF (0-5)
== END 2023-04-09 09:12 | disposition home or self-care (01) ==
PROVIDERS: Emergency Provider Internal Medicine; PCP Internal Medicine
DX: N20.0 Calculus of kidney (principal); N13.8 Other obstructive and reflux uropathy; M54.50 Low back pain, unspecified; R10.12 Left upper quadrant pain; Z79.899 Other long term (current) drug therapy
CPT/HCPCS: 36415; 74176; 80053; 81001; 85025; 96361; 96374; 96375; 99284; 99285; J1100; J1885; J2270; J2405

== ENCOUNTER 2023-07-15 09:31 | Outpatient (REF) | payer OTHER, SELFPAY ==
[2023-07-15 10:56] LABS: Appearance Urine Clear; Color Urine Yellow; Glucose Urine UA Negative (Negative); Leukocyte Esterase Urine Negative (Negative); Nitrite Urine Negative (Negative); PH 5.5 (5.0-9.0); UMIC TRIGGER UA YES; Urine Blood Small (1+) (Negative); Urine Ketones Negative (Negative); Urine Protein 30 (1+) mg/dL (Neg-Trace)
[2023-07-15 11:13] LABS: Bacteria Urine None Seen (None Seen); RBC Urine 0-2 /HPF (0-2); Squamous Epithelial Cell Urine 0-2 /HPF (0-2); WBC Urine 0-5 /HPF (0-5)
== END 2023-07-15 09:32 | disposition home or self-care (01) ==
LOC: HO.LAB 09:31
PROVIDERS: PCP Internal Medicine; Visit Provider Urology
DX: R31.9 Hematuria, unspecified (principal); N20.0 Calculus of kidney; N18.9 Chronic kidney disease, unspecified; N20.1 Calculus of ureter
CPT/HCPCS: 81001; 87086

== ENCOUNTER 2023-07-18 13:01 | Outpatient (REF) | payer OTHER, SELFPAY ==
--- NOTE | ~2023-07-18 | US_ITS ---
EXAMINATION: US RETROPERITONEAL LIMITED (RENAL ONLY) CLINICAL INFORMATION: Calculus of kidney. COMPARISON: CT abdomen and pelvis 04/09/2023. Renal ultrasound 03/26/2022. X-ray abdomen KUB 02/20/2022. TECHNIQUE: Real-time imaging of the kidneys. Limited visualization due to bowel gas. FINDINGS: RIGHT KIDNEY: 10.8 x 4.1 x 5.6 cm (SAG x AP x TRV). 0.5 cm right renal upper pole echogenic focus characteristic of a calcification. No hydronephrosis. Renal cortical thickness is normal. Limited visualization. LEFT KIDNEY: 11.6 x 5.9 x 4.6 cm (SAG x AP x TRV). A 0.6 cm [id number] pole calculus. 1.2 cm left midpole pole cyst with benign features. There is no indication for follow-up imaging. Renal cortical thickness is normal. No hydronephrosis. Limited visualization. US/US renal BI IMPRESSION: Bilateral renal calculi. No hydronephrosis.
== END 2023-07-18 13:02 | disposition home or self-care (01) ==
LOC: HO.US 13:01
PROVIDERS: Visit Provider Urology
DX: N20.0 Calculus of kidney (principal); N20.1 Calculus of ureter
CPT/HCPCS: 76775

== ENCOUNTER 2023-08-09 14:40 | Outpatient (AMB) | payer OTHER, SELFPAY ==
--- NOTE | 2023-08-09 15:06 | MHC.OFFVIS ---
Intake Visit Reasons: follow up/US(set) Intake Note: Patient is Present for Follow Up Urology Medication: None Antibiotic Allergies:None Blood Thinners:None Patient states he was only on tamsulosin in past for a week but no longer take it Water Manager Required: No Allergies No Known Allergies Allergy (Verified 08/09/23 15:09) Medication List - Last Reconciled 08/09/23 by Chavo Ying MD adalimumab (Humira(CF) Pen) 40 mg subcut QWEEK losartan 12.5 mg PO DAILY tamsulosin 0.4 mg PO BEDTIME 90 days HPI Comments Details: Sarbjit is a pleasant male. He is a patient of Dr. Martinez. He has seen for the following urologic conditions - recurrent nephrolithiasis The patient underwent the procedure on 06/19/22 for left kidney stone. Discussed follow-up ultrasound Would add Tums to main meal for oxalate binding Six-month follow-up Flomax Weak stream Nephrolithiasis Background of Crohn's with ileostomy high output The patient has h/o chronic kidney disease. He is going to follow-up with nephrology after the stent is removed and will undergo 24-hour urine testing. CTAP scan results reviewed?04/19/2022-- Left internal ureteral stent with ureteral wall thickening along the stent and no stone was seen around the stent. Kidneys: WNL, no renal calculi visualized. CAT scan results reviewed--01/25/2022-- Suggestive of severe left hydronephrosis and ureteral dilatation from 3 adjacent left distal ureteral stones measuring 3 x 6 mm and 2 x 3 mm and 3 x 6 mm. There are small left lower pole renal stones. Intervention - 07/03 ureteroscopy left side Imaging - 08/04 renal ultrasound bilateral 5 mm stone Had follow-up [facility] Medical History Family history of adverse response to anesthesia in father Renal calculus Colostomy in place Kidney disease Crohn's disease Surgical History H/O colonoscopy Hx of cystoscopy History of ileostomy Family History Father Colon cancer Social History (Reviewed 08/09/23 @ 15:11 by CAMERON Manuel Household Members: Spouse Housing: House Are you a primary child care leader to a significant other at home: No Do you presently have visiting nurse or other home services: No Alcohol intake: current Alcohol intake frequency: holidays/special occasions only Patient Tobacco Use Status: Never used Tobacco service: No Current occupational status: employed 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, right handed Review of Systems Const Denies chills and Denies fever(s) Card Reports no additional complaints and Denies syncope Resp Denies cough GI Denies abdominal pain and Denies heartburn Reports as per HPI and Denies change in libido Neuro Denies syncope Psych Denies change in libido Endo Denies change in libido Physical Exam Const General: cooperative, healthy appearing, comfortable and no acute distress Orientation/consciousness: patient oriented x3 HEENT Face and sinus: Yes normal facial exam Mouth: moist mucous membranes Neck Neck: Yes normal visual inspection, Yes full ROM and Yes trachea midline Chest Chest palpation & inspection: normal inspection of the chest Resp Effort & Inspection: normal respiratory effort, able to speak in complete sentences and no respiratory distress GI Inspection: Yes normal to inspection Back/Spine/Pelvis Cervical Spine: normal cervical lordosis Thoracic/Lumbar Spine: thoracic and lumbar spine normal to inspection Skin General skin exam: no rashes or lesions noted Neuro General: patient oriented x3, gait normal, tone normal and moves all extremities Extrem General: Yes normal to inspection and Yes capillary refill normal Assessment & Plan Assessment & Plan (1) Recurrent nephrolithiasis: Code(s): N20.0 - Calculus of kidney Category: Medical (2) Weak urinary stream: Code(s): R39.12 - Poor urinary stream Category: Medical Plan Six-month follow-up Orders: Orders URORISK Today N20.0 - Calculus of kidney US renal BI 6 Months N20.0 - Calculus of kidney Medications: New tamsulosin 0.4 mg PO BEDTIME 90 days 90 caps 1RF N13.8 - Other obstructive and reflux uropathy, N40.1 - Benign prostatic hyperplasia with lower urinary tract symptoms, R39.12 - Poor urinary stream Patient Instructions: Imaging studies, laboratory and physical exam results were discussed and reviewed in detail. No major barriers to patient understanding were identified. An opportunity to ask questions regarding the treatment plan was provided. All questions were answered. The patient expressed understanding and agreement with the above treatment plan. The patient is aware they should contact our office by phone for worsening of their current condition or the appearance of new urologic symptoms. Compliance is encouraged with any medications and followup testing that is ordered. It is a privilege to participate in the urologic care of your patient. If you have any questions or concerns regarding treatment for the above conditions, or other urologic issues, please do not hesitate to contact me. The office telephone contact is [phone]. This note is constructed using voice recognition software. While every effort has been made to ensure accuracy paleontological helper errors may have been included. Yours sincerely, Dr Chavo Ying MD, [facility] - Urology Providers of Expert, Compassionate Care for the Genitourinary System Coding Level of Care Code Est Pt Level 4 (28674) Diagnoses Recurrent nephrolithiasis N20.0 Weak urinary stream R39.12
== END 2023-08-09 15:48 | disposition home or self-care (01) ==
PROVIDERS: PCP Internal Medicine; Visit Provider Urology
DX: N20.0 Calculus of kidney (principal); R39.12 Poor urinary stream
CPT/HCPCS: 99214

== ENCOUNTER → 2023-08-09 14:40 | Outpatient (BNVA) | payer OTHER, SELFPAY | PROVIDERS: PCP Internal Medicine; Visit Provider Urology ==

== ENCOUNTER 2023-12-12 10:23 | Outpatient (REF) | payer OTHER, SELFPAY ==
[2023-12-12 11:37] LABS: Appearance Urine Clear; Color Urine Yellow; Glucose Urine UA Negative (Negative); Leukocyte Esterase Urine Negative (Negative); Nitrite Urine Negative (Negative); UMIC TRIGGER UA YES; Urine Blood Large (3+) (Negative); Urine Ketones Negative (Negative); Urine Protein 30 (1+) mg/dL (Neg-Trace)
[2023-12-12 11:49] LABS: Bacteria Urine None Seen (None Seen); Granular Casts Urine Present; Hyaline Casts Urine 0-2 /LPF (0-2); Squamous Epithelial Cell Urine 0-2 /HPF (0-2); WBC Urine 0-5 /HPF (0-5)
== END 2023-12-12 10:24 | disposition home or self-care (01) ==
LOC: HO.LAB 10:23
PROVIDERS: PCP Internal Medicine; Visit Provider Urology
DX: N20.0 Calculus of kidney (principal); R39.12 Poor urinary stream; R31.9 Hematuria, unspecified
CPT/HCPCS: 81001; 87086

== ENCOUNTER 2024-01-10 20:52 | Inpatient (IN) | payer OTHER, SELFPAY ==
--- NOTE | ~2024-01-10 | FL_ITS ---
EXAMINATION: FLUOROSCOPY GUIDANCE FOR NEEDLE PLACEMENT CLINICAL INFORMATION: Cystoscopy Left COMPARISON: CT abdomen and pelvis following 2924 TECHNIQUE: Fluoroscopy in the operating room FINDINGS: Bilateral ureteral stent placements FLUOROSCOPY TIME: 53.5 seconds NUMBER OF IMAGES: 6 images FL/FL guidance in OR IMPRESSION: Fluoroscopy performed by urology. Please see operative report for additional information. Electronically signed by: Karen Cheng MD 01/12/2024 09:[address] [facility]
--- NOTE | ~2024-01-10 | CT_ITS ---
EXAMINATION: CT ABDOMEN AND PELVIS WITHOUT CONTRAST CLINICAL INFORMATION: Left-sided pain. COMPARISON: April 09, 2023 TECHNIQUE: Multidetector volumetric imaging was performed from the superior aspect of the liver through the pubic symphysis. Sagittal and coronal reformatted images were obtained on the 6 mm each. Workstation. This CT examination was performed using dose optimization techniques as appropriate, variously including the following: *Automated exposure control *Adjustment of mA and/or kV according to patient size (this includes techniques or standardized protocols for targeted exams where dose is matched to indication/reason for exam; i.e. extremities or head) *Use of iterative reconstruction technique DLP: 545 mGy-cm FINDINGS: LUNG BASES: The visualized lung bases are unremarkable. LIVER, GALLBLADDER, AND BILIARY TREE: The liver is normal in size, shape, and attenuation. No focal hepatic lesion or biliary ductal dilatation is present. The gallbladder is unremarkable with no evidence of radiopaque gallstones, gallbladder wall thickening, or obvious pericholecystic inflammatory changes. PANCREAS: Unremarkable. SPLEEN: Unremarkable. ADRENAL GLANDS: Unremarkable. KIDNEYS AND URETERS: The kidneys are normal in size, shape, and attenuation. There is moderate to severe left hydronephrosis and hydroureter extending into the pelvis to the level two distal left ureteric calculi measuring 8 and 6.5 mm. There is mild right hydronephrosis and hydroureter without ureteral calculus. BLADDER: Unremarkable. GASTROINTESTINAL TRACT: The right midabdominal ostomy. A fluid-filled rectal stump is again noted. The patient is status post colectomy. ABDOMINAL WALL: No significant hernia is appreciated. LYMPH NODES: Normal. VASCULAR: Unremarkable. PELVIC VISCERA: Unremarkable. OSSEOUS STRUCTURES: There is diffuse thoracolumbar degenerative change. CT/CT abdomen pelvis wo IV con IMPRESSION: 1. Moderate to severe left hydronephrosis and hydroureter extending into the pelvis to the level of two distal left ureteric calculi measuring 8 and 6.5 mm. 2. Mild right hydronephrosis and hydroureter without ureteral calculus. Fleischner guidelines were followed. Electronically signed by: Kavon Singh MD 01/11/2024 01:53 AM [facility]
[2024-01-10 20:54] VITALS: BP 181/104; PULSE 90; RESP 22; TEMP 36; O2SAT 100; BMI 29.5
--- NOTE | 2024-01-10 20:56 | ECG_ITS ---
Test Reason : back pain Blood Pressure : / mmHG Vent. Rate : 092 BPM Atrial Rate : 092 BPM P-R Int : 194 ms QRS Dur : 100 ms QT Int : 402 ms P-R-T Axes : 045 -11 036 degrees QTc Int : 497 ms Normal sinus rhythm Incomplete right bundle branch block Prolonged QT Abnormal ECG No previous ECGs available Referred By: Lillie Cao Electronically Signed By:ENID REEVES
--- NOTE | 2024-01-10 20:59 | ED_ITS ---
HPI - General Adult General Chief complaint: Back Pain/Injury Stated complaint: Extreme lower back pain Time Seen by Provider: 01/10/24 21:27 Source: patient, RN notes reviewed and old records reviewed Mode of arrival: ambulatory Limitations: no limitations History of Present Illness ED Provider: Sidney LINCOLN narrative: 63-year-old male with past medical history significant for Crohn's disease status post ileostomy, chronic kidney disease presents for evaluation of left flank pain. Patient reports his pain started at 1:00 p.m. today, a few hours prior to arrival. He reports 10/10 pain. He reports this feels consistent with his history of kidney stones. He has not had any fevers or chills or numbness any blood in the urine Related Data Home Medications ?Medication ?Instructions ?Recorded ?Confirmed adalimumab 40 mg/0.4 mL 40 mg subcut QWEEK 01/25/22 08/09/23 subcutaneous pen kit (Humira(CF) Pen) losartan 25 mg tablet 12.5 mg PO DAILY 02/28/22 08/09/23 Previous Rx's ?Medication ?Instructions ?Recorded tamsulosin 0.4 mg capsule 0.4 mg PO BEDTIME 90 days #90 caps 08/09/23 Allergies Allergy/AdvReac Type Severity Reaction Status Date / Time No Known Allergies Allergy Verified 01/10/24 20:56 Review of Systems 2 Constitutional: Constitutional: Denies body ache(s), Denies chills, Denies fever(s) and Denies headache(s) Eyes: Eyes: Denies blurry vision ENT: Denies vertigo, Denies dizziness and Denies headache(s) Cardiovascular: Cardiovascular: Denies chest pain and Denies dyspnea Respiratory: Respiratory: Denies cough and Denies dyspnea Gastrointestinal: Gastrointestinal: Reports abdominal pain, Reports nausea and Denies vomiting Genitourinary: Genitourinary: Denies genital pain, Denies dysuria, Reports flank pain and Denies urinary urgency Integumentary/Breasts: Skin/Breast: Denies rash Neurologic: Denies vertigo, Denies dizziness and Denies headache(s) [facility] Past Medical History Medical History Family history of adverse response to anesthesia in father Renal calculus Colostomy in place Kidney disease Crohn's disease Surgical History H/O colonoscopy Hx of cystoscopy History of ileostomy Family History Family History Father Colon cancer Social History Social History Household Members: Spouse Housing: House Are you a primary ocular care technician to a significant other at home: No Do you presently have visiting nurse or other home services: No Alcohol intake: current Alcohol intake frequency: holidays/special occasions only Patient Tobacco Use Status: Never used Tobacco Smoked in Last 30 Days: No Use of substances other than those prescribed or required for medical reasons: No Advance Directives: No Advance Directives Information Provided: No service: No Current occupational status: employed 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, right handed Physical Exam ED Vital Signs: Vital Signs - 24 hr 01/10/24 20:54 01/10/24 21:39 01/10/24 23:58 Temperature 96.8 F 98.8 F 98.4 F Pulse Rate 90 110 H 94 Respiratory Rate 22 H 33 H 16 Blood Pressure 181/104 H 177/103 H 154/92 H Pulse Oximetry 100 100 95 Oxygen Delivery Method Room Air Room Air 01/11/24 02:00 Temperature 97.6 F Pulse Rate 92 Respiratory Rate 16 Blood Pressure 138/89 Pulse Oximetry 96 Oxygen Delivery Method Room Air BMI result Body Mass Index 29.5 Const General: healthy appearing, alert and awake Nutritional Appearance: well nourished Orientation/consciousness: patient oriented x3 HENMT Head: Yes normocephalic and Yes atraumatic Eyes Eyelids: Yes eyelids normal Conjunctivae: conjunctivae normal Sclerae: sclerae normal Corneas: corneas normal Pupils: Equal, round and reactive pupils present EOM: EOMs intact bilaterally Neck Neck: Yes full ROM Resp Effort & Inspection: normal respiratory effort, able to speak in complete sentences and not labored Cardio Rate: regular rate Rhythm: regular rhythm GI Other: Ileostomy present Inspection: No distended Palpation (GI): Soft to palpation, not firm, Tenderness to palpation present (GI), no guarding and not rigid Skin General skin exam: elasticity normal Neuro General: patient oriented x3 Cranial nerves: Yes Equal, round and reactive pupils present and Yes Bilaterally intact EOM present Cognition (Neuro): normal cognition Extrem Other: Moving all extremities well without any obvious deformities Course Course Course Narrative: This is an RME: Additional HPI, ROS, PE not included below will be deferred to primary provider. RME assessment and note performed by: Lillie Cao PA-C This is a 63-year-old male, with a history of Crohn's and kidney stones, who presents emergency department with complaints of left low back pain which started at noon today. On arrival, blood pressure 181/104, respirations 22. He is visibly uncomfortable secondary to left flank pain. Also reports decreased urine output. He states he has a history of kidney stones in symptoms feel similar. Plan: labs, CT, advised charge nurse that patient was very uncomfortable and should be brought back sooner rather than later. Reevaluation(s) Reevaluation #1: I called [facility] as the patient's CT scan has not yet been dictated. The patient has complained of pain again, he received a 3rd dose of analgesia. We will likely require admission. I did order IV fluids. He is still awaiting urinalysis. Time: 01:54 Medications Administered Generic Name Dose Route Start Last Admin Trade Name Freq PRN Reason Stop Dose Admin Sodium Chloride 1,000 mls @ 999 mls/hr 01/11/24 01:45 01/11/24 02:00 Ns IV 01/11/24 02:45 999 mls/hr .Q1H1M SILVIA Administration Discontinued Medications Generic Name Dose Route Start Last Admin Trade Name Freq PRN Reason Stop Dose Admin Hydromorphone HCl 1 mg 01/10/24 23:24 01/10/24 23:32 Hydromorphone Hcl 1 Mg/Ml Syringe IVPUSH 01/10/24 23:25 1 mg ONCE ONE Administration Protocol Hydromorphone HCl 1 mg 01/11/24 01:45 01/11/24 02:00 Hydromorphone Hcl 1 Mg/Ml Syringe IVPUSH 01/11/24 01:46 1 mg ONCE ONE Administration Protocol Morphine Sulfate 4 mg 01/10/24 21:34 01/10/24 21:43 Morphine Sulfate 4 Mg/Ml Cartridge IVPUSH 01/10/24 21:35 4 mg ONCE ONE Administration Protocol Ondansetron HCl 4 mg 01/10/24 21:34 01/10/24 21:43 Ondansetron Hcl 4 Mg/2 Ml Vial IVPUSH 01/10/24 21:35 4 mg ONCE ONE Administration Medical Decision Making Medical Decision Making [facility] Narrative: 63-year-old male with history of obstructive uropathy presents for evaluation of left flank pain. He had labs and a CT scan of the abdomen pelvis ordered in triage. I ordered a urinalysis. The patient's pain was treated with morphine Differential Diagnosis Differential Diagnoses: The differential diagnosis associated with the presentation includes Obstructive uropathy UTI Cystitis Flank pain Constipation Bowel obstruction Admission/Observation Consideration of admission/observation: Escalation of care including admission/observation considered Patient will likely require admission due to obstructive uropathy, [place] on CKD and intractable pain Lab Data [facility] Lab Attestation statement: I reviewed the patient's lab results. Patient has a leukocytosis to 15.6, this may be related to his left flank pain versus obstructive uropathy. no significant anemia. Normal platelet count. No significant electrolyte abnormalities. The patient's carbon dioxide level is low at 17 which is likely related to hyperventilating due to his pain level. He has an elevated BUN and creatinine to 28 and 2.84 respectively. This is likely partially related to his history of chronic kidney disease with associated exacerbation due to obstructive uropathy 01/10/24 21:33 01/10/24 21:33 Labs: Lab Results 01/10/24 Range/Units 21:33 WBC 15.8 H (4.8-10.8) X10*3/uL RBC 4.90 (4.60-5.80) X10*6/uL Hgb 16.3 (14.0-18.0) g/dl Hct 45.0 (42.0-52.0) % MCV 91.8 (80.0-98.0) fL MCH 33.3 H (27.0-33.0) pg MCHC 36.2 H (31.0-36.0) g/dl RDW 12.4 (11.0-16.0) % Plt Count 174 (160-400) X10*3/uL MPV 9.5 (9.4-12.4) fL Immature Gran % (Auto) 0.4 (0.0-0.4) % Neut % (Auto) 84.9 H (45-73) % Lymph % (Auto) 9.4 L (20-40) % [place] % (Auto) 4.7 (2-11) % Eos % (Auto) 0.1 (0-4) % Baso % (Auto) 0.5 (0-2) % Lymph # (Auto) 1.5 (1.2-4.9) X10*3/uL [place] # (Auto) 0.7 (0.1-1.2) X10*3/uL Eos # (Auto) 0.0 (0.0-0.4) X10*3/uL Baso # (Auto) 0.1 (0.0-0.2) X10*3/uL Abs Immat Gran (auto) 0.06 H (0.00-0.03) X10*3/uL Absolute Neuts (auto) 13.4 H (2.0-8.3) x10*3/uL Absolute Nucleated RBC 0.000 (0.0-0.012) X10*3/uL Nucleated RBC % (auto) 0.0 (0.0-0.2) /100WBC Sodium 140 (135-145) mmol/L Potassium 4.3 (3.3-5.1) mmol/L Chloride 112 H (96-108) mmol/L Carbon Dioxide 17 L (22-29) mmol/L Anion Gap 15 (12-20) BUN 28 H (9-16) mg/dL Creatinine 2.84 H (0.5-1.4) mg/dL Estim Creat Clear Calc 30.0 Estimated GFR 23 Random Glucose 152 H (60-115) mg/dL Calcium 8.6 (8.4-10.2) mg/dL Magnesium 1.9 (1.6-2.6) mg/dL Total Bilirubin 0.6 (0.0-1.0) mg/dL Direct Bilirubin 0.2 (0.0-0.5) mg/dL AST 33 (5-37) U/L ALT 30 (0-40) U/L Alkaline Phosphatase 59 (39-117) U/L Troponin I High Sens 3.1 (<3.5-35.0) ng/L Total Protein 7.9 (6.5-8.0) g/dL Albumin 3.9 (3.5-5.0) g/dL Lipase 33 (8-78) U/L Independent Interpretation I performed an independent interpretation of an: CT Scan Interpretation: Agree with Radiology interpretation Radiology Impression Discussion of test interpretation with radiology: I have reviewed the radiologist's reading. Radiologist Impression: FINDINGS: LUNG BASES: The visualized lung bases are unremarkable. LIVER, GALLBLADDER, AND BILIARY TREE: The liver is normal in size, shape, and attenuation. No focal hepatic lesion or biliary ductal dilatation is present. The gallbladder is unremarkable with no evidence of radiopaque gallstones, gallbladder wall thickening, or obvious pericholecystic inflammatory changes. PANCREAS: Unremarkable. SPLEEN: Unremarkable. ADRENAL GLANDS: Unremarkable. KIDNEYS AND URETERS: The kidneys are normal in size, shape, and attenuation. There is moderate to severe left hydronephrosis and hydroureter extending into the pelvis to the level two distal left ureteric calculi measuring 8 and 6.5 mm. There is mild right hydronephrosis and hydroureter without ureteral calculus. BLADDER: Unremarkable. GASTROINTESTINAL TRACT: The right midabdominal ostomy. A fluid-filled rectal stump is again noted. The patient is status post colectomy. ABDOMINAL WALL: No significant hernia is appreciated. LYMPH NODES: Normal. VASCULAR: Unremarkable. PELVIC VISCERA: Unremarkable. OSSEOUS STRUCTURES: There is diffuse thoracolumbar degenerative change. CT/CT abdomen pelvis wo IV con IMPRESSION: 1. Moderate to severe left hydronephrosis and hydroureter extending into the pelvis to the level of two distal left ureteric calculi measuring 8 and 6.5 mm. 2. Mild right hydronephrosis and hydroureter without ureteral calculus. Fleischner guidelines were followed. Electronically signed by: Kavon Singh MD 01/11/2024 01:53 AM EST Discharge Plan Discharge Clinical Impression: Acute left flank pain, Ureteral stent present Patient Disposition: Admitted As Inpatient Prescriptions: No Action losartan 25 mg Tablet 12.5 mg PO DAILY Humira(CF) Pen 40 mg/0.4 mL pen injector kit 40 mg subcut QWEEK tamsulosin 0.4 mg capsule 0.4 mg PO BEDTIME 90 Days Qty: 90 1RF Print Language: Belarusian
[2024-01-10 21:37] LABS: MANUAL DIFF FLAG NO
[2024-01-10 21:39] VITALS: BP 177/103; PULSE 110; RESP 33; TEMP 37.1; O2SAT 100
[2024-01-10 21:39] LABS: Basophils Absolute Auto 0.1 X10*3/uL (0.0-0.2); Basophils Percent Auto 0.5 % (0-2); Eosinophils Percent Auto 0.1 % (0-4); Hemoglobin 16.3 g/dl (14.0-18.0); Imm Gran Abs Auto 0.06 X10*3/uL (0.00-0.03); Imm Gran Pct Auto 0.4 % (0.0-0.4); Lymphocytes Absolute Auto 1.5 X10*3/uL (1.2-4.9); Lymphocytes Percent Auto 9.4 % (20-40); Mean Corpuscular HGB Conc 36.2 g/dl (31.0-36.0); Mean Corpuscular Hemoglobin 33.3 pg (27.0-33.0); Mean Corpuscular Volume 91.8 fL (80.0-98.0); Mean Platelet Volume 9.5 fL (9.4-12.4); Monocytes Absolute Auto 0.7 X10*3/uL (0.1-1.2); Monocytes Percent Auto 4.7 % (2-11); Neutrophils Absolute Auto 13.4 x10*3/uL (2.0-8.3); Neutrophils Percent Auto 84.9 % (45-73); Platelet Count 174 X10*3/uL (160-400); Red Cell Distribution Width 12.4 % (11.0-16.0); White Blood Count 15.8 X10*3/uL (4.8-10.8)
--- NOTE | 2024-01-10 21:42 | MHC.EDTECH ---
This pct just assumed care of Patient ,ekg taken and was read by Provider ,blood drawn and sent to lab ,Patient was change into hospital gown ,Patient was hooked up to environmental monitoring technician ,RN Lizzy is aware of Pt high resp ,blood pressure and high heart rate .
[2024-01-10] MEDS: Morphine Sulfate 4 MG/ML CARTRIDGE IVPUSH (21:43)
[2024-01-10] MEDS: ondansetron HCL 4 MG/2 ML VIAL IVPUSH (21:43)
[2024-01-10 21:57] LABS: Alanine Aminotransferase 30 U/L (0-40); Albumin Level 3.9 g/dL (3.5-5.0); Alkaline Phosphatase 59 U/L (39-117); Anion Gap 15 (12-20); Aspartate Amino Transferase 33 U/L (5-37); Bilirubin Direct 0.2 mg/dL (0.0-0.5); Bilirubin Total 0.6 mg/dL (0.0-1.0); Blood Urea Nitrogen 28 mg/dL (9-16); Calcium 8.6 mg/dL (8.4-10.2); Carbon Dioxide 17 mmol/L (22-29); Chloride 112 mmol/L (96-108); Estimated Glomerular Filt Rate 23; Glucose Random 152 mg/dL (60-115); Lipase 33 U/L (8-78); Magnesium 1.9 mg/dL (1.6-2.6); Potassium 4.3 mmol/L (3.3-5.1); Sodium 140 mmol/L (135-145); Total Protein 7.9 g/dL (6.5-8.0)
[2024-01-10 22:04] LABS: Troponin-I High Sensitivity 3.1 ng/L (<3.5-35.0)
[2024-01-10] MEDS: HYDROmorphone HCl 1 MG/ML SYRINGE IVPUSH (23:32)
[2024-01-10 23:58] VITALS: BP 154/92; PULSE 94; RESP 16; TEMP 36.9; O2SAT 95
[2024-01-11] VITALS (15 sets, daily range): BP systolic 118–173; BP diastolic 68–100; PULSE 51–96; RESP 12–18; TEMP 36–36.8; O2SAT 96–100
[2024-01-11] MEDS: 0.9 % Sodium Chloride 1,000 ML 999 ML IV (02:00)
[2024-01-11] MEDS: HYDROmorphone HCl 1 MG/ML SYRINGE IVPUSH ×4 (02:00→21:58)
--- NOTE | 2024-01-11 02:41 | P.HPHOSP_ITS ---
History of Present Illness Date of Service: 01/11/24 Chief Complaint: Left lower abdominal pain A 63-year-old male with a history of Crohn?s disease, recurrent kidney stones (status post stent placement in the past), and stage 3b chronic kidney disease presents with severe left lower abdominal and back pain, resembling prior kidney stone episodes. Symptoms began around noon the day after Thanksgiving. He reports decreased urine output but denies dysuria, hematuria, or fever. Imaging Findings: CT scan reveals: * Moderate to severe left hydronephrosis and hydroureter extending to the pelvis, with two distal left ureteric calculi measuring 8 mm and 6.5 mm. * Mild right hydronephrosis and hydroureter without evidence of ureteral calculus. UA is pending Review of Systems 2 Review of Systems: nausea, + left lower abd pain, decrease urine output Yes all other systems are reviewed and are negative [facility] Medical History (Updated 01/11/24 @ 02:44 by Nitish Aguilera MD) Family history of adverse response to anesthesia in father Renal calculus Colostomy in place Kidney disease Crohn's disease Family History Father Colon cancer Surgical History H/O colonoscopy Hx of cystoscopy History of ileostomy Social History Household Members: Spouse Housing: House Are you a primary pet care attendant to a significant other at home: No Do you presently have visiting nurse or other home services: No Alcohol intake: current Alcohol intake frequency: holidays/special occasions only Patient Tobacco Use Status: Never used Tobacco Smoked in Last 30 Days: No Use of substances other than those prescribed or required for medical reasons: No Advance Directives: No Advance Directives Information Provided: No service: No Current occupational status: employed 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, right handed Meds Allergies Allergy/AdvReac Type Severity Reaction Status Date / Time No Known Allergies Allergy Verified 01/10/24 20:56 Active Medications: Current Medications Sodium Chloride (Ns) 1,000 mls @ 999 mls/hr IV .Q1H1M SILVIA Stop: 01/11/24 02:45 Last Admin: 01/11/24 02:00 Dose: 999 mls/hr Home Medications ?Medication ?Instructions ?Recorded ?Confirmed ?Last Taken ?Type adalimumab 40 mg/0.4 mL 40 mg subcut QWEEK 01/25/22 08/09/23 Unknown History subcutaneous pen kit (Humira(CF) Pen) losartan 25 mg tablet 12.5 mg PO DAILY 02/28/22 08/09/23 03/02/22 History Physical Exam 2 Vital Signs and Narrative: Vital Signs: Last Vital Signs Temp 97.6 F 01/11/24 02:00 Pulse 92 01/11/24 02:00 Resp 16 01/11/24 02:00 BP 138/89 01/11/24 02:00 Pulse Ox 96 01/11/24 02:00 O2 Del Method Room Air 01/11/24 02:00 BMI result Body Mass Index 29.5 Const: Other: General: AO X 3, no acute distress heent: normal scleara, normal eye movement Resp: CTA bilateral CVS: S1,S2,RRR GI: +BS, NT, no distention : no flank tenderness Skin: No rash Neuro: motor grossly intact, cn 2 to 12 intact Psych: appropriate affect Results Labs 01/10/24 21:33 01/10/24 21:33 Labs: Laboratory Results - last 24 hr 01/10/24 21:33 MCV 91.8 MCH 33.3 H MCHC 36.2 H RDW 12.4 Plt Count 174 MPV 9.5 Immature Gran % (Auto) 0.4 Neut % (Auto) 84.9 H Lymph % (Auto) 9.4 L [place] % (Auto) 4.7 Eos % (Auto) 0.1 Baso % (Auto) 0.5 Lymph # (Auto) 1.5 [place] # (Auto) 0.7 Eos # (Auto) 0.0 Baso # (Auto) 0.1 Abs Immat Gran (auto) 0.06 H Absolute Neuts (auto) 13.4 H Absolute Nucleated RBC 0.000 Nucleated RBC % (auto) 0.0 Anion Gap 15 Estim Creat Clear Calc 30.0 Estimated GFR 23 Random Glucose 152 H Calcium 8.6 Magnesium 1.9 Total Bilirubin 0.6 Direct Bilirubin 0.2 AST 33 ALT 30 Alkaline Phosphatase 59 Troponin I High Sens 3.1 Total Protein 7.9 Albumin 3.9 Lipase 33 Imaging Radiologist's Impressions: Impressions Abdomen/Pelvis CT 01/10/24 21:03 IMPRESSION: 1. Moderate to severe left hydronephrosis and hydroureter extending into the pelvis to the level of two distal left ureteric calculi measuring 8 and 6.5 mm. 2. Mild right hydronephrosis and hydroureter without ureteral calculus. Fleischner guidelines were followed. Electronically signed by: Kavon Singh MD 01/11/2024 01:53 AM [facility] Assessment and Plan (1) Acute left flank pain: Status: Acute (2) Left ureteral calculus: Status: Acute (3) Hydronephrosis: Status: Acute Plan 63-year-old male with a past medical history of Crohn's disease, CKD 3, and recurrent kidney stones presents with obstructive left kidney stone and associated hydronephrosis. Hydronephrosis with obstructing left ureteral calculus: urology consultation keep NPO in preparation for likely cystoscopy and stent placement. start empiric ceftriaxone to cover potential infection. obtain urinalysis to assess for infection or hematuria. initiate IV fluids for hydration and to optimize renal perfusion. Acute Kidney Injury ([place]) on CKD:Likely secondary to obstruction and volume depletion. IV fluids to address dehydration. monitor renal function closely with serial BMP to assess recovery. Mild Hyperchloremic Metabolic Acidosis: Likely related to underlying CKD and volume depletion. use Lactated Ringer?s for IV fluids. repeat metabolic panel after hydration. Crohn?s Disease: continue home medications for Crohn?s management once verified. DVT Prophylaxis: Utilize sequential compression devices (SCDs) in preparation for surgical intervention in the morning. Disposition:Admit for early surgical intervention for obstructive uropathy, IVF and IV Abx Quality Stroke Does the patient have a stroke diagnosis?: No VTE Prior VTE?: No VTE Risk Level:: Medical - moderate - high VTE Device Contraindication: N/A - Device Ordered VTE Drug Contraindication: Treatment Not Indicated
[2024-01-11] MEDS: Lactated Ringers 1,000 ML 125 ML IVCONT ×2 (03:52→17:36)
[2024-01-11] MEDS: cefTRIAXone sodium 1 GM VIAL IVPUSH (03:52)
[2024-01-11 04:26] LABS: Appearance Urine Cloudy; Color Urine Yellow; Glucose Urine UA Negative (Negative); Leukocyte Esterase Urine Negative (Negative); Nitrite Urine Negative (Negative); PH 5.5 (5.0-9.0); UMIC TRIGGER UACC YES; Urine Blood Large (3+) (Negative); Urine Ketones Negative (Negative); Urine Protein 30 (1+) mg/dL (Neg-Trace)
[2024-01-11 04:37] LABS: Bacteria Urine None Seen (None Seen); RBC Urine >20 /HPF (0-2); UACC Culture Trigger YES
[2024-01-11 05:07] LABS: Hemoglobin 15.4 g/dl (14.0-18.0); Mean Corpuscular HGB Conc 34.2 g/dl (31.0-36.0); Mean Corpuscular Hemoglobin 32.4 pg (27.0-33.0); Mean Corpuscular Volume 94.7 fL (80.0-98.0); Mean Platelet Volume 9.4 fL (9.4-12.4); Platelet Count 158 X10*3/uL (160-400); Red Blood Count 4.75 X10*6/uL (4.60-5.80); Red Cell Distribution Width 12.5 % (11.0-16.0); White Blood Count 13.9 X10*3/uL (4.8-10.8)
[2024-01-11 05:20] LABS: Anion Gap 15 (12-20); Blood Urea Nitrogen 33 mg/dL (9-16); Calcium 7.6 mg/dL (8.4-10.2); Carbon Dioxide 20 mmol/L (22-29); Chloride 112 mmol/L (96-108); Estimated Glomerular Filt Rate 22; Glucose Random 117 mg/dL (60-115); Sodium 142 mmol/L (135-145)
[2024-01-11] MEDS: oxyCODONE HCl Immed Release 5 MG TABLET PO ×2 (05:39→20:27)
[2024-01-11] MEDS: 0.9 % Sodium Chloride Flush 3 ML SYRINGE IVFLUSH (07:33)
--- NOTE | 2024-01-11 09:52 | PHA.MEDREC ---
Addendum entered by Sharyn Alston RPh 01/11/24 11:09: med rec reviewed by cirilo Original Note: Pharmacy Consult ? Medication Reconciliation Pharmacy has completed the medication reconciliation. Spoke to pt to confirm meds. Patient reports taking losartan 12.5 mg daily, but only when they take another set of supplements for a kidney stone regimen . Leaving confirmed as PRN and pt reports it is not for BP management.
--- NOTE | 2024-01-11 10:13 | PM.UROCN ---
History of Present Illness Consult details Consult date: 01/11/24 Narrative: CC: Left flank pain 63-year-old male Prior history Crohn's disease, recurrent kidney stone, stage IIIB chronic kidney disease Presents with severe left lower abdominal pain radiating from his back. Resembles his prior stone episodes. Symptoms started proximally known on Saturday. Denies dysuria, hematuria, fever Creatinine 2.9 baseline 2.0, calcium 7.6, WBC 13.9, UA positive blood otherwise negative CT - Moderate to severe left hydronephrosis and hydroureter extending to the pelvis, with two distal left ureteric calculi measuring 8 mm and 6.5 mm. Based on consideration of stone location and clinical findings recommend cystoscopy, left retrograde, left ureteroscopy with laser lithotripsy and stent placement Review of Systems Constitutional: Constitutional: Reports as per HPI and Reports no additional constitutional complaints Cardiovascular: Cardiovascular: Reports as per HPI and Reports no additional cardiovascular complaints Respiratory: Respiratory: Reports as per HPI and Reports no additional respiratory complaints Gastrointestinal: Gastrointestinal: Reports as per HPI and Reports no additional gastrointestinal complaints Genitourinary: Genitourinary: Reports as per HPI Musculoskeletal: Musculoskeletal: Reports no additional musculoskeletal complaints and Reports as per HPI Neurologic: Reports system reviewed and no additional complaints, except as documented and Reports as per HPI [facility] Past Medical History Medical History (Updated 01/11/24 @ 10:16 by Chavo Ying MD) Family history of adverse response to anesthesia in father Renal calculus Colostomy in place Kidney disease Crohn's disease Family History Family History Father Colon cancer Surgical History Surgical History H/O colonoscopy Hx of cystoscopy History of ileostomy Social History Social History Household Members: Spouse Housing: House Are you a primary hemodialysis patient care specialist to a significant other at home: No Do you presently have visiting nurse or other home services: No Alcohol intake: current Alcohol intake frequency: holidays/special occasions only Patient Tobacco Use Status: Never used Tobacco Smoked in Last 30 Days: No Patient Interested in Nicotine Replacement: No Patient Given Instructions on How to Stop Smoking: No Second Hand Smoke Exposure: No Use of substances other than those prescribed or required for medical reasons: No Currently Displaying Signs/Symptoms of Drug Intoxication Withdrawal: No Any prior treatment program specific to substance use: No Have you been hit, kicked, punched, or otherwise hurt by someone within the past year? 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, right handed Meds Allergies Allergy/AdvReac Type Severity Reaction Status Date / Time No Known Allergies Allergy Verified 01/10/24 20:56 Active Medications: Current Medications Acetaminophen (Acetaminophen 325 Mg Tablet) 650 mg PO Q6H PRN PRN Reason: Pain, Mild (Pain Scale 1-3), fever or headache Calcium Carbonate (Calcium Carbonate 750 Mg Tab.Chew) 750 mg PO Q4H PRN PRN Reason: Heartburn Ceftriaxone Sodium (Ceftriaxone Sodium 1 Gm Vial) 1 gm IVPUSH Q24H [facility] Last Admin: 01/11/24 03:52 Dose: 1 gm Hydromorphone HCl (Hydromorphone Hcl 1 Mg/Ml Syringe) 1 mg IVPUSH Q4H PRN; Protocol PRN Reason: Pain, Severe (Pain Scale 7-10) Last Admin: 01/11/24 07:33 Dose: 1 mg Lactated Ringer's (Lr) 1,000 mls @ 125 mls/hr IVCONT .Q8H [facility] Last Admin: 01/11/24 03:52 Dose: 125 mls/hr Acetaminophen (Ofirmev) 1,000 mg in 100 mls @ 400 mls/hr IV PREOP ONE Stop: 01/11/24 10:24 Levofloxacin (Levaquin) 500 mg in 100 mls @ 100 mls/hr IV PREOP ONE Stop: 01/11/24 11:09 Magnesium Hydroxide (Milk Of Magnesia 30 Ml Oral.Susp) 30 ml PO DAILY PRN PRN Reason: Constipation Melatonin (Melatonin 3 Mg Tablet) 6 mg PO BEDTIME PRN PRN Reason: Insomnia Ondansetron HCl (Ondansetron Hcl 4 Mg/2 Ml Vial) 4 mg IVPUSH Q8H PRN PRN Reason: Nausea and Vomiting Oxycodone HCl (Oxycodone Hcl Immed Release 5 Mg Tablet) 5 mg PO Q6H PRN PRN Reason: Pain, Moderate(Pain Scale 4-6) Last Admin: 01/11/24 05:39 Dose: 5 mg Sodium Chloride (0.9 % Sodium Chloride Flush 3 Ml Syringe) [facility] Last Admin: 01/11/24 07:33 Dose: 3 ml Home Medications ?Medication ?Instructions ?Recorded ?Confirmed ?Last Taken ?Type adalimumab 40 mg/0.4 mL 40 mg subcut TU@0900 01/25/22 01/11/24 01/07/24 History subcutaneous pen kit (Humira(CF) Pen) losartan 25 mg tablet 12.5 mg PO DAILY PRN KIDNEY STONE 01/11/24 01/11/24 01/10/24 History REGIMEN Physical Exam Vital Signs: Vital Signs: Last Vital Signs Temp 97.3 F 01/11/24 09:21 Pulse 69 01/11/24 09:21 Resp 16 01/11/24 09:21 BP 129/70 01/11/24 09:21 Pulse Ox 97 01/11/24 09:21 O2 Del Method Room Air 01/11/24 09:21 BMI result Body Mass Index 29.5 Const: General: cooperative, healthy appearing, comfortable and no acute distress Orientation/consciousness: patient oriented x3 HEENT: Face and sinus: Yes normal facial exam Mouth: moist mucous membranes Neck: Neck: Yes normal visual inspection, Yes full ROM and Yes trachea midline Chest: Chest palpation & inspection: normal inspection of the chest Resp: Effort & Inspection: normal respiratory effort, able to speak in complete sentences and no respiratory distress GI: Inspection: Yes normal to inspection Back/Spine/Pelvis: Cervical Spine: normal cervical lordosis Thoracic/Lumbar Spine: thoracic and lumbar spine normal to inspection Skin: General skin exam: no rashes or lesions noted Neuro: General: patient oriented x3, tone normal and moves all extremities Extrem: General: Yes normal to inspection and Yes capillary refill normal Results Labs 01/11/24 04:52 01/11/24 04:51 Labs: Abnormal lab results 01/10/24 01/11/24 01/11/24 Range/Units 21:33 04:02 04:51 WBC 15.8 H (4.8-10.8) X10*3/uL MCH 33.3 H (27.0-33.0) pg MCHC 36.2 H (31.0-36.0) g/dl Plt Count (160-400) X10*3/uL Neut % (Auto) 84.9 H (45-73) % Lymph % (Auto) 9.4 L (20-40) % Abs Immat Gran (auto) 0.06 H (0.00-0.03) X10*3/uL Absolute Neuts (auto) 13.4 H (2.0-8.3) x10*3/uL Chloride 112 H 112 H (96-108) mmol/L Carbon Dioxide 17 L 20 L (22-29) mmol/L BUN 28 H 33 H (9-16) mg/dL Creatinine 2.84 H 2.94 H (0.5-1.4) mg/dL Random Glucose 152 H 117 H (60-115) mg/dL Calcium 7.6 L D (8.4-10.2) mg/dL Urine Protein 30 (1+) H (Neg-Trace) mg/dL Urine Blood Large (3+) H (Negative) Urine RBC >20 H (0-2) /HPF Urine WBC 6-10 H (0-5) /HPF 01/11/24 Range/Units 04:52 WBC 13.9 H (4.8-10.8) X10*3/uL MCH (27.0-33.0) pg MCHC (31.0-36.0) g/dl Plt Count 158 L (160-400) X10*3/uL Neut % (Auto) (45-73) % Lymph % (Auto) (20-40) % Abs Immat Gran (auto) (0.00-0.03) X10*3/uL Absolute Neuts (auto) (2.0-8.3) x10*3/uL Chloride (96-108) mmol/L Carbon Dioxide (22-29) mmol/L BUN (9-16) mg/dL Creatinine (0.5-1.4) mg/dL Random Glucose (60-115) mg/dL Calcium (8.4-10.2) mg/dL Urine Protein (Neg-Trace) mg/dL Urine Blood (Negative) Urine RBC (0-2) /HPF Urine WBC (0-5) /HPF Short CBC 01/10/24 01/11/24 Range/Units 21:33 04:52 WBC 15.8 H 13.9 H (4.8-10.8) X10*3/uL Hgb 16.3 15.4 (14.0-18.0) g/dl Hct 45.0 45.0 (42.0-52.0) % Plt Count 174 158 L (160-400) X10*3/uL BMP 01/10/24 01/11/24 21:33 04:51 Sodium 140 142 Potassium 4.3 5.0 Chloride 112 H 112 H Carbon Dioxide 17 L 20 L BUN 28 H 33 H Creatinine 2.84 H 2.94 H Calcium 8.6 7.6 L D Liver Function 01/10/24 Range/Units 21:33 Total Bilirubin 0.6 (0.0-1.0) mg/dL Direct Bilirubin 0.2 (0.0-0.5) mg/dL AST 33 (5-37) U/L ALT 30 (0-40) U/L Alkaline Phosphatase 59 (39-117) U/L Albumin 3.9 (3.5-5.0) g/dL Urine 01/11/24 Range/Units 04:02 Urine Color Yellow Urine Appearance Cloudy Urine pH 5.5 (5.0-9.0) Ur Specific [place] 1.020 (1.005-1.025) Urine Protein 30 (1+) H (Neg-Trace) mg/dL Urine Glucose (UA) Negative (Negative) mg/dL All other labs normal. Assessment and Plan (1) Hydronephrosis: Status: Acute (2) Left ureteral calculus: Status: Acute (3) Acute renal injury: Status: Acute Plan Ureteroscopy We discussed the nature of the decision and reasonable alternatives for performing ureteroscopy. Options such as medical therapy were discussed. Interventions include chemical dissolution, ESWL, ureteroscopy with laser lithotripsy and stent placement, PCNL. The relative uncertainties and benefits related to each alternate procedure were adequately discussed. General surgical risks including, but not limited to - pain, bleeding, infection, myocardial infarction, pulmonary embolus, deep vein thrombosis and cerebrovascular accident which may result in further hospitalization were discussed. Full disclosure of the procedure as well as all major risks, benefits and complications were discussed including but not limited to damage to the urethra, bladder and kidney infection, damage to the ureter, stent migration or malposition, scarring to the renal pelvis, remnant stone fragments, subsequent stone passage with need for secondary procedures. The overall secondary procedure rate is approximately 10-15%. The overall clearance rate is approximately 90-95%. Success of the procedure in the short-term does not necessarily guarantee that long-term success will be maintained. Suitable follow up will need to be maintained. The patient showed understanding of discussion and wishes to proceed with - cystoscopy, retrograde, ureteroscopy, possible lithotripsy/stone basketing and stent on the left side Procedures Date of Service Date of Service: 01/11/24
--- NOTE | 2024-01-11 10:52 | PC.NURSE ---
Report called to short stay
--- NOTE | 2024-01-11 11:07 | P.CONAN_ITS ---
HPI - Anesthesia Eval Consult details Narrative: Ureter obstruction by stone PMFSH Active Problems Active Problems: All Active Problems Acute renal injury (Acute) Acute left flank pain (Acute) Weak urinary stream (Acute) Renal calculus (Acute) Osteoarthritis of right AC (acromioclavicular) joint (Acute) Tendinitis of right rotator cuff (Acute) Recurrent nephrolithiasis (Acute) Hematuria (Acute) Chronic kidney disease (Acute) Hydronephrosis (Acute) Ureteral stent present (Acute) Left ureteral calculus (Acute) Crohn's disease (Acute) Past Medical History Medical History (Updated 01/11/24 @ 10:16 by Chavo Ying MD) Family history of adverse response to anesthesia in father Renal calculus Colostomy in place Kidney disease Crohn's disease Family History Family History Father Colon cancer Family history of problems with anesthesia: No Surgical History Surgical History H/O colonoscopy Hx of cystoscopy History of ileostomy History of Problems with Anesthesia: No Social History Social History Household Members: Spouse Housing: House Are you a primary caretaker to a significant other at home: No Do you presently have visiting nurse or other home services: No Alcohol intake: current Alcohol intake frequency: holidays/special occasions only Patient Tobacco Use Status: Never used Tobacco Smoked in Last 30 Days: No Patient Interested in Nicotine Replacement: No Patient Given Instructions on How to Stop Smoking: No Second Hand Smoke Exposure: No Use of substances other than those prescribed or required for medical reasons: No Currently Displaying Signs/Symptoms of Drug Intoxication Withdrawal: No Any prior treatment program specific to substance use: No Have you been hit, kicked, punched, or otherwise hurt by someone within the past year? 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, right handed Meds Allergies Allergy/AdvReac Type Severity Reaction Status Date / Time No Known Allergies Allergy Verified 01/10/24 20:56 Active Medications: Current Medications Acetaminophen (Acetaminophen 325 Mg Tablet) 650 mg PO Q6H PRN PRN Reason: Pain, Mild (Pain Scale 1-3), fever or headache Calcium Carbonate (Calcium Carbonate 750 Mg Tab.Chew) 750 mg PO Q4H PRN PRN Reason: Heartburn Ceftriaxone Sodium (Ceftriaxone Sodium 1 Gm Vial) 1 gm IVPUSH Q24H [facility] Last Admin: 01/11/24 03:52 Dose: 1 gm Hydromorphone HCl (Hydromorphone Hcl 1 Mg/Ml Syringe) 1 mg IVPUSH Q4H PRN; Protocol PRN Reason: Pain, Severe (Pain Scale 7-10) Last Admin: 01/11/24 07:33 Dose: 1 mg Lactated Ringer's (Lr) 1,000 mls @ 125 mls/hr IVCONT .Q8H [facility] Last Admin: 01/11/24 03:52 Dose: 125 mls/hr Levofloxacin (Levaquin) 500 mg in 100 mls @ 100 mls/hr IV PREOP ONE Stop: 01/11/24 11:09 Magnesium Hydroxide (Milk Of Magnesia 30 Ml Oral.Susp) 30 ml PO DAILY PRN PRN Reason: Constipation Melatonin (Melatonin 3 Mg Tablet) 6 mg PO BEDTIME PRN PRN Reason: Insomnia Ondansetron HCl (Ondansetron Hcl 4 Mg/2 Ml Vial) 4 mg IVPUSH Q8H PRN PRN Reason: Nausea and Vomiting Oxycodone HCl (Oxycodone Hcl Immed Release 5 Mg Tablet) 5 mg PO Q6H PRN PRN Reason: Pain, Moderate(Pain Scale 4-6) Last Admin: 01/11/24 05:39 Dose: 5 mg Sodium Chloride (0.9 % Sodium Chloride Flush 3 Ml Syringe) 3 ml IVFLUSH QSHIFT [facility] Last Admin: 01/11/24 07:33 Dose: 3 ml Home Medications ?Medication ?Instructions ?Recorded ?Confirmed ?Last Taken ?Type adalimumab 40 mg/0.4 mL 40 mg subcut TU@0900 01/25/22 01/11/24 01/07/24 History subcutaneous pen kit (Humira(CF) Pen) losartan 25 mg tablet 12.5 mg PO DAILY PRN KIDNEY STONE 01/11/24 01/11/24 01/10/24 History REGIMEN Exam Height,Weight and Vital Signs: Height 5 ft 9 in Weight 90.718 kg Last Vital Signs Temp 97.3 F 01/11/24 09:21 Pulse 69 01/11/24 09:21 Resp 16 01/11/24 09:21 BP 129/70 01/11/24 09:21 Pulse Ox 97 01/11/24 09:21 O2 Del Method Room Air 01/11/24 09:21 Pertinent Lab Results Pertinent Lab Results: Laboratory Tests 01/10/24 01/11/24 01/11/24 21:33 04:02 04:51 WBC 15.8 H RBC 4.90 Hgb 16.3 Hct 45.0 MCV 91.8 MCH 33.3 H MCHC 36.2 H RDW 12.4 Plt Count 174 MPV 9.5 Immature Gran % (Auto) 0.4 Neut % (Auto) 84.9 H Lymph % (Auto) 9.4 L [place] % (Auto) 4.7 Eos % (Auto) 0.1 Baso % (Auto) 0.5 Lymph # (Auto) 1.5 [place] # (Auto) 0.7 Eos # (Auto) 0.0 Baso # (Auto) 0.1 Abs Immat Gran (auto) 0.06 H Absolute Neuts (auto) 13.4 H Absolute Nucleated RBC 0.000 Nucleated RBC % (auto) 0.0 Sodium 140 142 Potassium 4.3 5.0 Chloride 112 H 112 H Carbon Dioxide 17 L 20 L Anion Gap 15 15 BUN 28 H 33 H Creatinine 2.84 H 2.94 H Estim Creat Clear Calc 30.0 29.0 Estimated GFR 23 22 Random Glucose 152 H 117 H Calcium 8.6 7.6 L D Magnesium 1.9 Total Bilirubin 0.6 Direct Bilirubin 0.2 AST 33 ALT 30 Alkaline Phosphatase 59 Troponin I High Sens 3.1 Total Protein 7.9 Albumin 3.9 Lipase 33 Urine Color Yellow Urine Appearance Cloudy Urine pH 5.5 Ur Specific [place] 1.020 Urine Protein 30 (1+) H Urine Glucose (UA) Negative Urine Ketones Negative Urine Blood Large (3+) H Urine Nitrite Negative Ur Leukocyte Esterase Negative Urine RBC >20 H Urine WBC 6-10 H Ur Squamous Epith Cells 3-5 Urine Bacteria None Seen Hyaline Casts 6-10 01/11/24 04:52 WBC 13.9 H RBC 4.75 Hgb 15.4 Hct 45.0 MCV 94.7 MCH 32.4 MCHC 34.2 RDW 12.5 Plt Count 158 L MPV 9.4 Immature Gran % (Auto) Neut % (Auto) Lymph % (Auto) [place] % (Auto) Eos % (Auto) Baso % (Auto) Lymph # (Auto) [place] # (Auto) Eos # (Auto) Baso # (Auto) Abs Immat Gran (auto) Absolute Neuts (auto) Absolute Nucleated RBC 0.000 Nucleated RBC % (auto) 0.0 Sodium Potassium Chloride Carbon Dioxide Anion Gap BUN Creatinine Estim Creat Clear Calc Estimated GFR Random Glucose Calcium Magnesium Total Bilirubin Direct Bilirubin AST ALT Alkaline Phosphatase Troponin I High Sens Total Protein Albumin Lipase Urine Color Urine Appearance Urine pH Ur Specific [place] Urine Protein Urine Glucose (UA) Urine Ketones Urine Blood Urine Nitrite Ur Leukocyte Esterase Urine RBC Urine WBC Ur Squamous Epith Cells Urine Bacteria Hyaline Casts Airway Mallampati Class: II TM Dist: >3cm Neck ROM: Full Loose/Missing/Broken Teeth: No Heart: RRR Lungs: CTA Assessment and Plan Assessment Anesthesia Assessment: Anesthesia Plan Discussed and Chart Reviewed Final Anesthetic Review Family History of Problems with Anesthesia: No History of Problems with Anesthesia: No NPO: Yes ASA Class: III and Emergency Final Preanesthetic Review: No Changes in Pt Med Stat, Meds/Allgs Chart Reviewed, Consent Obtained/Reviewed and Anes Risks/Benef Reviewed Patient Risk: Intermediate Procedure Risk: Low Anesthetic Plan Anesthetic Plan: GA Disposition: Standard PACU
--- NOTE | 2024-01-11 11:16 | MHC.CM.PN ---
PT REPORTS HE LIVES WITH HIS AND IS INDEPENDENT WITH CARE HE HAS NO SERVICES AND NO DME AND WORKS PT REPORTS HE HAS A HCP, COPY REQUESTED PCP: COLT SIMPSON DCP: HOME NO SERVICES VIA PRIVATE TRANSPORT
--- NOTE | 2024-01-11 11:33 | PC.NURSE ---
Levaquin 500 mg IV pulled for use by anesthesia. Given to Dr Ernst.
--- NOTE | 2024-01-11 13:28 | P.PNIM_ITS ---
Subjective Subjective Date of Service: 01/11/24 Interval History: seen and evaluated this morning Feels little better, pain tolerated no fever or chills no other events Review of Systems Review of Systems: Yes all other systems are reviewed and are negative Physical Exam 2 Vital Signs: Vital Signs: Last Vital Signs Temp 96.8 F 01/11/24 11:08 Pulse 70 01/11/24 11:08 Resp 16 01/11/24 11:08 BP 122/68 01/11/24 11:08 Pulse Ox 98 01/11/24 11:08 O2 Del Method Room Air 01/11/24 11:08 BMI result Body Mass Index 29.5 Const: Other: Constitutional : Awake, interactive, not in distress Neck : Normal inspection, Supple Cardiovascular : RRR, no JVP, no lower extremity edema Respiratory : good bilateral air entry, no crackles, wheezes or rhonchi Gastrointestinal: soft, lax, Normal bowel sounds, Non tender Skin : Warm, Dry Neurological : Alert & oriented x3, No focal deficit Objective Data Active Medications Acetaminophen (Acetaminophen 325 Mg Tablet) 650 mg PO Q6H PRN PRN Reason: Pain, Mild (Pain Scale 1-3), fever or headache Calcium Carbonate (Calcium Carbonate 750 Mg Tab.Chew) 750 mg PO Q4H PRN PRN Reason: Heartburn Ceftriaxone Sodium (Ceftriaxone Sodium 1 Gm Vial) 1 gm IVPUSH Q24H [facility] Last Admin: 01/11/24 03:52 Dose: 1 gm Documented By: KIMBERLY Fentanyl (Fentanyl Citrate/Pf 100 Mcg/2 Ml Vial) 25 mcg IVPUSH Q5M PRN PRN Reason: Pain, Moderate(Pain Scale 4-6) Stop: 01/11/24 17:08 Hydromorphone HCl (Hydromorphone Hcl 1 Mg/Ml Syringe) 1 mg IVPUSH Q4H PRN; Protocol PRN Reason: Pain, Severe (Pain Scale 7-10) Last Admin: 01/11/24 07:33 Dose: 1 mg Documented By: GALEN Hydromorphone HCl (Hydromorphone Hcl 0.5 Mg/0.5 Ml Syringe) 0.5 mg IVPUSH Q5M PRN PRN Reason: Pain, Moderate to Severe (Pain Scale 4-10) Stop: 01/11/24 17:08 Lactated Ringer's (Lr) 1,000 mls @ 125 mls/hr IVCONT .Q8H [facility] Last Admin: 01/11/24 03:52 Dose: 125 mls/hr Documented By: KIMBERLY Ketorolac Tromethamine (Ketorolac Tromethamine 30 Mg/Ml Vial) 30 mg IVPUSH ONCE PRN PRN Reason: Pain, Severe (Pain Scale 7-10) Stop: 01/11/24 17:08 Magnesium Hydroxide (Milk Of Magnesia 30 Ml Oral.Susp) 30 ml PO DAILY PRN PRN Reason: Constipation Melatonin (Melatonin 3 Mg Tablet) 6 mg PO BEDTIME PRN PRN Reason: Insomnia Naloxone HCl (Naloxone Hcl 0.4 Mg/Ml Vial) 0.04 mg IVPUSH Q5M PRN PRN Reason: Excessive sedation or RR < 8 Ondansetron HCl (Ondansetron Hcl 4 Mg/2 Ml Vial) 4 mg IVPUSH Q8H PRN PRN Reason: Nausea and Vomiting Oxycodone HCl (Oxycodone Hcl Immed Release 5 Mg Tablet) 5 mg PO Q6H PRN PRN Reason: Pain, Moderate(Pain Scale 4-6) Last Admin: 01/11/24 05:39 Dose: 5 mg Documented By: KIMBERLY Promethazine HCl (Promethazine Hcl 25 Mg/Ml Vial) 6.25 mg IM ONCE PRN PRN Reason: Nausea and Vomiting Stop: 01/11/24 17:08 Sodium Chloride (0.9 % Sodium Chloride Flush 3 Ml Syringe) 3 ml IVFLUSH [facility] Last Admin: 01/11/24 07:33 Dose: 3 ml Documented By: GALEN Labs 01/11/24 04:52 01/11/24 04:51 Labs: Laboratory Results - last 24 hr 01/10/24 01/11/24 01/11/24 21:33 04:02 04:51 MCV 91.8 MCH 33.3 H MCHC 36.2 H RDW 12.4 Plt Count 174 MPV 9.5 Immature Gran % (Auto) 0.4 Neut % (Auto) 84.9 H Lymph % (Auto) 9.4 L Rogers % (Auto) 4.7 Eos % (Auto) 0.1 Baso % (Auto) 0.5 Lymph # (Auto) 1.5 Rogers # (Auto) 0.7 Eos # (Auto) 0.0 Baso # (Auto) 0.1 Abs Immat Gran (auto) 0.06 H Absolute Neuts (auto) 13.4 H Absolute Nucleated RBC 0.000 Nucleated RBC % (auto) 0.0 Anion Gap 15 15 Estim Creat Clear Calc 30.0 29.0 Estimated GFR 23 22 Random Glucose 152 H 117 H Calcium 8.6 7.6 L D Magnesium 1.9 Total Bilirubin 0.6 Direct Bilirubin 0.2 AST 33 ALT 30 Alkaline Phosphatase 59 Troponin I High Sens 3.1 Total Protein 7.9 Albumin 3.9 Lipase 33 Urine Color Yellow Urine Appearance Cloudy Urine pH 5.5 Ur Specific [place] 1.020 Urine Protein 30 (1+) H Urine Glucose (UA) Negative Urine Ketones Negative Urine Blood Large (3+) H Urine Nitrite Negative Ur Leukocyte Esterase Negative Urine RBC >20 H Urine WBC 6-10 H Ur Squamous Epith Cells 3-5 Urine Bacteria None Seen Hyaline Casts 6-10 01/11/24 04:52 MCV 94.7 MCH 32.4 MCHC 34.2 RDW 12.5 Plt Count 158 L MPV 9.4 Immature Gran % (Auto) Neut % (Auto) Lymph % (Auto) Rogers % (Auto) Eos % (Auto) Baso % (Auto) Lymph # (Auto) Rogers # (Auto) Eos # (Auto) Baso # (Auto) Abs Immat Gran (auto) Absolute Neuts (auto) Absolute Nucleated RBC 0.000 Nucleated RBC % (auto) 0.0 Anion Gap Estim Creat Clear Calc Estimated GFR Random Glucose Calcium Magnesium Total Bilirubin Direct Bilirubin AST ALT Alkaline Phosphatase Troponin I High Sens Total Protein Albumin Lipase Urine Color Urine Appearance Urine pH Ur Specific [place] Urine Protein Urine Glucose (UA) Urine Ketones Urine Blood Urine Nitrite Ur Leukocyte Esterase Urine RBC Urine WBC Ur Squamous Epith Cells Urine Bacteria Hyaline Casts Assessment and Plan (1) Acute renal injury: Status: Acute (2) Acute left flank pain: Status: Acute (3) Renal calculus: Status: Acute Plan 63-year-old male with a past medical history of Crohn's disease, CKD 3, and recurrent kidney stones presents with obstructive left kidney stone and associated hydronephrosis. Hydronephrosis with obstructing left ureteral calculus: pain better controlled, PRN pain meds keep empiric ceftriaxone . IV fluids Urology input appreciated, cystoscopy, retrograde, ureteroscopy, possible lithotripsy/stone basketing and stent on the left side Acute Kidney Injury ([place]) on CKD with metabolic acidosis secondary to obstruction and volume depletion. IV fluids should improve once stone taken care of BMP to assess recovery. Crohn?s Disease: continue home medications for Crohn?s management once verified. DVT Prophylaxis: Utilize sequential compression devices (SCDs) in preparation for surgical intervention in the morning. Admit for early surgical intervention for obstructive uropathy, IVF and IV Abx pending intervention and Cr improvement Quality Stroke Does the patient have a stroke diagnosis?: No VTE Prior VTE?: No VTE Risk Level:: Medical - moderate - high VTE Device Contraindication: N/A - Device Ordered VTE Drug Contraindication: Treatment Not Indicated
--- NOTE | 2024-01-11 13:41 | P.OP_ITS ---
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 Patient has stated he has had more difficulty in urinating in the last few months. Procedure: After informed consent was verified the patient was brought to the operating room and placed in a supine position. Anesthesia was administered per protocol. Patient was placed in modified dorsal lithotomy position and prepped and draped in a sterile fashion. Safety pause time-out was performed. Antibiotics being given. Twenty-two [place] cystoscope passed per urethra. No abnormality noted of the anterior posterior urethra as soon as we entered the prostate there appeared to be some shaggy tissue around the prostate area up to the trigone of the bladder. The scope also felt as though it was difficult to pass due to rigidity of pelvic floor soft tissue. The patient has had a previous API and there is no rectum to examine for pelvic floor bladder lack of mobility. We were unable to find either ureteric orifice as the reactive tissue from the trigone area prevented these from being seen. Decision was made to proceed with resection of the trigone floor. Using bipolar cautery extensive resection greater than 5 cm was performed across the bladder trigone running from the left to the right and down as far as the prostate to the verumontanum. Resection was performed across this entire area. There was no clear evidence of either ureteric orifice during resection. Modifier 22 for time taken to perform resection and size of resection performed. Tissue sent for pathology. When resection was complete we were able to see what appeared to be the right ureteric orifice which had been resected. The internal ureteric mucosa was visible. Using the regular cystoscope we are able to advance a 4 [place] open- ended catheter and a retrograde performed. There was hydroureteronephrosis and tortuous ureter to course. A sensor guidewire was placed. A 6 [place] by 26 cm stent was then placed. Good coil seen within the renal pelvis and in the bladder. Attention was directed to the left side. Resection was performed in area that was a mirror of where the right ureteric orifice was found. We were able to expose the left ureteric orifice. Using the 4 [place] open-ended cannulation and retrograde examination was performed. Filling defects seen in the distal portion of the left ureter consistent with stones seen on CT scan. Proximal hydroureteronephrosis was seen. Sensor guidewire was placed An attempt was then made to place the rigid ureteral scope alongside the sensor wire. Due to the rigidity of the pelvic floor this was unable to be performed. The access sheath was then placed and a 2nd sensor guidewire placed. We were then able to advance the rigid ureteral scope over the wire into the distal portion of the ureter. The wire was removed. The stones were encountered h owever we were not able to reach the stone which floated back up the ureter. An attempt was then made to place the flexible ureteral scope however this was unable to be advanced due to narrowing at the opening of the ureter consistent with rigidity from the pelvic floor mass. Given the difficulty with access a decision was made to place a stent. The 2nd wire which had been left as a safety wire was backloaded into the cystoscope. A 6 [place] by 26 cm double-J stent was then placed without difficulty. Good coil seen within the renal pelvis and in the bladder. A decision was made to place a three-way Bermudez catheter with CBI given the area of resection that was performed. A 20 [place] Bermudez catheter three-way silicon was placed and 30 cc placed in the balloon. Patient tolerated the procedure and was extubated in operating. He was sent in stable condition to the recovery area. Pathology: Bladder trigone resection Drains: Bermudez catheter
[2024-01-11] MEDS: Phenazopyridine HCL 100 MG TABLET PO (14:12)
[2024-01-11] MEDS: Acetaminophen 1,000 MG/100 ML PIGGYBACK 400 MG IV (14:16)
[2024-01-11] MEDS: fentaNYL citrate/PF 100 MCG/2 ML VIAL 25 MCG IVPUSH (14:24)
[2024-01-11] MEDS: Tamsulosin HCL 0.4 MG CAPSULE PO (20:28)
[2024-01-12] VITALS (8 sets, daily range): BP systolic 111–134; BP diastolic 67–78; PULSE 67–87; RESP 16–18; TEMP 36.2–36.6; O2SAT 97–99
[2024-01-12] MEDS: Lactated Ringers 1,000 ML 125 ML IVCONT ×2 (01:31→08:50)
[2024-01-12] MEDS: HYDROmorphone HCl 1 MG/ML SYRINGE IVPUSH ×4 (01:59→22:18)
[2024-01-12] MEDS: cefTRIAXone sodium 1 GM VIAL IVPUSH (02:03)
[2024-01-12 08:00] LABS: Hematocrit 40.1 % (42.0-52.0); Hemoglobin 13.6 g/dl (14.0-18.0); Mean Corpuscular HGB Conc 33.9 g/dl (31.0-36.0); Mean Corpuscular Hemoglobin 32.9 pg (27.0-33.0); Mean Corpuscular Volume 96.9 fL (80.0-98.0); Mean Platelet Volume 10.1 fL (9.4-12.4); Platelet Count 132 X10*3/uL (160-400); Red Blood Count 4.14 X10*6/uL (4.60-5.80); Red Cell Distribution Width 12.7 % (11.0-16.0); White Blood Count 10.7 X10*3/uL (4.8-10.8)
[2024-01-12 08:28] LABS: Anion Gap 10 (12-20); Blood Urea Nitrogen 31 mg/dL (9-16); Carbon Dioxide 22 mmol/L (22-29); Chloride 111 mmol/L (96-108); Creatinine Clr Calc Pharmacy 32.4; Estimated Glomerular Filt Rate 25; Glucose Random 82 mg/dL (60-115); Potassium 3.4 mmol/L (3.3-5.1); Sodium 140 mmol/L (135-145)
[2024-01-12 11:44] LABS: Prostate Specific Antigen 5.73 ng/mL (<0.05-4.0)
--- NOTE | 2024-01-12 12:30 | HO.PM.IMPN ---
Subjective Subjective Date of Service: 01/12/24 Interval History: seen and evaluated this morning Feels little better, pain tolerated no fever or chills no other events Physical Exam Vital Signs: Vital Signs: Last Vital Signs Temp 97.5 F 01/12/24 11:41 Pulse 76 01/12/24 11:41 Resp 18 01/12/24 11:41 BP 118/71 01/12/24 11:41 Pulse Ox 98 01/12/24 11:41 O2 Del Method Room Air 01/12/24 11:41 O2 Flow Rate 3 01/11/24 14:34 Oxygen Flow Rate 96 01/12/24 11:08 BMI result Body Mass Index 29.5 Const: Other: Constitutional : Awake, interactive, not in distress Neck : Normal inspection, Supple Cardiovascular : RRR, no JVP, no lower extremity edema Respiratory : good bilateral air entry, no crackles, wheezes or rhonchi Gastrointestinal: soft, lax, Normal bowel sounds, Non tender Skin : Warm, Dry Neurological : Alert & oriented x3, No focal deficit Objective Data Active Medications Acetaminophen (Acetaminophen 325 Mg Tablet) 650 mg PO Q6H PRN PRN Reason: Pain, Mild (Pain Scale 1-3), fever or headache Calcium Carbonate (Calcium Carbonate 750 Mg Tab.Chew) 750 mg PO Q4H PRN PRN Reason: Heartburn Ceftriaxone Sodium (Ceftriaxone Sodium 1 Gm Vial) 1 gm IVPUSH Q24H [facility] Last Admin: 01/12/24 02:03 Dose: 1 gm Documented By: BETTYE Hydromorphone HCl (Hydromorphone Hcl 1 Mg/Ml Syringe) 1 mg IVPUSH Q4H PRN; Protocol PRN Reason: Pain, Severe (Pain Scale 7-10) Last Admin: 01/12/24 07:17 Dose: 1 mg Documented By: NAOMIE Lactated Ringer's (Lr) 1,000 mls @ 125 mls/hr IVCONT .Q8H [facility] Last Admin: 01/12/24 08:50 Dose: 125 mls/hr Documented By: NAOMIE Magnesium Hydroxide (Milk Of Magnesia 30 Ml Oral.Susp) 30 ml PO DAILY PRN PRN Reason: Constipation Melatonin (Melatonin 3 Mg Tablet) 6 mg PO BEDTIME PRN PRN Reason: Insomnia Naloxone HCl (Naloxone Hcl 0.4 Mg/Ml Vial) 0.04 mg IVPUSH Q5M PRN PRN Reason: Excessive sedation or RR < 8 Ondansetron HCl (Ondansetron Hcl 4 Mg/2 Ml Vial) 4 mg IVPUSH Q8H PRN PRN Reason: Nausea and Vomiting Oxycodone HCl (Oxycodone Hcl Immed Release 5 Mg Tablet) 5 mg PO Q6H PRN PRN Reason: Pain, Moderate(Pain Scale 4-6) Last Admin: 01/11/24 20:27 Dose: 5 mg Documented By: VASQUEZ Sodium Chloride (0.9 % Sodium Chloride Flush 3 Ml Syringe) 3 ml IVFLUSH QSHIFT [facility] Last Admin: 01/12/24 07:18 Dose: Not Given Documented By: NAOMIE Non-Admin Reason: IV Running Tamsulosin HCl (Tamsulosin Hcl 0.4 Mg Capsule) 0.4 mg PO BEDTIME [facility] Last Admin: 01/11/24 20:28 Dose: 0.4 mg Documented By: VASQUEZ Labs 01/12/24 06:26 01/12/24 06:26 Labs: Laboratory Results - last 24 hr 01/12/24 01/12/24 06:26 10:59 MCV 96.9 MCH 32.9 MCHC 33.9 RDW 12.7 Plt Count 132 L MPV 10.1 Absolute Nucleated RBC 0.000 Nucleated RBC % (auto) 0.0 Anion Gap 10 L Estim Creat Clear Calc 32.4 Estimated GFR 25 Random Glucose 82 Calcium 8.0 L Prostate Specific Ag 5.73 H Microbiology Microbiology Results: Microbiology 01/11/24 Unknown Urine Culture - Final Urine clean catch - Clean Catch Midstream Assessment and Plan (1) Acute renal injury: Status: Acute (2) Acute left flank pain: Status: Acute (3) Renal calculus: Status: Acute (4) Bladder mass: Status: Acute Plan 63-year-old male with a past medical history of Crohn's disease, CKD 3, and recurrent kidney stones presents with obstructive left kidney stone and associated hydronephrosis. Hydronephrosis with obstructing left ureteral calculus s/p bilateral stents 01/10 complicated with hematuria pain better controlled keep empiric ceftriaxone . IV fluids Urology input appreciated, bladder mass found, pending pathology CBI for hematuria, wean as tolerated Acute Kidney Injury ([place]) on CKD with metabolic acidosissecondary to obstruction and volume depletion. improving slowly IV fluids should improve once stone taken care of BMP to assess recovery. Crohn?s Disease: continue home medications for Crohn?s management once verified. DVT Prophylaxis: Utilize sequential compression devices (SCDs) in preparation for surgical intervention in the morning. Admit for early surgical intervention for obstructive uropathy, IVF and IV Abx pending Cr improvement and hematuria resolution Quality Stroke Does the patient have a stroke diagnosis?: No VTE Prior VTE?: No VTE Risk Level:: Medical - moderate - high VTE Device Contraindication: N/A - Device Ordered VTE Drug Contraindication: Treatment Not Indicated
--- NOTE | 2024-01-12 16:57 | HO.POSTANES ---
Post Anesthesia Evaluation Post Anesthesia Evaluation Date of Service: 01/12/24 Vital Signs: Vital Signs Temp Pulse Resp BP Pulse Ox O2 Del Method 01/12/24 15:08 97.8 F 81 18 125/72 98 Room Air 01/12/24 11:41 97.5 F 76 18 118/71 98 Room Air 01/12/24 07:15 97.5 F 68 18 118/67 98 Room Air Anesthesia: General LMA Mental Status: Awake Pain Control: Satisfactory Nausea/Vomiting: None Hydration: Adequate Anesthesia-Related Issues: No Anes. Related Issues
--- NOTE | 2024-01-12 18:33 | P.PNUR_ITS ---
Subjective Subjective Date of Service: 01/12/24 Interval history: Mild improvement in creatinine from 3.0-2.6 since placement of bilateral stents Discussed operative finding Bladder base and appeared to be significantly inflamed. Multiple different possible diagnoses Discuss these options with patient and his who was on the phone PSA 5.7 which is not extraordinarily high CT scan no evidence of metastatic bony disease Will await path If continues to clear Bermudez catheter may be removed tomorrow Physical Exam 2 Vital Signs: Vital Signs: Last Vital Signs Temp 97.8 F 01/12/24 15:08 Pulse 81 01/12/24 15:08 Resp 18 01/12/24 15:08 BP 125/72 01/12/24 15:08 Pulse Ox 98 01/12/24 15:08 O2 Del Method Room Air 01/12/24 15:08 O2 Flow Rate 3 01/11/24 14:34 Oxygen Flow Rate 96 01/12/24 11:08 BMI result Body Mass Index 29.5 Const: General: cooperative, healthy appearing, comfortable and no acute distress Orientation/consciousness: patient oriented x3 HEENT: Face and sinus: Yes normal facial exam Mouth: moist mucous membranes Neck: Neck: Yes normal visual inspection, Yes full ROM and Yes trachea midline Chest: Chest palpation & inspection: normal inspection of the chest Resp: Effort & Inspection: normal respiratory effort, able to speak in complete sentences and no respiratory distress GI: Inspection: Yes normal to inspection Back/Spine/Pelvis: Cervical Spine: normal cervical lordosis Thoracic/Lumbar Spine: thoracic and lumbar spine normal to inspection Skin: General skin exam: no rashes or lesions noted Neuro: General: patient oriented x3, tone normal and moves all extremities Extrem: General: Yes normal to inspection and Yes capillary refill normal Urology Results Labs 01/12/24 06:26 01/12/24 06:26 Labs: Laboratory Results - last 24 hr 01/12/24 01/12/24 06:26 10:59 WBC 10.7 RBC 4.14 L Hgb 13.6 L Hct 40.1 L MCV 96.9 MCH 32.9 MCHC 33.9 RDW 12.7 Plt Count 132 L MPV 10.1 Absolute Nucleated RBC 0.000 Nucleated RBC % (auto) 0.0 Sodium 140 Potassium 3.4 D Chloride 111 H Carbon Dioxide 22 Anion Gap 10 L BUN 31 H Creatinine 2.63 H Estim Creat Clear Calc 32.4 Estimated GFR 25 Random Glucose 82 Calcium 8.0 L Prostate Specific Ag 5.73 H Progress Note: A&P Assessment and plan (1) Renal calculus: Status: Acute (2) Hydronephrosis: Status: Acute (3) Acute renal injury: Status: Acute Plan Followed creatinine Will need stone Procedure Time Spent With Patient Time: Total time managing care of this patient today ____ minutes. Progress Note: Quality Stroke Does the patient have a stroke diagnosis?: No
[2024-01-12] MEDS: 0.9 % Sodium Chloride Flush 3 ML SYRINGE IVFLUSH (21:07)
[2024-01-12] MEDS: Tamsulosin HCL 0.4 MG CAPSULE PO (21:07)
[2024-01-13] MEDS: cefTRIAXone sodium 1 GM VIAL IVPUSH (02:37)
[2024-01-13 03:08] VITALS: BP 136/84; PULSE 69; RESP 18; TEMP 36.4; O2SAT 98
[2024-01-13] MEDS: HYDROmorphone HCl 1 MG/ML SYRINGE IVPUSH (04:33)
[2024-01-13 05:55] LABS: Hematocrit 41.9 % (42.0-52.0); Hemoglobin 14.7 g/dl (14.0-18.0); Mean Corpuscular HGB Conc 35.1 g/dl (31.0-36.0); Mean Corpuscular Hemoglobin 33.6 pg (27.0-33.0); Mean Corpuscular Volume 95.9 fL (80.0-98.0); Mean Platelet Volume 9.7 fL (9.4-12.4); Platelet Count 140 X10*3/uL (160-400); Red Blood Count 4.37 X10*6/uL (4.60-5.80); Red Cell Distribution Width 12.3 % (11.0-16.0); White Blood Count 8.9 X10*3/uL (4.8-10.8)
[2024-01-13 06:17] LABS: Anion Gap 12 (12-20); Blood Urea Nitrogen 26 mg/dL (9-16); Calcium 8.1 mg/dL (8.4-10.2); Carbon Dioxide 27 mmol/L (22-29); Chloride 107 mmol/L (96-108); Creatinine Clr Calc Pharmacy 34.5; Estimated Glomerular Filt Rate 27; Glucose Random 97 mg/dL (60-115); Potassium 3.5 mmol/L (3.3-5.1); Sodium 142 mmol/L (135-145)
[2024-01-13 07:21] VITALS: BP 135/79; PULSE 69; RESP 12; TEMP 36.2; O2SAT 97
[2024-01-13 11:15] VITALS: BP 125/74; PULSE 78; RESP 16; TEMP 36.7; O2SAT 97
--- NOTE | 2024-01-13 11:46 | P.PNUR_ITS ---
Subjective Subjective Date of Service: 01/13/24 Interval history: Urine clear May DC Bermudez PSA 5.7 - not consistent with aggressive disease Organize follow-up tele visit Will need follow-up procedure for distal left ureteric stone Physical Exam 2 Vital Signs: Vital Signs: Last Vital Signs Temp 98.1 F 01/13/24 11:15 Pulse 78 01/13/24 11:15 Resp 16 01/13/24 11:15 BP 125/74 01/13/24 11:15 Pulse Ox 97 01/13/24 11:15 O2 Del Method Room Air 01/13/24 11:15 O2 Flow Rate 3 01/11/24 14:34 Oxygen Flow Rate 96 01/12/24 11:08 BMI result Body Mass Index 29.5 Const: General: cooperative, healthy appearing, comfortable and no acute distress Orientation/consciousness: patient oriented x3 HEENT: Face and sinus: Yes normal facial exam Mouth: moist mucous membranes Neck: Neck: Yes normal visual inspection, Yes full ROM and Yes trachea midline Chest: Chest palpation & inspection: normal inspection of the chest Resp: Effort & Inspection: normal respiratory effort, able to speak in complete sentences and no respiratory distress GI: Inspection: Yes normal to inspection Back/Spine/Pelvis: Cervical Spine: normal cervical lordosis Thoracic/Lumbar Spine: thoracic and lumbar spine normal to inspection Skin: General skin exam: no rashes or lesions noted Neuro: General: patient oriented x3, gait normal, tone normal and moves all extremities Extrem: General: Yes normal to inspection and Yes capillary refill normal Urology Results Labs 01/13/24 05:29 01/13/24 05:29 Labs: Laboratory Results - last 24 hr 01/13/24 05:29 WBC 8.9 RBC 4.37 L Hgb 14.7 Hct 41.9 L MCV 95.9 MCH 33.6 H MCHC 35.1 RDW 12.3 Plt Count 140 L MPV 9.7 Absolute Nucleated RBC 0.000 Nucleated RBC % (auto) 0.0 Sodium 142 Potassium 3.5 Chloride 107 Carbon Dioxide 27 Anion Gap 12 BUN 26 H Creatinine 2.47 H Estim Creat Clear Calc 34.5 Estimated GFR 27 Random Glucose 97 Calcium 8.1 L Progress Note: A&P Assessment and plan (1) Hydronephrosis: Status: Acute (2) Left ureteral calculus: Status: Acute (3) Bladder mass: Status: Acute Plan Outpatient follow-up Time Spent With Patient Time: Total time managing care of this patient today ____ minutes. Progress Note: Quality Stroke Does the patient have a stroke diagnosis?: No
--- NOTE | 2024-01-13 12:39 | HO.PM.IMPN ---
Subjective Subjective Date of Service: 01/13/24 Interval History: seen and evaluated this morning Feels little better, pain tolerated Hematuria resolved, CBI held no fever or chills no other events Review of Systems Review of Systems: Yes all other systems are reviewed and are negative Physical Exam Vital Signs: Vital Signs: Last Vital Signs Temp 98.1 F 01/13/24 11:15 Pulse 78 01/13/24 11:15 Resp 16 01/13/24 11:15 BP 125/74 01/13/24 11:15 Pulse Ox 97 01/13/24 11:15 O2 Del Method Room Air 01/13/24 11:15 O2 Flow Rate 3 01/11/24 14:34 Oxygen Flow Rate 96 01/12/24 11:08 BMI result Body Mass Index 29.5 Const: Other: Constitutional : Awake, interactive, not in distress Neck : Normal inspection, Supple Cardiovascular : RRR, no JVP, no lower extremity edema Respiratory : good bilateral air entry, no crackles, wheezes or rhonchi Gastrointestinal: soft, lax, Normal bowel sounds, Non tender Skin : Warm, Dry Urology: Urine clearing up Neurological : Alert & oriented x3, No focal deficit Objective Data Active Medications Acetaminophen (Acetaminophen 325 Mg Tablet) 650 mg PO Q6H PRN PRN Reason: Pain, Mild (Pain Scale 1-3), fever or headache Calcium Carbonate (Calcium Carbonate 750 Mg Tab.Chew) 750 mg PO Q4H PRN PRN Reason: Heartburn Ceftriaxone Sodium (Ceftriaxone Sodium 1 Gm Vial) 1 gm IVPUSH Q24H SILVIA Last Admin: 01/13/24 02:37 Dose: 1 gm Documented By: VASQUEZ Hydromorphone HCl (Hydromorphone Hcl 1 Mg/Ml Syringe) 1 mg IVPUSH Q4H PRN; Protocol PRN Reason: Pain, Severe (Pain Scale 7-10) Last Admin: 01/13/24 04:33 Dose: 1 mg Documented By: VASQUEZ Magnesium Hydroxide (Milk Of Magnesia 30 Ml Oral.Susp) 30 ml PO DAILY PRN PRN Reason: Constipation Melatonin (Melatonin 3 Mg Tablet) 6 mg PO BEDTIME PRN PRN Reason: Insomnia Naloxone HCl (Naloxone Hcl 0.4 Mg/Ml Vial) 0.04 mg IVPUSH Q5M PRN PRN Reason: Excessive sedation or RR < 8 Ondansetron HCl (Ondansetron Hcl 4 Mg/2 Ml Vial) 4 mg IVPUSH Q8H PRN PRN Reason: Nausea and Vomiting Oxycodone HCl (Oxycodone Hcl Immed Release 5 Mg Tablet) 5 mg PO Q6H PRN PRN Reason: Pain, Moderate(Pain Scale 4-6) Last Admin: 01/11/24 20:27 Dose: 5 mg Documented By: VASQUEZ Sodium Chloride (0.9 % Sodium Chloride Flush 3 Ml Syringe) 3 ml IVFLUSH QSHIFT [facility] Last Admin: 01/12/24 21:07 Dose: 3 ml Documented By: VASQUEZ Tamsulosin HCl (Tamsulosin Hcl 0.4 Mg Capsule) 0.4 mg PO BEDTIME [facility] Last Admin: 01/12/24 21:07 Dose: 0.4 mg Documented By: VASQUEZ Labs 01/13/24 05:29 01/13/24 05:29 Labs: Laboratory Results - last 24 hr 01/13/24 05:29 MCV 95.9 MCH 33.6 H MCHC 35.1 RDW 12.3 Plt Count 140 L MPV 9.7 Absolute Nucleated RBC 0.000 Nucleated RBC % (auto) 0.0 Anion Gap 12 Estim Creat Clear Calc 34.5 Estimated GFR 27 Random Glucose 97 Calcium 8.1 L Microbiology Microbiology Results: Microbiology 01/11/24 Unknown Urine Culture - Final Urine clean catch - Clean Catch Midstream Assessment and Plan Plan 63-year-old male with a past medical history of Crohn's disease, CKD 3, and recurrent kidney stones presents with obstructive left kidney stone and associated hydronephrosis. Hydronephrosis with obstructing left ureteral calculus s/p bilateral stents 01/10 complicated with hematuria pain better controlled keep empiric ceftriaxone . IV fluids Urology input appreciated, bladder mass found, pending pathology DC CBI as hematuria resolving, to DC catheter Acute Kidney Injury ([place]) on CKD with metabolic acidosissecondary to obstruction and volume depletion. improving back to baseline IV fluids BMP to assess recovery. Crohn?s Disease: continue home medications for Crohn?s management once verified. DVT Prophylaxis: Utilize sequential compression devices (SCDs) in preparation for surgical intervention in the morning. Admit for early surgical intervention for obstructive uropathy, IVF and IV Abx pending Cr improvement and hematuria resolution Quality Stroke Does the patient have a stroke diagnosis?: No VTE Prior VTE?: No VTE Risk Level:: Medical - moderate - high VTE Device Contraindication: N/A - Device Ordered VTE Drug Contraindication: Treatment Not Indicated
--- NOTE | 2024-01-13 14:28 | PM.DS ---
DS: Providers Provider Date of Service: 01/13/24 Date of admission: 01/11/24 03:00 Date of discharge: 01/13/24 Primary care physician: Hansel Martinez MD Consults: 01/11/24 03:04 Consult to Urology Routine Consulting Provider: [facility] Reason for consultation: obstructive kidney stone Has provider been notified: No DS: Diagnosis Discharge Diagnosis (1) Hydronephrosis: Status: Acute (2) Left ureteral calculus: Status: Acute (3) Bladder mass: Status: Acute (4) Acute renal injury: Status: Acute (5) Acute left flank pain: Status: Acute (6) Hematuria: Status: Acute DS: Summary Hospital Course Hospital Course: Admission note HPI A 63-year-old male with a history of Crohn?s disease, recurrent kidney stones (status post stent placement in the past), and stage 3b chronic kidney disease presents with severe left lower abdominal and back pain, resembling prior kidney stone episodes. Symptoms began around noon the day after Thanksgiving. He reports decreased urine output but denies dysuria, hematuria, or fever. Imaging Findings: CT scan reveals Moderate to severe left hydronephrosis and hydroureter extending to the pelvis, with two distal left ureteric calculi measuring 8 mm and 6.5 mm. Mild right hydronephrosis and hydroureter without evidence of ureteral calculus. Hospital course The patient was admitted for treatment of left sided Hydronephrosis with obstructing left ureteral calculus which was evaluated by dr Ying from Urology who did Cystoscopy and placed bilateral stents 01/10 complicated with mild hematuria as pain was well controlled and he was kept on empiric ceftriaxone and IV fluids. cultures remained negative so antibiotics discontinued. Urology reported bladder mass found in cystoscopy pending pathology report. He was placed on CBI for hematuria which was discontinued and robin was removed when his urine cleared up. To follow with Dr Ying in office. He was found to have mild Acute Kidney Injury ([place]) on CKD with metabolic acidosissecondary to obstruction and volume depletion. Improved back to baseline of 2.5. To follow as outpatient. Discharge plan Follow up with dr Ying as outpatient for pathology report and left uretric stone plan Keep yourself well hydrated Time Attestation Discharge Coordination Time (in mins): 38 Quality: Safe Use of Opioids Does Pt have an Active Cancer Diagnosis on the Problem List?: No Quality: Stroke Does the patient have a stroke diagnosis?: No Physical Exam Vital Signs: Vital Signs: Last Vital Signs Temp 98.1 F 01/13/24 11:15 Pulse 78 01/13/24 11:15 Resp 16 01/13/24 11:15 BP 125/74 01/13/24 11:15 Pulse Ox 97 01/13/24 11:15 O2 Del Method Room Air 01/13/24 11:15 O2 Flow Rate 3 01/11/24 14:34 Oxygen Flow Rate 96 01/12/24 11:08 BMI result Body Mass Index 29.5 Const: Other: Constitutional : Awake, interactive, not in distress Neck : Normal inspection, Supple Cardiovascular : RRR, no JVP, no lower extremity edema Respiratory : good bilateral air entry, no crackles, wheezes or rhonchi Gastrointestinal: soft, lax, Normal bowel sounds, Non tender Skin : Warm, Dry Neurological : Alert & oriented x3, No focal deficit DS: Data Data Completed and Pending Completed studies during hospitalization [Text1]: Procedures Dilation of Left Ureter with Intraluminal Device, Via Natural or Artificial Opening Endoscopic (01/25/22) Fluoroscopy of Kidneys, Ureters and Bladder (01/25/22) Pending studies at discharge: Pending at discharge 01/11/24 12:23 Surgical [PTH] Routine Labs on day of discharge: Laboratory Results - last 24 hr 01/13/24 05:29 WBC 8.9 RBC 4.37 L Hgb 14.7 Hct 41.9 L MCV 95.9 MCH 33.6 H MCHC 35.1 RDW 12.3 Plt Count 140 L MPV 9.7 Absolute Nucleated RBC 0.000 Nucleated RBC % (auto) 0.0 Sodium 142 Potassium 3.5 Chloride 107 Carbon Dioxide 27 Anion Gap 12 BUN 26 H Creatinine 2.47 H Estim Creat Clear Calc 34.5 Estimated GFR 27 Random Glucose [address]cium 8[address] scan - abdomen: Radiologist's impression: ITS Impressions Abdomen/Pelvis CT 01/10/24 21:03 IMPRESSION: 1. Moderate to severe left hydronephrosis and hydroureter extending into the pelvis to the level of two distal left ureteric calculi measuring 8 and 6.5 mm. 2. Mild right hydronephrosis and hydroureter without ureteral calculus. Fleischner guidelines were followed. Electronically signed by: Kavon Singh MD 01/11/2024 01:53 AM EST RP Guidance Fluoroscopy 01/11/24 12:00 IMPRESSION: Fluoroscopy performed by urology. Please see operative report for additional information. Electronically signed by: Karen Cheng MD 01/12/2024 09:10 AM EST RP Discharge Plan Discharge Anticipated Discharge Date/Time: 01/13/24 14:24 Patient Disposition: Home, Self-Care Discharge Diagnosis: Obstructive stone Bladder mass Renal injury Referrals: Hansel Martinez MD [Primary Care Provider] - 1 Week Discharge Medications: Continued Humira(CF) Pen 40 mg/0.4 mL pen injector kit 40 mg subcut TU@0900 losartan 25 mg Tablet 12.5 mg PO DAILY PRN (Reason: KIDNEY STONE REGIMEN) Rx Instructions: TAKES ONLY WITH SUPPLEMENTS FOR KIDNEY STONES tamsulosin 0.4 mg capsule 0.4 mg PO BEDTIME 90 Days Qty: 90 1RF Discharge Orders: Discharge Order (Routine); Ordered 01/13/24 Ordered By: Calos Fernandez Diet: Advance to usual diet Activity on Discharge: As tolerated Stand Alone Forms: Patient Portal Discharge page Print Language: Greenlandic Care Plan Goals: Follow up with dr Ying as outpatient for pathology report and left uretric stone plan Keep yourself well hydrated Health Concerns: Uretric stone with obstruction Plan of Treatment: Urology follow up Assessment: as above
--- NOTE | 2024-01-13 15:39 | MHC.CM.PN ---
PT WILL DC HOME TODAY WITH NO SERVICES VIA PRIVATE TRANSPORT
== END 2024-01-13 15:54 | disposition home or self-care (01) | DRG 660 ==
LOC: HO.ED 01-11 02:05 → HO.EDOVER 01-11 03:35 → HO.S3 01-11 07:33
PROVIDERS: Physician Assistant; Physician Assistant Medical; Urology; Admitting Provider Internal Medicine; Emergency Provider Emergency Medicine; PCP Internal Medicine; Visit Provider Student in an Organized Health Care Education/Training Program
PROC: 0T788DZ Dilation of Bilateral Ureters with Intraluminal Device, Via Natural or Artificial Opening Endoscopic (ICD-10-PCS; principal; 2024-01-11 11:00)
DX: N13.2 Hydronephrosis with renal and ureteral calculous obstruction (principal); E87.20 Acidosis, unspecified; K50.90 Crohn's disease, unspecified, without complications; N17.9 Acute kidney failure, unspecified; R31.9 Hematuria, unspecified; N32.9 Bladder disorder, unspecified; N18.32 Chronic kidney disease, stage 3b; Z87.442 Personal history of urinary calculi; Z79.620 Long term (current) use of immunosuppressive biologic; Z79.899 Other long term (current) drug therapy
CPT/HCPCS: 36415; 74176; 80048; 80076; 81001; 83690; 83735; 84153; 84484; 85025; 85027; 87086; 88307; 88341; 88342; 93005; 99285; C1758; C1769; C2617; J0131; J0696; J1171; J1956; J2003; J2270; J2405; J2704; J3010; J7120

== ENCOUNTER → 2024-01-10 20:56 | Outpatient (BNV) | payer OTHER, SELFPAY | PROVIDERS: Admitting Provider Internal Medicine; Emergency Provider Emergency Medicine; PCP Internal Medicine; Visit Provider Internal Medicine | DX: I45.19 Other right bundle-branch block (principal); R94.31 Abnormal electrocardiogram [ECG] [EKG]; M54.9 Dorsalgia, unspecified | CPT/HCPCS: 93010 ==

== ENCOUNTER → 2024-01-10 21:37 | Outpatient (BNV) | payer OTHER, SELFPAY | PROVIDERS: Emergency Provider Emergency Medicine; PCP Internal Medicine; Visit Provider Internal Medicine | DX: N13.30 Unspecified hydronephrosis (principal); N20.1 Calculus of ureter; N32.89 Other specified disorders of bladder; N17.9 Acute kidney failure, unspecified; R10.9 Unspecified abdominal pain; R31.9 Hematuria, unspecified | CPT/HCPCS: 99232; 99239 ==

== ENCOUNTER → 2024-01-11 03:00 | Outpatient (BNV) | payer OTHER, SELFPAY | PROVIDERS: Admitting Provider Internal Medicine; Emergency Provider Emergency Medicine; PCP Internal Medicine; Visit Provider Urology | DX: N13.30 Unspecified hydronephrosis (principal); N20.1 Calculus of ureter; N32.89 Other specified disorders of bladder | CPT/HCPCS: 52214; 52290; 52332; 74420; 99223; 99231; 99232 ==

== ENCOUNTER 2024-01-17 13:11 | Outpatient (AMB) | payer OTHER, SELFPAY ==
--- NOTE | 2024-01-17 13:20 | A.OFFVIS_ITS ---
Intake Visit Reasons: Biopsy follow up Intake Note: Patient is present for BIOPSY F/U Urology Medication:NONE Antibiotic Allergy:NONE Blood Thinner:NONE Outside Sales Associate Required: No Allergies No Known Allergies Allergy (Verified 01/17/24 13:21) HPI Comments Details: Sarbjit is a pleasant male. He is a patient of Dr. Martinez. He seen for the following urologic conditions - nephrolithiasis - bladder mucinous adenocarcinoma Presented last week through emergency room for distal left nephrolithiasis CT imaging was otherwise unremarkable except for prior colostomy from Crohn's d isease At the time of cystoscopy found to have a stiff mass at bladder neck Highly suspicious for invasive prostate cancer TURBT performed for tissue Neither ureteric orifice was initially visible Both ureteric orifices were resected and exposed Stents placed bilaterally Discussed pathology at meeting today with Bladder mass, transurethral resection: 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 Comment: The differential includes a primary bladder adenocarcinoma and metastatic adenocarcinoma from a GI source (including lower and upper GI, appendix, and pancreatico-biliary). Imaging and clinical correlation are necessary. Additional immunostains are pending; addendum to follow. Given options to see Dr. Avila at [facility] or Dr. Driscoll at [facility] Have opted to see Dr. Driscoll at [facility] Discussed management. This is an unusual and uncommon form of bladder cancer. Typically the best responses are found with urgent surgical resection. To date there is a minimal role for radiation and chemotherapy in the neoadjuvant or adjuvant setting. Will organize completion MRI whilst referral to a high-volume robot cystectomy Surgeon is pending [facility] Medical History (Updated 01/17/24 @ 14:08 by Chavo Ying MD) Family history of adverse response to anesthesia in father Renal calculus Colostomy in place Kidney disease Crohn's disease Surgical History H/O colonoscopy Hx of cystoscopy History of ileostomy Family History Father Colon cancer Social History Household Members: Spouse Housing: House Are you a primary pet care technician to a significant other at home: No Do you presently have visiting nurse or other home services: No Alcohol intake: current Alcohol intake frequency: holidays/special occasions only Patient Tobacco Use Status: Never used Tobacco Second Hand Smoke Exposure: No service: No Current occupational status: employed 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, right handed Review of Systems Const Denies chills and Denies fever(s) Card Reports no additional complaints and Denies syncope Resp Denies cough GI Denies abdominal pain and Denies heartburn Reports as per HPI and Denies change in libido Neuro Denies syncope Psych Denies change in libido Endo Denies change in libido Physical Exam Const General: cooperative, healthy appearing, comfortable and no acute distress Orientation/consciousness: patient oriented x3 HEENT Face and sinus: Yes normal facial exam Mouth: moist mucous membranes Neck Neck: Yes normal visual inspection, Yes full ROM and Yes trachea midline Chest Chest palpation & inspection: normal inspection of the chest Resp Effort & Inspection: normal respiratory effort, able to speak in complete sentences and no respiratory distress GI Inspection: Yes normal to inspection Back/Spine/Pelvis Cervical Spine: normal cervical lordosis Thoracic/Lumbar Spine: thoracic and lumbar spine normal to inspection Skin General skin exam: no rashes or lesions noted Neuro General: patient oriented x3, gait normal, tone normal and moves all extremities Extrem General: Yes normal to inspection and Yes capillary refill normal Assessment & Plan Assessment & Plan (1) Primary bladder adenocarcinoma: Code(s): C67.9 - Malignant neoplasm of bladder, unspecified Category: Medical Plan MRI abdomen and pelvis Referral to Dr Driscoll [facility] Patient Instructions: Imaging studies, laboratory and physical exam results were discussed and reviewed in detail. No major barriers to patient understanding were identified. An opportunity to ask questions regarding the treatment plan was provided. All questions were answered. The patient expressed understanding and agreement with the above treatment plan. The patient is aware they should contact our office by phone for worsening of t heir current condition or the appearance of new urologic symptoms. Compliance is encouraged with any medications and followup testing that is ordered. It is a privilege to participate in the urologic care of your patient. If you have any questions or concerns regarding treatment for the above conditions, or other urologic issues, please do not hesitate to contact me. The office telephone contact is [phone]. This note is constructed using voice recognition software. While every effort has been made to ensure accuracy vacuum evaporation operator errors may have been included. Yours sincerely, Dr Chavo Ying MD, [facility] - Urology Providers of Expert, Compassionate Care for the Genitourinary System Coding Level of Care Code Est Pt Level 4 (04680) Diagnoses Primary bladder adenocarcinoma C67.9
== END 2024-01-17 14:08 | disposition home or self-care (01) ==
PROVIDERS: PCP Internal Medicine; Visit Provider Urology
DX: C67.9 Malignant neoplasm of bladder, unspecified (principal)
CPT/HCPCS: 99214

== ENCOUNTER 2024-01-21 14:40 | Outpatient (REF) | payer OTHER, SELFPAY ==
--- NOTE | ~2024-01-21 | MR_ITS ---
EXAMINATION: MR ABDOMEN AND PELVIS WITHOUT AND WITH CONTRAST CLINICAL INFORMATION: History of bladder cancer. Evaluate for liver metastases. COMPARISON: CT abdomen/pelvis January 10, 2024 TECHNIQUE: MRI of the abdomen and pelvis before and after the IV administration of 9 mL of Gadavist was obtained using routine sequences. FINDINGS: LUNG BASES: No pleural or pericardial effusion. KIDNEYS AND URETERS: Benign-appearing T2 hyperintense bilateral renal cysts, no imaging follow-up recommended. Mild right hydronephrosis despite ureteral stent in place. Severe left hydroureteronephrosis despite ureteral stent in place. Bilateral urothelial thickening and enhancement. No perinephric fluid collection. 9 mm calculus within the distal left ureter. GALLBLADDER: Gallstones. LIVER AND BILIARY TREE: The liver is normal in signal and morphology. No suspicious liver lesion. No intra or extrahepatic biliary duct dilatation. PANCREAS: No ductal dilatation. SPLEEN: Not enlarged. ADRENAL GLANDS: No adrenal mass. GASTROINTESTINAL TRACT: Status post total colectomy. No small bowel obstruction. LYMPH NODES: No bulky lymphadenopathy. VASCULAR: Normal caliber abdominal aorta. ABDOMINAL WALL: Right lower quadrant ileostomy. PELVIS: Enlarged and heterogeneous prostate gland. There is a fluid-filled multiloculated rectal pouch measuring 12.4 cm in craniocaudal dimension. There is retractile soft tissue in the presacral space with architectural distortion. Irregular wall thickening of the urinary bladder with trabeculated pattern. Enhancing posterior bladder wall mass measures 4.1 x 2.6 x 3.5 cm. There is perivesicular stranding. No bulky pelvic lymphadenopathy. No free fluid in the pelvis. MR/MR abdomen wo/w con IMPRESSION: Mild right hydronephrosis and severe left hydroureteronephrosis despite ureteral stents in place. There is a distal left ureteral calculus measuring 9 mm. There is an irregular/infiltrative enhancing mass at the posterior aspect of the bladder wall measuring 4.1 x 2.6 x 3.5 cm. There is diffuse irregular bladder wall thickening and perivesicular stranding. There is retractile soft tissue in the presacral space with architectural distortion. No suspicious hepatic lesion. Electronically signed by: Yimi Mejia MD 01/22/2024 03:48 PM EST
[2024-01-21] MEDS: gadobutroL 10 ML VIAL IVPUSH (16:00)
== END 2024-01-21 14:41 | disposition home or self-care (01) ==
LOC: HO.MRI 14:40
PROVIDERS: PCP Internal Medicine; Visit Provider Urology
DX: C67.9 Malignant neoplasm of bladder, unspecified (principal)
CPT/HCPCS: 72197; 74183; A9585

== ENCOUNTER 2024-02-06 08:25 | Outpatient (AMB) | payer OTHER, SELFPAY ==
--- NOTE | 2024-02-06 08:27 | A.OFFVIS_ITS ---
Intake Visit Reasons: 6M Ultrasound/MRI(set) Intake Note: Patient is present for 6m ultrasound Urology Medication:none Antibiotic Allergy:none Blood Thinner:none Information Consultant Required: No Allergies No Known Allergies Allergy (Verified 02/06/24 08:28) HPI Comments Details: Sarbjit is a pleasant male. He is a patient of Dr. Martinez. He seen for the following urologic conditions - nephrolithiasis - bladder mucinous adenocarcinoma Follow-up from assessment with Dr. Driscoll Does have UTI today Levaquin provided Is having discomfort and sleeping at night Trial of tramadol Discussed trying to maintain protein intake at this point MRI complete - There is an irregular/infiltrative enhancing mass at the posterior aspect of the bladder wall measuring 4.1 x 2.6 x 3.5 cm. 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 Comment: The differential includes a primary bladder adenocarcinoma and metastatic adenocarcinoma from a GI source (including lower and upper GI, appendix, and pancreatico-biliary). Imaging and clinical correlation are necessary. Additional immunostains are pending; addendum to follow. Discussed management. This is an unusual and uncommon form of bladder cancer. Typically the best responses are found with urgent surgical resection. To date there is a minimal role for radiation and chemotherapy in the neoadjuvant or adjuvant setting. Nephrolithiasis Distal left ureteric stones Discussed dark soda intake [facility] Medical History (Updated 01/21/24 @ 00:03 by Tanmay Camp) Bladder mass Family history of adverse response to anesthesia in father Renal calculus Colostomy in place Kidney disease Crohn's disease Surgical History H/O colonoscopy Hx of cystoscopy History of ileostomy Family History Father Colon cancer Social History Household Members: Spouse Housing: House Are you a primary health and social care teacher to a significant other at home: No Do you presently have visiting nurse or other home services: No Alcohol intake: current Alcohol intake frequency: holidays/special occasions only Patient Tobacco Use Status: Never used Tobacco Second Hand Smoke Exposure: No service: No Current occupational status: employed 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, right handed Review of Systems Const Denies chills and Denies fever(s) Card Reports no additional complaints and Denies syncope Resp Denies cough GI Denies abdominal pain and Denies heartburn Reports as per HPI and Denies change in libido Neuro Denies syncope Psych Denies change in libido Endo Denies change in libido Physical Exam Const General: cooperative, healthy appearing, comfortable and no acute distress Orientation/consciousness: patient oriented x3 HEENT Face and sinus: Yes normal facial exam Mouth: moist mucous membranes Neck Neck: Yes normal visual inspection, Yes full ROM and Yes trachea midline Chest Chest palpation & inspection: normal inspection of the chest Resp Effort & Inspection: normal respiratory effort, able to speak in complete sentences and no respiratory distress GI Inspection: Yes normal to inspection Back/Spine/Pelvis Cervical Spine: normal cervical lordosis Thoracic/Lumbar Spine: thoracic and lumbar spine normal to inspection Skin General skin exam: no rashes or lesions noted Neuro General: patient oriented x3, gait normal, tone normal and moves all extremities Extrem General: Yes normal to inspection and Yes capillary refill normal Results AMB Urinalysis, Automated UA Leukoctes 500 David/uL Last Edit by VIRGINIE Weber on 02/06/24 08:37 UA Nitrite Positive Last Edit by VIRGINIE Weber on 02/06/24 08:37 UA Urobilinogen 2 mg/dL Last Edit by VIRGINIE Weber on 02/06/24 08:37 UA Protein 300 mg/dL Last Edit by VIRGINIE Weber on 02/06/24 08:37 UA pH 5.5 Last Edit by VIRGINIE Weber on 02/06/24 08:37 UA Blood 200 Gama/uL Last Edit by VIRGINIE Weber on 02/06/24 08:37 UA Specific [place] 1.020 Last Edit by VIRGINIE Weber on 02/06/24 08: 37 UA Ketone Positive Last Edit by VIRGINIE Weber on 02/06/24 08:37 UA Bilirubin 0 mg/dL Last Edit by VIRGINIE Weber on 02/06/24 08:37 UA Glucose 0 mg/dL Last Edit by VIRGINIE Weber on 02/06/24 08:37 Results Reviewed Results Reviewed: Laboratory Last Values Urine pH (Auto) 5.5 02/06/24 08:37 Specific [place] (Auto) 1.020 02/06/24 08:37 Urine Protein (Auto) 300 mg/dL 02/06/24 08:37 Glucose (UA)(Auto) 0 mg/dL 02/06/24 08:37 Urine Ketones (Auto) Positive 02/06/24 08:37 Urine Blood (Auto) 200 Gama/uL 02/06/24 08:37 Urine Nitrite (Auto) Positive 02/06/24 08:37 Urine Bilirubin (Auto) 0 mg/dL 02/06/24 08:37 Urine Urobilinogen (Auto) 2 mg/dL 02/06/24 08:37 Leukocyte Esterase (Auto) 500 David/uL 02/06/24 08:37 Assessment & Plan Assessment & Plan (1) Recurrent nephrolithiasis: Code(s): N20.0 - Calculus of kidney Category: Medical (2) Primary bladder adenocarcinoma: Code(s): C67.9 - Malignant neoplasm of bladder, unspecified Category: Medical Plan They will call February have not heard from Dr. Driscoll's office Orders: Orders AMB Urinalysis Automated Today Z13.9 - Encounter for screening, unspecified Medications: New levofloxacin 500 mg PO DAILY 7 days 7 tabs 0RF C67.9 - Malignant neoplasm of bladder, unspecified, N39.0 - Urinary tract infection, site not specified tramadol Take q.8 hours for pain 50 mg PO Q8H 7 days PRN 30 tabs 0RF pain (scale score 4-6) C67.9 - Malignant neoplasm of bladder, unspecified Patient Instructions: Imaging studies, laboratory and physical exam results were discussed and reviewed in detail. No major barriers to patient understanding were identified. An opportunity to ask questions regarding the treatment plan was provided. All questions were answered. The patient expressed understanding and agreement with the above treatment plan. The patient is aware they should contact our office by phone for worsening of their current condition or the appearance of new urologic symptoms. Compliance is encouraged with any medications and followup testing that is ordered. It is a privilege to participate in the urologic care of your patient. If you have any questions or concerns regarding treatment for the above conditions, or other urologic issues, please do not hesitate to contact me. The office telephone contact is [phone]. This note is constructed using voice recognition software. While every effort has been made to ensure accuracy digital solutions architect errors may have been included. Yours sincerely, Dr Chavo Ying MD, [facility] - Urology Providers of Expert, Compassionate Care for the Genitourinary System Coding Level of Care Code Est Pt Level 4 (95481) Diagnoses Recurrent nephrolithiasis N20.0 Primary bladder adenocarcinoma C67.9
== END 2024-02-06 10:26 | disposition home or self-care (01) ==
PROVIDERS: PCP Internal Medicine; Visit Provider Urology
DX: N20.0 Calculus of kidney (principal); C67.9 Malignant neoplasm of bladder, unspecified; Z13.9 Encounter for screening, unspecified
CPT/HCPCS: 99214

== ENCOUNTER → 2024-02-06 08:25 | Outpatient (BNVA) | payer OTHER, SELFPAY | PROVIDERS: PCP Internal Medicine; Visit Provider Urology | DX: N20.0 Calculus of kidney (principal); C67.9 Malignant neoplasm of bladder, unspecified | CPT/HCPCS: 81003 ==

== ENCOUNTER 2024-05-24 20:26 | Inpatient (IN) | payer OTHER, SELFPAY ==
--- NOTE | ~2024-05-24 | CT_ITS ---
CLINICAL HISTORY: diarrhea, [place] patient, colitis? CT abdomen and pelvis without contrast Comparison: CT/NH/SR - CT ABDOMEN PELVIS WO IV CON - 01/10/24 20:59 EST Findings: Atelectasis. Scattered subcentimeter low-density lesions throughout the liver, likely cysts or hemangiomas, too small to characterize. Distended gallbladder. Left-sided hypodense and tiny hemorrhagic renal cysts. Bilateral PCN tubes noted, in the right coiled in the renal pelvis and in the left coiled in a lower pole calyx. Bilateral nephroureteral stents, proximally in the right coiled in the renal pelvis, in the left coiled in the lower pole calyx, distally both were coiled in the bladder. Associated moderate to severe right and [id number] left bilateral hydronephrosis. No obvious renal calculi. Redemonstrated postsurgical changes related to total colectomy with a right lower quadrant diverting ileostomy. Similar fluid distended rectal stump. Diffuse fluid-filled small bowel with mild distention in the left abdomen measuring up to 3.1 cm, likely reflecting a component of ileus. Mural thickening noted in the right lower quadrant anastomosis may reflect a component of enteritis. Postsurgical abdominal wall changes. Central mesenteric fat stranding with prominent lymph nodes, suggestive of mesenteric panniculitis. Prostatomegaly noted. Distended bladder with mural thickening and stranding. Osteopenia with diffuse multilevel spondylosis. IMPRESSION: 1. Bilateral PCN tubes, nephroureteral stents in place with moderate/severe right and mild/moderate left bilateral hydronephrosis. 2. Small bowel ileus with enteritis status post colectomy with a right lower quadrant ileostomy as described. 3. Mildly diffuse mesenteric panniculitis. This document has been electronically signed by: Abdiel Arevalo MD on 05/25/2024 05:05:23
[2024-05-24 21:06] VITALS: BP 102/65; PULSE 98; RESP 19; TEMP 36.7; O2SAT 100; BMI 25.8
[2024-05-24 21:29] LABS: MANUAL DIFF FLAG NO
[2024-05-24 21:31] LABS: Basophils Absolute Auto 0.1 X10*3/uL (0.0-0.2); Basophils Percent Auto 0.5 % (0-2); Eosinophils Absolute Auto 0.4 X10*3/uL (0.0-0.4); Eosinophils Percent Auto 3.9 % (0-4); Hematocrit 35.8 % (42.0-52.0); Hemoglobin 12.4 g/dl (14.0-18.0); Imm Gran Abs Auto 0.03 X10*3/uL (0.00-0.03); Imm Gran Pct Auto 0.3 % (0.0-0.4); Lymphocytes Percent Auto 20.1 % (20-40); Mean Corpuscular HGB Conc 34.6 g/dl (31.0-36.0); Mean Corpuscular Hemoglobin 31.6 pg (27.0-33.0); Mean Corpuscular Volume 91.3 fL (80.0-98.0); Mean Platelet Volume 9.2 fL (9.4-12.4); Monocytes Absolute Auto 1.1 X10*3/uL (0.1-1.2); Neutrophils Absolute Auto 6.3 x10*3/uL (2.0-8.3); Neutrophils Percent Auto 64.2 % (45-73); Platelet Count 200 X10*3/uL (160-400); Red Blood Count 3.92 X10*6/uL (4.60-5.80); Red Cell Distribution Width 13.1 % (11.0-16.0); White Blood Count 9.8 X10*3/uL (4.8-10.8)
[2024-05-24 21:36] VITALS: BP 133/92; PULSE 81; RESP 16; TEMP 36.4; O2SAT 99
[2024-05-24 21:47] LABS: Alanine Aminotransferase 17 U/L (0-40); Albumin Level 3.9 g/dL (3.5-5.0); Alkaline Phosphatase 115 U/L (39-117); Anion Gap 17 (12-20); Aspartate Amino Transferase 24 U/L (5-37); Bilirubin Total 0.4 mg/dL (0.0-1.0); Blood Urea Nitrogen 26 mg/dL (9-16); Carbon Dioxide 21 mmol/L (22-29); Chloride 93 mmol/L (96-108); Creatinine Clr Calc Pharmacy 40.2; Estimated Glomerular Filt Rate 36; Glucose Random 142 mg/dL (60-115); Potassium 3.8 mmol/L (3.3-5.1); Sodium 127 mmol/L (135-145); Total Protein 8.9 g/dL (6.5-8.0)
--- OUTSIDE RECORDS SUMMARY | 2024-05-24 21:47 | XMS_ITS | Encounter Summary ---
Author Organization [facility] Address [address] [place] [address] Care Team Providers Care Motorcycle Maker Name Role Phone Hansel Martinez MD Primary Care Provider [phone] Angeles Pineda RN Unavailable [phone] Encounter Details Date Type Department Care Team (Late st Contact Info) Description 03/30/2024 Scanned Document [facility] Colorectal Surgery [place] [address] [facility] [address] [place] [id number] Jabari Vann MD [address] [place] [id number] Social History Tobacco Use Types Packs/Day Years Used Date Smoking Tobacco: Never Smokeless Tobacco: Never Alcohol Use Standard Drinks/Week Comments Not Currently 0 (1 standard drink = 0.6 oz pur e alcohol) [facility] Utilities Answer Date Recorded In the past 12 months has [employer] electric, gas, oil, or water company threatened to shut off services in your home? No 03/14/2024 AUDIT-C Answer Date Recorded Q1: How often do you have a drink containing alcohol? Never 03/13/2024 Q2: How many drinks containi ng alcohol do you have on a typical day when you are drinking? Patient does not drink Q3: How often do you have si x or more drinks on one occasion? Never 03/13/2024 Overall Financial Resource Strain (CARDIA) Answe r Date Recorded How hard is it for you to pa y for the very basics like food, housing, medical care, and heating? Not hard at all 03/14/2024 PHQ-2 Answer Date Recorded PHQ-2 Total Score 0 03/13/2024 Hunger Vital Sign Answer Date Recorded Within the past 12 months, y ou worried that your food would run out before you got the money to buy more. Never true 03/14/19 25 Within the past 12 months, t he food you bought just didn't last and you didn't have money to get more. Never true 03/14/2024 PRAPARE - Transportation Answer Date Re corded In the past 12 months, has l ack of transportation kept you from medical appointments or from getting medications? No 02/2024 In the past 12 months, has l ack of transportation kept you from meetings, work, or from getting things needed for daily living? No 03/14/2024 Housing Stability Vital Sign Answer Abraham e Recorded In the last 12 months, was t here a time when you were not able to pay the mortgage or rent on time? No 03/14/2024 In the past 12 months, how m any times have you moved where you were living? 1 03/14/2024 At any time in the past 12 m [facility], were you homeless or living in a snf (including now)? No 03/14/2024 Sex and Gender Information Value Date Recorded Sex Assigned at Male 01/27/2024 3:36 PM EST Gender Identity Male 03/13/2024 7:28 AM EST Sexual Orientation Heterosexual (straight) 03/13 7:28 AM EST documented as of this encounter Plan of Treatment Not on file documented as of this encounter Visit Diagnoses Not on filedocumented in this encounter Care Teams Motorcycle Maker Relationship Specialty Start Date End Date Hansel Martinez MD [address] [place] [address] PCP - General Internal Medicine 01/21/24 Angeles Pineda RN [address] [place] [address] Oncology Nurse Navigator 02/11/24 documented as of this encounter
--- OUTSIDE RECORDS SUMMARY | 2024-05-24 21:47 | XMS_ITS | Encounter Summary ---
Author Organization [facility] Address [address] [place] [address] Care Team Providers Care Marshmallow Runner Name Role Phone Hansel Martinez MD Primary Care Provider [phone] CarrierAngeles RN Unavailable [phone] Encounter Details Date Type Department Care Team (Late st Contact Info) Description 03/30/2024 Scanned Document [facility] Colorectal Surgery [place] [address] [facility] [address] [place] [address] Provider, MD Eliud [address] [place] [address] Social History Tobacco Use Types Packs/Day Years Used Date Smoking Tobacco: Never Smokeless Tobacco: Never Alcohol Use Standard Drinks/Week Comments Not Currently 0 (1 standard drink = 0.6 oz pur e alcohol) [facility] Utilities Answer Date Recorded In the past 12 months has [employer] electric, gas, oil, or water company threatened [...] any time in the past 12 m [facility], were you homeless or living in a jail (including now)? No 03/14/2024 Sex and Gender Information Value Date Recorded Sex Assigned at Male 01/27/2024 3:36 PM EST Gender Identity Male 03/13/2024 7:28 AM EST Sexual Orientation Heterosexual (straight) 03/13 7:28 AM EST documented as of this encounter Plan of Treatment Not on file documented as of this encounter Visit Diagnoses Not on filedocumented in this encounter Care Teams Marshmallow Runner Relationship Specialty Start Date End Date Hansel Martinez MD [address] [place] [address] PCP - General Internal Medicine 01/21/24 Angeles Pineda RN [address] [place] [address] Oncology Nurse Navigator 02/11/24 documented as of this encounter
--- OUTSIDE RECORDS SUMMARY | 2024-05-24 21:47 | XMS_ITS | Encounter Summary ---
Author Organization [facility], Address [address] [place] [address] Phone Care Team Providers Care Solar Process Engineer Name Role Phone Hansel Martinez MD Primary Care Provider Encounter Details Date Type Department Care Team (Late st Contact Info) Description 06/07/2020 Orders Only [facility] [address] [facility] [place] [address] Marko Mojica MD [address] [place], [place] [address]Carl[facility] [[email or web address] [place] [id number] Social History Tobacco Use Types Packs/Day Years Used Date Smoking Tobacco: Never Alcohol Use Standard Drinks/Week Comments No 0 (1 standard drink = 0.6 oz pur e alcohol) Sex and Gender Information Value Date Recorded Sex Assigned at Male 07/17/2022 5:55 PM EDT Legal Sex Male 4:37 PM EST Gender Identity Male 07/17/2022 5:55 PM EDT Sexual Orientation Not on file documented as of this encounter Plan of Treatment Not on file documented as of this encounter Visit Diagnoses Not on filedocumented in this encounter Care Teams Solar Process Engineer Relationship Specialty Start Date End Date Hansel Martinez MD [facility] [address] [place] [address] [address] [facility] [place] PCP - General 12/16/18 documented as of this encounter
--- OUTSIDE RECORDS SUMMARY | 2024-05-24 21:47 | XMS_ITS | Clinical Summary ---
Author Organization [facility] Address [address] [place] [address] Care Team Providers Care Algorithm Developer Name Role Phone Hansel Martinez MD Primary Care Provider [phone] Angeles Pineda RN Unavailable Allergies No known active allergies Medications Medication Sig Dispensed Refills Start Date End Date Status acetaminophen (TYLENOL) 325 MG tabletIndications:Ma lignant neoplasm of urinary bladder, unspecified site (HCC) Take 3 tablets (975 mg total) by mouth Every 6 (six) to 8 (eight) hours as needed for mild pain or moderate pain. 03/18/2024 Active Humira, 2 Pen, 40 MG/0.4ML pen-injector kit CITRATE FREEIndications:Yamileth gnant neoplasm of urinary bladder, unspecified site (HCC) Inject 0.4 mL (40 mg total) under the skin every 7 days. Resume taking this medication once cleared by your surgeon 1.6 mL 03/18/2024 Active HYDROmorphone (DILAUDID) 4 MG tabletIndications:Ma lignant neoplasm of urinary bladder, unspecified site (HCC) Take 0.5 tablets (2 mg total) by mouth every 4 (four) hours as needed for moderate pain or severe pain. Max Daily Amount: 12 mg 12 tablet 03/19/2024 Active methocarbamol (ROBAXIN) 500 MG tabletIndications:Ma lignant neoplasm of urinary bladder, unspecified site (HCC) Take 1 tablet (500 mg total) by mouth 3 (three) times a day as needed for muscle spasms. 15 tablet 03/19/2024 Active Active Problems Problem Noted Date Diagnosed Date Severe malnutrition: greater than 7.5 % of wt loss x 3 months, less than 75 % of estimated energy requirement x greater than 1 month 03/16/2024 Bladder cancer 03/13/2024 Stage 4 chronic kidney disease 02/28/2024 Assessment & Plan (02/28/2024 10:32 AM EST): Last GFR 27, creatinine 2.47 on 01/13/24. Under [facility] Crohn's disease of colon with complication 02/27 Assessment & Plan (02/28/2024 11:24 AM EST): Diagnosed 1975. S/p total colectomy with a right mid quadrant ileostomy in 1979, then resected twice d/t fistulas with most recent resection of ileostomy 2019. On Humira under the management of gastroenterology, Dr. Manny Jefferson, at [facility]. Continue plan and follow up as previously indicated by provider. Hydronephrosis 02/25/2024 Malignant neoplasm of urinary bladder 01/24/2024 Assessment & Plan (02/28/2024 11:24 AM EST): Diagnosed 01/2024. No chemo or radiation. Followed by urology. Planned for above scheduled procedure. Encounters Date Type Department Care Team Description 03/30/2024 Orders Only [facility] [address] [address] Eliud Rodriguez MD 03/30/2024 Scanned Document [facility] [address] [place] [address] Eliud Rodriguez MD 03/30/2024 Scanned Document [facility] [address] [address] Eliud Rodriguez MD 03/30/2024 Scanned Document [facility] [address] [place] [address] Huong Hoang MD 03/30/2024 Scanned Document [facility] [address] [place] [address] Eliud Rodriguez MD 03/30/2024 Scanned Document [facility] [address] [place] [address] Eliud Rodriguez MD 03/30/2024 Scanned Document [facility] [address] [place] [address] Eliud Rodriguez MD 03/30/2024 Scanned Document [facility] [address] [place] [address] Jabari Vann MD 03/30/2024 Scanned Document [facility] [address] [place] [address] Eliud Rodriguez MD 03/27/2024 11:20 AM EST Office Visit [facility] [address] [place] [address] Nimisha Quintana PA Malignant neoplasm of urinary bladder, unspecified site (HCC) (Primary Dx) 03/27/2024 Travel 03/26/2024 11:30 AM EST Ancillary Procedure [facility] [address] [place] [address] Provider, File Room 03/26/2024 11:25 AM EST Ancillary Procedure [facility] [address] [place] [address] Provider, File Room 03/26/2024 11:20 AM EST Ancillary Procedure [facility] [address] [place] [address] Provider, File Room 03/26/2024 11:15 AM EST Ancillary Procedure [facility] [address] [place] [address] Provider, File Room 03/19/2024 Orders Only [facility] [address] [place] [address] Nimisha Quintana PA Malignant neoplasm of urinary bladder, unspecified site (HCC) 03/19/2024 Telephone [facility] [address] [place] [address] Yolanda Hagan RN 03/18/2024 Scanned Document [facility] [address] [place] [address] Maia Garcia MD 03/18/2024 Orders Only [facility] [address] [place] [address] Sharyn Pang APRN Malignant neoplasm of urinary bladder, unspecified site (HCC) (Primary Dx); Hypokalemia 03/16/2024 [facility] [address] [place] [address], [place] [phone] Pranay Sorensen MD 03/14/2024 9:00 AM EST - 03/14/2024 11:00 AM [facility] [address] [place] [phone] German Mills MD Bilateral nephrostomy tube placement 03/13/2024 10:08 AM [facility] Anesthesia [facility] Peri[facility] Surgical Services [address] [place] [phone] Jay Avery MD Teti, Scott, CRNA 03/13/2024 10:00 AM EST - 03/13/2024 7:00 PM [facility] Perioperative Surgical Services [address] [place] [phone] Maia Garcia MD LAPAROTOMY EXPLORATORY, CLYDE SMALL BOWEL RESECTION 03/13/2024 8:55 AM [facility] Anesthesia [facility] [address] [place] [phone] Jm Chiang MD Marino, Lindsey, MD 03/13/2024 7:29 AM EST - 03/18/2024 6:08 PM EST Hospital Encounter [facility] [address] [place] [phone] Maia Garcia MD Malignant neoplasm of urinary bladder, unspecified site (HCC) (Primary Dx); Hydronephrosis Discharge Disposition: Home with Health Care Services 03/13/2024 [facility]ation [facility] [address] [place] [address] Pranay Sorensen MD 03/13/2024 Travel 03/12/2024 Telephone [facility] [address] [facility] [address] [place] [address] Issac Ramey MD 03/06/2024 Documentation [facility] [address] [place] [address] Issac Ramey MD 03/04/2024 10:30 AM EST Procedure visit [facility] [place] [address] Katie Asher APRN Malignant neoplasm of urinary bladder, unspecified site (HCC) (Primary Dx); Encounter for counseling for urostomy management 03/04/2024 Travel 02/28/2024 10:45 AM EST Pre-Admission Testing [facility]mission [facility] [address] [facility] [address] [place] [address] Rosie Blanco APRN Pre-operative examination (Primary Dx); Malignant neoplasm of urinary bladder, unspecified site (HCC); Stage 4 chronic kidney disease (HCC); Crohn's disease of colon with complication (HCC) 02/28/2024 Travel 02/27/2024 Documentation [facility] [address] [place] [address] Issac Ramey MD 02/25/2024 Telephone [facility] [address] [place] [address] Issac Ramey MD 02/25/2024 Orders Only [facility] [address] [place] [address] Bibiana Lord RN Malignant neoplasm of urinary bladder, unspecified site (HCC) (Primary Dx) 02/25/2024 Prep for Surgery [facility] [address] [place] [address] Maia Garcia MD Malignant neoplasm of urinary bladder, unspecified site (HCC) (Primary Dx) 02/24/2024 1:50 PM EST Consult [facility] [address] [place] [address] Maia Garcia MD Malignant neoplasm of urinary bladder, unspecified site (HCC) (Primary Dx) 02/24/2024 Travel 02/24/2024 Telephone [facility] [address] [address] Issac Ramey MD from Last 3 Months Family History Medical History Relation Name Comments Cancer, Bladder Neg Hx Cancer, Kidney Neg Hx Cancer, Prostate Neg Hx Social History Tobacco Use Types Packs/Day Years Used Date Smoking Tobacco: Never Smokeless Tobacco: Never Tobacco Cessation:Counseling Given: Not Answered Alcohol Use Standard Drinks/Week Comments Not Currently 0 (1 standard drink = 0.6 oz pur e alcohol) [facility] Utilities Answer Date Recorded In the past 12 months has [employer], gas, oil, or water [employer] threatened to shut off services in your [...] any time in the past 12 m [facility], were you homeless or living in a [facility] (including now)? No 03/14/2024 Sex and Gender Information Value Date Recorded Sex Assigned at Male 01/27/2024 3:36 PM EST Gender Identity Male 03/13/2024 7:28 AM EST Sexual Orientation Heterosexual (straight) 03/13 7:28 AM EST Last Filed Vital Signs Vital Sign Reading Time Taken Comments Blood Pressure 122/72 03/27/2024 11:05 AM EST Pulse 88 03/27/2024 11:05 AM EST Temperature 36.1 ??C (97 ??F) 03/27/2024 11:05 AM EST Respiratory Rate 18 03/18/2024 3:21 PM EST Oxygen Saturation 95% 03/27/2024 11:05 AM EST Inhaled Oxygen Concentration - - Weight 80.3 kg (177 lb) 03/27/2024 11:05 AM EST Height 177.8 cm (5' 10 ) 03/13/2024 8:03 AM EST Body Mass Index 25.4 03/13/2024 8:03 AM EST Plan of Treatment Health Maintenance Due Date Last Done Comments Hepatitis C Virus Screening 1961 HIV Screening 1974 DTaP/Tdap/Td Vaccines (1 - Tdap) 02/08/1980 Pneumococcal Vaccines 50+ (1 of 2 - PCV) 02/08/1980 Zoster (Shingles) Vaccine (1 of 2) 02/08/1980 Colonoscopy 2006 COVID-19 Vaccine ( season) 2023 06/25/2021, 01/07/2021, 03/08/2020, Additional history exists RSV Vaccine 60 years and older and Patients (1 - 1-dose 75+ series) 02/08/2036 Influenza Vaccine Completed 11/11/2023, , 01/23/2022, Additional history exists Hepatitis B Vaccines Aged Out No long er eligible based on patient's age to complete this topic Procedures Procedure Name Priority Date/Time Associated Diagnosis Comments XR SACRUM AND COCCYX MINIMUM 2 [id number] Routine 03/30/2024 9:[address] PELVIS W/O CONTRAST Routine 03/30/2024 9:[address] ABD AND PELVIS WITH CONTRAST Routine 03/30/2024 9:45 AM EST PATHOLOGY REPORT Routine 03/30/2024 9:40 AM EST PATHOLOGY REPORT Routine 03/30/2024 9:37 AM EST CARLA ARCHIVE FOR REFERENCE ONLY CT Routine 03/26/2024 11:[address] HEAD ARCHIVE FOR REFERENCE ONLY Routine 03/26/2024 11:[address] ABDOMEN ARCHIVE FOR REFERENCE ONLY Routine 03/26/2024 11:[address] ABDOMEN ARCHIVE FOR REFERENCE ONLY Routine 03/26/2024 11:12 AM EST COMPREHENSIVE METABOLIC PANEL Routine 03/20/2024 10:34 AM EST Malignant neoplasm of urinary bladder, unspecified site (HCC) Hypokalemia PHOSPHORUS Routine 03/18/2024 3:01 PM EST MAGNESIUM Routine 03/18/2024 3:01 PM EST BASIC METABOLIC PANEL Routine 03/18/2024 3:01 PM EST PHOSPHORUS Routine 03/18/2024 5:23 AM EST MAGNESIUM Routine 03/18/2024 5:23 AM EST BASIC METABOLIC PANEL Routine 03/18/2024 5:23 AM EST BASIC METABOLIC PANEL Routine 03/17/2024 3:30 PM EST PHOSPHORUS Routine 03/17/2024 7:20 AM EST MAGNESIUM Routine 03/17/2024 7:20 AM EST BASIC METABOLIC PANEL Routine 03/17/2024 7:20 AM EST PHOSPHORUS Routine 03/16/2024 3:51 PM EST MAGNESIUM Routine 03/16/2024 3:51 PM EST BASIC METABOLIC PANEL Routine 03/16/2024 3:51 PM EST PHOSPHORUS Routine 03/16/2024 7:26 AM EST MAGNESIUM Routine 03/16/2024 7:26 AM EST BASIC METABOLIC PANEL Routine 03/16/2024 7:26 AM EST CEA Routine 03/15/2024 7:01 AM EST CA 19-9 [id number] Routine 03/15/2024 7:01 AM EST PHOSPHORUS Routine 03/15/2024 7:01 AM EST MAGNESIUM Routine 03/15/2024 7:01 AM EST BASIC METABOLIC PANEL Routine 03/15/2024 7:01 AM EST IR INJECT NEPHROSTOGRAM NEW ACCESS-BILAT W/GUIDANCE Routine 03/14/2024 10:44 AM EST Hydronephrosis PHOSPHORUS Routine 03/14/2024 6:51 AM EST MAGNESIUM Routine 03/14/2024 6:51 AM EST BASIC METABOLIC PANEL Routine 03/14/2024 6:51 AM EST US RENAL STAT 03/13/2024 6:42 PM EST THROMBIN TIME Routine 03/13/2024 5:17 PM EST PROTIME-INR Routine 03/13/2024 5:17 PM EST PARTIAL THROMBOPLASTIN TIME (PTT) Routine 03/13/2024 5:17 PM EST FIBRINOGEN LEVEL Routine 03/13/2024 5:17 PM EST COMPLETE BLOOD COUNT, WITHOUT DIFFERENTIAL Routine 03/13/2024 5:17 PM EST HEMOGLOBIN AND HEMATOCRIT Routine 03/13/2024 2:25 PM EST PHOSPHORUS Routine 03/13/2024 2:25 PM EST MAGNESIUM Routine 03/13/2024 2:25 PM EST BASIC METABOLIC PANEL Routine 03/13/2024 2:25 PM EST ABO CONFIRMATION Routine 03/13/2024 10:35 AM EST WI CSTC COMPL W/URTROILEAL CONDUIT/BLDR W/INT ANAST 03/13/2024 9:52 AM EST Malignant neoplasm of urinary bladder, unspecified site (HCC) Special Needs *10 (DR GARCIA) 11:00 (DR RAMEY) LITHOTOMY ADAN BLOCK BRING PATIENT IN EARLY ANESTHESIA CONSULT NEEDED, APPLY CALF COMPRESSION SLEEVE IN PRE-OP AREA WI EXPLORATORY LAPAROTOMY CELIOTOMY W/WO BIOPSY SPX 03/13/2024 9:52 AM EST Malignant neoplasm of urinary bladder, unspecified site (HCC) Special Needs *10 (DR GARCIA) 11:00 (DR RAMEY) LITHOTOMY ADAN BLOCK BRING PATIENT IN EARLY ANESTHESIA CONSULT NEEDED, APPLY CALF COMPRESSION SLEEVE IN PRE-OP AREA ANES LINE - ARTERIAL Routine 03/13/2024 9:46 AM EST ANES BLOCK - OTHER Routine 03/13/2024 9: 37 AM EST PATHOLOGY REPORT Routine 03/13/2024 12:00 AM EST ECG 12-LEAD Routine 02/28/2024 10:59 AM EST Pre-operative examination TYPE AND SCREEN Routine 02/28/2024 10:35 AM EST Pre-operative examination from Last 3 Months Results * XR SACRUM AND COCCYX MINIMUM 2 [id number] (03/30/2024 9:51 AM EST) Anatomical Region Laterality Modality Other External Provider MD WILLIS LEGACY PROCEDUR ES * CT Pelvis without IV contrast (03/30/2024 9:48 AM EST) Anatomical Region Laterality Modality Pelvis Computed Tomogra phy External Provider IMG CT ORDERABLES * CT ABD AND PELVIS WITH CONTRAST (03/30/2024 9:45 AM EST) Anatomical Region Laterality Modality Other External Provider MD WILLIS LEGACY PROCEDUR ES * Pathology (03/30/2024 9:40 AM EST) Only the most recent of3 resultswithin the time period is included. Tissue External Provider PATHOLOGY/CYTOLOGY ORDERABLES * CARLA Archive for reference only CT (03/26/2024 11:20 AM EST) Narrative [place] - 03/26/2024 11:15 AM EST This order has been auto-finalized and does not contain a result. File Room Provider IMG DIGITIZE FILMS Performing Organization Address [facility] de Phone Number JOSE CRUZ [phone] * CT Head Archive for Reference Only (03/26/2024 11:19 AM EST) Narrative [facility] 03/26/2024 11:19 AM EST This study has been auto finalized and does not contain a result. File Room Provider IMG DIGITIZE FILMS Performing Organization Address [facility] de Phone Number JOSE CRUZ [phone] * CT Abdomen Archive for Reference Only (03/26/2024 11:18 AM EST) Only the most recent of2 resultswithin the time period is included. Narrative [facility] 03/26/2024 11:18 AM EST This study has been auto finalized and does not contain a result. File Room Provider IMG DIGITIZE FILMS Performing Organization Address [facility] de Phone Number JOSE CRUZ [phone] * (ABNORMAL) Comprehensive Metabolic Panel (03/20/2024 10:34 AM EST) Glucose 103 65 - 139 mg/dL [facility] Comment: ? Non-fasting reference interval Blood Urea Nitrogen (BUN) 28(H) 7 - 25 mg/dL [facility] Creatinine 2.04(H) 0.70 - 1.35 mg/dL [facility] Creatinine w/ eGFR 36(L) > OR = 60 mL/min/1. 73m2 [facility] BUN/Creatinine Ratio 14 6 - 22 (calc) [facility] [employer] Sodium 134(L) 135 - 146 mmol/L [facility] Potassium 4.1 3.5 - 5.3 mmol/L [facility] Chloride 99 98 - 110 mmol/L [facility] CO2 27 20 - 32 mmol/L [facility] Calcium 8.1(L) 8.6 - 10.3 mg/dL [facility] Protein, Total 7.1 6.1 - 8.1 g/dL [facility] Albumin 3.7 3.6 - 5.1 g/dL [facility] Globulin 3.4 1.9 - 3.7 g/dL (calc) [facility] Albumin/Globulin Ratio 1.1 1.0 - 2.5 (calc) [facility] Bilirubin, Total 0.4 0.2 - 1.2 mg/dL [facility] Alkaline Phosphatase 74 35 - 144 U/L [facility] Aspartate Aminotrans (AST) 26 10 - 35 U/L [facility] Alanine Aminotrans (ALT) 22 9 - 46 U/L [facility] Blood 03/20/2024 10:3 4 AM EST 03/20/2024 10:35 AM EST Narrative [facility] - 03/20/2024 10:06 PM EST FASTING:NO FASTING: NO Sharyn Pang APRN LAB BLOOD ORDERABLES Performing Organization Address City/[facility]/ZIP Co de Phone Number [facility] [address] [place] [phone] * (ABNORMAL) Phosphorus (Routine) (03/18/2024 3:01 PM EST) Only the most recent of8 resultswithin the time period is included. Phosphorus 1.9(L) 2.7 - 4.5 mg/dL 03/18/2024 3:37 PM EST [facility] Blood (Plasma/Serum) 03/18/2024 3:01 PM EST 03/18/2024 3:06 PM EST Maia Garcia MD LAB BLOOD ORDERABLES Performing Organization Address City/[facility]/[place] [address], [place] [address] * Magnesium (Routine) (03/18/2024 3:01 PM EST) Only the most recent of8 resultswithin the time period is included. Magnesium 2.2 1.6 - 2.7 mg/dL 03/18/2024 3:37 PM [facility] Blood (Plasma/Serum) 03/18/2024 3:01 PM EST 03/18/2024 3:06 PM EST Maia Garcia MD [place] [address], [place] [address] * (ABNORMAL) Basic Metabolic Panel (Routine) (03/18/2024 3:01 PM EST) Only the most recent of9 resultswithin the time period is included. Glucose 109(H) 65 - 99 mg/dL 03/18/2024 3:37 PM [facility] Comment:Fasting: <100 mg/dL, Non-Fasting: <200 mg/dL (ADA 2004) Blood Urea Nitrogen (BUN) 25(H) 8 - 21 mg/dL 03/18/2024 3:37 PM [facility] Creatinine 1.9(H) 0.5 - 1.3 mg/dL 03/18/2024 3:37 PM [facility] eGFR 39(L) >59 03/18/2024 3:37 PM [facility] Comment:CKD-EPI (2020) in mL /min/1.73 sq meters. Sodium 141 136 - 145 mmol/L 03/18/2024 3:37 PM [facility] Potassium 3.7 3.4 - 5.3 mmol/L 03/18/2024 3:37 PM [facility] Chloride 105 98 - 107 mmol/L 03/18/2024 3:37 PM [facility] CO2 26 22 - 33 mmol/L 03/18/2024 3:37 PM [facility] Anion Gap 10 7 - 17 03/18/2024 3:37 PM [facility] Calcium 7.5(L) 8.7 - 10.5 mg/dL 03/18/2024 3:37 PM [facility] BUN/Creatinine Ratio 13 10.0 - 25.0 Ratio 03/18/2024 3:37 PM [facility] Blood (Plasma/Serum) 03/18/2024 3:01 PM EST 03/18/2024 3:06 PM EST Maia Garcia MD LAB BLOOD ORDERABLES Performing Organization Address [facility] [place] [address], [place] [address] * (ABNORMAL) CA 19-9 (03/15/2024 7:01 AM EST) CA 19-9 847(H) <34 U/mL 03/20/2024 7:23 AM EST [facility] [employer] Comment: (NOTE) This test was performed using the Siemens chemiluminescent method. Values obtained from different assay methods cannot be used inter- changeably. CA 19-9 levels, regardless of value, should not be interpreted as absolute evidence of the presence or absence of disease. Serum specimen / Unknown 03/15/2024 7:01 AM EST 03/15/2024 7:36 AM EST Kayden Torrez MD LAB BLOOD ORDERABL ES Performing Organization Address City/[facility] Co de Phone Number [facility], [employer] [address] [facility] [address] [address] [place], [place] , [facility], [place] [address] [facility] [address] [address] [place], [place] * (ABNORMAL) CEA (03/15/2024 7:01 AM EST) CEA (Reymundo) 113.0(H) 0.0 - 3.8 ng/mL 03/15/2024 8:28 AM EST [facility] Comment: Reference range: ?Age 20 - 69: ?? Non-smokers ?? 0 - 3.8 ng/mL ? Smokers ? 0 - 5.4 ng/mL Performed by [employer] electrochemiluminescence immunoassay (ECLIA). ??Results obtained by different methods not interchangeable. ??Result cannot be interpreted as absolute evidence of the presence or absence of malignant disease. Blood (Plasma/Serum) 03/15/2024 7:01 AM EST 03/15/2024 7:36 AM EST Kayden Torrez MD LAB [place] [address], [place] [address] * IR INJECT NEPHROSTOGRAM NEW ACCESS-BILAT W/GUIDANCE (03/14/2024 10:44 AM EST) Anatomical Region Laterality Modality X-Ray Angiograph y 03/14/2024 9:34 AM EST Impressions 03/14/2024 1:26 PM EST Bilateral 10F nephrostomy tube placement. Plan: Catheter was placed to gravity bag drainage PROCEDURE SUMMARY - Target organ: Bilateral wainwright kidneys - Image-guided placement of genitourinary catheter(s) - Additional procedure(s): None PROCEDURE DETAILS: Pre-procedure Consent: Informed consent for the procedure including risks, benefits and alternatives was obtained and time-out was performed prior to the procedure. Preparation: The site was prepared and draped using maximal sterile barrier technique including cutaneous antisepsis. Anesthesia/sedation Level of anesthesia/sedation: Moderate sedation (conscious sedation) Anesthesia/sedation administered by: Independent trained observer under attending supervision with continuous monitoring of the patient's level of consciousness and physiologic status Total intra-service sedation time (minutes): 30 Sedation Medications Versed: 1 mg IV Fentanyl: 50 mcg IV Right genitourinary catheter placement Local anesthesia was administered. A needle was advanced into the renal collecting system under ultrasound and fluoroscopy guidance. A wire was advanced, the tract was serially dilated and a nephrostomy tube was placed. Contrast injection was performed. Genitourinary catheter placed:10F Argon Skater locking pigtail drainage catheter Findings: Existing double-J nephroureteral stent in place. Severe hydronephrosis of the right kidney. Successful placement via lower pole calyx into the central renal pelvis External catheter securement: Non-absorbable suture and adhesive anchoring device Left genitourinary catheter placement Local anesthesia was administered. A needle was advanced into the renal collecting system under ultrasound and fluoroscopy guidance. A wire was advanced, the tract was serially dilated and a nephrostomy tube was placed. Contrast injection was performed. Genitourinary catheter placed:10F Argon Skater locking pigtail drainage catheter Findings: Existing double-J nephroureteral stent in place. Severe hydronephrosis of the left kidney. Successful placement via lower pole calyx into the central renal pelvis External catheter securement: Non-absorbable suture and adhesive anchoring device Additional genitourinary system intervention Genitourinary intervention: None Location of intervention: Not applicable Device used: Not applicable Description of intervention: Not applicable Post-intervention findings: Not applicable Contrast Contrast agent: Omnipaque 300 Contrast volume (mL): 15 Radiation Dose Fluoroscopy time (minutes): 1.4 ?? Reference air kerma (mGy): 96.7 Kerma area product (uGy-m2): 850.85 Additional Details Additional description of procedure: None Equipment details: None Specimens removed: None. A sample was sent for analysis. Estimated blood loss (mL): Less than 10 Standardized report: [id number] Attestation Signer name: German Mills MD I attest that I was present for the entire procedure. I reviewed the stored images and agree with the report as written. Narrative 03/14/2024 1:26 PM EST PROCEDURE: Genitourinary catheter placement Referring provider: MAIA GARCIA Procedural Personnel Attending physician(s): German Mills MD Resident physician(s): None Advanced practice provider(s): None Pre-procedure diagnosis: Bilateral hydronephrosis with worsening renal failure and urinary tract infection Post-procedure diagnosis: Same Indication: Urinary obstruction Catheter(s) placed because the previous catheter(s) became dislodged within 30 days of placement (QCDR): No Additional clinical history: None Complications: No immediate complications. Procedure Note German Mills MD - 03/14/2024 PROCEDURE: Genitourinary catheter placement Referring provider: MAIA GARCIA Procedural Personnel Attending physician(s): German Mills MD Resident physician(s): None Advanced practice provider(s): None Pre-procedure diagnosis: Bilateral hydronephrosis with worsening renal failure and urinary tract infection Post-procedure diagnosis: Same Indication: Urinary obstruction Catheter(s) placed because the previous catheter(s) became dislodged within 30 days of placement (QCDR): No Additional clinical history: None Complications: No immediate complications. IMPRESSION: Bilateral 10F nephrostomy tube placement. Plan: Catheter was placed to gravity bag drainage PROCEDURE SUMMARY - Target organ: Bilateral wainwright kidneys - Image-guided placement of genitourinary catheter(s) - Additional procedure(s): None PROCEDURE DETAILS: Pre-procedure Consent: Informed consent for the procedure including risks, benefits and alternatives was obtained and time-out was performed prior to the procedure. Preparation: The site was prepared and draped using maximal sterile barrier technique including cutaneous antisepsis. Anesthesia/sedation Level of anesthesia/sedation: Moderate sedation (conscious sedation) Anesthesia/sedation administered by: Independent trained observer under attending supervision with continuous monitoring of the patient's level of consciousness and physiologic status Total intra-service sedation time (minutes): 30 Sedation Medications Versed: 1 mg IV Fentanyl: 50 mcg IV Right genitourinary catheter placement Local anesthesia was administered. A needle was advanced into the renal collecting system under ultrasound and fluoroscopy guidance. A wire was advanced, the tract was serially dilated and a nephrostomy tube was placed. Contrast injection was performed. Genitourinary catheter placed:10F [facility] locking pigtail drainage catheter Findings: Existing double-J nephroureteral stent in place. Severe hydronephrosis of the right kidney. Successful placement via lower pole calyx into the central renal pelvis External catheter securement: Non-absorbable suture and adhesive anchoring device Left genitourinary catheter placement Local anesthesia was administered. A needle was advanced into the renal collecting system under ultrasound and fluoroscopy guidance. A wire was advanced, the tract was serially dilated and a nephrostomy tube was placed. Contrast injection was performed. Genitourinary catheter placed:10F [facility] locking pigtail drainage catheter Findings: Existing double-J nephroureteral stent in place. Severe hydronephrosis of the left kidney. Successful placement via lower pole calyx into the central renal pelvis External catheter securement: Non-absorbable suture and adhesive anchoring device Additional genitourinary system intervention Genitourinary intervention: None Location of intervention: Not applicable Device used: Not applicable Description of intervention: Not applicable Post-intervention findings: Not applicable Contrast Contrast agent: Omnipaque 300 Contrast volume (mL): 15 Radiation Dose Fluoroscopy time (minutes): 1.4 Reference air kerma (mGy): 96.7 Kerma area product (uGy-m2): 850.85 Additional Details Additional description of procedure: None Equipment details: None Specimens removed: None. A sample was sent for analysis. Estimated blood loss (mL): Less than 10 Standardized report: [email or web address] Attestation Signer name: German Mills MD I attest that I was present for the entire procedure. I reviewed the stored images and agree with the report as written. German Mills MD IMG IR ORDERABLES * US Renal (03/13/2024 6:42 PM EST) Anatomical Region Laterality Modality Abdomen Ultrasound 03/13/2024 6:08 PM EST Impressions 03/13/2024 7:00 PM EST Moderate right and severe left hydroureteronephrosis. Stents are visualized within the bilateral ureters. Interpreted by: ??Karyn Bernstein MD Top Cager I personally reviewed the images and the resident's preliminary report and AGREE with the report as it is now presented (RADPAL1). 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 Rising creatinine. COMPARISON: MR abdomen 01/21/2024. TECHNIQUE: Real-time imaging of the kidneys and bladder. FINDINGS: RIGHT KIDNEY: Moderate hydroureteronephrosis. A stent is visualized within the ureter. No renal calculi. Simple renal cortical cysts are better visualized on prior MRI. The kidney measures 9.9 x 4.9 x 5.0 cm (sag x AP x TRV). LEFT KIDNEY: Severe hydroureteronephrosis. A stent is visualized within the ureter. No renal calculi. Multiple simple left renal cortical cysts are better visualized on prior MRI. The kidney measures 14.4 x 8.1 x 8.7 cm (sag x AP x TRV). BLADDER: The bladder is not visualized as it is decompressed with Bermudez catheter in place. 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 Rising creatinine. COMPARISON: MR abdomen 01/21/2024. TECHNIQUE: Real-time imaging of the kidneys and bladder. FINDINGS: RIGHT KIDNEY: Moderate hydroureteronephrosis. A stent is visualized within the ureter. No renal calculi. Simple renal cortical cysts are better visualized on prior MRI. The kidney measures 9.9 x 4.9 x 5.0 cm (sag x AP x TRV). LEFT KIDNEY: Severe hydroureteronephrosis. A stent is visualized within the ureter. No renal calculi. Multiple simple left renal cortical cysts are better visualized on prior MRI. The kidney measures 14.4 x 8.1 x 8.7 cm (sag x AP x TRV). BLADDER: The bladder is not visualized as it is decompressed with Bermudez catheter in place. IMPRESSION: Moderate right and severe left hydroureteronephrosis. Stents are visualized within the bilateral ureters. Interpreted by: Karyn Bernstein MD Top Cager I personally reviewed the images and the resident's preliminary report and AGREE with the report as it is now presented (RADPAL1). Danisha Morrell MD [facility] US ORDERABLES * (ABNORMAL) Partial Thromboplastin Time (PTT) (03/13/2024 5:17 PM EST) Anticoagulant SUBCUTANEOUS UNFRACTIONATED HEPARIN 03/13/2024 4:34 PM EST Partial Thromboplastin Time (PTT) 24(L) 25 - 36 seconds 03/13/2024 6:30 PM EST [facility] Blood Plasma specimen / Unknown 03/13/2024 5:17 PM EST 03/13/2024 5:56 PM EST Issac Ramey MD LAB BLOOD ORDERA BLES Performing Organization Address City/[facility]/[place] [address], [place] [address] * Thrombin Time (03/13/2024 5:17 PM EST) Anticoagulant SUB Q UNFRACTIONATED HEPARIN 03/13/2024 4:34 PM EST Thrombin Time 16.2 12.7 - 19.2 seconds 03/13/2024 6:30 PM EST [facility] Blood Plasma specimen / Unknown 03/13/2024 5:17 PM EST 03/13/2024 5:56 PM EST Issac Ramey MD LAB BLOOD ORDERA BLES Performing Organization Address [facility] [place] [address], [place] [address] * Protime-INR (03/13/2024 5:17 PM EST) Anticoagulant SUB Q UNFRACTIONATED HEPARIN 03/13/2024 4:34 PM EST Prothrombin Time (PT) 12.3 10.0 - 13.5 seconds 03/13/2024 6:30 PM EST [facility] INR 1.1 03/13/2024 6:30 PM EST [facility] Comment:INR Therapeutic Rang es: Standard dose anticoagulant 2.0 to 3.0, High dose anticoagulant 2.5-3.5. Blood Plasma specimen / Unknown 03/13/2024 5:17 PM EST 03/13/2024 5:56 PM EST Issac Ramey MD LAB BLOOD ORDERA BLES [place] [address] [place] [address], [facility] [address] [place] [address] * Fibrinogen Level (03/13/2024 5:17 PM EST) Fibrinogen 349 148 - 435 mg/dL 03/13/2024 6:30 PM [facility] Blood Plasma specimen / Unknown 03/13/2024 5:17 PM EST 03/13/2024 5:56 PM EST Issac Ramey MD LAB [place] [address], [place] [address] * (ABNORMAL) COMPLETE BLOOD COUNT, WITHOUT DIFFERENTIAL (03/13/2024 5:17 PM EST) White Blood Cell Count 17.7(H) 4.0 - 11.0 Thou/uL 03/13/2024 6:08 PM [facility] Platelet Count 199 150 - 450 Thou/uL 03/13/2024 6:08 PM [facility] Hemoglobin 13.0 13.0 - 17.7 g/dL 03/13/2024 6:08 PM [facility] Hematocrit 36.6(L) 39.0 - 54.0 % 03/13/2024 6:08 PM [facility] Red Blood Cell Count 3.94(L) 4.50 - 6.20 Mil/uL 03/13/2024 6:08 PM [facility] MCV 93 80 - 100 fL 03/13/2024 6:08 PM [facility] MCH 33.0(H) 27.0 - 31.0 pg 03/13/2024 6:08 PM [facility] MCHC 35.5 30.0 - 36.0 g/dL 03/13/2024 6:08 PM [facility] RDW 12.1 11.5 - 14.5 % 03/13/2024 6:08 PM [facility] MPV 9.5 7.5 - 12.5 fL 03/13/2024 6:08 PM [facility] Blood Blood specimen / Unknown 03/13/2024 5:17 PM EST 03/13/2024 5:56 PM EST Issac Ramey MD LAB BLOOD ORDERA BLES Performing Organization Address [facility] [place] [address], [place] [address] * (ABNORMAL) Hemoglobin and Hematocrit (03/13/2024 2:25 PM EST) Hematocrit 33.9(L) 39.0 - 54.0 % 03/13/2024 3:05 PM [facility] Hemoglobin 12.0(L) 13.0 - 17.7 g/dL 03/13/2024 3:05 PM [facility] Blood Blood specimen / Unknown 03/13/2024 2:25 PM EST 03/13/2024 2:49 PM EST Caryn London PA-C LAB BLOOD ORDERAB LES Performing Organization Address [facility] [place] [address], [place] [address] * ABO Confirmation (03/13/2024 10:35 AM EST) ABO/Rh A POSITIVE 03/13/2024 12:02 PM EST [facility] Blood specimen / Unknown 03/13/2024 10:35 AM EST 03/13/2024 11:21 AM EST Maia Garcia MD BLOOD BANK TEST KAMILA PHAM Performing Organization Address [facility] [place] [address], [place] [address] * ANES LINE - ARTERIAL (03/13/2024 9:46 AM EST) Narrative Kale Corea MD - 03/13/2024 9:46 AM EST Kale Corea MD ? 03/13/2024 ??9:46 AM Anesthesia Procedure Note - Arterial Line Insertion- R radial Patient Name: Judson Jay : 1960 Patient location: pre-op Indications: Vascular access and hemodynamic monitoring Procedure diagnosis: Anesthesia Procedure Start Time: 03/13/2024 9:26 AM Procedure End Time: 03/13/2024 9:38 AM Performed by: Resident/ELECTRIC MOTOR REPAIRER ? Jay Avery MD ? Kale Corea MD ? Procedure Preparation Skin prep: 2% chlorhexidine - completely dried prior to procedure Hand hygeine performed prior to needle/catheter insertion Sterile barriers in place: gloves, cap, gown, large sterile sheet and mask Procedure Details Edwin's test normal? not performed Needle: 20 g Seldinger technique used Number of attempts: 1 Post Procedure Post-procedure: stablization device applied (biopatch placed under dressing) Additional Comments: Well tolerated. Jay Avery MD [place] ANESTHESIA * Block - Other (03/13/2024 9:37 AM EST) Narrative Farhana Billings MD - 03/13/2024 9:37 AM EST Farhana Billings MD ? 03/13/2024 ??9:38 AM Anesthesia Procedure Note - Block Procedure Patient Name: Judson Jay : 1960 Patient location: pre-op Reason for block: post-op pain management Procedure diagnosis: Post-operative pain Procedure Start Time: 03/13/2024 8:56 AM Procedure End Time: 03/13/2024 9:07 AM Performed by: Anesthesiologist and Resident/ELECTRIC MOTOR REPAIRER ? Jm Chiang MD ? Farhana Billings MD ? Chart Verification ID band applied and present Patient ID verified via arm band, verbally with patient. H&P verified: Yes Pre-op test results in chart Consents confirmed: informed, anesthesia and operative Nursing assessment complete: yes Anesthesia questionnaire complete: yes Antibiotic ordered: n/a Procedure Verification/TIMEOUT Correct procedure: yes Correct patient position: yes Correct laterality: not applicable Correct site: yes Site/side marked: n/a Sterility reviewed: yes Special equipment or implants: n/a Safety precautions discussed with procedural staff: yes Preanesthetic Checklist Monitors and equipment checked Patient pre-procedure mental status: awake The patient was sedated prior to procedure. Patient state at time: moderate Patient Preprocedure Preparation Skin prep: skin prepped with 2% chlorhexidine-completely dried prior to procedure Hand hygeine performed prior to needle/catheter insertion Sterile barriers in place: Cap, gloves and mask Procedure Details Block A: rectus sheath - single shot technique Short-bevel needle, 22 g, 80 mm Laterality bilateral Procedure Details Block B: TAP - mid abdominal- single-shot technique short-bevel needle, 22 g, 80 mm Laterality bilateral Technique(s): Ultrasound guided Post-procedure Verification Counts correct: n/a Specimens labeled correctly: n/a Equipment problems to be addressed: n/a Outcomes Result: successful block Outcome: block complete Patient tolerated procedure well. Additional Comments: Nerve block requested by surgeon for post-op analgesia. Pre-block time out performed. Sterile prep with chloraprep was done. Continuous in plane visualization of needle and needle tip. Good ultrasound visualization of abdominal wall muscle layers for mid-abdominal TAP approach. Appropriate local anesthetic spread pattern in TAP planes at mid-abdominal level. Good ultrasound visualization of rectus abdominis with appropriate local anesthetic spread pattern deep to rectus abdominis. Incremental injection with negative aspiration with 10mL syringe throughout all injections. Patient tolerated procedure well, no complications. Jm Chiang MD [place] ANESTHESIA * ECG 12 lead (02/28/2024 10:59 AM EST) Ventricular rate 75 BPM EKG [facility] Atrial rate 75 BPM EKG [facility] P-R interval 156 ms EKG [facility] QRS duration 100 ms EKG [facility] Q-T interval 382 ms EKG [facility] QTC calculation (Bazett) 427 ms EKG [facility] P axis 11 degrees EKG [facility] R axis 6 degrees EKG [facility] T axis 14 degrees EKG [facility] 02/28/2024 10:5 9 AM EST Narrative EKG [facility] - 02/28/2024 11:51 AM EST Normal sinus rhythm Normal ECG No previous ECGs available Confirmed by MD Stoll Eric ([id number]) on 02/28/2024 11:51:25 AM Procedure Note Primitivo Stoll MD - 02/28/2024 Normal sinus rhythm Normal ECG No previous ECGs available Confirmed by MD Stoll Eric ([id number]) on 02/28/2024 11:51:25 AM Rosie Blanco APRN ECG ORDERABLES Performing Organization Address City/[facility] Co de Phone Number EKG [facility] * Type and Screen (02/28/2024 10:35 AM EST) ABO/Rh A POSITIVE 02/28/2024 8:54 PM EST [facility] Antibody Screen NEGATIVE 02/28/2024 8:54 PM [facility] Specimen Expiration 03/29/2024 02/28/2024 6:29 PM [facility] or transfused in last 3 months? NO 02/28/2024 8:54 PM [facility] Blood Bank Comment Second Sample needed for Blood Transfusion 02/28/2024 6:29 PM [facility] Blood Blood specimen / Unknown 02/28/2024 10:35 AM EST 02/28/2024 6:27 PM EST Rosie Blanco APRN BLOOD BANK TEST ORD ERABLES Performing Organization Address [facility] Co de Phone Number [address] [address], [address] [address] from Last 3 Months Advance Directives * Full Code (Latest Code Status on File) Date Activated Date Inactivated Comments 03/13/2024 5:14 PM * Full Code Date Activated Date Inactivated Comments 03/13/2024 7:50 AM 03/13/2024 5:14 PM Healthcare Agents on File Name Relationship Healthcare Agent Relationshi p Communication vickey Jay Spouse 4. Next of Kin ( Spouse, Adult Child, Parent, Adult Sibling, Grandparent) Care Teams Algorithm Developer Relationship Specialty Start Date End Date Hnasel Martinez MD [address] [place] [address] PCP - General Internal Medicine 01/21/24 Angeles Pineda RN [address] [place] [address] Oncology Nurse Navigator 02/11/24
--- OUTSIDE RECORDS SUMMARY | 2024-05-24 21:47 | XMS_ITS | Encounter Summary ---
Author Organization [facility], Address [address] [place] [address] Phone Care Team Providers Care Health Policy Manager Name Role Phone Hansel Martinez MD Primary Care Provider [phone] Encounter Details Date Type Department Care Team (Late st Contact Info) Description 04/13/2022 Documentation Only [facility], [address] [place] [address] [place], [place] [address] [place] [address] Social History Tobacco Use Types Packs/Day Years [...] on filedocumented in this encounter Care Teams Health Policy Manager Relationship Specialty Start Date End Date Hansel Martinez MD [place] CMM TECHNICIAN [address] [place] [address] PCP - General 12/16/18 documented as of this encounter
--- OUTSIDE RECORDS SUMMARY | 2024-05-24 21:47 | XMS_ITS | Encounter Summary ---
Author Organization [facility], Address [address] [place] [address] Phone Care Team Providers Care Inbound Customer Service Representative Name Role Phone Hansel Martinez MD Primary Care Provider [phone] Encounter Details Date Type Department Care Team (Late st Contact Info) Description 03/27/2022 Office Communication [facility], [address] [place] [phone] Marko Mojica MD [address] [place] [phone] Social History Tobacco Use Types Packs/Day Years [...] on filedocumented in this encounter Care Teams Inbound Customer Service Representative Relationship Specialty Start Date End Date Hansel Martinez MD [facility] FOOD TRAY ASSEMBLER [address] [place], [place] [address] PCP - General 12/16/18 documented as of this encounter
--- OUTSIDE RECORDS SUMMARY | 2024-05-24 21:47 | XMS_ITS | Encounter Summary ---
Author Organization [facility] Address [address] [place] [address] Care Team Providers Care Mock Up Maker Name Role Phone Hansel Martinez MD Primary Care Provider [phone] CarrierAngeles RN Unavailable [phone] Encounter Details Date Type Department Care Team (Late st Contact Info) Description 03/30/[address] [facility] Colorectal Surgery [place] [address] [facility] [address] [place] [address] Provider, MD Eliud [address] [place] [address] Social History Tobacco Use Types Packs/Day Years Used Date Smoking Tobacco: Never Smokeless Tobacco: Never Alcohol Use Standard Drinks/Week Comments Not Currently 0 (1 standard drink = 0.6 oz pur e alcohol) [facility] Utilities Answer Date Recorded In the past 12 months has [employer] electric, gas, oil, or water company threatened [...] any time in the past 12 m [facility], were you homeless or living in a penitentiary (including now)? No 03/14/2024 Sex and Gender Information Value Date Recorded Sex Assigned at Male 01/27/2024 3:36 PM EST Gender Identity Male 03/13/2024 7:28 AM EST Sexual Orientation Heterosexual (straight) 03/13 7:28 AM EST documented as of this encounter Plan of Treatment Not on file documented as of this encounter Visit Diagnoses Not on filedocumented in this encounter Care Teams Mock Up Maker Relationship Specialty Start Date End Date Hansel Martinez MD [address] [place] [address] PCP - General Internal Medicine 01/21/24 Angeles Pineda RN [address] [place] [address] Oncology Nurse Navigator 02/11/24 documented as of this encounter
--- OUTSIDE RECORDS SUMMARY | 2024-05-24 21:47 | XMS_ITS | Encounter Summary ---
Author Organization [facility] Address [address] [place] [address] Care Team Providers Care Credit Assistant Name Role Phone Hansel Martinez MD Primary Care Provider [phone] Angeles Pineda RN Unavailable [phone] Reason for Visit * Reason Comments Appointment Encounter Details Date Type Department Care Team (Late st Contact Info) Description 01/21/2024 Telephone [facility] Urologic Surgery [address] [place] [phone] Provider, Generic Appointment Social History Tobacco Use Types Packs/Day Years Used Date Smoking Tobacco: Never Assessed Sex and Gender Information Value Date Recorded Sex Assigned at Male 01/27/2024 3:36 PM EST Gender Identity Male 03/13/2024 7:28 AM EST Sexual Orientation Heterosexual (straight) 03/13 7:28 AM EST documented as of this encounter Miscellaneous Notes * Telephone Encounter - Estela Cooley RN - 01/22/2024 2:05 PM EST Phone call placed to Dr. Ying office. I was able to speak directly with Dr. Ying . He wants to let Dr. Driscoll knows that this patient machuca snot have a normal bladder cancer. 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 [facility] Informed him we are holding an spot for him for Saturday and that I will pass the message to Dr. Driscoll. Spoke with Marie Ying medical staff director and they will fax the records today. documented in this encounter Plan of Treatment Not on file documented as of this encounter Visit Diagnoses Not on filedocumented in this encounter Care Teams Credit Assistant Relationship Specialty Start Date End Date Hansel Martinez MD [address] [place] [address] PCP - General Internal Medicine 01/21/24 Angeles Pineda RN [address] [place] [address] Oncology Nurse Navigator 02/11/24 documented as of this encounter
--- OUTSIDE RECORDS SUMMARY | 2024-05-24 21:47 | XMS_ITS | Clinical Summary ---
Author Organization [facility], Address [address] [place] [address] [address] [place] [address] Phone Care Team Providers Care Animal Killer Name Role Phone Hansel Martinez MD Primary Care Provider [phone] Allergies No known active allergies Medications adalimumab (HUMIRA) 40 MG/0.8ML Prefilled Syringe Kit Inject 40 mg under the skin every 14 (fourteen) days Active cefdinir (OMNICEF) 300 MG capsule 01/08/2019 Active fluticasone (FLONASE) 50 MCG/ACT nasal spray 12/16/2018 Active methylPREDNISol one (MEDROL DOSPAK) 4 MG tablet 12/30/2018 Active Neomycin-Polymy jose-HC 1 % solution 12/31/2018 Active Magnesium Oxide 200 MG tablet Take 200 mg by mouth 1 (one) time each day 30 tablet 11 07/24/2022 Active losartan (Cozaar) 25 MG tablet Take 0.5 tablets (12.5 mg total) by mouth 1 (one) time each day 15 tablet 11 07/24/2022 Active Active Problems Problem Noted Date Diagnosed Date Nephrolithiasis 03/27/2022 Vitamin D deficiency, not otherwise specified Stage 3b chronic kidney disease 09/06/2020 IgA nephropathy 01/22/2019 Proteinuria 01/22/2019 Resolved Problems Problem Noted Date Diagnosed Date Resolved Date Blood in urine 01/22/2019 03/20/2021 Chronic kidney disease stage 3 01/22/2019 03/20/2021 Renal stone 01/22/2019 03/20/2021 Serum creatinine above reference range 01/22/2019 03/20/2021 Immunizations Immunization Administration Dates Next Due Influenza Whole 11/25/2019,12/09/2018,11/27/2010 Influenza, Unspecified 01/23/2022,2020,12/20/2015,12/02/2014,05/2013,12/09/2012 Moderna SARS-COV-2 06/25/2021,01/07/2021 Pfizer SARS-COV-2 03/08/2020,02/16/2020 Pneumococcal Polysaccharide 12/10/2011 Shingrix 10/18/2020 Td, Unspecified 09/07/2005 Tdap 12/27/2015 Family History Medical History Relation Comments Cancer Father 2 Colon Heart disease Father 2 CAD Hypertension Mother 2 Relation Status Comments Father 1 Father 2 Mother 1 Mother 2 Social History Tobacco Use Types Packs/Day Years Used Date Smoking Tobacco: Never Alcohol Use Standard Drinks/Week Comments No 0 (1 standard drink = 0.6 oz pur e alcohol) Sex and Gender Information Value Date Recorded Sex Assigned at Male 07/17/2022 5:55 PM EDT Legal Sex Male 4:37 PM EST Gender Identity Male 07/17/2022 5:55 PM EDT Sexual Orientation Not on file Last Filed Vital Signs Vital Sign Reading Time Taken Comments Blood Pressure 105/60 01/22/2019 1:59 PM EST Pulse 74 01/22/2019 1:59 PM EST Temperature - - Respiratory Rate 16 01/22/2019 1:59 PM EST Oxygen Saturation - - Inhaled Oxygen Concentration - - Weight 86.2 kg (190 lb) 01/22/2019 1:59 PM EST Height 178 cm (5' 10.08 ) 01/22/2019 1:59 PM EST Body Mass Index 27.2 01/22/2019 1:59 PM EST Plan of Treatment Health Maintenance Due Date Last Done Comments Colorectal Cancer Screening: Annual FOBT 2010 Colorectal Cancer Screening: Colonoscopy 2010 Colorectal Cancer Screening: Sigmoidoscopy 2010 Pneumococcal Vaccine: 50+ Years (2 of 2 - PCV) 12/09/2012 12/10/2011 Influenza Vaccine (Season Ended) 2024 01/23/2022, 12/11/2020, 11/25/2019, Additional history exists Pneumococcal Vaccine: Peds (0 to 5 Years) and At-Risk Patients (6 to 49 Years) Discontinued 12/10/2011 Hepatitis B Vaccine Aged Out No longe r eligible based on patient's age to complete this topic Insurance [facility] Care Teams Animal Killer Relationship Specialty Start Date End Date Hansel Martinez MD [employer] [address] [place] [address] PCP - General 12/16/18
--- OUTSIDE RECORDS SUMMARY | 2024-05-24 21:47 | XMS_ITS | Encounter Summary ---
Author Organization [facility] Address [address] [place] [address] Care Team Providers Care Solutions Architect Name Role Phone Hansel Martinez MD Primary Care Provider [phone] Angeles Pineda RN Unavailable [phone] Encounter Details Date Type Department Care Team (Late st Contact Info) Description 03/30/2024 Scanned Document [facility] Colorectal Surgery [place] 85 [facility] [address] [place] [phone] Huong Hoang MD Medical [facility] [address] [place] [address] Social History Tobacco Use Types Packs/Day Years Used Date Smoking Tobacco: Never Smokeless Tobacco: Never Alcohol Use Standard Drinks/Week Comments Not Currently 0 (1 standard drink = 0.6 oz pur e alcohol) [facility] Utilities Answer Date Recorded In the past 12 months has [employer] electric, gas, oil, or water company threatened [...] any time in the past 12 m [facility], were you homeless or living in a detention (including now)? No 03/14/2024 Sex and Gender Information Value Date Recorded Sex Assigned at Male 01/27/2024 3:36 PM EST Gender Identity Male 03/13/2024 7:28 AM EST Sexual Orientation Heterosexual (straight) 03/13 7:28 AM EST documented as of this encounter Plan of Treatment Not on file documented as of this encounter Visit Diagnoses Not on filedocumented in this encounter Care Teams Solutions Architect Relationship Specialty Start Date End Date Hansel Martinez MD [address] [place] [address] PCP - General Internal Medicine 01/21/24 Angeles Pineda RN [address] [place] [address] Oncology Nurse Navigator 02/11/24 documented as of this encounter
--- OUTSIDE RECORDS SUMMARY | 2024-05-24 21:47 | XMS_ITS | Encounter Summary ---
Author Organization [facility], Address [address] [place] [address] Phone Care Team Providers Care Vascular Nurse Name Role Phone Hansel Martinez MD Primary Care Provider [phone] Encounter Details Date Type Department Care Team (Late st Contact Info) Description 03/20/2022 Documentation Only [facility], [address] [place] [phone] Marko Mojica MD [address] [place] [phone] Social History Tobacco Use Types Packs/Day Years [...] on filedocumented in this encounter Care Teams Vascular Nurse Relationship Specialty Start Date End Date Hansel Martinez MD [facility] [employer] PROGRAMMER [address] [place], [place] [address] PCP - General 12/16/18 documented as of this encounter
--- OUTSIDE RECORDS SUMMARY | 2024-05-24 21:47 | XMS_ITS | Encounter Summary ---
Author Organization [facility] Address [address] [place] [address] Care Team Providers Care Hydro Operator Name Role Phone Hansel Martinez MD Primary Care Provider [phone] Angeles Pineda RN Unavailable [phone] Encounter Details Date Type Department Care Team (Late st Contact Info) Description 03/18/2024 Scanned Document [facility] Colorectal Surgery [place] [address] [address] Yenny Garcia MD [address] [id number] Social History Tobacco Use Types Packs/Day Years Used Date Smoking Tobacco: Never Smokeless Tobacco: Never Alcohol Use Standard Drinks/Week Comments Not Currently 0 (1 standard drink = 0.6 oz pur e alcohol) [facility] Utilities Answer Date Recorded In the past 12 months has [employer] electric, gas, oil, or water [employer] threatened to shut off services in your [...] any time in the past 12 m [facility], were you homeless or living in a fdc (including now)? No 03/14/2024 Sex and Gender Information Value Date Recorded Sex Assigned at Male 01/27/2024 3:36 PM EST Gender Identity Male 03/13/2024 7:28 AM EST Sexual Orientation Heterosexual (straight) 03/13 7:28 AM EST documented as of this encounter Plan of Treatment Not on file documented as of this encounter Visit Diagnoses Not on filedocumented in this encounter Care Teams Hydro Operator Relationship Specialty Start Date End Date Hansel Martinez MD [address] [place] [address] PCP - General Internal Medicine 01/21/24 Angeles Pineda RN [address] [place] [address] Oncology Nurse Navigator 02/11/24 documented as of this encounter
--- OUTSIDE RECORDS SUMMARY | 2024-05-24 21:47 | XMS_ITS | Encounter Summary ---
Author Organization [facility], Address [address] [place] [address] Phone Care Team Providers Care Manager Support Name Role Phone Hansel Martinez MD Primary Care Provider [phone] Encounter Details Date Type Department Care Team (Late st Contact Info) Description 06/12/2022 Documentation Only [facility], [address] [place] [phone] Marko Mojica MD [address] [facility] [address] [place] [phone] Social History Tobacco Use Types Packs/Day Years [...] on filedocumented in this encounter Care Teams Manager Support Relationship Specialty Start Date End Date Hansel Martinez MD [facility] [employer] [address] [place], [place] [address] PCP - General 12/16/18 documented as of this encounter
--- OUTSIDE RECORDS SUMMARY | 2024-05-24 21:47 | XMS_ITS | Encounter Summary ---
Author Organization [facility] Address [address] [place] [address] Care Team Providers Care Key Operator Name Role Phone Hansel Martinez MD Primary Care Provider [phone] CarrierAngeles RN Unavailable [phone] Encounter Details Date Type Department Care Team (Late st Contact Info) Description 03/30/2024 Scanned Document [facility] Colorectal Surgery [place] [address] [place] [facility] [address] [place] [address] Provider, MD Eliud [address] [place] [address] Social History Tobacco Use Types Packs/Day Years Used Date Smoking Tobacco: Never Smokeless Tobacco: Never Alcohol Use Standard Drinks/Week Comments Not Currently 0 (1 standard drink = 0.6 oz pur e alcohol) [facility] Utilities Answer Date Recorded In the past 12 months has [employer] electric, gas, oil, or water company threatened [...] any time in the past 12 m [facility], were you homeless or living in a fpc (including now)? No 03/14/2024 Sex and Gender Information Value Date Recorded Sex Assigned at Male 01/27/2024 3:36 PM EST Gender Identity Male 03/13/2024 7:28 AM EST Sexual Orientation Heterosexual (straight) 03/13 7:28 AM EST documented as of this encounter Plan of Treatment Not on file documented as of this encounter Visit Diagnoses Not on filedocumented in this encounter Care Teams Key Operator Relationship Specialty Start Date End Date Hansel Martinez MD [address] [place] [address] PCP - General Internal Medicine 01/21/24 Angeles Pineda RN [address] [place] [address] Oncology Nurse Navigator 02/11/24 documented as of this encounter
--- OUTSIDE RECORDS SUMMARY | 2024-05-24 21:47 | XMS_ITS ---
Author Name [facility] Organization Unknown Results Test Name/Text Value Interpretation Date Range Source AST SerPl-cCnc 26U/L Normal [id number] 10 - 35 QU EST ALT SerPl-cCnc 22U/L Normal [id number] 9 - 46 QU EST Creat SerPl-mCnc 2.04mg/dL Above high normal [id number] 0. 7 - 1.35 [facility] Globulin Ser Calc-mCnc 3.4g/dL(calc) Normal [id number] 1.9 - 3.7 [facility] CO2 SerPl-sCnc 27mmol/L Normal [id number] 20 - 32 QU EST Albumin/Glob SerPl 1.1(calc) Normal [id number] 1 - 2.5 [facility] eGFRcr SerPlBld CKD-EPI 2020 36mL/min/1.73m2 Below low normal [id number] - [facility] Potassium SerPl-sCnc 4.1mmol/L Normal [id number] 3.5 - 5.3 [facility] Bilirub SerPl-mCnc 0.4mg/dL Normal [id number] 0.2 - 1. 2 [facility] Calcium SerPl-mCnc 8.1mg/dL Below low normal [id number] 8 .6 - 10.3 [facility] BUN SerPl-mCnc 28mg/dL Above high normal [id number] 7 - 25 [facility] ALP SerPl-cCnc 74U/L Normal [id number] 35 - 144 QU EST BUN/Creat SerPl 14(calc) Normal [id number] 6 - 22 Q [facility] Chloride SerPl-sCnc 99mmol/L Normal [id number] 98 - 110 [facility] Albumin SerPl-mCnc 3.7g/dL Normal [id number] 3.6 - 5. 1 [facility] Prot SerPl-mCnc 7.1g/dL Normal [id number] 6.1 - 8.1 Q [facility] Glucose SerPl-mCnc 103mg/dL Normal [id number] 65 - 139 [facility] Sodium SerPl-sCnc 134mmol/L Below low normal 13 5 - 146 [facility] CA 19-9 847U/mL Above high normal [id number] - 34 [facility] Chloride SerPl-sCnc 105mmol/L Normal 98 - 107 [facility] Glucose SerPl-mCnc 109mg/dL Above high normal 65 - 99 [facility] GFR/BSA.pred SerPlBld HEY-EUK-PvBTeo 39 Below low normal 59 - H[facility]CT Creat SerPl-mCnc 1.9mg/dL Above high normal 0. 5 - 1.3 [facility] BUN/Creat SerPl 13Ratio Normal 10 - 25 H [facility] Anion Gap Bld-sCnc 10 Normal 7 - 17 [facility] Calcium SerPl-mCnc 7.5mg/dL Below low normal 8 .7 - 10.5 [facility] CO2 SerPl-sCnc 26mmol/L Normal 22 - 33 [facility] CCT BUN SerPl-mCnc 25mg/dL Above high normal 8 - 21 [facility] Sodium SerPl-sCnc 141mmol/L Normal 136 - 145 [facility] Potassium SerPl-sCnc 3.7mmol/L Normal 3.4 - 5.3 [facility] Magnesium SerPl-mCnc 2.2mg/dL Normal 1.6 - 2.7 [facility] Phosphate SerPl-mCnc 1.9mg/dL Below low normal 2.7 - 4.5 [facility] Chloride SerPl-sCnc 107mmol/L Normal 98 - 107 [facility] Glucose SerPl-mCnc 105mg/dL Above high normal 65 - 99 [facility] GFR/BSA.pred SerPlBld NHS-HJP-CfVUoe 35 Below low normal 59 - [facility]CT Creat SerPl-mCnc 2.1mg/dL Above high normal 0. 5 - 1.3 [facility] BUN/Creat SerPl 12Ratio Normal 10 - 25 H [facility] Anion Gap Bld-sCnc 10 Normal [id number] 7 - 17 [facility] Calcium SerPl-mCnc 7.4mg/dL Below low normal [id number] 8 .7 - 10.5 [facility] CO2 SerPl-sCnc 25mmol/L Normal [id number] 22 - 33 HH CCT BUN SerPl-mCnc 25mg/dL Above high normal [id number] 8 - 21 [facility] Sodium SerPl-sCnc 142mmol/L Normal [id number] 136 - 145 [facility] Potassium SerPl-sCnc 3.2mmol/L Below low normal [id number] 3.4 - 5.3 [facility] Phosphate SerPl-mCnc 1.7mg/dL Below low normal [id number] 2.7 - 4.5 [facility] Magnesium SerPl-mCnc 1.9mg/dL Normal [id number] 1.6 - 2.7 [facility] Chloride SerPl-sCnc 104mmol/L Normal [id number] 98 - 107 [facility] Glucose SerPl-mCnc 104mg/dL Above high normal [id number] 65 - 99 [facility] GFR/BSA.pred SerPlBld UAZ-ERW-GyHWgl 30 Below low normal [id number] 59 - H[facility]CT Creat SerPl-mCnc 2.4mg/dL Above high normal [id number] 0. 5 - 1.3 [facility] BUN/Creat SerPl 12Ratio Normal [id number] 10 - 25 H [facility] Anion Gap Bld-sCnc 12 Normal [id number] 7 - 17 [facility] Calcium SerPl-mCnc 7.3mg/dL Below low normal [id number] 8 .7 - 10.5 [facility] CO2 SerPl-sCnc 26mmol/L Normal [id number] 22 - 33 HH CCT BUN SerPl-mCnc 29mg/dL Above high normal [id number] 8 - 21 [facility] Sodium SerPl-sCnc 142mmol/L Normal [id number] 136 - 145 [facility] Potassium SerPl-sCnc 3.5mmol/L Normal [id number] 3.4 - 5.3 [facility] Phosphate SerPl-mCnc 2.3mg/dL Below low normal [id number] 2.7 - 4.5 [facility] Chloride SerPl-sCnc 105mmol/L Normal [id number] 98 - 107 [facility] Glucose SerPl-mCnc 113mg/dL Above high normal [id number] 65 - 99 [facility] GFR/BSA.pred SerPlBld YSU-DSW-WpBKye 28 Below low normal [id number] 59 - HHCCT Creat SerPl-mCnc 2.5mg/dL Above high normal [id number] 0. 5 - 1.3 [facility] BUN/Creat SerPl 13Ratio Normal [id number] 10 - 25 H [facility] Anion Gap Bld-sCnc 12 Normal [id number] 7 - 17 [facility]CT Calcium SerPl-mCnc 7.3mg/dL Below low normal [id number] 8 .7 - 10.5 [facility] CO2 SerPl-sCnc 24mmol/L Normal [id number] 22 - 33 HH CCT BUN SerPl-mCnc 33mg/dL Above high normal [id number] 8 - 21 [facility]CT Sodium SerPl-sCnc 141mmol/L Normal [id number] 136 - 145 [facility] Potassium SerPl-sCnc 2.9mmol/L Below low normal [id number] 3.4 - 5.3 [facility] Magnesium SerPl-mCnc 1.7mg/dL Normal [id number] 1.6 - 2.7 [facility] Phosphate SerPl-mCnc 2.1mg/dL Below low normal [id number] 2.7 - 4.5 [facility]CT Magnesium SerPl-mCnc 2.3mg/dL Normal [id number] 1.6 - 2.7 [facility]CT Chloride SerPl-sCnc 105mmol/L Normal [id number] 98 - 107 [facility] Glucose SerPl-mCnc 121mg/dL Above high normal [id number] 65 - 99 [facility]CT GFR/BSA.pred SerPlBld IVZ-WKL-PxOExc 20 Below low normal [id number] 59 - HHCCT Creat SerPl-mCnc 3.3mg/dL Above high normal [id number] 0. 5 - 1.3 [facility] BUN/Creat SerPl 13Ratio Normal [id number] 10 - 25 H [facility]CT Anion Gap Bld-sCnc 8 Normal [id number] 7 - 17 [facility]CT Calcium SerPl-mCnc 7.6mg/dL Below low normal [id number] 8 .7 - 10.5 [facility] CO2 SerPl-sCnc 27mmol/L Normal [id number] 22 - 33 HH CCT BUN SerPl-mCnc 42mg/dL Above high normal [id number] 8 - 21 [facility]CT Sodium SerPl-sCnc 140mmol/L Normal [id number] 136 - 145 [facility] Potassium SerPl-sCnc 3.2mmol/L Below low normal [id number] 3.4 - 5.3 [facility]CT Chloride SerPl-sCnc 106mmol/L Normal 98 - 107 [facility]CT Glucose SerPl-mCnc 96mg/dL Normal 65 - 99 [facility]CT GFR/BSA.pred SerPlBld JOT-PZU-SjCGvw 19 Below low normal [id number] 59 - HHCCT Creat SerPl-mCnc 3.5mg/dL Above high normal [id number] 0. 5 - 1.3 [facility] BUN/Creat SerPl 14Ratio Normal 10 - 25 H HCCT Anion Gap Bld-sCnc 11 Normal [id number] 7 - 17 [facility] Calcium SerPl-mCnc 7.4mg/dL Below low normal [id number] 8 .7 - 10.5 [facility] CO2 SerPl-sCnc 23mmol/L Normal 22 - 33 HH CCT BUN SerPl-mCnc 50mg/dL Above high normal [id number] 8 - 21 [facility] Sodium SerPl-sCnc 140mmol/L Normal [id number] 136 - 145 [facility]CT Potassium SerPl-sCnc 2.6mmol/L Critically low 3.4 - 5.3 [facility]CT Magnesium SerPl-mCnc 1.8mg/dL Normal [id number] 1.6 - 2.7 [facility]CT Phosphate SerPl-mCnc 2.5mg/dL Below low normal [id number] 2.7 - 4.5 [facility] Phosphate SerPl-mCnc 5.3mg/dL Above high normal [id number] 2.7 - 4.5 [facility] Magnesium SerPl-mCnc 1.8mg/dL Normal 1.6 - 2.7 H[facility]CT CEA SerPl-mCnc 113ng/mL Above high normal [id number] 0 - 3.8 [facility] Chloride SerPl-sCnc 107mmol/L Normal 98 - 107 [facility] Glucose SerPl-mCnc 95mg/dL Normal [id number] 65 - 99 [facility] GFR/BSA.pred SerPlBld LUT-WEX-YyRDwi 12 Below low normal [id number] 59 - HHCCT Creat SerPl-mCnc 5.1mg/dL Above high normal [id number] 0. 5 - 1.3 [facility] BUN/Creat SerPl 14Ratio Normal 10 - 25 H HCCT Anion Gap Bld-sCnc 15 Normal 7 - 17 [facility]CT Calcium SerPl-mCnc 7.7mg/dL Below low normal 8 .7 - 10.5 [facility] CO2 SerPl-sCnc 18mmol/L Below low normal [id number] 22 - 33 [facility] BUN SerPl-mCnc 73mg/dL Above high normal 8 - 21 [facility]CT Sodium SerPl-sCnc 140mmol/L Normal 136 - 145 [facility]CT Potassium SerPl-sCnc 3.3mmol/L Below low normal 3.4 - 5.3 [facility] Magnesium SerPl-mCnc 1.8mg/dL Normal 1.6 - 2.7 [facility] Chloride SerPl-sCnc 106mmol/L Normal 98 - 107 [facility] Glucose SerPl-mCnc 107mg/dL Above high normal [id number] 65 - 99 [facility] GFR/BSA.pred SerPlBld ZZN-JGI-IkGFbp 11 Below low normal 59 - HHCCT Creat SerPl-mCnc 5.6mg/dL Above high normal 0. 5 - 1.3 [facility] BUN/Creat SerPl 12Ratio Normal 10 - 25 H HCCT Anion Gap Bld-sCnc 16 Normal 7 - 17 [facility]CT Calcium SerPl-mCnc 7.8mg/dL Below low normal 8 .7 - 10.5 [facility] CO2 SerPl-sCnc 14mmol/L Below low normal 22 - 33 [facility]CT BUN SerPl-mCnc 68mg/dL Above high normal 8 - 21 H[facility]CT Sodium SerPl-sCnc 136mmol/L Normal 136 - 145 [facility]CT Potassium SerPl-sCnc 3.7mmol/L Normal 3.4 - 5.3 [facility]CT Phosphate SerPl-mCnc 7.3mg/dL Above high normal 2.7 - 4.5 [facility] Fibrinogen PPP-mCnc 349mg/dL Normal 148 - 435 [facility] INR PPP 1.1 Normal H[facility]CT Prothrombin time 12.3seconds Normal [id number] 10 - 13. 5 [facility] TT imm Bovine Thrombin PPP 16.2seconds Normal 12.7 - 19.2 [facility] aPTT PPP 24seconds Below low normal [id number] 25 - 36 [facility] MCH RBC Qn Auto 33pg Above high normal [id number] 27 - 31 [facility] PMV Bld Auto 9.5fL Normal [id number] 7.5 - 12.[address] RDW RBC Auto-Rto 12.1% Normal [id number] 11.5 - 14.5 [facility] Hct VFr Bld Auto 36.6% Below low normal [id number] 39 - 54 [facility] Platelet num Bld Auto 199Thou/uL Normal [id number] 150 - 450 [facility]CT MCHC RBC Auto-mCnc 35.5g/dL Normal [id number] 30 - 36 [facility] MCV RBC Auto 93fL Normal [id number] 80 - 100 [facility] T WBC num Bld Auto 17.7Thou/uL Above high normal [id number] 4 - 11 [facility] RBC num Bld Auto 3.94Mil/uL Below low normal [id number] 4. 5 - 6.2 [facility] Hgb Bld-mCnc 13g/dL Normal [id number] 13 - 17.7 [facility] T Anticoagulant SUB Q UNFRACTIONATED HEPARIN Normal [facility] Anticoagulant SUB Q UNFRACTIONATED HEPARIN Normal H[facility]CT Anticoagulant SUBCUTANEOUS UNFRACTIONATED HEPARIN Normal [id number] [facility] Phosphate SerPl-mCnc 6.5mg/dL Above high normal [id number] 2.7 - 4.5 [facility] Magnesium SerPl-mCnc 1.8mg/dL Normal [id number] 1.6 - 2.7 [facility] Chloride SerPl-sCnc 107mmol/L Normal [id number] 98 - 107 [facility] Glucose SerPl-mCnc 144mg/dL Above high normal [id number] 65 - 99 [facility] GFR/BSA.pred SerPlBld VTL-IDA-ZkNWzc 11 Below low normal [id number] 59 - H[facility]CT Creat SerPl-mCnc 5.4mg/dL Above high normal [id number] 0. 5 - 1.3 [facility] BUN/Creat SerPl 10Ratio Normal 10 - 25 H [facility] Anion Gap Bld-sCnc 14 Normal [id number] 7 - 17 [facility] Calcium SerPl-mCnc 7.8mg/dL Below low normal [id number] 8 .7 - 10.5 [facility] CO2 SerPl-sCnc 15mmol/L Below low normal [id number] 22 - 33 [facility] BUN SerPl-mCnc 56mg/dL Above high normal [id number] 8 - 21 [facility]CT Sodium SerPl-sCnc 136mmol/L Normal [id number] 136 - 145 [facility] Potassium SerPl-sCnc 3.6mmol/L Normal [id number] 3.4 - 5.3 [facility]CT Hct VFr Bld Auto 33.9% Below low normal [id number] 39 - 54 [facility] Hgb Bld-mCnc 12g/dL Below low normal [id number] 13 - 17 .7 [facility] History of Medication Use Medication Directions Dispensed Refills Start Date End Date Stat us acetaminophen (TYLENOL) 325 MG tablet Take 3 tablets (975 mg total) by mouth Every 6 (six) to 8 (eight) hours as needed for mild pain or moderate pain. 03/18/2024 active HYDROmorphone (DILAUDID) 4 MG tablet Take 0.5 tablets (2 mg total) by mouth every 4 (four) hours as needed for moderate pain or severe pain. Max Daily Amount: 12 mg 03/18/2024 active methocarbamol (ROBAXIN) 500 MG tablet Take 1 tablet (500 mg total) by mouth 3 (three) times a day as needed for muscle spasms. 03/18/2024 active acetaminophen (TYLENOL) 500 MG tablet Take 1 tablet (500 mg total) by mouth 4 times daily (every 6 hours) as needed for mild pain. active Problems Problem Status Onset Date Problem Type Date of Resoluti on Source Crohn's disease of colon with complication active 2024-02-28 ProblemAct [facility] Severe malnutrition active 2024-03-16 ProblemAct [facility] Hydronephrosis active 2024-02-25 ProblemAct [facility] Stage 4 chronic kidney disease active 2024-02-28 ProblemAct [facility] Bladder cancer active 2024-03-13 ProblemAct [facility] Encounters Encounter Type Encounter Reason Primary Diagnosis Location Date Ambulatory Malignant neoplasm o f bladder, unspecified Malignant neoplasm of bladder, unspecified [facility] 03/27/2024 Ambulatory [facility] 03/26/2024 Ambulatory [facility] 03/26/2024 Ambulatory [facility] 03/26/2024 Ambulatory [facility] 03/26/2024 Inpatient Malignant neoplasm o f bladder, unspecified Malignant neoplasm of bladder, unspecified [facility] 03/13/2024 Ambulatory Malignant neoplasm o f bladder, unspecified Malignant neoplasm of bladder, unspecified [facility] 03/04/2024 Ambulatory Encounter for other preprocedural examination Encounter for other preprocedural examination [facility] 02/28/2024 Ambulatory Malignant neoplasm o f bladder, unspecified Malignant neoplasm of bladder, unspecified [facility] 02/24/2024 Ambulatory [facility] 02/11/2024 Ambulatory [facility]UCIN[facility]OC[facility] MUC[facility] 02/03/2024 Ambulatory [facility] 01/31/2024 Ambulatory [facility] 01/27/2024 Ambulatory [facility] 01/27/2024 Ambulatory [facility] 01/27/2024 Ambulatory [facility] 01/27/2024 Ambulatory [facility] 01/27/2024 Ambulatory Malignant neoplasm o f bladder, unspecified Malignant neoplasm of bladder, unspecified [facility] 01/27/2024 Care Team Organization Name Specialty Phone Email Start Date End Da robert [facility] 01/31/2024 05/06/2024 [facility] 01/22/2024
--- OUTSIDE RECORDS SUMMARY | 2024-05-24 21:47 | XMS_ITS | Encounter Summary ---
Author Organization [facility] Address [address] [place] [address] Care Team Providers Care Flatwork Folder Name Role Phone Hansel Martinez MD Primary Care Provider [phone] CarrierAngeles RN Unavailable [phone] Encounter Details Date Type Department Care Team (Late st Contact Info) Description 03/30/2024 Scanned Document [facility] Colorectal Surgery [place] [address] [facility] [address] [place] [address] Provider, MD Eliud [address] [place] [address] Social History Tobacco Use Types Packs/Day Years Used Date Smoking Tobacco: Never Smokeless Tobacco: Never Alcohol Use Standard Drinks/Week Comments Not Currently 0 (1 standard drink = 0.6 oz pur e alcohol) [facility] Utilities Answer Date Recorded In the past 12 months has [employer] electric, gas, oil, or water company threatened [...] any time in the past 12 m [facility], were you homeless or living in a [facility] (including now)? No 03/14/2024 Sex and Gender Information Value Date Recorded Sex Assigned at Male 01/27/2024 3:36 PM EST Gender Identity Male 03/13/2024 7:28 AM EST Sexual Orientation Heterosexual (straight) 03/13 7:28 AM EST documented as of this encounter Plan of Treatment Not on file documented as of this encounter Visit Diagnoses Not on filedocumented in this encounter Care Teams Flatwork Folder Relationship Specialty Start Date End Date Hansel Martinez MD [address] [place] [address] PCP - General Internal Medicine 01/21/24 Angeles Pineda RN [address] [place] [address] Oncology Nurse Navigator 02/11/24 documented as of this encounter
--- OUTSIDE RECORDS SUMMARY | 2024-05-24 21:47 | XMS_ITS | Clinical Summary ---
Author Organization [facility] Address [address] [place] [address] Phone Care Team Providers Care Stitching Machine Feeder Or Offbearer Name Role Phone Hansel Martinez MD Primary Care Provider [phone] Social History Tobacco Use Types Packs/Day Years Used Date Smoking Tobacco: Never Assessed Sex and Gender Information Value Date Recorded Sex Assigned at Not on file Legal Sex Male 3:46 PM EST Gender Identity Not on file Sexual Orientation Not on file Plan of Treatment Health Maintenance Due Date Last Done Comments Pneumococcal Vaccine: 50+ Years (2 of 2 - PCV) 12/09/2012 12/10/2011 Pneumococcal Vaccine: Pediatrics (0 to 5 Years) and At-Risk Patients (6 to 64 Years) (2 of 2 - PCV) 12/09/2012 12/10/2011 Zoster Vaccines (2 of 2) 12/13/2020 10/18/2020 COVID-19 Vaccine ( season) 2023 06/25/2021, 01/07/2021, 03/08/2020, Additional history exists Cholesterol Screening (Lipid Panel) 01/30/2024 Colorectal Cancer Screening: Colonoscopy 01/30/2024 Depression Screening 01/30/2024 HIV Screening 01/30/2024 Hepatitis C Screening 01/30/2024 Social Influencers of Health Screening 01/30/2024 DTaP,Tdap,and Td Vaccines (3 - Td or Tdap) 12/26/2025 12/27/2015, 09/07/2005 RSV Immunization Adult Patients (1 - 1-dose 75+ series) 02/08/2036 Influenza Vaccine Completed 11/11/2023, , 01/23/2022, Additional history exists HIB Vaccines Aged Out No longer eligi ble based on patient's age to complete this topic HPV Vaccines Aged Out No longer eligi ble based on patient's age to complete this topic Hepatitis A Vaccines Aged Out No long er eligible based on patient's age to complete this topic Hepatitis B Vaccines Aged Out No long er eligible based on patient's age to complete this topic IPV Vaccines Aged Out No longer eligi ble based on patient's age to complete this topic MMR Vaccines Aged Out No longer eligi ble based on patient's age to complete this topic Meningococcal ACWY Vaccine Aged Out N o longer eligible based on patient's age to complete this topic Meningococcal B Vaccine Aged Out No l onger eligible based on patient's age to complete this topic RSV Immunization Patients Under 20 months Aged Out No longer eligible based on patient's age to complete this topic Varicella Vaccines Aged Out No longer eligible based on patient's age to complete this topic Insurance [facility] [place] [id number] Care Teams Stitching Machine Feeder Or Offbearer Relationship Specialty Start Date End Date Hansel Martinez MD [address] [place] [address] PCP - General Internal Medicine 01/30/24
--- OUTSIDE RECORDS SUMMARY | 2024-05-24 21:47 | XMS_ITS | Clinical Summary ---
Author Organization [facility] Address [address] [place] [address] Care Team Providers Care Print Manager Name Role Phone Unavailable Primary Care Provider Unavailabl e Social History Tobacco Use Types Packs/Day Years Used Date Smoking Tobacco: Never Assessed Sex and Gender Information Value Date Recorded Sex Assigned at Male 09/21/2020 1:05 PM EDT Gender Identity Not on file Sexual Orientation Not on file Job Start Date Occupation Industry Not on file Not on file Not on file Plan of Treatment Health Maintenance Due Date Last Done Comments Hepatitis C Screening 1961 COVID-19 Vaccine (#1) 1961 Depression Screening 1973 Preventative Health Evaluation 1979 DTap / Tdap / Td (1 - Tdap) 02/08/1980 Colon Cancer Screening (Colonoscopy) 2006 Shingrix-Zoster Vaccine (1 of 2) 2011 Influenza Vaccine (#1) 2023 RSV Adult > 60+ Yrs or Pregn ant (1 - 1-dose 75+ series) 02/08/2036 Hepatitis B Vaccines Aged Out No long er eligible based on patient's age to complete this topic Pneumococcal Vaccine Aged Out No long er eligible based on patient's age to complete this topic RSV Ped < 20 months Aged Out No longe r eligible based on patient's age to complete this topic
--- OUTSIDE RECORDS SUMMARY | 2024-05-24 21:47 | XMS_ITS | Encounter Summary ---
Author Organization [facility], Address [address] [place] [address] Phone Care Team Providers Care Bread Supervisor Name Role Phone Hansel Martinez MD Primary Care Provider [phone] Encounter Details Date Type Department Care Team (Late st Contact Info) Description 03/27/2022 Office Communication [facility], [address] [place] [phone] Marko Mojica MD [address] [place] [address] [place] [phone] Social History Tobacco Use Types Packs/Day Years [...] on file documented as of this encounter Miscellaneous Notes * Telephone Encounter - Rosemary Key - 03/27/2022 4:28 PM EST Done documented in this encounter Plan of Treatment Not on file documented as of this encounter Visit Diagnoses Not on filedocumented in this encounter Care Teams Bread Supervisor Relationship Specialty Start Date End Date Hansel Martinez MD [place] [facility] [address] [facility] [place] PCP - General 12/16/18 documented as of this encounter
--- OUTSIDE RECORDS SUMMARY | 2024-05-24 21:47 | XMS_ITS | Encounter Summary ---
Author Organization [facility], Address [address] [place] [address] Phone Care Team Providers Care Commercial Installer Name Role Phone Hansel Martinez MD Primary Care Provider [phone] Encounter Details Date Type Department Care Team (Late st Contact Info) Description 04/13/2022 Documentation Only [facility], [address] [place] [address] [place], [place] [address] [place] [address] Social History Tobacco Use Types [...] on filedocumented in this encounter Care Teams Commercial Installer Relationship Specialty Start Date End Date Hansel Martinez MD [employer] [address] [place] [address] PCP - General 12/16/18 documented as of this encounter
--- OUTSIDE RECORDS SUMMARY | 2024-05-24 21:47 | XMS_ITS | Encounter Summary ---
Author Organization [facility], Address [address] [place] [address] Phone Care Team Providers Care Lockstitch Sleeve Setter Name Role Phone Hansel Martinez MD Primary Care Provider [phone] Encounter Details Date Type Department Care Team (Late st Contact Info) Description 06/05/2022 Documentation Only [facility], [address] [place] [phone] Marko Mojica MD [address] [place] [phone] Social History Tobacco Use Types Packs/Day Years [...] on filedocumented in this encounter Care Teams Lockstitch Sleeve Setter Relationship Specialty Start Date End Date Hansel Martinez [facility] [address] [place], [place] [address] PCP - General 12/16/18 documented as of this encounter
--- OUTSIDE RECORDS SUMMARY | 2024-05-24 21:47 | XMS_ITS | Encounter Summary ---
Author Organization [facility], Address [address] [place] [address] Phone Care Team Providers Care Custodian Athletic Equipment Name Role Phone Hansel Martinez MD Primary Care Provider [phone] Encounter Details Date Type Department Care Team (Late st Contact Info) Description 07/12/2022 Documentation Only [facility], [address] [place] [phone] Marko Mojica MD [address] [place] [phone] Social History Tobacco Use Types Packs/Day Years [...] on filedocumented in this encounter Care Teams Custodian Athletic Equipment Relationship Specialty Start Date End Date Hansel Martinez MD [facility] WORK[facility] [address] [place], [place] [address] PCP - General 12/16/18 documented as of this encounter
--- OUTSIDE RECORDS SUMMARY | 2024-05-24 21:47 | XMS_ITS | Encounter Summary ---
Author Organization [facility] Address [address] [place] [address] Care Team Providers Care Foot Orthopedist Name Role Phone Hansel Martinez MD Primary Care Provider [phone] CarrierAngeles RN Unavailable [phone] Encounter Details Date Type Department Care Team (Late st Contact Info) Description 03/30/2024 Scanned Document [facility] Colorectal Surgery [place] [address] [place] [facility] [address] [place] [address] Provider, MD Eliud [address] [place] [address] Social History Tobacco Use Types Packs/Day Years Used Date Smoking Tobacco: Never Smokeless Tobacco: Never Alcohol Use Standard Drinks/Week Comments Not Currently 0 (1 standard drink = 0.6 oz pur e alcohol) [facility] Utilities Answer Date Recorded In the past 12 months has [employer] electric, gas, oil, or water company threatened [...] any time in the past 12 m [facility], were you homeless or living in a residential (including now)? No 03/14/2024 Sex and Gender Information Value Date Recorded Sex Assigned at Male 01/27/2024 3:36 PM EST Gender Identity Male 03/13/2024 7:28 AM EST Sexual Orientation Heterosexual (straight) 03/13 7:28 AM EST documented as of this encounter Plan of Treatment Not on file documented as of this encounter Visit Diagnoses Not on filedocumented in this encounter Care Teams Foot Orthopedist Relationship Specialty Start Date End Date Hansel Martinez MD [address] [place] [address] PCP - General Internal Medicine 01/21/24 Angeles Pineda RN [address] [place] [address] Oncology Nurse Navigator 02/11/24 documented as of this encounter
--- OUTSIDE RECORDS SUMMARY | 2024-05-24 21:47 | XMS_ITS | Encounter Summary ---
Author Organization [facility] Address [address] [place] [address] Care Team Providers Care Port Warden Name Role Phone Hansel Martinez MD Primary Care Provider [phone] CarrierAngeles RN Unavailable [phone] Encounter Details Date Type Department Care Team (Late st Contact Info) Description 03/30/2024 Scanned Document [facility] Colorectal Surgery [place] [address] [facility] [address] [place] [address] Provider, MD Eliud [address] [place] [address] Social History Tobacco Use Types Packs/Day Years Used Date Smoking Tobacco: Never Smokeless Tobacco: Never Alcohol Use Standard Drinks/Week Comments Not Currently 0 (1 standard drink = 0.6 oz pur e alcohol) [facility] Utilities Answer Date Recorded In the past 12 months has [employer] electric, gas, oil, or water company threatened [...] any time in the past 12 m [facility], were you homeless or living in a group home (including now)? No 03/14/2024 Sex and Gender Information Value Date Recorded Sex Assigned at Male 01/27/2024 3:36 PM EST Gender Identity Male 03/13/2024 7:28 AM EST Sexual Orientation Heterosexual (straight) 03/13 7:28 AM EST documented as of this encounter Plan of Treatment Not on file documented as of this encounter Visit Diagnoses Not on filedocumented in this encounter Care Teams Port Warden Relationship Specialty Start Date End Date Hansel Martinez MD [address] [place] [address] PCP - General Internal Medicine 01/21/24 Angeles Pineda RN [address] [place] [address] Oncology Nurse Navigator 02/11/24 documented as of this encounter
--- OUTSIDE RECORDS SUMMARY | 2024-05-24 21:47 | XMS_ITS | Encounter Summary ---
Author Organization [facility] Address [address] [place] [address] Care Team Providers Care Blister Packing Machine Tender Name Role Phone Hansel Martinez MD Primary Care Provider [phone] Angeles Pineda RN Unavailable [phone] Encounter Details Date Type Department Care Team (Late st Contact Info) Description 01/23/2024 Scanned Document [facility] [address] [facility] [address] [place] [address] Chavo Ying MD [address] [place] [address] Social History Tobacco Use Types Packs/Day Years [...] on filedocumented in this encounter Care Teams Blister Packing Machine Tender Relationship Specialty Start Date End Date Hansel Martinez MD [address] [place] [address] PCP - General Internal Medicine 01/21/24 Angeles Pineda RN [address] [address] Oncology Nurse Navigator 02/11/24 documented as of this encounter
[2024-05-24 22:07] LABS: Influenza A PCR NEGATIVE (Negative); Influenza B PCR NEGATIVE (Negative); Resp Syncy Virus RNA Qual PCR NEGATIVE (Negative); SARS COV2 PCR INHOUSE NEGATIVE (Negative)
[2024-05-25] VITALS (9 sets, daily range): BP systolic 97–159; BP diastolic 60–93; PULSE 76–98; RESP 15–20; TEMP 36.4–36.9; O2SAT 96–99; BMI 25.7
[2024-05-25] MEDS: Lactated Ringers 1,000 ML 999 ML IV ×2 (00:05→01:36)
[2024-05-25] MEDS: Dicyclomine HCl 10 MG CAPSULE 20 MG PO (01:35)
[2024-05-25] MEDS: ondansetron HCL 4 MG/2 ML VIAL IVPUSH (02:19)
[2024-05-25 03:02] LABS: Anion Gap 15 (12-20); Blood Urea Nitrogen 24 mg/dL (9-16); Calcium 8.6 mg/dL (8.4-10.2); Carbon Dioxide 21 mmol/L (22-29); Chloride 95 mmol/L (96-108); Estimated Glomerular Filt Rate 48; Glucose Random 122 mg/dL (60-115); Potassium 3.1 mmol/L (3.3-5.1); Sodium 128 mmol/L (135-145)
--- NOTE | 2024-05-25 03:25 | ED_ITS ---
HPI - General Adult General Chief complaint: Nausea/Vomiting/Diarrhea Stated complaint: dehydrated/nauseous Time Seen by Provider: 05/24/24 22:58 Source: patient Limitations: no limitations History of Present Illness ED Provider: Pau Bermudez PA-C HPI narrative: 64-year-old male with a history of Crohn's disease status post ileostomy, bilateral ureteral stents placed January [address] Ying, bilateral urostomy tubes placed by Dr. 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 Patient was recently treated for urinary tract infection on May 14, was placed on a course of Levaquin. Patient is having bowel movements every 1-2 hours. The stool is soft, not watery. Denies abdominal pain, nausea, vomiting or fever. No sick contacts with similar symptoms. Patient has been drinking Pedialyte at home per the recommendation by his oncologist. Given a refractory symptoms, his oncologist suggested that he come to the emergency department for IV fluid hydration. Related Data Home Medications ?Medication ?Instructions ?Recorded ?Confirmed adalimumab 40 mg/0.4 mL 40 mg subcut TU@0900 01/25/22 01/11/24 subcutaneous pen kit (Humira(CF) Pen) losartan 25 mg tablet 12.5 mg PO DAILY PRN KIDNEY STONE 01/11/24 01/11/24 REGIMEN Previous Rx's ?Medication ?Instructions ?Recorded tramadol 50 mg tablet 50 mg PO Q8H PRN pain (scale score 02/26/24 4-6) 30 days #90 tabs levofloxacin 500 mg tablet 500 mg PO DAILY 7 days #7 tabs 05/14/24 Allergies Allergy/AdvReac Type Severity Reaction Status Date / Time No Known Allergies Allergy Verified 05/24/24 21:06 Review of Systems 2 Review of Systems: Yes all other systems are reviewed and are negative Constitutional: Constitutional: Denies fatigue and Denies fever(s) Cardiovascular: Cardiovascular: Denies chest pain Gastrointestinal: Gastrointestinal: Denies abdominal pain, Reports diarrhea, Denies nausea and Denies vomiting Endocrine: Endocrine: Denies fatigue PMFSH Past Medical History Attestation statement: The following information was validated with the patient. Medical History (Updated 05/25/24 @ 04:53 by KANDICE Price) Bladder mass Family history of adverse response to anesthesia in father Renal calculus Colostomy in place Kidney disease Crohn's disease Surgical History H/O colonoscopy Hx of cystoscopy History of ileostomy Family History Family History Father Colon cancer Social History Social History Household Members: Spouse Housing: House Are you a primary animal care service worker to a significant other at home: No Do you presently have visiting nurse or other home services: No Alcohol intake: current Alcohol intake frequency: holidays/special occasions only Patient Tobacco Use Status: Never used Tobacco Smoked in Last 30 Days: No Second Hand Smoke Exposure: No Use of substances other than those prescribed or required for medical reasons: No Advance Directives: No Advance Directives Information Provided: No Do you have a plan to hurt others: No Plan service: No Current occupational status: employed 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, right handed Physical Exam ED Vital Signs: Vital Signs - 24 hr 05/24/24 21:06 05/24/24 21:36 05/25/24 00:00 Temperature 98.1 F 97.6 F 97.9 F Pulse Rate 98 81 98 Respiratory Rate 19 16 18 Blood Pressure 102/65 133/92 H 123/85 Pulse Oximetry 100 99 96 Oxygen Delivery Method Room Air Room Air Room Air 05/25/24 02:17 Temperature 97.8 F Pulse Rate 97 Respiratory Rate 20 Blood Pressure 159/93 H Pulse Oximetry 97 Oxygen Delivery Method Room Air BMI result Body Mass Index 25.8 Const Other: Alert Orientation/consciousness: patient oriented x3 Resp Effort & Inspection: normal respiratory effort Cardio Other: Normal peripheral perfusion GI Other: Abdomen is soft, nontender nondistended no guarding General: Yes no CVA tenderness Back/Spine/Pelvis Back: no CVA tenderness Skin Other: Warm dry no rash Neuro General: patient oriented x3, gait normal, no focal motor deficits and CN's II- XI intact bilaterally Psych Other: Cooperative Medications Administered Generic Name Dose Route Start Last Admin Trade Name Freq PRN Reason Stop Dose Admin Potassium Chloride 10 meq in 100 mls @ 100 mls/hr 05/25/24 03:45 05/25/24 03:52 Potassium Chloride/H20 IV 05/25/24 07:44 100 mls/hr Q1H SILVIA Administration Discontinued Medications Generic Name Dose Route Start Last Admin Trade Name Heshamq PRN Reason Stop Dose Admin Dicyclomine HCl 20 mg 05/25/24 01:24 05/25/24 01:35 Dicyclomine Hcl 10 Mg Capsule PO 05/25/24 01:25 20 mg ONCE ONE Administration Lactated Ringer's 1,000 mls @ 999 mls/hr 05/24/24 23:45 05/25/24 01:35 Lr IV 05/25/24 00:45 Infused .Q1H1M SILVIA Infusion Lactated Ringer's 1,000 mls @ 999 mls/hr 05/25/24 01:30 05/25/24 02:46 Lr IV 05/25/24 02:30 Infused .Q1H1M SILVIA Infusion Ondansetron HCl 4 mg 05/24/24 23:51 05/25/24 02:19 Ondansetron Hcl 4 Mg/2 Ml Vial IVPUSH 05/24/24 23:52 4 mg ONCE ONE Administration Potassium Chloride 20 meq 05/25/24 03:07 05/25/24 03:28 Potassium Chloride Packet 20 Meq Packet PO 05/25/24 03:08 Not Given ONCE ONE Medical Decision Making Medical Decision Making MDM Narrative: 64-year-old male with a history of Crohn's disease status post ileostomy, bilateral ureteral stents placed January [address] Ying, bilateral urostomy tubes placed by Dr. 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 Patient was recently treated for urinary tract infection on May 14, was placed on a course of Levaquin. Patient is having bowel movements every 1-2 hours. The stool is soft, not watery. Denies abdominal pain, nausea, vomiting or fever. No sick contacts with similar symptoms. Patient has been drinking Pedialyte at home per the recommendation by his oncologist. Given a refractory symptoms, his oncologist suggested that he come to the emergency department for IV fluid hydration. Problem: An operable cancer, palliative chemotherapy, chronic kidney disease, obstructing ureteral stones History: Per patient I have considered the following differential diagnoses: Electrolyte abnormality, dehydration, side-effect from chemotherapy, C diff Plan: Screening labs were obtained from triage, the patient is hyponatremic, no other electrolyte abnormalities. We will start LR, then recheck labs. Adding on a serum magnesium. Adding a C diff culture given recent antibiotics. I have independently reviewed the following tests: Labs: No leukocytosis, not anemic, not neutropenic, hyponatremic to 127, chloride 93, no gap, creatinine 1.88.....repeat lytes sodium 128, potassium now 3.1, chloride 95, no gap, creatinine improved to 1.48 adding 40 mEq of potassium IV. Lab Data 05/24/24 21:24 05/25/24 02:41 Labs: Lab Results 05/24/24 05/25/24 Range/Units 21:24 02:41 WBC 9.8 (4.8-10.8) X10*3/uL RBC 3.92 L (4.60-5.80) X10*6/uL Hgb 12.4 L (14.0-18.0) g/dl Hct 35.8 L (42.0-52.0) % MCV 91.3 (80.0-98.0) fL MCH 31.6 (27.0-33.0) pg MCHC 34.6 (31.0-36.0) g/dl RDW 13.1 (11.0-16.0) % Plt Count 200 D (160-400) X10*3/uL MPV 9.2 L (9.4-12.4) fL Immature Gran % (Auto) 0.3 (0.0-0.4) % Neut % (Auto) 64.2 (45-73) % Lymph % (Auto) 20.1 (20-40) % [place] % (Auto) 11.0 (2-11) % Eos % (Auto) 3.9 (0-4) % Baso % (Auto) 0.5 (0-2) % Lymph # (Auto) 2.0 (1.2-4.9) X10*3/uL [place] # (Auto) 1.1 (0.1-1.2) X10*3/uL Eos # (Auto) 0.4 (0.0-0.4) X10*3/uL Baso # (Auto) 0.1 (0.0-0.2) X10*3/uL Abs Immat Gran (auto) 0.03 (0.00-0.03) X10*3/uL Absolute Neuts (auto) 6.3 (2.0-8.3) x10*3/uL Absolute Nucleated RBC 0.000 (0.0-0.012) X10*3/uL Nucleated RBC % (auto) 0.0 (0.0-0.2) /100WBC Sodium 127 L 128 L (135-145) mmol/L Potassium 3.8 3.1 L (3.3-5.1) mmol/L Chloride 93 L 95 L (96-108) mmol/L Carbon Dioxide 21 L 21 L (22-29) mmol/L Anion Gap 17 15 (12-20) BUN 26 H 24 H (9-16) mg/dL Creatinine 1.88 H 1.48 H (0.5-1.4) mg/dL Estim Creat Clear Calc 40.2 51.0 Estimated GFR 36 48 Random Glucose 142 H 122 H (60-115) mg/dL Calcium 9.0 D 8.6 (8.4-10.2) mg/dL Magnesium 1.7 (1.6-2.6) mg/dL Total Bilirubin 0.4 (0.0-1.0) mg/dL AST 24 (5-37) U/L ALT 17 (0-40) U/L Alkaline Phosphatase 115 (39-117) U/L Total Protein 8.9 H (6.5-8.0) g/dL Albumin 3.9 (3.5-5.0) g/dL Influenza Type A (PCR) NEGATIVE (Negative) Influenza Type B (PCR) NEGATIVE (Negative) RSV RNA Qual (PCR) NEGATIVE (Negative) SARS-CoV-2 RNA (RT-PCR) NEGATIVE (Negative) Discharge Plan Discharge Clinical Impression: Acute hyponatremia, Acute hypokalemia, C. difficile colitis Patient Disposition: Admitted As Inpatient Print Language: Micronesian
[2024-05-25] MEDS: Potassium Chloride/H20 10 MEQ/100 ML PIGGYBACK 100 MEQ IV ×4 (03:52→08:01)
[2024-05-25 04:34] LABS: Magnesium 1.7 mg/dL (1.6-2.6)
[2024-05-25] MEDS: HYDROmorphone HCl 2 MG TABLET PO ×2 (04:51→14:56)
[2024-05-25] MEDS: Acetaminophen 325 MG TABLET 650 MG PO ×2 (04:51→14:55)
[2024-05-25] MEDS: Morphine Sulfate ER 30 MG TABLET.ER PO ×2 (04:51→20:42)
--- NOTE | 2024-05-25 05:02 | PM.IMHP ---
History of Present Illness Date of Service: 05/25/24 Chief Complaint: Diarrhea 64-year-old male with a past medical history of Crohn's status post colostomy, history of bladder cancer-on chemotherapy, history of hydronephrosis status post bilateral nephrostomy tube; presented to the hospital today with a chief complaint of diarrhea. Patient reports that for the past 1 and half day he has been having multiple episodes of diarrhea. Denies any blood in the stool. Denies any abdominal pain. I spoke to his oncologist asked him to go to the ER given concerns for dehydration. Patient mentioned that he has been on chemotherapy for his bladder cancer-has been on FOLFOX. Last received about 2 weeks ago. Patient mentions he has bilateral nephrostomy tube placed by Dr. Driscoll in February 2024. Denies any chest pain or palpitations. Denies any fevers and chills. Denies any urinary symptoms. Review of all other systems is negative except mentioned above ER course: Per ER team, patient none exam was benign. CT abdomen pelvis pending. C diff resulted positive. Patient had few episodes of diarrhea in the ER. [facility] Medical History (Updated 05/25/24 @ 04:53 by KANDICE Price) Bladder mass Family history of adverse response to anesthesia in father Renal calculus Colostomy in place Kidney disease Crohn's disease Family History Father Colon cancer Surgical History H/O colonoscopy Hx of cystoscopy History of ileostomy Social History Household Members: Spouse Housing: House Are you a primary multi care technician to a significant other at home: No Do you presently have visiting nurse or other home services: No Alcohol intake: current Alcohol intake frequency: holidays/special occasions only Patient Tobacco Use Status: Never used Tobacco Smoked in Last 30 Days: No Second Hand Smoke Exposure: No Use of substances other than those prescribed or required for medical reasons: No Advance Directives: No Advance Directives Information Provided: No Do you have a plan to hurt others: No Plan Nutrition Risks: No Nutritional Risk service: No Current occupational status: employed 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, right handed Meds Allergies Allergy/AdvReac Type Severity Reaction Status Date / Time No Known Allergies Allergy Verified 05/24/24 21:06 Active Medications: Current Medications Acetaminophen (Acetaminophen 325 Mg Tablet) 650 mg PO Q6H PRN PRN Reason: Pain, Mild 1-3,fever,headache Calcium Carbonate (Calcium Carbonate 750 Mg Tab.Chew) 750 mg PO Q4H PRN PRN Reason: Heartburn Enoxaparin Sodium (Enoxaparin Sodium 40 Mg/0.4 Ml Syringe) 40 mg SUBCUT Q24H SILVIA Potassium Chloride (Potassium Chloride/H20) 10 meq in 100 mls @ 100 mls/hr IV Q1H SILVIA Stop: 05/25/24 07:44 Last Admin: 05/25/24 04:53 Dose: 100 mls/hr Dextrose/Sodium Chloride (D51/2ns) 1,000 mls @ 100 mls/hr IVCONT .Q10H SILVIA Magnesium Hydroxide (Milk Of Magnesia 30 Ml Oral.Susp) 30 ml PO DAILY PRN PRN Reason: Constipation Melatonin (Melatonin 3 Mg Tablet) 6 mg PO BEDTIME PRN PRN Reason: Insomnia Sodium Chloride (0.9 % Sodium Chloride Flush 3 Ml Syringe) 3 ml IVFLUSH QSHIFT SILVIA Vancomycin HCl (Vancomycin Hcl 125 Mg Capsule) 125 mg PO QID [facility] Home Medications ?Medication ?Instructions ?Recorded ?Confirmed ?Last Taken ?Type adalimumab 40 mg/0.4 mL 40 mg subcut TU@0900 01/25/22 01/11/24 01/07/24 History subcutaneous pen kit (Humira(CF) Pen) losartan 25 mg tablet 12.5 mg PO DAILY PRN KIDNEY STONE 01/11/24 01/11/24 01/10/24 History REGIMEN Physical Exam Vital Signs and Narrative: Vital Signs: Last Vital Signs Temp 97.9 F 05/25/24 04:55 Pulse 92 05/25/24 04:55 Resp 16 05/25/24 04:55 BP 121/77 05/25/24 04:55 Pulse Ox 96 05/25/24 04:55 O2 Del Method Room Air 05/25/24 04:55 BMI result Body Mass Index 25.8 Gen: Appears be in no acute distress HEENT: NCAT, Moist mucosa. Pulmonary: Vesicular breath sounds, fair air entry CVS: Normal S1-S2 Abdomen: BS+, Soft, Nontender; colostomy bag and nephrostomy tubes in place. Extremities: Warm well perfused Neuro: Alert and awake. Results Labs 05/24/24 21:24 05/25/24 02:41 Labs: Laboratory Results - last 24 hr 05/24/24 05/25/24 21:24 02:41 MCV 91.3 MCH 31.6 MCHC 34.6 RDW 13.1 Plt Count 200 D MPV 9.2 L Immature Gran % (Auto) 0.3 Neut % (Auto) 64.2 Lymph % (Auto) 20.1 [place] % (Auto) 11.0 Eos % (Auto) 3.9 Baso % (Auto) 0.5 Lymph # (Auto) 2.0 [place] # (Auto) 1.1 Eos # (Auto) 0.4 Baso # (Auto) 0.1 Abs Immat Gran (auto) 0.03 Absolute Neuts (auto) 6.3 Absolute Nucleated RBC 0.000 Nucleated RBC % (auto) 0.0 Anion Gap 17 15 Estim Creat Clear Calc 40.2 51.0 Estimated GFR 36 48 Random Glucose 142 H 122 H Calcium 9.0 D 8.6 Magnesium 1.7 Total Bilirubin 0.4 AST 24 ALT 17 Alkaline Phosphatase 115 Total Protein 8.9 H Albumin 3.9 Influenza Type A (PCR) NEGATIVE Influenza Type B (PCR) NEGATIVE RSV RNA Qual (PCR) NEGATIVE SARS-CoV-2 RNA (RT-PCR) NEGATIVE Assessment and Plan (1) C. difficile colitis: Status: Acute Plan 64-year-old male with a past medical history of Crohn's status post colostomy, history of bladder cancer-on chemotherapy, history of hydronephrosis status post bilateral nephrostomy tube; presented to the hospital today with a chief complaint of diarrhea. Found to have C diff positive. C diff diarrhea: Patient on chemotherapy for bladder cancer. Last visit 2 weeks ago. Patient finished 1 week course of Levaquin for UTI recently. Has been having diarrhea for 1.5 days. Benign abdominal examination. Denies any blood in the stool. Plan -CT abdomen pelvis pending -continue p.o. vancomycin -ID consult for further recommendations -supportive care -NPO -gentle IV fluids HX bladder cancer: Patient on chemotherapy-FOLFOX. Last received 2 weeks ago. HX hydronephrosis: Status post bilateral nephrostomy tubes. Last placed in February [address] Driscoll. DVT prophylaxis: Lovenox Code status: Full code Quality Stroke Does the patient have a stroke diagnosis?: No VTE Prior VTE?: No VTE Risk Level:: Medical - moderate - high VTE Device Contraindication: Treatment Not Indicated VTE Drug Contraindication: N/A - Med Ordered
[2024-05-25 05:37] LABS: CDIFF Internal ctrl Dots and bkg OK (V); CDiff Gene PCR POSITIVE (Negative); CDiff Toxin Negative (Negative)
[2024-05-25] MEDS: vancomycin HCL 125 MG CAPSULE PO ×5 (06:12→20:42)
[2024-05-25] MEDS: Dextrose 5 % and 0.45 % NaCl 1,000 ML 100 ML IVCONT ×2 (06:18→14:56)
[2024-05-25 06:19] LABS: Alanine Aminotransferase 10 U/L (0-40); Albumin Level 3.4 g/dL (3.5-5.0); Alkaline Phosphatase 101 U/L (39-117); Anion Gap 14 (12-20); Aspartate Amino Transferase 24 U/L (5-37); Bilirubin Total 0.5 mg/dL (0.0-1.0); Blood Urea Nitrogen 24 mg/dL (9-16); Calcium 8.9 mg/dL (8.4-10.2); Carbon Dioxide 23 mmol/L (22-29); Chloride 96 mmol/L (96-108); Creatinine Clr Calc Pharmacy 47.5; Estimated Glomerular Filt Rate 44; Glucose Random 108 mg/dL (60-115); Potassium 3.9 mmol/L (3.3-5.1); Sodium 129 mmol/L (135-145); Total Protein 7.7 g/dL (6.5-8.0)
--- NOTE | 2024-05-25 07:27 | P.EN_ITS ---
Event Note Date of Service: 05/25/24 Event Note: pt seen/examined, admitted 2 hrs ago, vital stable. 64-year-old male with a complex medical history, including: * Crohn?s disease, status post colostomy * Bladder cancer, currently undergoing chemotherapy (FOLFOX; last treatment 2 weeks ago) * Hydronephrosis, status post bilateral nephrostomy tubes placed by Dr. Driscoll in February 2024 * recently completed course of levaquin a week ago He presented with 1.5 days of diarrhea. He recently completed a 1-week course of Levaquin for a urinary tract infection. Clostridium difficile was confirmed as the cause of diarrhea. He denies blood in the stool, and abdominal examination was benign. Assessment & Plan: 1. C. difficile-associated diarrhea * On chemotherapy (FOLFOX) for bladder cancer * Recent antibiotic use (Levaquin) likely contributing factor * C. diff positive stool * Abdominal exam benign; no signs of colitis Plan: * Continue oral vancomycin * CT abdomen/pelvis pending * Infectious Disease consult for further management * Supportive care * start liquid diet * Gentle IV fluid resuscitation 2. Bladder cancer * Currently receiving FOLFOX * Last cycle: 2 weeks ago * Monitor for treatment-related side effects * out patient follow up with his oncologist 3. Hydronephrosis * Status post bilateral nephrostomy tubes, placed February [address] Driscoll * No acute issues at present; monitor output and tube function Hyponatremia--chronic and appear stable. DVT prophylaxis: Lovenox Code status: Full code Time Spent With Patient Time: Total time managing care of this patient today ____ minutes.
--- NOTE | 2024-05-25 07:27 | PM.EVENT ---
Event Note Date of Service: 05/25/24 Event Note: pt seen/examined, admitted 2 hrs ago, vital stable. 64-year-old male with a complex medical history, including: Crohn?s disease, status post colostomy Bladder cancer, currently undergoing chemotherapy (FOLFOX; last treatment 2 weeks ago) Hydronephrosis, status post bilateral nephrostomy tubes placed by Dr. Driscoll in February 2024 recently completed course of levaquin a week ago He presented with 1.5 days of diarrhea. He recently completed a 1-week course of Levaquin for a urinary tract infection. Clostridium difficile was confirmed as the cause of diarrhea. He denies blood in the stool, and abdominal examination was benign. Assessment & Plan: 1. C. difficile-associated diarrhea On chemotherapy (FOLFOX) for bladder cancer Recent antibiotic use (Levaquin) likely contributing factor C. diff positive stool Abdominal exam benign; no signs of colitis Plan: Continue oral vancomycin CT abdomen/pelvis pending Infectious Disease consult for further management Supportive care start liquid diet Gentle IV fluid resuscitation 2. Bladder cancer Currently receiving FOLFOX Last cycle: 2 weeks ago Monitor for treatment-related side effects out patient follow up with his oncologist 3. Hydronephrosis Status post bilateral nephrostomy tubes, placed February [address] Driscoll No acute issues at present; monitor output and tube function Hyponatremia--chronic and appear stable. DVT prophylaxis: Lovenox Code status: Full code Time Spent With Patient Time: Total time managing care of this patient today ____ minutes.
--- NOTE | 2024-05-25 08:43 | PHA.MEDREC ---
Pharmacy Consult ? Medication Reconciliation Pharmacy has completed the medication reconciliation.Med rec complete, spoke to patient and compared with pharmacy claim history and pdmp.
[2024-05-25] MEDS: Enoxaparin Sodium 40 MG/0.4 ML SYRINGE SUBCUT (09:43)
--- NOTE | 2024-05-25 10:52 | MHC.CM.PN ---
PATIENT IS FULLY INDEPENDENT USES NO DME OR [facility] SERVICES HAS TRANSPORT HOME AT [place]. HE ANTICIPATES NO NEED FOR SERVICES PATIENT REPORTS THAT , [place], IS HIS HCP AGENT AND HE HAS A COPY AT HOME. PCP VERIFIED. CM FOLLOWING FOR ANY CHANGES IN DC PLAN.
[2024-05-25] MEDS: methocarbamoL 500 MG TABLET PO ×2 (13:57→20:42)
[2024-05-25] MEDS: 0.9 % Sodium Chloride Flush 3 ML SYRINGE IVFLUSH (16:59)
[2024-05-26] MEDS: HYDROmorphone HCl 2 MG TABLET PO ×3 (00:49→16:30)
[2024-05-26] MEDS: Acetaminophen 325 MG TABLET 650 MG PO ×2 (00:49→21:16)
[2024-05-26] MEDS: Dextrose 5 % and 0.45 % NaCl 1,000 ML 100 ML IVCONT ×3 (00:50→21:07)
[2024-05-26] MEDS: 0.9 % Sodium Chloride Flush 3 ML SYRINGE IVFLUSH ×2 (00:50→16:31)
[2024-05-26 03:18] VITALS: BP 113/69; PULSE 76; RESP 16; TEMP 36.7; O2SAT 98
[2024-05-26 07:54] VITALS: BP 104/65; PULSE 80; RESP 20; TEMP 36.8; O2SAT 98
--- NOTE | 2024-05-26 08:35 | PM.GICN ---
History of Present Illness Data of Consult Service Date: 05/26/24 Primary Care Provider: Hansel Martinez MD HPI Reason for consult: ileus, hx of c diff 64-year-old male with a past medical history of Crohn's status post colostomy, history of bladder cancer-on chemotherapy, history of hydronephrosis status post bilateral nephrostomy tube; who I am seeing for diarrhea Patient noted increased stool o/p from stoma, liquid mostly which made him feel dizzy, and weak. He noted the urine was darker. He denies blood in the stool. Denies any abdominal pain. No nausea or vomiting. Denies any chest pain or palpitations. Denies any fevers and chills. He had testing for c diff which was pos, and did have levaquin for UTI recently. Also receiving chemotherapy. He says he has had c diff before, already feeling better with reduced stool o/p, becoming more formed. CT A/P: ileus with enteritis, hydronephrosis, mesenteric inflammation Review of Systems Review of Systems: Constitutional : No Weight loss, No Fever, No Chills ENT/Mouth : No sore throat, No Rhinorrhea Eyes: No Swelling, No Redness Cardiovascular : No Chest Pain, No SOB, No Edema Respiratory : No Cough, No Sputum, No Wheezing Gastrointestinal : see HPI Genitourinary : NO Dysuria, No Urinary Frequency, No Hematuria, No Urgency Musculoskeletal : no joint pain, No Myalgias, No Joint Swelling Skin : No Skin Lesions, No rash Neuro : No Weakness, No Numbness, No Dizziness, No Headache Psych : No Anxiety/Panic, No Depression Heme/Lymph: No Bruising, No Lymphadenopathy Endocrine : No Polyuria, No Polydipsia All other systems reviewed and are negative. [facility] Past Medical History Medical History Bladder mass Family history of adverse response to anesthesia in father Renal calculus Colostomy in place Kidney disease Crohn's disease Family History Family History Father Colon cancer Surgical History Surgical History H/O colonoscopy Hx of cystoscopy History of ileostomy Social History Social History Household Members: Spouse Housing: House Are you a primary career guidance counselor to a significant other at home: No Do you presently have visiting nurse or other home services: No Alcohol intake: current Alcohol intake frequency: holidays/special occasions only Patient Tobacco Use Status: Never used Tobacco Smoked in Last 30 Days: No Second Hand Smoke Exposure: No Use of substances other than those prescribed or required for medical reasons: No Currently Displaying Signs/Symptoms of Drug Intoxication Withdrawal: No Advance Directives: No Advance Directives Information Provided: No Do you have a plan to hurt others: No Plan Recently lost weight without trying: Yes How much weight loss: 24-33 pounds Nutrition Risks: No Nutritional Risk service: No Current occupational status: employed 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, right handed Meds Allergies Allergy/AdvReac Type Severity Reaction Status Date / Time No Known Allergies Allergy Verified 05/24/24 21:06 Active Medications: Current Medications Acetaminophen (Acetaminophen 325 Mg Tablet) 650 mg PO Q6H PRN PRN Reason: Pain, Mild 1-3,fever,headache Last Admin: 05/26/24 00:49 Dose: 650 mg Calcium Carbonate (Calcium Carbonate 750 Mg Tab.Chew) 750 mg PO Q4H PRN PRN Reason: Heartburn Enoxaparin Sodium (Enoxaparin Sodium 40 Mg/0.4 Ml Syringe) 40 mg SUBCUT Q24H [facility] Last Admin: 05/25/24 09:43 Dose: 40 mg Hydromorphone HCl (Hydromorphone Hcl 2 Mg Tablet) 2 mg PO Q6H PRN PRN Reason: Breakthrough Pain, Moderate Last Admin: 05/26/24 00:49 Dose: 2 mg Dextrose/Sodium Chloride (D51/2ns) 1,000 mls @ 100 mls/hr IVCONT .Q10H [facility] Last Admin: 05/26/24 00:50 Dose: 100 mls/hr Magnesium Hydroxide (Milk Of Magnesia 30 Ml Oral.Susp) 30 ml PO DAILY PRN PRN Reason: Constipation Melatonin (Melatonin 3 Mg Tablet) 6 mg PO BEDTIME PRN PRN Reason: Insomnia Methocarbamol (Methocarbamol 500 Mg Tablet) 500 mg PO TID [facility] Last Admin: 05/25/24 20:42 Dose: 500 mg Morphine Sulfate (Morphine Sulfate Er 30 Mg Tablet.Er) 30 mg PO BID [facility] Last Admin: 05/25/24 20:42 Dose: 30 mg Non-Formulary Medication (Adalimumab-Atto [Amjevita(Cf) Autoinjector]) 40 mg SUBCUT WE@1000 [facility] Ondansetron HCl (Ondansetron Odt 4 Mg Tab.Rapdis) 4 mg TRANSLINGU Q6H PRN PRN Reason: nausea induced by chemo Prochlorperazine Maleate (Prochlorperazine Maleate 5 Mg Tablet) 10 mg PO Q6H PRN PRN Reason: nausea induced from chemo Sodium Chloride (0.9 % Sodium Chloride Flush 3 Ml Syringe) 3 ml IVFLUSH QSHIFT [facility] Last Admin: 05/26/24 00:50 Dose: 3 ml Vancomycin HCl (Vancomycin Hcl 125 Mg Capsule) 125 mg PO QID [facility] Last Admin: 05/25/24 20:42 Dose: 125 mg Home Medications ?Medication ?Instructions ?Recorded ?Confirmed ?Last Taken ?Type adalimumab-atto 40 mg/0.4 mL 40 mg subcut WE@1000 05/25/24 05/25/24 05/20/24 History subcutaneous auto-injector (Amjevita(CF) Autoinjector) hydromorphone 4 mg tablet 2 mg PO Q6H PRN Breakthrough Pain, 05/25/24 05/25/24 Unknown History Moderate methocarbamol 500 mg tablet 500 mg PO TID 05/25/24 05/25/24 05/25/24 History morphine 30 mg tablet,extended 30 mg PO BID 05/25/24 05/25/24 05/25/24 History release ondansetron 4 mg disintegrating 4 mg PO Q6H PRN nausea induced by 05/25/24 05/25/24 Unknown History tablet chemo prochlorperazine maleate 10 mg 10 mg PO Q6H PRN nausea induced 05/25/24 05/25/24 Unknown History tablet from chemo Physical Exam Vital Signs: Vital Signs: Last Vital Signs Temp 98.2 F 05/26/24 07:54 Pulse 80 05/26/24 07:54 Resp 20 05/26/24 07:54 BP 104/65 05/26/24 07:54 Pulse Ox 98 05/26/24 07:54 O2 Del Method Room Air 05/26/24 07:54 BMI result Body Mass Index 25.7 EXAM: GENERAL: The patient is well developed and nontoxic. VITAL SIGNS:see workflow HEENT: Nonicteric sclerae, PERRLA, EOMI. Oropharynx clear. Moist mucous membranes. Conjunctivae appear well perfused. No thyroid mass. CHEST: Chest wall is nontender. HEART: Regular rate and rhythm without murmurs. LUNGS: Clear to auscultation bilaterally. ABDOMEN: Soft, positive bowel sounds, nontender, no organomegaly.no flank tenderness--stoma noted -looks healthy SKIN: No rash, no excessive bruising, petechiae, or purpura. NEUROLOGIC: Cranial nerves II-XII intact without motor/sensory deficit. Psych: normal affect Results Labs 05/24/24 21:24 05/25/24 05:[address] scan - abdomen: Attestation: I personally reviewed and interpreted this imaging study as follows: (enteritis and ileus) Assessment and Plan (1) C. difficile colitis: Status: Acute Plan 1/ C diff enteritis, improved, wth treatment RF with recent ABX and chemotherapy, also low K may have caused ileus PLAN: /1 - cont treatment for c diff, 2/ advance diet as tolerated 3/ hold on endoscopy as improving Procedures Date of Service Date of Service: 05/26/24
[2024-05-26] MEDS: Enoxaparin Sodium 40 MG/0.4 ML SYRINGE SUBCUT (09:04)
[2024-05-26] MEDS: Morphine Sulfate ER 30 MG TABLET.ER PO ×2 (09:05→21:07)
[2024-05-26] MEDS: methocarbamoL 500 MG TABLET PO ×3 (09:05→21:07)
[2024-05-26] MEDS: vancomycin HCL 125 MG CAPSULE PO ×4 (09:05→21:07)
[2024-05-26 11:05] VITALS: BP 102/67; PULSE 86; RESP 20; TEMP 36.6; O2SAT 97
--- NOTE | 2024-05-26 13:36 | P.CNID_ITS ---
History of Present Illness Data of Consult Service Date: 05/25/24 Requesting physician: Nitish Aguilera Primary Care Provider: Hansel Martinez MD HPI Reason for consult: diarrhea He presents with continuous watery stool for four days. He has ileostomy He also has inoperabe bladder cancer and has bilateral ureteral stents. Apparently he had discomfort abdomen and given Levaquin for seven days last couple weeks. He has no fever or chills. Stool toxin neg,PCR positive Cdiff. Review of Systems 2 Review of Systems: Yes all other systems are reviewed and are negative PMFSH Past Medical History Medical History Bladder mass Family history of adverse response to anesthesia in father Renal calculus Colostomy in place Kidney disease Crohn's disease Family History Family History Father Colon cancer Family history: reviewed and not pertinent Surgical History Surgical History H/O colonoscopy Hx of cystoscopy History of ileostomy Social History Social History Household Members: Spouse Housing: House Are you a primary wound care physician to a significant other at home: No Do you presently have visiting nurse or other home services: No Alcohol intake: current Alcohol intake frequency: holidays/special occasions only Patient Tobacco Use Status: Never used Tobacco Smoked in Last 30 Days: No Second Hand Smoke Exposure: No Use of substances other than those prescribed or required for medical reasons: No Currently Displaying Signs/Symptoms of Drug Intoxication Withdrawal: No Advance Directives: No Advance Directives Information Provided: No Do you have a plan to hurt others: No Plan Recently lost weight without trying: Yes How much weight loss: 24-33 pounds Nutrition Risks: No Nutritional Risk service: No Current occupational status: employed 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, right handed Meds Allergies Allergy/AdvReac Type Severity Reaction Status Date / Time No Known Allergies Allergy Verified 05/24/24 21:06 Active Medications: Current Medications Acetaminophen (Acetaminophen 325 Mg Tablet) 650 mg PO Q6H PRN PRN Reason: Pain, Mild 1-3,fever,headache Last Admin: 05/26/24 00:49 Dose: 650 mg Calcium Carbonate (Calcium Carbonate 750 Mg Tab.Chew) 750 mg PO Q4H PRN PRN Reason: Heartburn Enoxaparin Sodium (Enoxaparin Sodium 40 Mg/0.4 Ml Syringe) 40 mg SUBCUT Q24H [facility] Last Admin: 05/26/24 09:04 Dose: 40 mg Hydromorphone HCl (Hydromorphone Hcl 2 Mg Tablet) 2 mg PO Q6H PRN PRN Reason: Breakthrough Pain, Moderate Last Admin: 05/26/24 11:32 Dose: 2 mg Dextrose/Sodium Chloride (D51/2ns) 1,000 mls @ 100 mls/hr IVCONT .Q10H [facility] Last Admin: 05/26/24 11:33 Dose: 100 mls/hr Magnesium Hydroxide (Milk Of Magnesia 30 Ml Oral.Susp) 30 ml PO DAILY PRN PRN Reason: Constipation Melatonin (Melatonin 3 Mg Tablet) 6 mg PO BEDTIME PRN PRN Reason: Insomnia Methocarbamol (Methocarbamol 500 Mg Tablet) 500 mg PO TID [facility] Last Admin: 05/26/24 09:05 Dose: 500 mg Morphine Sulfate (Morphine Sulfate Er 30 Mg Tablet.Er) 30 mg PO BID [facility] Last Admin: 05/26/24 09:05 Dose: 30 mg Non-Formulary Medication (Adalimumab-Atto [Amjevita(Cf) Autoinjector]) 40 mg SUBCUT WE@1000 [facility] Ondansetron HCl (Ondansetron Odt 4 Mg Tab.Rapdis) 4 mg TRANSLINGU Q6H PRN PRN Reason: nausea induced by chemo Prochlorperazine Maleate (Prochlorperazine Maleate 5 Mg Tablet) 10 mg PO Q6H PRN PRN Reason: nausea induced from chemo Sodium Chloride (0.9 % Sodium Chloride Flush 3 Ml Syringe) 3 ml IVFLUSH QSHIFT [facility] Last Admin: 05/26/24 09:06 Dose: Not Given Vancomycin HCl (Vancomycin Hcl 125 Mg Capsule) 125 mg PO QID [facility] Last Admin: 05/26/24 13:11 Dose: 125 mg Home Medications ?Medication ?Instructions ?Recorded ?Confirmed ?Last Taken ?Type adalimumab-atto 40 mg/0.4 mL 40 mg subcut WE@1000 05/25/24 05/25/24 05/20/24 History subcutaneous auto-injector (Amjevita(CF) Autoinjector) hydromorphone 4 mg tablet 2 mg PO Q6H PRN Breakthrough Pain, 05/25/24 05/25/24 Unknown History Moderate methocarbamol 500 mg tablet 500 mg PO TID 05/25/24 05/25/24 05/25/24 History morphine 30 mg tablet,extended 30 mg PO BID 05/25/24 05/25/24 05/25/24 History release ondansetron 4 mg disintegrating 4 mg PO Q6H PRN nausea induced by 05/25/24 05/25/24 Unknown History tablet chemo prochlorperazine maleate 10 mg 10 mg PO Q6H PRN nausea induced 05/25/24 05/25/24 Unknown History tablet from chemo Physical Exam 2 Vital Signs: Vital Signs: Last Vital Signs Temp 97.8 F 05/26/24 11:05 Pulse 86 05/26/24 11:05 Resp 20 05/26/24 11:05 BP 102/67 05/26/24 11:05 Pulse Ox 97 05/26/24 11:05 O2 Del Method Room Air 05/26/24 11:05 BMI result Body Mass Index 25.7 Const: General: cooperative HEENT: Head: Yes normal to inspection Face and sinus: Yes normal facial exam Mouth: Normal oral and palatal mucosa present Teeth and gingiva: d entition normal Eyes: General: appearance normal, both eyes and all related structures P upils: Equal, round and reactive pupils present Resp: Effort & Inspection: normal respiratory effort Cardio: Rate: regular rate Rhythm: regular rhythm GI: Palpation (GI): Soft to palpation and nontender : General: Yes no CVA tenderness Back/Spine/Pelvis: Back: no CVA tenderness Skin: General skin exam: no rashes or lesions noted Neuro: General: moves all extremities Cranial nerves: Yes Equal, round and reactive pupils present Extrem: General: Yes normal to inspection Psych: Appearance: grossly normal Results Labs 05/24/24 21:24 05/25/24 05:53 Assessment and Plan (1) C. difficile colitis: Status: Acute (2) Weak urinary stream: Status: Acute Plan I would treat for Cdiff since PCR positive even if toxin negative. He has high likelihood of having it due to malignancy and also recent antibiotic exposure There is some concern that he may have had it before. Would give po Vancomycin 125 qid for 10 days,125 tid for a week,125 bid for a week,125 daily for a week and then 125 mg every ,,Saturday. Would keep on ,, month or two after and if on antibiotics full dose for duration antibiotics and 48h after.
--- NOTE | 2024-05-26 14:33 | HO.PM.IMPN ---
Subjective Subjective Date of Service: 05/26/24 Interval History: cdiff Review of Systems diarrhae somewhat similar,no abd pain Physical Exam Vital Signs: Vital Signs: Last Vital Signs Temp 97.8 F 05/26/24 11:05 Pulse 86 05/26/24 11:05 Resp 20 05/26/24 11:05 BP 102/67 05/26/24 11:05 Pulse Ox 97 05/26/24 11:05 O2 Del Method Room Air 05/26/24 11:05 BMI result Body Mass Index 25.7 Appearance: Alert.? Oriented X3.? cvs: rrr, [id number] . res: air entry fair , no rales or wheezing abd: BS+, Soft, Nontender; colostomy bag and nephrostomy tubes in place. ext pulses present , no cyanosis . neuro: axo3 , nonfocal. Objective Data Active Medications Acetaminophen (Acetaminophen 325 Mg Tablet) 650 mg PO Q6H PRN PRN Reason: Pain, Mild 1-3,fever,headache Last Admin: 05/26/24 00:49 Dose: 650 mg Documented By: ANTOIC Calcium Carbonate (Calcium Carbonate 750 Mg Tab.Chew) 750 mg PO Q4H PRN PRN Reason: Heartburn Enoxaparin Sodium (Enoxaparin Sodium 40 Mg/0.4 Ml Syringe) 40 mg SUBCUT Q24H [facility] Last Admin: 05/26/24 09:04 Dose: 40 mg Documented By: NENITA Hydromorphone HCl (Hydromorphone Hcl 2 Mg Tablet) 2 mg PO Q6H PRN PRN Reason: Breakthrough Pain, Moderate Last Admin: 05/26/24 11:32 Dose: 2 mg Documented By: NENITA Dextrose/Sodium Chloride (D51/2ns) 1,000 mls @ 100 mls/hr IVCONT .Q10H [facility] Last Admin: 05/26/24 11:33 Dose: 100 mls/hr Documented By: NENITA Magnesium Hydroxide (Milk Of Magnesia 30 Ml Oral.Susp) 30 ml PO DAILY PRN PRN Reason: Constipation Melatonin (Melatonin 3 Mg Tablet) 6 mg PO BEDTIME PRN PRN Reason: Insomnia Methocarbamol (Methocarbamol 500 Mg Tablet) 500 mg PO TID [facility] Last Admin: 05/26/24 09:05 Dose: 500 mg Documented By: NENITA Morphine Sulfate (Morphine Sulfate Er 30 Mg Tablet.Er) 30 mg PO BID [facility] Last Admin: 05/26/24 09:05 Dose: 30 mg Documented By: NENITA Non-Formulary Medication (Adalimumab-Atto [Amjevita(Cf) Autoinjector]) 40 mg SUBCUT WE@1000 [facility] Ondansetron HCl (Ondansetron Odt 4 Mg Tab.Rapdis) 4 mg TRANSLINGU Q6H PRN PRN Reason: nausea induced by chemo Prochlorperazine Maleate (Prochlorperazine Maleate 5 Mg Tablet) 10 mg PO Q6H PRN PRN Reason: nausea induced from chemo Sodium Chloride (0.9 % Sodium Chloride Flush 3 Ml Syringe) 3 ml IVFLUSH QSHIFT [facility] Last Admin: 05/26/24 09:06 Dose: Not Given Documented By: NENITA Non-Admin Reason: IV Running Vancomycin HCl (Vancomycin Hcl 125 Mg Capsule) 125 mg PO QID [facility] Last Admin: 05/26/24 13:11 Dose: 125 mg Documented By: NENITA Labs 05/24/24 21:24 05/25/24 05:53 Assessment and Plan (1) C. difficile colitis: Status: Acute Assessment and Plan: 64-year-old male with a complex medical history, including: Crohn?s disease, status post colostomy Bladder cancer, currently undergoing chemotherapy (FOLFOX; last treatment 2 weeks ago) Hydronephrosis, status post bilateral nephrostomy tubes placed by Dr. Driscoll in February 2024 recently completed course of levaquin a week agoHe presented with 1.5 days of diarrhea. He recently completed a 1-week course of Levaquin for a urinary tract infection. Clostridium difficile was confirmed as the cause of diarrhea. He denies blood in the stool, and abdominal examination was benign. Assessment & Plan: C. difficile-associated diarrhea-On chemotherapy (FOLFOX) for bladder cancer Recent antibiotic use (Levaquin) likely contributing factor C. diff positive stool ct abd:Bilateral PCN tubes, nephroureteral stents in place with moderate/severe right and mild/moderate left bilateral hydronephrosis. Small bowel ileus with enteritis status post colectomy with a right lower quadrant ileostomy as described. Mildly diffuse mesenteric panniculitis.diarrhae similar plan:Continue oral vancomycin,Supportive care start liquid diet Gentle IV fluid Bladder cancer-Currently receiving FOLFOX(Last cycle: 2 weeks ago) Monitor for treatment-related side effects out patient follow up with his oncologist Hydronephrosis Status post bilateral nephrostomy tubes, placed February [address]is[address] please ct abd above -has b/l hydronephrosis No acute issues at present; monitor output and tube function. mild acute on Hyponatremia-dec po inatke and diarrhae contributing improving moniter bmp closely acute hypokalemia :s/p repletion improved. DVT prophylaxis: Lovenox ongoing need :cdiff -has persistent diarrhae,electrolytic abnormalities ,dec po intake ,also need Id input for cdiff -since on chemo/reecnt antibiotics use. Quality Stroke Does the patient have a stroke diagnosis?: No VTE Prior VTE?: No VTE Risk Level:: Medical - moderate - high VTE Device Contraindication: Treatment Not Indicated VTE Drug Contraindication: N/A - Med Ordered
[2024-05-26 15:11] VITALS: BP 101/57; PULSE 86; RESP 16; TEMP 36.9; O2SAT 98
[2024-05-26 20:00] VITALS: BP 101/63; PULSE 81; RESP 16; TEMP 36.7; O2SAT 98
[2024-05-26 23:36] VITALS: BP 113/61; PULSE 77; RESP 16; TEMP 36.8; O2SAT 97
[2024-05-27] MEDS: HYDROmorphone HCl 2 MG TABLET PO (01:02)
[2024-05-27 03:45] VITALS: BP 96/62; PULSE 75; RESP 16; TEMP 36.4; O2SAT 98
[2024-05-27] MEDS: Acetaminophen 325 MG TABLET 650 MG PO (04:41)
[2024-05-27] MEDS: Dextrose 5 % and 0.45 % NaCl 1,000 ML 100 ML IVCONT (04:43)
[2024-05-27 07:33] VITALS: BP 105/61; PULSE 70; RESP 20; TEMP 36.7; O2SAT 97
[2024-05-27] MEDS: vancomycin HCL 125 MG CAPSULE PO ×2 (08:41→13:49)
[2024-05-27] MEDS: Morphine Sulfate ER 30 MG TABLET.ER PO (08:41)
[2024-05-27] MEDS: Enoxaparin Sodium 40 MG/0.4 ML SYRINGE SUBCUT (08:41)
[2024-05-27] MEDS: methocarbamoL 500 MG TABLET PO (08:41)
[2024-05-27] MEDS: 0.9 % Sodium Chloride Flush 3 ML SYRINGE IVFLUSH (08:41)
[2024-05-27 11:28] VITALS: BP 95/60; PULSE 78; RESP 20; TEMP 36.7; O2SAT 99
[2024-05-27 12:01] LABS: Anion Gap 11 (12-20); Blood Urea Nitrogen 19 mg/dL (9-16); Calcium 8.1 mg/dL (8.4-10.2); Carbon Dioxide 22 mmol/L (22-29); Chloride 105 mmol/L (96-108); Creatinine Clr Calc Pharmacy 52.5; Estimated Glomerular Filt Rate 50; Glucose Random 91 mg/dL (60-115); Potassium 3.8 mmol/L (3.3-5.1); Sodium 134 mmol/L (135-145)
--- NOTE | 2024-05-27 12:37 | PM.DS ---
DS: Providers Provider Date of Service: 05/27/24 Date of admission: 05/25/24 04:50 Date of discharge: 05/27/24 Primary care physician: Hansel Martinez MD Consults: 05/25/24 05:04 Consult to Infectious Diseases Routine Consulting [place] [facility] [place] [facility] Reason for consultation: C diff; recent Levaquin use 05/26/24 08:21 Consult to Gastroenterology Routine Consulting Provider[place] [facility] [place] [facility] Reason for consultation: cdiff /ielus Attending physician on discharge: Sixto Rios Discharging clinician: Sixto Rios DS: Diagnosis Discharge Diagnosis (1) C. difficile colitis: Status: Acute DS: Summary Hospital Course Hospital Course: HPI:64-year-old male with a past medical history of Crohn's status post colostomy, history of bladder cancer-on chemotherapy, history of hydronephrosis status post bilateral nephrostomy tube; presented to the hospital today with a chief complaint of diarrhea. Patient reports that for the past 1 and half day he has been having multiple episodes of diarrhea. Denies any blood in the stool. Denies any abdominal pain. I spoke to his oncologist asked him to go to the ER given concerns for dehydration. Patient mentioned that he has been on chemotherapy for his bladder cancer-has been on FOLFOX. Last received about 2 weeks ago. Patient mentions he has bilateral nephrostomy tube placed by Dr. Driscoll in February 2024. Denies any chest pain or palpitations. Denies any fevers and chills. Denies any urinary symptoms. Review of all other systems is negative except mentioned above ER course: Per ER team, patient none exam was benign. CT abdomen pelvis pending. C diff resulted positive. Patient had few episodes of diarrhea in the ER. Hospital course: 64-year-old male with a complex medical history, including:Crohn?s disease, status post colostomy,Bladder cancer, currently undergoing chemotherapy (FOLFOX; last treatment 2 weeks ago) Hydronephrosis, status post bilateral nephrostomy tubes placed by Dr. Driscoll in February 2024,recently completed course of levaquin a week ago.He presented with 1.5 days of diarrhea. He recently completed a 1-week course of Levaquin for a urinary tract infection. Clostridium difficile was confirmed as the cause of diarrhea.patient also told had cdiff. before. Patient was started on p.o. vancomycin-diarrhea seems to be improved significantly. Seen by Infectious Disease-C diff likely in the setting of recent antibiotic use, also patient is on chemo. ID recommended-Would give po Vancomycin 125 qid for 10 days,125 tid for a week,125 bid for a week,125 daily for a week and then 125 mg every ,,Saturday. Would keep on ,, month or two after and if on antibiotics full dose for duration antibiotics and 48h after. Hydronephrosis, status post bilateral nephrostomy tubes placed by Dr. Driscoll in February 2024: ct abd:ct abd:Bilateral PCN tubes, nephroureteral stents in place with moderate/severe right and mild/moderate left bilateral hydronephrosis. his creatinine is acutally better than baseline(now 1.44) d/w urology -patient is asymptomatic ,cr improving ,follow up with Dr. Driscoll office. plan: po Vancomycin 125 qid for 10 days,125 tid for a week,125 bid for a week,125 daily for a week and then 125 mg every ,,Saturday.Would keep on ,, month. Monitor BMP, follow-up with Dr. Driscoll's office. Above management discussed with the patient detail length he understand and in agreement with the above plan, time spent 40 minute. Time Attestation Total time managing care of this patient today: 40 mintues. Discharge Coordination Time (in mins): 40 min Quality: Safe Use of Opioids Does Pt have an Active Cancer Diagnosis on the Problem List?: No Quality: Stroke Does the patient have a stroke diagnosis?: No Physical Exam Vital Signs: Vital Signs: Last Vital Signs Temp 98.1 F 05/27/24 11:28 Pulse 78 05/27/24 11:28 Resp 20 05/27/24 11:28 BP 95/60 05/27/24 11:28 Pulse Ox 99 05/27/24 11:28 O2 Del Method Room Air 05/27/24 11:28 BMI result Body Mass Index 25.7 Appearance: Alert.? Oriented X3.? cvs: rrr, d1d8pendx . res: air entry fair , no rales or wheezing abd: BS+, Soft, Nontender; colostomy bag and nephrostomy tubes in place. ext pulses present , no cyanosis . neuro: axo3 , nonfocal. DS: Data Data Completed and Pending Completed studies during hospitalization [Text1]: Procedures Dilation of Bilateral Ureters with Intraluminal Device, Via Natural or Artificial Opening Endoscopic (01/11/24) Dilation of Left Ureter with Intraluminal Device, Via Natural or Artificial Opening Endoscopic (01/25/22) Excision of Bladder, Via Natural or Artificial Opening Endoscopic (01/11/24) Excision of Right Ureter, Via Natural or Artificial Opening Endoscopic (01/11/24) Fluoroscopy of Kidneys, Ureters and Bladder (01/11/24) Labs on day of discharge: Laboratory Results - last 24 hr 05/27/24 08:38 Hold Purple Top SEE NOTE Sodium 134 L Potassium 3.8 Chloride 105 Carbon Dioxide 22 Anion Gap 11 L BUN 19 H Creatinine 1.44 H Estim Creat Clear Calc 52.5 Estimated GFR 50 Random Glucose 91 Calcium 8.1 L D Imaging Chest x-ray: My impression: ct abd: 1. Bilateral PCN tubes, nephroureteral stents in place with moderate/severe right and mild/moderate left bilateral hydronephrosis. 2. Small bowel ileus with enteritis status post colectomy with a right lower quadrant ileostomy as described. 3. Mildly diffuse mesenteric panniculitis. Discharge Plan Discharge Anticipated Discharge Date/Time: 05/27/24 12:17 Patient Disposition: Home, Self-Care Discharge Diagnosis: C diff diarrhea Referrals: Hansel Martinez MD [Primary Care Provider] - 1 Week Discharge Medications: New vancomycin 125 mg Capsule 125 mg PO QID Qty: 72 0RF Rx Instructions: po Vancomycin 125 qid for 8 days,125 tid for a week,125 bid for a week,125 daily for a week and then 125 mg every ,,Saturday. Would keep on ,, month Continued methocarbamol 500 mg Tablet 500 mg PO TID morphine 30 mg tablet extended release 30 mg PO BID Amjevita(CF) Autoinjector 40 mg/0.4 mL auto-injector 40 mg SUBCUT WE@1000 prochlorperazine maleate 10 mg Tablet 10 mg PO Q6H PRN (Reason: nausea induced from chemo) ondansetron 4 mg Tablet,Disintegrating 4 mg PO Q6H PRN (Reason: nausea induced by chemo) hydromorphone 4 mg Tablet 2 mg PO Q6H PRN (Reason: Breakthrough Pain, Moderate) Discharge Orders: Discharge Order (Routine); Ordered 05/27/24 Ordered By: Sixto Rios Diet: Advance to usual diet Activity on Discharge: As tolerated Stand Alone Forms: Patient Portal Discharge page Print Language: Indonesian Care Plan Goals: 64-year-old male with a complex medical history, including:Crohn?s disease, status post colostomy,Bladder cancer, currently undergoing chemotherapy (FOLFOX; last treatment 2 weeks ago) Hydronephrosis, status post bilateral nephrostomy tubes placed by Dr. Driscoll in February 2024,recently completed course of levaquin a week ago.He presented with 1.5 days of diarrhea. He recently completed a 1-week course of Levaquin for a urinary tract infection. Clostridium difficile was confirmed as the cause of diarrhea.patient also told had cdiff. before. Patient was started on p.o. vancomycin-diarrhea seems to be improved significantly. Seen by Infectious Disease-C diff likely in the setting of recent antibiotic use, also patient is on chemo. ID recommended-Would give po Vancomycin 125 qid for 10 days,125 tid for a week,125 bid for a week,125 daily for a week and then 125 mg every ,,Saturday. Would keep on ,, month or two after and if on antibiotics full dose for duration antibiotics and 48h after. Health Concerns: po Vancomycin 125 qid for 10 days,125 tid for a week,125 bid for a week,125 daily for a week and then 125 mg every ,,Saturday.Would keep on ,, month. moniter bmp and follow up with Dr. Driscoll office. Plan of Treatment: as above. Assessment: as above.
--- NOTE | 2024-05-27 12:59 | MHC.CM.PN ---
PT MEDICALLY CLEARED FOR DC HOME SELF CARE, PT WILL ARRNAGE HIS TRANSPORT
== END 2024-05-27 15:18 | disposition home or self-care (01) | DRG 372 ==
LOC: HO.ED 05-25 04:23 → HO.EDOVER 05-25 04:54 → HO.IMC 05-25 07:33
PROVIDERS: Physician Assistant Medical; Admitting Provider Hospitalist; Emergency Provider Internal Medicine; PCP Internal Medicine; Visit Provider Internal Medicine
DX: A04.72 Enterocolitis due to Clostridium difficile, not specified as recurrent (principal); E87.1 Hypo-osmolality and hyponatremia; K50.90 Crohn's disease, unspecified, without complications; K56.7 Ileus, unspecified; N13.30 Unspecified hydronephrosis; C67.5 Malignant neoplasm of bladder neck; Z93.6 Other artificial openings of urinary tract status; E87.6 Hypokalemia; Z93.3 Colostomy status; Z20.822 Contact with and (suspected) exposure to COVID-19; Z79.899 Other long term (current) drug therapy
CPT/HCPCS: 0241U; 36415; 74176; 80048; 80053; 83735; 85025; 87324; 87493; 99285; J1642; J1650; J2405; J3480; J7120

== ENCOUNTER → 2024-05-25 03:57 | Outpatient (BNV) | payer OTHER, SELFPAY | PROVIDERS: Admitting Provider Hospitalist; Emergency Provider Internal Medicine; PCP Internal Medicine; Visit Provider Radiology Diagnostic Radiology | DX: A04.72 Enterocolitis due to Clostridium difficile, not specified as recurrent (principal); K65.4 Sclerosing mesenteritis | CPT/HCPCS: 74176 ==

== ENCOUNTER → 2024-05-25 04:50 | Outpatient (BNV) | payer OTHER, SELFPAY | PROVIDERS: Admitting Provider Hospitalist; Emergency Provider Internal Medicine; PCP Internal Medicine; Visit Provider Internal Medicine Gastroenterology | DX: A04.72 Enterocolitis due to Clostridium difficile, not specified as recurrent (principal) | CPT/HCPCS: 99223 ==

== ENCOUNTER → 2024-05-25 04:50 | Outpatient (BNV) | payer OTHER, SELFPAY | PROVIDERS: Admitting Provider Hospitalist; Emergency Provider Internal Medicine; PCP Internal Medicine; Visit Provider Internal Medicine | DX: A04.72 Enterocolitis due to Clostridium difficile, not specified as recurrent (principal); R39.12 Poor urinary stream | CPT/HCPCS: 99222 ==

== ENCOUNTER → 2024-05-25 04:50 | Outpatient (BNV) | payer OTHER, SELFPAY | PROVIDERS: Admitting Provider Hospitalist; Emergency Provider Internal Medicine; PCP Internal Medicine; Visit Provider Internal Medicine | DX: A04.72 Enterocolitis due to Clostridium difficile, not specified as recurrent (principal); C67.9 Malignant neoplasm of bladder, unspecified | CPT/HCPCS: 99222; 99231; 99239; 99499 ==

== ENCOUNTER 2024-06-03 11:03 | Outpatient (AMB) | payer OTHER, SELFPAY ==
--- NOTE | 2024-06-03 11:16 | MHC.OFFVIS ---
Intake Visit Reasons: Followup Intake Note: Patient is present for F/U Urology Medication:NONE Antibiotic Allergy:NONE Blood Thinner:NONE Wastewater Engineer Required: No Allergies No Known Allergies Allergy (Verified 06/03/24 11:17) HPI Comments Details: Sarbjit is a pleasant male. He is a patient of Dr. Martinez. He seen for the following urologic conditions - nephrolithiasis - bladder mucinous adenocarcinoma Currently undergoing chemotherapy in hopes of tumor response Has bilateral PCN tubes in place that a draining well and will be changed in June There are still questions regarding left distal ureteric stone Requires ureteric stent exchange Plan for stent exchange with left flexible ureteroscopy Bladder Mucinous adenocarcinoma - diagnosed during stone procedure late December 2023 Found to be inoperable at time of surgery with Dr. Driscoll 04/07 MRI complete - There is an irregular/infiltrative enhancing mass at the posterior aspect of the bladder wall measuring 4.1 x 2.6 x 3.5 cm. 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 Comment: The differential includes a primary bladder adenocarcinoma and metastatic adenocarcinoma from a GI source (including lower and upper GI, appendix, and pancreatico-biliary). Imaging and clinical correlation are necessary. Additional immunostains are pending; addendum to follow. Discussed management. This is an unusual and uncommon form of bladder cancer. Typically the best responses are found with urgent surgical resection. To date there is a minimal role for radiation and chemotherapy in the neoadjuvant or adjuvant setting. Nephrolithiasis Distal left ureteric stones [facility] Medical History Bladder mass Family history of adverse response to anesthesia in father Renal calculus Colostomy in place Kidney disease Crohn's disease Surgical History H/O colonoscopy Hx of cystoscopy History of ileostomy Family History Father Colon cancer Social History Household Members: Spouse Housing: House Are you a primary care worker to a significant other at home: No Do you presently have visiting nurse or other home services: No Alcohol intake: current Alcohol intake frequency: holidays/special occasions only Patient Tobacco Use Status: Never used Tobacco Second Hand Smoke Exposure: No service: No Current occupational status: employed 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, right handed Review of Systems Const Denies chills and Denies fever(s) Card Reports no additional complaints and Denies syncope Resp Denies cough GI Denies abdominal pain and Denies heartburn Reports as per HPI and Denies change in libido Neuro Denies syncope Psych Denies change in libido Endo Denies change in libido Physical Exam Const General: cooperative, healthy appearing, comfortable and no acute distress Orientation/consciousness: patient oriented x3 HEENT Face and sinus: Yes normal facial exam Mouth: moist mucous membranes Neck Neck: Yes normal visual inspection, Yes full ROM and Yes trachea midline Chest Chest palpation & inspection: normal inspection of the chest Resp Effort & Inspection: normal respiratory effort, able to speak in complete sentences and no respiratory distress GI Inspection: Yes normal to inspection Back/Spine/Pelvis Cervical Spine: normal cervical lordosis Thoracic/Lumbar Spine: thoracic and lumbar spine normal to inspection Skin General skin exam: no rashes or lesions noted Neuro General: patient oriented x3, gait normal, tone normal and moves all extremities Extrem General: Yes normal to inspection and Yes capillary refill normal Assessment & Plan Assessment & Plan (1) Recurrent nephrolithiasis: Code(s): N20.0 - Calculus of kidney Category: Medical Plan Ureteroscopy We discussed the nature of the decision and reasonable alternatives for performing ureteroscopy. Options such as medical therapy were discussed. Interventions include chemical dissolution, ESWL, ureteroscopy with laser lithotripsy and stent placement, PCNL. The relative uncertainties and benefits related to each alternate procedure were adequately discussed. General surgical risks including, but not limited to - pain, bleeding, infection, myocardial infarction, pulmonary embolus, deep vein thrombosis and cerebrovascular accident which may result in further hospitalization were discussed. Full disclosure of the procedure as well as all major risks, benefits and complications were discussed including but not limited to damage to the urethra, bladder and kidney infection, damage to the ureter, stent migration or malposition, scarring to the renal pelvis, remnant stone fragments, subsequent stone passage with need for secondary procedures. The overall secondary procedure rate is approximately 10-15%. The overall clearance rate is approximately 90-95%. Success of the procedure in the short-term does not necessarily guarantee that long-term success will be maintained. Suitable follow up will need to be maintained. The patient showed understanding of discussion and wishes to proceed with - cystoscopy, retrograde, ureteroscopy, possible lithotripsy/stone basketing and stent on the left flexible side Patient Instructions: This note is constructed using voice recognition software. While every effort has been made to ensure accuracy x ray equipment servicer errors may have been included. Imaging studies, laboratory and physical exam results were discussed and reviewed in detail. No major barriers to patient understanding were identified. An opportunity to ask questions regarding the treatment plan was provided. All questions were answered. The patient expressed understanding and agreement with the above treatment plan. The patient is aware they should contact our office by phone for worsening of their current condition or the appearance of new urologic symptoms. Compliance is encouraged with any medications and followup testing that is ordered. It is a privilege to participate in the urologic care of your patient. If you have any questions or concerns regarding treatment for the above conditions, or other urologic issues, please do not hesitate to contact me. The office telephone contact is [phone]. Sincerely, Dr Chavo Ying MD, [facility] - Urology Compassionate Specialist Care for the Genitourinary System Coding Level of Care Code Est Pt Level 4 (25565) Diagnoses Recurrent nephrolithiasis N20.0
--- OUTSIDE RECORDS SUMMARY | 2024-06-03 13:21 | XMS_ITS | Encounter Summary ---
Author Organization [facility] Address [address] [place] [address] Care Team Providers Care Livestock Speculator Name Role Phone Hansel Martinez MD Primary Care Provider [phone] Angeles Pineda RN Unavailable [phone] Encounter Details Date Type Department Care Team (Late st Contact Info) Description 01/23/2024 Scanned Document [facility] [address] [facility] [address] [place] [address] Chavo Ying MD [address] [place] [id number] Social History Tobacco Use Types Packs/Day Years Used Date Smoking Tobacco: Never Assessed Sex and Gender Information Value Date Recorded Sex Assigned at Male 01/27/2024 3:36 PM EST Legal Sex Male 10:36 AM EST Gender Identity Male 03/13/2024 7:28 AM EST Sexual Orientation Heterosexual (straight) 03/13 7:28 AM EST documented as of this encounter Plan of Treatment Not on file documented as of this encounter Visit Diagnoses Not on filedocumented in this encounter Care Teams Livestock Speculator Relationship Specialty Start Date End Date Hansel Martinez MD [address] [place] [address] PCP - General Internal Medicine 01/21/24 Angeles Pineda RN [address] [place] [address] Oncology Nurse Navigator 02/11/24 documented as of this encounter
--- OUTSIDE RECORDS SUMMARY | 2024-06-03 13:21 | XMS_ITS | Encounter Summary ---
Author Organization [facility] Address [address] [place] [address] Care Team Providers Care Supervisor General Name Role Phone Hansel Martinez MD Primary Care Provider Angeles Pineda RN Unavailable [phone] Encounter Details Date Type Department Care Team (Late st Contact Info) Description 03/30/2024 Scanned Document [facility] Colorectal Surgery [place] [address] [facility] [address] [place] [id number] Jabari Vann MD [address] [place] [address] Social History Tobacco Use Types Packs/Day Years Used Date Smoking Tobacco: Never Smokeless Tobacco: Never Alcohol Use Standard Drinks/Week Comments Not Currently 0 (1 standard drink = 0.6 oz pur e alcohol) [facility] Utilities Answer Date Recorded In the past 12 months has [employer] electric, gas, oil, or water company threatened [...] any time in the past 12 m [facility], were you homeless or living in a intermediate (including now)? No 03/14/2024 Sex and Gender [...] on filedocumented in this encounter Care Teams Supervisor General Relationship Specialty Start Date End Date Hansel Martinez MD [address] [place] [address] PCP - General Internal Medicine 01/21/24 Angeles Pineda RN [address] [place] [address] Oncology Nurse Navigator 02/11/24 documented as of this encounter
--- OUTSIDE RECORDS SUMMARY | 2024-06-03 13:21 | XMS_ITS | Encounter Summary ---
Author Organization [facility] Address [address] [place] [address] Care Team Providers Care Fruit Dumper Name Role Phone Hansel Martinez MD Primary Care Provider [phone] CarrierAngeles RN Unavailable [phone] Encounter Details Date Type Department Care Team (Late st Contact Info) Description 03/30/2024 Scanned Document [facility] Colorectal Surgery [place] [address] [place] [facility] [address] [place] [address] Provider, MD Eliud [address] [place] [address] Social History Tobacco Use Types Packs/Day Years Used Date Smoking Tobacco: Never Smokeless Tobacco: Never Alcohol Use Standard Drinks/Week Comments Not Currently 0 (1 standard drink = 0.6 oz pur e alcohol) [facility] Utilities Answer Date Recorded In the past 12 months has [employer] electric, gas, oil, or water company threatened [...] any time in the past [address] [facility], were you homeless or living in [...] on filedocumented in this encounter Care Teams Fruit Dumper Relationship Specialty Start Date End Date Hansel Martinez MD [address] [place] [address] PCP - General Internal Medicine 01/21/24 Angeles Pineda RN [address] [place] [address] Oncology Nurse Navigator 02/11/24 documented as of this encounter
--- OUTSIDE RECORDS SUMMARY | 2024-06-03 13:21 | XMS_ITS | Encounter Summary ---
Author Organization [facility] Address [address] [place] [address] Care Team Providers Care Lockstitch Topstitcher Name Role Phone Hansel Martinez MD Primary Care Provider [phone] CarrierAngeles RN Unavailable [phone] Encounter Details Date Type Department Care Team (Late st Contact Info) Description 03/30/2024 Scanned Document [facility] Colorectal Surgery [place] [address] [facility] [address] [place] [address] Provider, MD Eliud [address] [place] [address] Social History Tobacco Use Types Packs/Day Years Used Date Smoking Tobacco: Never Smokeless Tobacco: Never Alcohol Use Standard Drinks/Week Comments Not Currently 0 (1 standard drink = 0.6 oz pur e alcohol) [facility] Utilities Answer Date Recorded In the past 12 months has [employer] electric, gas, oil, or water company threatened [...] any time in the past 12 m [facility], were you homeless or living in [...] filedocumented in this encounter Care Teams Lockstitch Topstitcher Relationship Specialty Start Date End Date Hansel Martinez MD [address] [place] [address] PCP - General Internal Medicine 01/21/24 Angeles Pineda RN [address] [place] [address] Oncology Nurse Navigator 02/11/24 documented as of this encounter
--- OUTSIDE RECORDS SUMMARY | 2024-06-03 13:21 | XMS_ITS | Encounter Summary ---
Author Organization [facility], Address [address] [place] [address] Phone Care Team Providers Care Tin Flipper Name Role Phone Hansel Martinez MD Primary Care Provider [phone] Encounter Details Date Type Department Care Team (Late st Contact Info) Description 04/13/2022 Documentation Only [facility], [address] [place] [address] [place], [place] [address] [place] [address] Social History Tobacco Use Types [...] on filedocumented in this encounter Care Teams Tin Flipper Relationship Specialty Start Date End Date Hansel Martinez MD ACHILLE CAMBERING MACHINE OPERATOR [address] [place] [address] PCP - General 12/16/18 documented as of this encounter
--- OUTSIDE RECORDS SUMMARY | 2024-06-03 13:21 | XMS_ITS | Encounter Summary ---
Author Organization [facility] Address [address] [place] [address] Care Team Providers Care Basting Cleaner Name Role Phone Hansel Martinez MD Primary Care Provider [phone] Angeles Pineda RN Unavailable [phone] Encounter Details Date Type Department Care Team (Late st Contact Info) Description 03/30/2024 Scanned Document [facility] Colorectal Surgery [place] [address] [facility] [address] [place] [id number] Huong Hoang MD Medical [facility] [[email or web address] [address] [place] [address] Social History Tobacco Use Types Packs/Day Years Used Date Smoking Tobacco: Never Smokeless Tobacco: Never Alcohol Use Standard Drinks/Week Comments Not Currently 0 (1 standard drink = 0.6 oz pur e alcohol) [facility] Utilities Answer Date Recorded In the past 12 months has [employer] electric, gas, oil, or water company threatened [...] any time in the past 12 m [facility], were you homeless or living in a halfway (including now)? No 03/14/2024 Sex and Gender [...] on filedocumented in this encounter Care Teams Basting Cleaner Relationship Specialty Start Date End Date Hansel Martinez MD [address] [place] [address] PCP - General Internal Medicine 01/21/24 Angeles Pineda RN [address] [place] [address] Oncology Nurse Navigator 02/11/24 documented as of this encounter
--- OUTSIDE RECORDS SUMMARY | 2024-06-03 13:21 | XMS_ITS ---
Author Organization [facility] Address [address] [place] [address] Care Team Providers Care Transport Tech Name Role Phone Hansel Martinez MD Primary Care Provider [phone] Angeles Pineda RN Unavailable [phone] Active Problems Problem Noted Date Diagnosed Date [...] Mo[facility]ica at [facility] [place] [place]. Crohn's disease of colon with complication 02/27 Assessment & Plan (02/28/2024 11:24 AM EST): Diagnosed 1975. S/p total colectomy with a right mid quadrant ileostomy in 1979, then resected twice d/t fistulas with most recent resection of ileostomy 2019. On Humira under the management of gastroenterology, Dr. Manny Jefferson, at [facility]. Continue plan and follow up as previously indicated by provider. Hydronephrosis 02/25/2024 Malignant neoplasm of urinary bladder 01/24/2024 Assessment & Plan (02/28/2024 11:24 AM EST): Diagnosed 01/2024. No chemo or radiation. Followed by urology. Planned for above scheduled procedure. Current Treatment and Therapy Plans No current plan information found. Past Treatment and Therapy Plans No past plan information found. Lifetime Dose Tracking * Chemical Lifetime Dose Automatic Entry Manual Entr y Air Kerma-mGy 96.7 mGy 0 mGy 96.7 mGy Dose Area Product(DAP)-micrograys-m2 850.85 microgray-m2 0 microgray-m2 850.85 microgray-m2
--- OUTSIDE RECORDS SUMMARY | 2024-06-03 13:21 | XMS_ITS | Encounter Summary ---
Author Organization [facility], Address [address] [place] [address] Phone Care Team Providers Care Women'S Garment Fitter Name Role Phone Hansel Martinez MD Primary Care Provider [phone] Encounter Details Date Type Department Care Team (Late st Contact Info) Description 03/27/2022 Office Communication [facility], [address] [place] [id number] Marko Mojica MD [address] [place] [address] [place] [id number] Social History Tobacco Use Types Packs/Day Years [...] on filedocumented in this encounter Care Teams Women'S Garment Fitter Relationship Specialty Start Date End Date Hansel Martinez MD BELL BUCKLE MACHINE STEMMER [address] [facility] [place] PCP - General 12/16/18 documented as of this encounter
--- OUTSIDE RECORDS SUMMARY | 2024-06-03 13:21 | XMS_ITS | Encounter Summary ---
Author Organization [facility] Address [address] [place] [address] Care Team Providers Care Press Tender Incendiary Grenade Name Role Phone Hansel Martinez MD Primary Care Provider [phone] Angeles Pineda RN Unavailable [phone] Encounter Details Date Type Department Care Team (Late st Contact Info) Description 03/18/2024 Scanned Document [facility] [place] [address] [phone] Yenny Garcia MD [address] [id number] Social History Tobacco Use Types Packs/Day Years Used Date Smoking Tobacco: Never Smokeless Tobacco: Never Alcohol Use Standard Drinks/Week Comments Not Currently 0 (1 standard drink = 0.6 oz pur e alcohol) [facility] Utilities Answer Date Recorded In the past 12 months has [employer], gas, oil, or water [employer] threatened to shut off services in your [...] any time in the past 12 m [facility], were you homeless or living in a skilled nursing (including now)? No 03/14/2024 Sex and Gender [...] on filedocumented in this encounter Care Teams Press Tender Incendiary Grenade Relationship Specialty Start Date End Date Hansel Martinez MD [address] [place] [address] PCP - General Internal Medicine 01/21/24 Angeles Pineda RN [address] [place] [address] Oncology Nurse Navigator 02/11/24 documented as of this encounter
--- OUTSIDE RECORDS SUMMARY | 2024-06-03 13:21 | XMS_ITS | Clinical Summary ---
Author Organization [facility] Address [address] [place] [address] Phone Care Team Providers Care Cement Based Materials Pump Tender Name Role Phone Hansel Martinez MD Primary Care Provider [phone] Social History Tobacco Use Types Packs/Day Years [...] patient's age to complete this topic Insurance [facility] [place] [id number] Care Teams Cement Based Materials Pump Tender Relationship Specialty Start Date End Date Hansel Martinez MD [address] [place] [address] PCP - General Internal Medicine 01/30/24
--- OUTSIDE RECORDS SUMMARY | 2024-06-03 13:21 | XMS_ITS | Encounter Summary ---
Author Organization [facility], Address [address] [place] [address] Phone Care Team Providers Care Soft Shoe Dancer Name Role Phone Hansel Martinez MD Primary Care Provider [phone] Encounter Details Date Type Department Care Team (Late st Contact Info) Description 03/20/2022 Documentation Only [facility], [address] [place] [phone] Marko Mojica MD [address] [facility] [place] [phone] Social History Tobacco Use Types Packs/Day Years [...] on filedocumented in this encounter Care Teams Soft Shoe Dancer Relationship Specialty Start Date End Date [facility] CUSHION SKIVING MACHINE OPERATOR [address] [place], [place] [address] PCP - General 12/16/18 documented as of this encounter
--- OUTSIDE RECORDS SUMMARY | 2024-06-03 13:21 | XMS_ITS | Clinical Summary ---
Author Organization [facility] Address [address] [place] [address] Care Team Providers Care Wood Products Manufacturer Name Role Phone Hansel Martinez MD Primary Care Provider [phone] Angeles Pineda RN Unavailable [phone] Allergies No known active allergies Medications acetaminophen (TYLENOL) 325 MG tabletIndication s:Malignant neoplasm of urinary bladder, unspecified site (HCC) Take 3 tablets (975 mg total) by mouth Every 6 (six) to 8 (eight) hours as needed for mild pain or moderate pain. 5 Active Humira, 2 Pen, 40 MG/0.4ML pen-injector kit CITRATE FREEIndications: Malignant neoplasm of urinary bladder, unspecified site (HCC) Inject 0.4 mL (40 mg total) under the skin every 7 days. Resume taking this medication once cleared by your surgeon 1.6 mL 5 Active HYDROmorphone (DILAUDID) 4 MG tabletIndication s:Malignant neoplasm of urinary bladder, unspecified site (HCC) Take 0.5 tablets (2 mg total) by mouth every 4 (four) hours as needed for moderate pain or severe pain. Max Daily Amount: 12 mg 12 tablet 5 Active methocarbamol (ROBAXIN) 500 MG tabletIndication s:Malignant neoplasm of urinary bladder, unspecified site (HCC) Take 1 tablet (500 mg total) by mouth 3 (three) times a day as needed for muscle spasms. 15 tablet Active Active Problems Problem Noted Date Diagnosed [...] at [facility] [place]. Crohn's disease of colon with complication 02/27 Assessment & Plan (02/28/2024 11:24 AM EST): Diagnosed 1975. S/p total colectomy with a right mid quadrant ileostomy in 1979, then resected twice d/t fistulas with most recent resection of ileostomy 2019. On Grantira under the management of gastroenterology, Dr. Manny Jefferson, at [facility]. Continue plan and follow up as previously indicated by provider. Hydronephrosis 02/25/2024 Malignant neoplasm of urinary bladder 01/24/2024 Assessment & Plan (02/28/2024 11:24 AM EST): Diagnosed 01/2024. No chemo or radiation. Followed by urology. Planned for above scheduled procedure. Encounters Date Type Department Care Team Description 03/30/2024 Orders Only [facility] Colorectal Surgery [address] [phone] Eliud Rodriguez MD 03/30/2024 Scanned Document [facility] Colorectal Surgery [place] [address] [address] Eliud Rodriguez MD 03/30/2024 Scanned Document [facility] Colorectal Surgery [place] [address] [address] Eliud Rodriguez MD 03/30/2024 Scanned Document [facility] Colorectal Surgery [place] [address] [place] [address] Huong Hoang MD 03/30/2024 Scanned Document [facility] Colorectal Surgery [place] [address] [place] [address] Eliud Rodriguez MD 03/30/2024 Scanned Document [facility] Colorectal Surgery [place] [address] [place] [address] Eliud Rodriguez MD 03/30/2024 Scanned Document [facility] Colorectal Surgery [place] [address] [place] [address] Eliud Rodriguez MD 03/30/2024 Scanned Document [facility] Colorectal Surgery [place] [address] [place] [address] Jabari Vann MD 03/30/2024 Scanned Document [facility] Colorectal Surgery [place] [address] [place] [address] Eliud Rodriguez MD 03/27/2024 11:20 AM EST Office Visit [facility] Colorectal Surgery [place] [address] [place] [address] Nimisha Quintana PA Malignant neoplasm of urinary bladder, unspecified site (HCC) (Primary Dx) 03/27/2024 Travel 03/26/2024 11:30 AM EST Ancillary Procedure [facility] Radiology [address] [place] [address] Provider, File Room 03/26/2024 11:25 AM EST Ancillary Procedure [facility] Radiology [address] [place] [address] Provider, File Room 03/26/2024 11:20 AM EST Ancillary Procedure [facility] Radiology [address] [place] [address] Provider, File Room 03/26/2024 11:15 AM EST Ancillary Procedure [facility] Radiology [address] [place] [address] Provider, File Room 03/19/2024 Orders Only [facility] Colorectal Surgery [address] [place] [address] Nimisha Quintana PA Malignant neoplasm of urinary bladder, unspecified site (HCC) 03/19/2024 Telephone [facility] Colorectal Surgery [place] [address] [place] [address] Yolanda Haagn RN 03/18/2024 Scanned Document [facility] Colorectal Surgery [place] [address] [place] [address] Maia Garcia MD 03/18/2024 Orders Only [facility] Colorectal Surgery [place] [address] [place] [address] Sharyn Pang APRN Malignant neoplasm of urinary bladder, unspecified site (HCC) (Primary Dx); Hypokalemia 03/16/2024 Documentation [facility] Radiation Oncology [address] [place] [phone] Pranay Sorensen MD 03/14/2024 9:00 AM EST - 03/14/2024 11:00 AM [facility] Radiology [address] [place] [address] German Mills MD Bilateral nephrostomy tube placement 03/13/2024 10:08 AM [facility] Anesthesia [facility] Perioperative Surgical Services [address] [place] [phone] Jay Avery MD Teti, Scott, CRNA 03/13/2024 10:00 AM EST - 03/13/2024 7:00 PM [facility] Perioperative Surgical Services [address] [place] [phone] Maia Garcia MD LAPAROTOMY EXPLORATORY, CLYDE SMALL BOWEL RESECTION 03/13/2024 8:55 AM [facility] Anesthesia [facility] Perioperative Surgical Services [address] [place] [phone] Jm Chiang MD Marino, Lindsey, MD 03/13/2024 7:29 AM EST - 03/18/2024 6:08 PM EST Hospital Encounter [facility] [address] [place] [phone] Maia Garcia MD Malignant neoplasm of urinary bladder, unspecified site (HCC) (Primary Dx); Hydronephrosis Discharge Disposition: Home with Health Care Services 03/13/2024 Documentation [facility] Radiation Oncology [address] [place] [phone] Pranay Sorensen MD 03/13/2024 Travel 03/12/2024 Telephone [facility] [address] [facility] [address] [place] [phone] Issac Ramey MD 03/06/2024 Documentation [facility] Urologic Surgery [place] [address] [facility] [address] [place] [phone] Issac Ramey MD from Last 3 Months Family History Medical History Relation Name Comments Cancer, Bladder Neg Hx Cancer, Kidney Neg Hx Cancer, Prostate Neg Hx Social History Tobacco Use Types Packs/Day Years Used Date Smoking Tobacco: Never Smokeless Tobacco: Never Tobacco Cessation:Counseling Given: Not Answered Alcohol Use Standard Drinks/Week Comments Not Currently 0 (1 standard drink = 0.6 oz pur e alcohol) [facility] Utilities Answer Date Recorded In the past 12 months has [employer], [employer], oil, or water inSparq threatened to shut off services in your [...] any time in the past 12 m [facility], were you homeless or living in a nursing home (including now)? No 03/14/2024 Sex and [...] Comments XR SACRUM AND COCCYX MINIMUM 2 [id number] Routine 03/30/2024 9:[address] PELVIS [...] Routine 03/15/2024 7:01 AM EST CA 19-9 [id number] Routine 03/15/2024 7:01 AM EST PHOSPHORUS Routine [...] ABO CONFIRMATION Routine 03/13/2024 10:35 AM EST [place] CSTC COMPL W/URTROILEAL CONDUIT/BLDR W/INT ANAST 03/13/2024 9:52 AM EST Malignant neoplasm of urinary bladder, unspecified site (HCC) Special Needs *10 (DR GARCIA) 11:00 (DR RAMEY) LITHOTOMY ADAN BLOCK BRING PATIENT IN EARLY ANESTHESIA CONSULT NEEDED, APPLY CALF COMPRESSION SLEEVE IN PRE-OP AREA [place] EXPLORATORY LAPAROTOMY CELIOTOMY W/WO BIOPSY SPX 03/13/2024 [...] PATHOLOGY REPORT Routine 03/13/2024 12:00 AM EST from Last 3 Months Results * XR SACRUM AND COCCYX MINIMUM 2 [id number] (03/30/2024 9:51 AM EST) Anatomical Region Laterality Modality Other External Provider [facility] LEGACY PROCEDURES Final Result * CT Pelvis without IV contrast (03/30/2024 9:48 AM EST) Anatomical Region Laterality Modality Pelvis Computed Tomogra phy External Provider IMKimmie CT ORDERABLES Final Res ult * CT ABD AND PELVIS WITH CONTRAST (03/30/2024 9:45 AM EST) Anatomical Region Laterality Modality Other External Provider [facility] LEGACY PROCEDURES Final Result * Pathology (03/30/2024 9:40 AM EST) Only the most recent of3 resultswithin the time period is included. Tissue us External Provider PATHOLOGY/CYTOLOGY ORDERABL ES Final Result * CARLA Archive for reference only CT (03/26/2024 11:20 AM EST) Narrative JOSE CRUZ - 03/26/2024 11:15 AM EST This order has been auto-finalized and does not contain a result. us File Room Provider IMG DIGITIZE FILMS Final Resu lt Performing Organization Address [facility] de Phone Number JOSE CRUZ [phone] * CT Head Archive for Reference Only (03/26/2024 11:19 AM EST) Narrative JOSE CRUZ - 03/26/2024 11:19 AM EST This study has been auto finalized and does not contain a result. us File Room Provider IMG DIGITIZE FILMS Final Resu lt Performing Organization Address [facility] de Phone Number JOSE CRUZ [phone] * CT Abdomen Archive for Reference Only (03/26/2024 11:18 AM EST) Only the most recent of2 resultswithin the time period is included. Narrative [place] - 03/26/2024 11:18 AM EST This study has been auto finalized and does not contain a result. us File Room Provider IMG DIGITIZE FILMS Final Resu lt Performing Organization Address [facility] de Phone Number JOSE CRUZ [phone] * (ABNORMAL) Comprehensive Metabolic Panel (03/20/2024 10:34 AM EST) Glucose 103 65 - 139 mg/dL [facility] Comment: ? Non-fasting reference interval Blood Urea Nitrogen (BUN) 28(H) 7 - 25 mg/dL [facility] Creatinine 2.04(H) 0.70 - 1.35 mg/dL [facility] [employer] Creatinine w/ eGFR 36(L) > OR = 60 mL/min/1. 73m2 [facility] [employer] BUN/Creatinine Ratio 14 6 - 22 (calc) [facility] [employer] Sodium 134(L) 135 - 146 mmol/L [facility] [employer] Potassium 4.1 3.5 - 5.3 mmol/L [facility] [employer] Chloride 99 98 - 110 mmol/L [facility] [employer] CO2 27 20 - 32 mmol/L [facility] [employer] Calcium 8.1(L) 8.6 - 10.3 mg/dL [facility] Protein, Total 7.1 6.1 - 8.1 g/dL [facility] Albumin 3.7 3.6 - 5.1 g/dL [facility] Globulin 3.4 1.9 - 3.7 g/dL (calc) [facility] Albumin/Globulin Ratio 1.1 1.0 - 2.5 (calc) [facility] Bilirubin, Total 0.4 0.2 - 1.2 mg/dL [facility] Alkaline Phosphatase 74 35 - 144 U/L [facility] Aspartate Aminotrans (AST) 26 10 - 35 U/L [facility] Alanine Aminotrans (ALT) 22 9 - 46 U/L [facility] Blood 03/20/2024 10:3 4 AM EST 03/20/2024 10:35 AM EST Narrative [facility] - 03/20/2024 10:06 PM EST FASTING:NO FASTING: NO Sharyn Pang APRN LAB BLOOD ORDERABLES Final R esult Performing Organization Address [facility] Co de Phone Number [facility] [address] [place] [phone] * (ABNORMAL) Phosphorus (Routine) (03/18/2024 3:01 PM EST) Only the most recent of8 resultswithin the time period is included. Phosphorus 1.9(L) 2.7 - 4.5 mg/dL 03/18/2024 3:37 PM EST [facility] Blood (Plasma/Serum) 03/18/2024 3:01 PM EST 03/18/2024 3:06 PM EST Maia Garcia MD LAB BLOOD ORDERABLES Final Re sult Performing Organization Address [facility]/ZIP Co de Phone Number [address] [address], [address] [address] * Magnesium (Routine) (03/18/2024 3:01 PM EST) Only the most recent of8 resultswithin the time period is included. Magnesium 2.2 1.6 - 2.7 mg/dL 03/18/2024 3:37 PM [facility] Blood (Plasma/Serum) 03/18/2024 3:01 PM EST 03/18/2024 3:06 PM EST Maia Garcia MD LAB BLOOD ORDERAB[place] [address], [place] [address] * (ABNORMAL) Basic Metabolic Panel (Routine) (03/18/2024 3:01 PM EST) Only the most recent of9 resultswithin the time period is included. Glucose 109(H) 65 - 99 mg/dL 03/18/2024 3:37 PM [facility] Comment:Fasting: <100 mg/dL, Non-Fasting: <200 mg/dL (ADA 2004) Blood Urea Nitrogen (BUN) 25(H) 8 - 21 mg/dL 03/18/2024 3:37 PM [facility] Creatinine 1.9(H) 0.5 - 1.3 mg/dL 03/18/2024 3:37 PM [facility] eGFR 39(L) >59 03/18/2024 3:37 PM [facility] Comment:CKD-EPI (2020) in mL /min/1.73 sq meters. Sodium 141 136 - 145 mmol/L 03/18/2024 3:37 PM [facility] Potassium 3.7 3.4 - 5.3 mmol/L 03/18/2024 3:37 PM [facility] Chloride 105 98 - 107 mmol/L 03/18/2024 3:37 PM [facility] CO2 26 22 - 33 mmol/L 03/18/2024 3:37 PM [facility] Anion Gap 10 7 - 17 03/18/2024 3:37 PM [facility] Calcium 7.5(L) 8.7 - 10.5 mg/dL 03/18/2024 3:37 PM [facility] BUN/Creatinine Ratio 13 10.0 - 25.0 Ratio 03/18/2024 3:37 PM [facility] Blood (Plasma/Serum) 03/18/2024 3:01 PM EST 03/18/2024 3:06 PM EST Maia Garcia MD LAB BLOOD ORDERABLES Final Re sult Performing Organization Address [facility] de Phone Number [address] [address], [address] [address] * (ABNORMAL) CA 19-9 (03/15/2024 7:01 AM EST) CA 19-9 847(H) <34 U/mL 03/20/2024 7:23 AM EST [employer] [place] Comment: (NOTE) This test was performed using the Siemens chemiluminescent method. Values obtained from different assay methods cannot be used inter- changeably. CA 19-9 levels, regardless of value, should not be interpreted as absolute evidence of the presence or absence of disease. Serum specimen / Unknown 03/15/2024 7:01 AM EST 03/15/2024 7:36 AM EST Kayden Torrez MD LAB BLOOD ORDERABLES Final Result Performing Organization Address [facility] de Phone Number [place], [place] [address] [facility] [address] [address] [place], [place] , [facility], [place] [address] [facility] [address] [address] [place], [place] * (ABNORMAL) CEA (03/15/2024 7:01 AM [...] AM EST Kayden Torrez MD LAB BLOOD [place] [address], [place] [address] * IR INJECT NEPHROSTOGRAM NEW ACCESS-BILAT W/GUIDANCE (03/14/2024 10:44 AM EST) Anatomical Region Laterality Modality X-Ray Angiograph y 03/14/2024 9:34 AM EST Impressions 03/14/2024 1:26 PM EST Bilateral 10F nephrostomy tube placement. Plan: Catheter was placed to gravity bag drainage PROCEDURE SUMMARY - Target organ: Bilateral zuni kidneys - Image-guided placement of genitourinary catheter(s) [...] drainage PROCEDURE SUMMARY - Target organ: Bilateral zuni kidneys - Image-guided placement of genitourinary catheter(s) [...] Contrast injection was performed. Genitourinary catheter placed:10F [facility] locking pigtail drainage catheter Findings: Existing double-J [...] Contrast injection was performed. Genitourinary catheter placed:10F [facility] locking pigtail drainage catheter Findings: Existing double-J [...] written. German Mills MD IMG IR ORDERABLES Final Result * US Renal (03/13/2024 6:42 PM EST) Anatomical Region Laterality Modality Abdomen Ultrasound 03/13/2024 6:08 PM EST Impressions 03/13/2024 7:00 PM EST Moderate right and severe left hydroureteronephrosis. Stents are visualized within the bilateral ureters. Interpreted by: ??Karyn Bernstein MD Breakdown Man I personally reviewed the images and the [...] bilateral ureters. Interpreted by: Karyn Bernstein MD Breakdown Man I personally reviewed the images and the resident's preliminary report and AGREE with the report as it is now presented ([id number]). us Danisha Morrell MD [facility] US ORDERABLES Final Result * (ABNORMAL) Partial Thromboplastin Time (PTT) (03/13/2024 5:17 PM EST) Anticoagulant SUBCUTANEOUS UNFRACTIONATED HEPARIN 03/13/2024 4:34 PM EST [facility] Partial Thromboplastin Time (PTT) 24(L) 25 - 36 seconds 03/13/2024 6:30 PM [facility] Blood Plasma specimen / Unknown 03/13/2024 5:17 PM EST 03/13/2024 5:56 PM EST Issac Ramey MD LAB BLOOD ORDERABLES Fin al Result Performing Organization Address [facility]/[place] [address], [place] [address] * Thrombin Time (03/13/2024 5:17 PM EST) Anticoagulant SUB Q UNFRACTIONATED HEPARIN 03/13/2024 4:34 PM [facility] Thrombin Time 16.2 12.7 - 19.2 seconds 03/13/2024 6:30 PM [facility] Blood Plasma specimen / Unknown 03/13/2024 5:17 PM EST 03/13/2024 5:56 PM EST Issac Ramey MD LAB BLOOD ORDERABLES Fin al Result Performing Organization Address [facility] [place] [address], [place] [address] * Protime-INR (03/13/2024 5:17 PM EST) Anticoagulant SUB Q UNFRACTIONATED HEPARIN 03/13/2024 4:34 PM [facility] Prothrombin Time (PT) 12.3 10.0 - 13.5 seconds 03/13/2024 6:30 PM [facility] INR 1.1 03/13/2024 6:30 PM [facility] Comment:INR Therapeutic Rang es: Standard dose anticoagulant 2.0 to 3.0, High dose anticoagulant 2.5-3.5. Blood Plasma specimen / Unknown 03/13/2024 5:17 PM EST 03/13/2024 5:56 PM EST Issac Ramey MD LAB BLOOD [place]AB[place] [address], [place] [address] * Fibrinogen Level (03/13/2024 5:17 PM EST) Pathologist [facility] Fibrinogen 349 148 - 435 mg/dL 03/13/2024 6:30 PM [facility] Blood Plasma specimen / Unknown 03/13/2024 5:17 PM EST 03/13/2024 5:56 PM EST Issac Ramey MD LAB BLOOD ORDERABLES Fin al Result Performing Organization Address [facility] [place] [address], [place] [address] * (ABNORMAL) COMPLETE BLOOD COUNT, WITHOUT DIFFERENTIAL (03/13/2024 5:17 PM EST) Pathologist [facility] White Blood Cell Count 17.7(H) 4.0 - 11.0 Thou/uL 03/13/2024 6:08 PM [facility] Platelet Count 199 150 - 450 Thou/uL 03/13/2024 6:08 PM [facility] Hemoglobin 13.0 13.0 - 17.7 g/dL 03/13/2024 6:08 PM [facility] Hematocrit 36.6(L) 39.0 - 54.0 % 03/13/2024 6:08 PM [facility] Red Blood Cell Count 3.94(L) 4.50 - 6.20 Mil/uL 03/13/2024 6:08 PM [facility] MCV 93 80 - 100 fL 03/13/2024 6:08 PM [facility] MCH 33.0(H) 27.0 - 31.0 pg 03/13/2024 6:08 PM [facility] MCHC 35.5 30.0 - 36.0 g/dL 03/13/2024 6:08 PM [facility] RDW 12.1 11.5 - 14.5 % 03/13/2024 6:08 PM [facility] MPV 9.5 7.5 - 12.5 fL 03/13/2024 6:08 PM EST [facility] Blood Blood specimen / Unknown 03/13/2024 5:17 PM EST 03/13/2024 5:56 PM EST Issac Ramey MD LAB BLOOD ORDERABLES Fin al Result Performing Organization Address [facility] [place] [address], [place] [address] * (ABNORMAL) Hemoglobin and Hematocrit (03/13/2024 2:25 PM EST) Hematocrit 33.9(L) 39.0 - 54.0 % 03/13/2024 3:05 PM [facility] Hemoglobin 12.0(L) 13.0 - 17.7 g/dL 03/13/2024 3:05 PM [facility] Blood Blood specimen / Unknown 03/13/2024 2:25 PM EST 03/13/2024 2:49 PM EST Caryn London PA-C LAB BLOOD ORDERABLES Jennifer l Result Performing Organization Address [facility] [place] [address], [place] [address] * ABO Confirmation (03/13/2024 10:35 AM EST) ABO/Rh A POSITIVE 03/13/2024 12:02 PM [facility] Blood specimen / Unknown 03/13/2024 10:35 AM EST 03/13/2024 11:21 AM EST Maia Garcia MD BLOOD BANK TEST ORDERABLES Fi nal Result Performing Organization Address [facility] [place] [address], [place] [address] * ANES LINE - ARTERIAL (03/13/2024 9:46 AM EST) Kale Lowe MD - 03/13/2024 9:46 AM EST Kale Corea MD ? 03/13/2024 ??9:46 AM Anesthesia Procedure Note - Arterial Line Insertion- R radial Patient Name: Judson Jay : 1960 Patient location: pre-op Indications: Vascular access and hemodynamic monitoring Procedure diagnosis: Anesthesia Procedure Start Time: 03/13/2024 9:26 AM Procedure End Time: 03/13/2024 9:38 AM Performed by: Resident/ARTERIAL EMBALMER ? Jay Avery MD ? Kale Corea [...] placed under dressing) Additional Comments: Well tolerated. us Jay Avery MD [place] ANESTHESIA Final Result * Block - Other (03/13/2024 9:37 AM EST) Farhana Hurtado MD - 03/13/2024 9:37 AM EST Farhana Billings MD ? 03/13/2024 ??9:38 AM Anesthesia Procedure Note - Block Procedure Patient Name: Judson Jay : 1960 Patient location: pre-op Reason for block: post-op pain management Procedure diagnosis: Post-operative pain Procedure Start Time: 03/13/2024 8:56 AM Procedure End Time: 03/13/2024 9:07 AM Performed by: Anesthesiologist and Resident/ARTERIAL EMBALMER ? Jm Chiang MD ? Farhana Billings [...] procedure well, no complications. Jm Chiang MD [place] ANESTHESIA Final Result from Last 3 Months Insurance R Advance Directives * Full Code (Latest Code Status on File) Date Activated Date Inactivated Comments 03/13/2024 5:14 PM * Full Code Date Activated Date Inactivated Comments 03/13/2024 7:50 AM 03/13/2024 5:14 PM Healthcare Agents on File Name Relationship Healthcare Agent Relationshi p Communication vickey Jay Spouse 4. Next of Kin ( Spouse, Adult Child, Parent, Adult Sibling, Grandparent) Care Teams Wood Products Manufacturer Relationship Specialty Start Date End Date Hansel Martinez MD [address] [place] [address] PCP - General Internal Medicine 01/21/24 Angeles Pineda RN [address] [place] [phone] Oncology Nurse Navigator 02/11/24
--- OUTSIDE RECORDS SUMMARY | 2024-06-03 13:21 | XMS_ITS | Encounter Summary ---
Author Organization [facility] Address [address] [place] [address] Care Team Providers Care [employer]iconductor Packages Tester Name Role Phone Hansel Martinez MD Primary Care Provider CarrierAngeles RN Unavailable [phone] Encounter Details Date Type Department Care Team (Late st Contact Info) Description 03/30/2024 Scanned Document [facility] Colorectal Surgery [place] [address] [facility] [address] [place] [address] Provider, MD Eliud [address] [place] [address] Social History Tobacco Use Types Packs/Day Years Used Date Smoking Tobacco: Never Smokeless Tobacco: Never Alcohol Use Standard Drinks/Week Comments Not Currently 0 (1 standard drink = 0.6 oz pur e alcohol) [facility] Utilities Answer Date Recorded In the past 12 months has [employer] electric, gas, oil, or water company [...] any time in the past 12 m [facility], were you homeless or living [...] on filedocumented in this encounter Care Teams Semiconductor Packages Tester Relationship Specialty Start Date End Date Hansel Martinez MD [address] [place] [address] PCP - General Internal Medicine 01/21/24 Angeles Pineda RN [address] [place] [address] Oncology Nurse Navigator 02/11/24 documented as of this encounter
--- OUTSIDE RECORDS SUMMARY | 2024-06-03 13:21 | XMS_ITS | Encounter Summary ---
Author Organization [facility] Address [address] [place] [address] Care Team Providers Care Digital Media Designer Name Role Phone Hansel Martinez MD Primary Care Provider [phone] Angeles Pineda RN Unavailable [phone] Reason for Visit * Reason Comments Appointment Encounter Details Date Type Department Care Team (Late st Contact Info) Description 01/21/2024 Telephone [facility] Urologic Surgery [address] [place] [address] Provider, Generic Appointment Social History Tobacco [...] would like patient to be seen before C hristmas. Informed him we are holding an spot for him for Saturday and that I will pass the message to Dr. Driscoll. Spoke with Marie Ying medical staffing coordinator and they will fax the records today. documented in this encounter Plan of Treatment Not on file documented as of this encounter Visit Diagnoses Not on filedocumented in this encounter Care Teams Digital Media Designer Relationship Specialty Start Date End Date Hansel Martinez MD [address] [place] [address] PCP - General Internal Medicine 01/21/24 Angeles Pineda RN [address] [place] [address] Oncology Nurse Navigator 02/11/24 documented as of this encounter
--- OUTSIDE RECORDS SUMMARY | 2024-06-03 13:21 | XMS_ITS | Encounter Summary ---
Author Organization [facility], Address [address] [place] [address] Phone Care Team Providers Care Lockstitch Tunnel Elastic Operator Name Role Phone Hansel Martinez MD Primary Care Provider [phone] Encounter Details Date Type Department Care Team (Late st Contact Info) Description 06/05/2022 Documentation Only [facility], [address] [place] [phone] Marko Mojica MD [address] [facility] [address] [place] [phone] Social History Tobacco Use Types Packs/Day Years [...] filedocumented in this encounter Care Teams Lockstitch Tunnel Elastic Operator Relationship Specialty Start Date End Date Hansel Martinez MD [facility] GUEST RELATIONS MANAGER [address] [place], [place] [address] PCP - General 12/16/18 documented as of this encounter
--- OUTSIDE RECORDS SUMMARY | 2024-06-03 13:21 | XMS_ITS | Encounter Summary ---
Author Organization [facility], Address [address] [place] [address] Phone Care Team Providers Care Agency Recruiter Name Role Phone Hansel Martinez MD Primary Care Provider [phone] Encounter Details Date Type Department Care Team (Late st Contact Info) Description 06/12/2022 Documentation Only [facility], [address] [place] [phone] Marko Mojica MD [address] [facility] [address] [place] [phone] Social History Tobacco Use Types Packs/Day Years [...] on filedocumented in this encounter Care Teams Agency Recruiter Relationship Specialty Start Date End Date Hansel Martinez MD [facility] [address] [place], [place] [address] PCP - General 12/16/18 documented as of this encounter
--- OUTSIDE RECORDS SUMMARY | 2024-06-03 13:21 | XMS_ITS | Clinical Summary ---
Author Organization [facility], Address [address] [place] [address] [address] [place] [address] Phone Care Team Providers Care Gl Accountant Name Role Phone Hansel Martinez MD Primary Care Provider [phone] Allergies No known active allergies Medications adalimumab [...] patient's age to complete this topic Insurance [facility] Care Teams Gl Accountant Relationship Specialty Start Date End Date Hansel Martinez MD AMHERST COFFEE ATTENDANT [address] [place] [address] PCP - General 12/16/18
--- OUTSIDE RECORDS SUMMARY | 2024-06-03 13:21 | XMS_ITS | Encounter Summary ---
Author Organization [facility], Address [address] [place] [address] Phone Care Team Providers Care Ballast Cleaning Machine Operator Name Role Phone Hansel Martinez MD Primary Care Provider [phone] Encounter Details Date Type Department Care Team (Late st Contact Info) Description 06/07/2020 Orders Only [facility] [address] [facility] [place] [address] Marko Mojica MD [address] [place], [place] [address]Carlos [facility] [place] [phone] Social History Tobacco Use Types Packs/Day Years [...] on filedocumented in this encounter Care Teams Ballast Cleaning Machine Operator Relationship Specialty Start Date End Date Hansel Martinez MD [place] [place] BENDING SHED WORKER [address] [place] [address] [address] [facility] PCP - General 12/16/18 documented as of this encounter
--- OUTSIDE RECORDS SUMMARY | 2024-06-03 13:21 | XMS_ITS | Encounter Summary ---
Author Organization [facility], Address [address] [place] [address] Phone Care Team Providers Care Coding Clerk Name Role Phone Hansel Martinez MD Primary Care Provider [phone] Encounter Details Date Type Department Care Team (Late st Contact Info) Description 04/13/2022 Documentation Only [facility], [address] [place] [address] [place], [place] [address] [place] [address] Social History Tobacco Use Types [...] on filedocumented in this encounter Care Teams Coding Clerk Relationship Specialty Start Date End Date Hansel Martinez MD [employer] SOIL CONSERVATIONIST [address] [place] [address] PCP - General 12/16/18 documented as of this encounter
--- OUTSIDE RECORDS SUMMARY | 2024-06-03 13:21 | XMS_ITS | Encounter Summary ---
Author Organization [facility], Address [address] [place] [address] Phone Care Team Providers Care Environmental Health Physician Name Role Phone Hansel Martinez MD Primary Care Provider [phone] Encounter Details Date Type Department Care Team (Late st Contact Info) Description 07/12/2022 Documentation Only [facility], [address] [place] [phone] Marko Mojica MD [address] [facility] [address] [place] [phone] Social History Tobacco Use Types Packs/Day Years [...] on filedocumented in this encounter Care Teams Environmental Health Physician Relationship Specialty Start Date End Date Hansel Martinez MD [facility] PUMP ERECTOR [address] [place], [place] [address] PCP - General 12/16/18 documented as of this encounter
--- OUTSIDE RECORDS SUMMARY | 2024-06-03 13:21 | XMS_ITS | Encounter Summary ---
Author Organization [facility], Address [address] [place] [address] Phone Care Team Providers Care Billet Checker Name Role Phone Hansel Martinez MD Primary Care Provider [phone] Encounter Details Date Type Department Care Team (Late st Contact Info) Description 03/27/2022 Office Communication [facility], [address] [place] [phone] Marko Mojica MD [address] [place] [phone] Social History Tobacco Use Types Packs/Day Years [...] on filedocumented in this encounter Care Teams Billet Checker Relationship Specialty Start Date End Date Hansel Martinez MD [facility] SOCIOLOGY ADJUNCT INSTRUCTOR [address] [place], [place] [address] PCP - General 12/16/18 documented as of this encounter
--- OUTSIDE RECORDS SUMMARY | 2024-06-03 13:21 | XMS_ITS | Encounter Summary ---
Author Organization [facility] Address [address] [place] [address] Care Team Providers Care Chair Car Driver Name Role Phone Hansel Martinez MD Primary Care Provider [phone] CarrierAngeles RN Unavailable [phone] Encounter Details Date Type Department Care Team (Late st Contact Info) Description 03/30/2024 Scanned Document [facility] Colorectal Surgery [place] [address] [place] [facility] [address] [place] [address] Provider, MD Eliud [address] [place] [address] Social History Tobacco Use Types Packs/Day Years Used Date Smoking Tobacco: Never Smokeless Tobacco: Never Alcohol Use Standard Drinks/Week Comments Not Currently 0 (1 standard drink = 0.6 oz pur e alcohol) [facility] Utilities Answer Date Recorded In the past 12 months has [employer] electric, gas, oil, or water company threatened [...] any time in the past 12 m [facility], were you homeless or living in a long term (including now)? No 03/14/2024 Sex and Gender [...] on filedocumented in this encounter Care Teams Chair Car Driver Relationship Specialty Start Date End Date Hansel Martinez MD [address] [place] [address] PCP - General Internal Medicine 01/21/24 Angeles Pineda RN [address] [place] [address] Oncology Nurse Navigator 02/11/24 documented as of this encounter
--- OUTSIDE RECORDS SUMMARY | 2024-06-03 13:21 | XMS_ITS | Encounter Summary ---
Author Organization [facility] Address [address] [place] [address] Care Team Providers Care Turntable Worker Name Role Phone Hansel Martinez MD Primary Care Provider [phone] CarrierAngeles RN Unavailable [phone] Encounter Details Date Type Department Care Team (Late st Contact Info) Description 03/30/2024 Scanned Document [facility] Colorectal Surgery [place] [address] [facility] [address] [place] [address] Provider, MD Eliud [address] [place] [address] Social History Tobacco Use Types Packs/Day Years Used Date Smoking Tobacco: Never Smokeless Tobacco: Never Alcohol Use Standard Drinks/Week Comments Not Currently 0 (1 standard drink = 0.6 oz pur e alcohol) [facility] Utilities Answer Date Recorded In the past 12 months has [employer] electric, gas, oil, or water company threatened [...] any time in the past 12 m [facility], were you homeless or living in [...] on filedocumented in this encounter Care Teams Turntable Worker Relationship Specialty Start Date End Date Hansel Martinez MD [address] [place] [address] PCP - General Internal Medicine 01/21/24 Angeles Pineda RN [address] [place] [address] Oncology Nurse Navigator 02/11/24 documented as of this encounter
--- OUTSIDE RECORDS SUMMARY | 2024-06-03 13:21 | XMS_ITS | Clinical Summary ---
Author Organization [facility] [place] [facility] Address [address] [place] [address] Care Team Providers Care Space Sciences Director Name Role Phone Unavailable Primary Care Provider [...]
--- OUTSIDE RECORDS SUMMARY | 2024-06-03 13:21 | XMS_ITS | Encounter Summary ---
Author Organization [facility] Address [address] [place] [address] Care Team Providers Care Die Maintenance Technician Name Role Phone Hansel Martinez MD Primary Care Provider [phone] CarrierAngeles RN Unavailable [phone] Encounter Details Date Type Department Care Team (Late st Contact Info) Description 03/30/2024 Scanned Document [facility] Colorectal Surgery [place] [address] [place] [facility] [address] [place] [address] Provider, MD Eliud [address] [place] [address] Social History Tobacco Use Types Packs/Day Years Used Date Smoking Tobacco: Never Smokeless Tobacco: Never Alcohol Use Standard Drinks/Week Comments Not Currently 0 (1 standard drink = 0.6 oz pur e alcohol) [facility] Utilities Answer Date Recorded In the past 12 months has [employer] electric, gas, oil, or water company threatened [...] any time in the past 12 m [facility], were you homeless or living in a [...] on filedocumented in this encounter Care Teams Die Maintenance Technician Relationship Specialty Start Date End Date Hansel Martinez MD [address] [place] [address] PCP - General Internal Medicine 01/21/24 Angeles Pineda RN [address] [place] [address] Oncology Nurse Navigator 02/11/24 documented as of this encounter
== END 2024-06-03 12:01 | disposition home or self-care (01) ==
LOC: HO.HUSH 11:04
PROVIDERS: PCP Internal Medicine; Visit Provider Urology
DX: N20.0 Calculus of kidney (principal)
CPT/HCPCS: 99214

== ENCOUNTER → 2024-06-03 11:03 | Outpatient (BNVA) | payer OTHER, SELFPAY | PROVIDERS: PCP Internal Medicine; Visit Provider Urology ==

== ENCOUNTER 2024-06-24 21:19 | Emergency (ER) | payer OTHER, SELFPAY ==
--- NOTE | ~2024-06-24 | CT_ITS ---
CLINICAL HISTORY: Left flank pain with history of ureteric stent CT Abdomen and Pelvis WO Contrast COMPARISON: CT/SR - CT ABDOMEN PELVIS WO IV CON - 05/25/24 04:14 EDT FINDINGS: Patchy left lower lobe infiltrate. Normal liver. Normal spleen. Bilateral percutaneous nephrostomy tubes with pigtails in the bilateral renal collecting systems. Bilateral nephroureteral stents in place with proximal pigtails in the renal collecting systems and distal portions in the bladder. Severe left and mild right hydronephrosis. Moderate left ureterectasis. Nonobstructing left renal calculus. Nonspecific left perinephric fat stranding. Normal adrenal glands. Normal pancreas. Cholelithiasis. No CT evidence of acute cholecystitis. No biliary dilation. Status post colectomy. Right lower quadrant ostomy appears patent. Similar fluid-filled rectal stump. Surgically absent appendix. Mild diffuse bladder wall thickening. Enlarged prostate. No ascites. No pneumoperitoneum. No lymphadenopathy. No acute fracture. Degenerative changes in the spine. No abdominal aortic aneurysm. IMPRESSION: Bilateral percutaneous nephrostomy tubes and nephroureteral stents in place. Severe left and mild right hydronephrosis and moderate left ureterectasis. Possible cystitis. Left lower lobe infiltrate. Nonemergent/incidental findings above. This document has been electronically signed by: Zenon Renee MD on 06/25/2024 00:04:51
--- NOTE | ~2024-06-24 | IR_ITS ---
EXAMINATION: Left nephrostogram. CLINICAL INDICATION: Obstructed left nephrostomy tube with significant pain since last night. TECHNIQUE: Following explaining left nephrostogram and exchange of the catheter is not patent, procedure, benefits and risk were obtained. Patient was placed prone on IR table and area on the left nephrostomy catheter was cleaned and draped in usual sterile manner. The nephrostomy catheter was exposed and 5 to 10 mL of fluid was injected. The catheter seems to be open. Subsequently 5 to 10 mL of nonionic contrast injected and images obtained. The catheter is widely patent. The pelvicalyceal system is well-opacified and appears unremarkable. Patient has a previously placed left ureteral stent. Patient targeted procedure extremely well. No conscious sedation was utilized. FINDINGS/ IR/IR nephrostogram IMPRESSION: The existing left nephrostomy catheter is widely patent. No exchange was performed. Sterile dressing applied post procedure. No conscious sedation utilized. Fluoroscopy time: 0.2 minutes. Dose: 4.3 mGy/mGy. Electronically signed by: Tyson Carson MD 06/25/2024 02:20 PM EDT
[2024-06-24 21:42] VITALS: BP 154/97; PULSE 99; RESP 24; TEMP 36.9; O2SAT 97; BMI 25.8
--- NOTE | 2024-06-24 21:52 | ED.MALEGU ---
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, prostate cancer and rectal CA, nephrolithiasis comes here for sudden onset of left flank pain with nausea just an hours prior to arrival patient is supposed to get stent replacement next month no fever no chills no hematuria Related Data Home Medications ?Medication ?Instructions ?Recorded ?Confirmed adalimumab-atto 40 mg/0.4 mL 40 mg subcut WE@1000 05/25/24 05/25/24 subcutaneous auto-injector (Amjevita(CF) Autoinjector) hydromorphone 4 mg tablet 2 mg PO Q6H PRN Breakthrough Pain, 05/25/24 05/25/24 Moderate methocarbamol 500 mg tablet 500 mg PO TID 05/25/24 05/25/24 morphine 30 mg tablet,extended 30 mg PO BID 05/25/24 05/25/24 release ondansetron 4 mg disintegrating 4 mg PO Q6H PRN nausea induced by 05/25/24 05/25/24 tablet chemo prochlorperazine maleate 10 mg 10 mg PO Q6H PRN nausea induced 05/25/24 05/25/24 tablet from chemo Previous Rx's ?Medication ?Instructions ?Recorded vancomycin 125 mg capsule 125 mg PO QID #72 caps 05/27/24 Allergies Allergy/AdvReac Type Severity Reaction Status Date / Time No Known Allergies Allergy Verified 06/24/24 21:46 Review of Systems Review of Systems: Yes all other systems are reviewed and are negative [facility] Past Medical History Medical History Bladder mass Family history of adverse response to anesthesia in father Renal calculus Colostomy in place Kidney disease Crohn's disease Surgical History H/O colonoscopy Hx of cystoscopy History of ileostomy Family History Family History Father Colon cancer Social History Social History Household Members: Spouse Housing: House Are you a primary daycare teacher to a significant other at home: No Do you presently have visiting nurse or other home services: No Alcohol intake: current Alcohol intake frequency: holidays/special occasions only Patient Tobacco Use Status: Never used Tobacco Smoked in Last 30 Days: No Second Hand Smoke Exposure: No Use of substances other than those prescribed or required for medical reasons: No Advance Directives: No Advance Directives Information Provided: No service: No Current occupational status: employed 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, right handed Physical Exam Vital Signs: Vital Signs: Last Vital Signs Temp 98 F 06/25/24 00:18 Pulse 98 06/25/24 00:18 Resp 20 06/25/24 00:18 BP 163/104 H 06/25/24 00:18 Pulse Ox 97 06/25/24 00:18 O2 Del Method Room Air 06/25/24 00:18 BMI result Body Mass Index 25.8 Appearance: Alert. Oriented X3. in Moderate distress Eyes: PERRLA, No Nystagmus ENT: Pharynx normal. Oral Mucosa moist Neck: Normal inspection. Neck supple. CVS: Normal heart rate and rhythm. Pulses normal. Respiratory: No respiratory distress. Equal air entry bilateral, no wheezing/rales/rhonchi Abdomen: Soft and nontender. Bowel sounds are present, no mass palpable, L CVA tenderness Skin: Skin warm and dry. Normal skin color. Normal skin turgor. Extremities: No lower extremity edema. No calf tenderness Neuro: Oriented X 3. No motor deficit. Medications Administered Discontinued Medications Generic Name Dose Route Start Last Admin Trade Name Freq PRN Reason Stop Dose Admin Ceftriaxone Sodium 1 gm 06/25/24 00:31 06/25/24 01:17 Ceftriaxone Sodium 1 Gm Vial IVPUSH 06/25/24 00:32 1 gm ONCE ONE Administration Hydromorphone HCl 2 mg 06/24/24 22:30 06/24/24 22:33 Hydromorphone Hcl 2 Mg/Ml Vial IVPUSH 06/24/24 22:31 2 mg ONCE ONE Administration Protocol Hydromorphone HCl 1 mg 06/24/24 23:56 06/25/24 00:17 Hydromorphone Hcl 1 Mg/Ml Syringe IVPUSH 06/24/24 23:57 1 mg ONCE ONE Administration Protocol Sodium Chloride 1,000 mls @ 999 mls/hr 06/24/24 21:55 06/24/24 23:20 Ns IV 06/24/24 22:55 Infused .Q1H1M ONE Infusion Ketorolac Tromethamine 30 mg 06/25/24 00:34 06/25/24 00:51 Ketorolac Tromethamine 30 Mg/Ml Vial IVPUSH 06/25/24 00:35 30 mg ONCE ONE Administration Morphine Sulfate 4 mg 06/24/24 21:55 06/24/24 22:08 Morphine Sulfate 4 Mg/Ml Cartridge IVPUSH 06/24/24 21:56 4 mg ONCE ONE Administration Protocol Morphine Sulfate 4 mg 06/25/24 00:34 06/25/24 00:52 Morphine Sulfate 4 Mg/Ml Cartridge IVPUSH 06/25/24 00:35 4 mg ONCE ONE Administration Protocol Ondansetron HCl 4 mg 06/24/24 21:55 06/24/24 22:08 Ondansetron Hcl 4 Mg/2 Ml Vial IVPUSH 06/24/24 21:56 4 mg ONCE ONE Administration Ondansetron HCl 4 mg 06/24/24 22:54 06/24/24 23:27 Ondansetron Hcl 4 Mg/2 Ml Vial IVPUSH 06/24/24 22:55 4 mg ONCE ONE Administration Medical Decision Making Medical Decision Making [facility] Narrative: 61 years old with 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 Ying urologist urine shows nitrite positive on leuko esterase positive will start on Rocephin Differential Diagnosis Differential Diagnoses: The differential diagnosis associated with the presentation includes Obstructive uropathy/pyelonephritis/clogged ureteric stent Consult Healthcare Provider Management of the patient was discussed with: Technical Manager [employer] Dr. Ying will come in a.m. and re-evaluate Lab Data [facility] Lab Attestation statement: I reviewed the patient's lab results. 06/24/24 22:11 06/24/24 22:11 Labs: Lab Results 06/24/24 06/24/24 Range/Units 22:11 23:50 WBC 8.8 (4.8-10.8) X10*3/uL RBC 3.73 L (4.60-5.80) X10*6/uL Hgb 11.6 L (14.0-18.0) g/dl Hct 34.8 L (42.0-52.0) % MCV 93.3 (80.0-98.0) fL MCH 31.1 (27.0-33.0) pg MCHC 33.3 (31.0-36.0) g/dl RDW 14.3 (11.0-16.0) % Plt Count 224 (160-400) X10*3/uL MPV 8.9 L (9.4-12.4) fL Immature Gran % (Auto) 0.3 (0.0-0.4) % Neut % (Auto) 56.9 (45-73) % Lymph % (Auto) 34.2 (20-40) % [place] % (Auto) 6.0 (2-11) % Eos % (Auto) 2.5 (0-4) % Baso % (Auto) 0.1 (0-2) % Lymph # (Auto) 3.0 (1.2-4.9) X10*3/uL [place] # (Auto) 0.5 (0.1-1.2) X10*3/uL Eos # (Auto) 0.2 (0.0-0.4) X10*3/uL Baso # (Auto) 0.0 (0.0-0.2) X10*3/uL Abs Immat Gran (auto) 0.03 (0.00-0.03) X10*3/uL Absolute Neuts (auto) 5.0 (2.0-8.3) x10*3/uL Absolute Nucleated RBC 0.000 (0.0-0.012) X10*3/uL Nucleated RBC % (auto) 0.0 (0.0-0.2) /100WBC Sodium 143 (135-145) mmol/L Potassium 4.1 (3.3-5.1) mmol/L Chloride 109 H (96-108) mmol/L Carbon Dioxide 22 (22-29) mmol/L Anion Gap 16 (12-20) BUN 29 H (9-16) mg/dL Creatinine 1.85 H (0.5-1.4) mg/dL Estim Creat Clear Calc 40.8 Estimated GFR 37 Random Glucose 124 H (60-115) mg/dL Calcium 8.4 (8.4-10.2) mg/dL Total Bilirubin 0.2 (0.0-1.0) mg/dL AST 31 (5-37) U/L ALT 30 (0-40) U/L Alkaline Phosphatase 105 (39-117) U/L Total Protein 7.6 (6.5-8.0) g/dL Albumin 3.4 L (3.5-5.0) g/dL Lipase 17 (8-78) U/L Urine Color Yellow Urine Appearance Cloudy Urine pH 5.5 (5.0-9.0) Ur Specific [place] 1.015 (1.005-1.025) Urine Protein 100 (2+) H (Neg-Trace) mg/dL Urine Glucose (UA) Negative (Negative) mg/dL Urine Ketones Negative (Negative) mg/dL Urine Blood Moderate (2+) H (Negative) Urine Nitrite Positive H (Negative) Ur Leukocyte Esterase Large (3+) H (Negative) Urine RBC 6-10 H (0-2) /HPF Urine WBC 11-20 (0-5) /HPF Urine WBC Clumps Present Ur Squamous Epith Cells 0-2 (0-2) /HPF Urine Bacteria Trace (None Seen) Hyaline Casts 0-2 (0-2) /LPF Urine Yeast Present Independent Interpretation I performed an independent interpretation of an: CT Scan Radiology Impression Discussion of test interpretation with radiology: I have reviewed the radiologist's reading. Radiologist Impression: [address] [address] [address] Scan Report Signed Patient: Sarbjit Jay MR#: [id number] : 1960 Acct:[id number] Age/Sex: 64 / M ADM Date: 06/24/24 Loc: .ED Attending Dr: Ordering Physician: Venu Nava MD Date of Service: 06/24/24 Procedure(s): CT abdomen pelvis wo IV con Accession Number(s): [id number] cc: COLT SIMPSON MD; Venu Nava MD~ Report Number: [id number]: Total DLP = 604.00 mGy-cm CLINICAL HISTORY: Left flank pain with history of ureteric stent CT Abdomen and Pelvis WO Contrast COMPARISON: CT/SR - CT ABDOMEN PELVIS WO IV CON - 05/25/24 04:14 EDT FINDINGS: Patchy left lower lobe infiltrate. Normal liver. Normal spleen. Bilateral percutaneous nephrostomy tubes with pigtails in the bilateral renal collecting systems. Bilateral nephroureteral stents in place with proximal pigtails in the renal collecting systems and distal portions in the bladder. Severe left and mild right hydronephrosis. Moderate left ureterectasis. Nonobstructing left renal calculus. Nonspecific left perinephric fat stranding. Normal adrenal glands. Normal pancreas. Cholelithiasis. No CT evidence of acute cholecystitis. No biliary dilation. Status post colectomy. Right lower quadrant ostomy appears patent. Similar fluid-filled rectal stump. Surgically absent appendix. Mild diffuse bladder wall thickening. Enlarged prostate. No ascites. No pneumoperitoneum. No lymphadenopathy. No acute fracture. Degenerative changes in the spine. No abdominal aortic aneurysm. IMPRESSION: Bilateral percutaneous nephrostomy tubes and nephroureteral stents in place. Severe left and mild right hydronephrosis and moderate left ureterectasis. Possible cystitis. Left lower lobe infiltrate. Nonemergent/incidental findings above. This document has been electronically signed by: Zenon Renee MD on 06/25/2024 00:04:51 Discharge Plan Discharge Clinical Impression: Acute unilateral obstructive uropathy, Urinary tract infection Patient Disposition: Still a Patient Prescriptions: No Action methocarbamol 500 mg Tablet 500 mg PO TID morphine 30 mg tablet extended release 30 mg PO BID Amjevita(CF) Autoinjector 40 mg/0.4 mL auto-injector 40 mg SUBCUT WE@1000 prochlorperazine maleate 10 mg Tablet 10 mg PO Q6H PRN (Reason: nausea induced from chemo) ondansetron 4 mg Tablet,Disintegrating 4 mg PO Q6H PRN (Reason: nausea induced by chemo) hydromorphone 4 mg Tablet 2 mg PO Q6H PRN (Reason: Breakthrough Pain, Moderate) vancomycin 125 mg Capsule 125 mg PO QID Qty: 72 0RF Rx Instructions: po Vancomycin 125 qid for 8 days,125 tid for a week,125 bid for a week,125 daily for a week and then 125 mg every ,,Saturday. Would keep on ,, Print Language: Luxembourgish
--- OUTSIDE RECORDS SUMMARY | 2024-06-24 21:54 | XMS_ITS | Encounter Summary ---
Author Organization [facility] Address [address] [place] [address] Care Team Providers Care Row Boss Name Role Phone Hansel Martinez MD Primary Care Provider [phone] CarrierAngeles RN Unavailable [phone] Encounter Details Date Type Department Care Team (Late st Contact Info) Description 03/30/2024 Scanned Document [facility] Colorectal Surgery [place] [address] [facility] [address] [place] [address] Provider, MD Eliud [address] [place] [address] Social History Tobacco Use Types Packs/Day Years Used Date Smoking Tobacco: Never Smokeless Tobacco: Never Alcohol Use Standard Drinks/Week Comments Not Currently 0 (1 standard drink = 0.6 oz pur e alcohol) [facility] Utilities Answer Date Recorded In the past 12 months has [employer] electric, gas, oil, or water company threatened [...] any time in the past [address] [facility], were you homeless or living in a assisted (including now)? No 03/14/2024 Sex and Gender [...] on filedocumented in this encounter Care Teams Row Boss Relationship Specialty Start Date End Date Hansel Martinez MD [address] [place] [address] PCP - General Internal Medicine 01/21/24 Angeles Pineda RN [address] [place] [address] Oncology Nurse Navigator 02/11/24 documented as of this encounter
--- OUTSIDE RECORDS SUMMARY | 2024-06-24 21:54 | XMS_ITS | Encounter Summary ---
Author Organization [facility] Address [address] [place] [address] Care Team Providers Care Pastrycook Name Role Phone Hansel Martinez MD Primary Care Provider [phone] CarrierAngeles RN Unavailable [phone] Encounter Details Date Type Department Care Team (Late st Contact Info) Description 03/30/2024 Scanned Document [facility] Colorectal Surgery [place] [address] [place] [facility] [address] [place] [address] Provider, MD Eliud [address] [place] [address] Social History Tobacco Use Types Packs/Day Years Used Date Smoking Tobacco: Never Smokeless Tobacco: Never Alcohol Use Standard Drinks/Week Comments Not Currently 0 (1 standard drink = 0.6 oz pur e alcohol) [facility] Utilities Answer Date Recorded In the past 12 months has [employer] electric, gas, oil, or water company threatened [...] any time in the past 12 m [facility], were you homeless or living in a alf (including now)? No 03/14/2024 Sex and Gender [...] on filedocumented in this encounter Care Teams Pastrycook Relationship Specialty Start Date End Date Hansel Martinez MD [address] [place] [address] PCP - General Internal Medicine 01/21/24 Angeles Pineda RN [address] [place] [address] Oncology Nurse Navigator 02/11/24 documented as of this encounter
--- OUTSIDE RECORDS SUMMARY | 2024-06-24 21:54 | XMS_ITS | Encounter Summary ---
Author Organization [facility] Address [address] [place] [address] Care Team Providers Care Iron Worker Foreman Name Role Phone Hansel Martinez MD Primary Care Provider [phone] Angeles Pineda RN Unavailable [phone] Encounter Details Date Type Department Care Team (Late st Contact Info) Description 03/30/2024 Scanned Document [facility] Colorectal Surgery [place] 85 [facility] [address] [place] [phone] Huong Hoang MD Medical [facility] [address] [place] [address] Social History Tobacco Use Types Packs/Day Years Used Date Smoking Tobacco: Never Smokeless Tobacco: Never Alcohol Use Standard Drinks/Week Comments Not Currently 0 (1 standard drink = 0.6 oz pur e alcohol) [facility] Utilities Answer Date Recorded In the past 12 months has [employer] electric, gas, oil, or water company threatened [...] any time in the past 12 m [facility], were you homeless or living [...] on filedocumented in this encounter Care Teams Iron Worker Foreman Relationship Specialty Start Date End Date Hansel Martinez MD [address] [place] [address] PCP - General Internal Medicine 01/21/24 Angeles Pineda RN [address] [place] [address] Oncology Nurse Navigator 02/11/24 documented as of this encounter
--- OUTSIDE RECORDS SUMMARY | 2024-06-24 21:54 | XMS_ITS | Encounter Summary ---
Author Organization [facility] Address [address] [place] [address] Care Team Providers Care On Site Nurse Name Role Phone Hansel Martinez MD Primary Care Provider CarrierAngeles RN Unavailable [phone] Encounter Details Date Type Department Care Team (Late st Contact Info) Description 03/30/2024 Scanned Document [facility] Colorectal Surgery [place] [address] [place] [facility] [address] [place] [address] Provider, MD Eliud [address] [place] [address] Social History Tobacco Use Types Packs/Day Years Used Date Smoking Tobacco: Never Smokeless Tobacco: Never Alcohol Use Standard Drinks/Week Comments Not Currently 0 (1 standard drink = 0.6 oz pur e alcohol) [facility] Utilities Answer Date Recorded In the past 12 months has [employer] electric, gas, oil, or water company threatened [...] time in the past 12 m [facility], were you homeless or living in a [...] on filedocumented in this encounter Care Teams On Site Nurse Relationship Specialty Start Date End Date Hansel Martinez MD [address] [place] [address] PCP - General Internal Medicine 01/21/24 Angeles Pineda RN [address] [place] [address] Oncology Nurse Navigator 02/11/24 documented as of this encounter
--- OUTSIDE RECORDS SUMMARY | 2024-06-24 21:54 | XMS_ITS | Encounter Summary ---
Author Organization [facility] Address [address] [place] [address] Care Team Providers Care Textiles And Clothing Teacher Name Role Phone Hansel Martinez MD Primary Care Provider [phone] CarrierAngeles RN Unavailable [phone] Encounter Details Date Type Department Care Team (Late st Contact Info) Description 03/30/2024 Scanned Document [facility] Colorectal Surgery [place] [address] [facility] [address] [place] [address] Provider, MD Eliud [address] [place] [address] Social History Tobacco Use Types Packs/Day Years Used Date Smoking Tobacco: Never Smokeless Tobacco: Never Alcohol Use Standard Drinks/Week Comments Not Currently 0 (1 standard drink = 0.6 oz pur e alcohol) [facility] Utilities Answer Date Recorded In the past 12 months has [employer] electric, gas, oil, or water company threatened [...] time in the past 12 m [facility], were you homeless or living in a retirement (including now)? No 03/14/2024 Sex and Gender [...] on filedocumented in this encounter Care Teams Textiles And Clothing Teacher Relationship Specialty Start Date End Date Hansel Martinez MD [address] [place] [address] PCP - General Internal Medicine 01/21/24 Angeles Pineda RN [address] [place] [address] Oncology Nurse Navigator 02/11/24 documented as of this encounter
--- OUTSIDE RECORDS SUMMARY | 2024-06-24 21:54 | XMS_ITS | Encounter Summary ---
Author Organization [facility] Address [address] [place] [address] Care Team Providers Care Amphibious Operations Officer Name Role Phone Hansel Martinez MD Primary Care Provider [phone] CarrierAngeles RN Unavailable [phone] Encounter Details Date Type Department Care Team (Late st Contact Info) Description 03/30/2024 Scanned Document [facility] Colorectal Surgery [place] [address] [facility] [address] [place] [address] Provider, MD Eliud [address] [place] [address] Social History Tobacco Use Types Packs/Day Years Used Date Smoking Tobacco: Never Smokeless Tobacco: Never Alcohol Use Standard Drinks/Week Comments Not Currently 0 (1 standard drink = 0.6 oz pur e alcohol) [facility] Utilities Answer Date Recorded In the past 12 months has [employer] electric, gas, oil, or water company threatened [...] on filedocumented in this encounter Care Teams Amphibious Operations Officer Relationship Specialty Start Date End Date Hansel Martinez MD [address] [place] [address] PCP - General Internal Medicine 01/21/24 Angeles Pineda RN [address] [place] [address] Oncology Nurse Navigator 02/11/24 documented as of this encounter
--- OUTSIDE RECORDS SUMMARY | 2024-06-24 21:54 | XMS_ITS | Encounter Summary ---
Author Organization [facility] Address [address] [place] [address] Care Team Providers Care District Leader Name Role Phone Hansel Martinez MD Primary Care Provider [phone] Angeles Pineda RN Unavailable [phone] Encounter Details Date Type Department Care Team (Late st Contact Info) Description 03/30/2024 Scanned Document [facility] Colorectal Surgery [place] 85 [facility] [address] [place] [address] Jabari Vann MD [address] [place] [address] Social History Tobacco Use Types Packs/Day Years Used Date Smoking Tobacco: Never Smokeless Tobacco: Never Alcohol Use Standard Drinks/Week Comments Not Currently 0 (1 standard drink = 0.6 oz pur e alcohol) [facility] Utilities Answer Date Recorded In the past 12 months has [employer] electric, gas, oil, or water company [...] on filedocumented in this encounter Care Teams District Leader Relationship Specialty Start Date End Date Hansel Martinez MD [address] [place] [address] PCP - General Internal Medicine 01/21/24 Angeles Pineda RN [address] [place] [address] Oncology Nurse Navigator 02/11/24 documented as of this encounter
--- OUTSIDE RECORDS SUMMARY | 2024-06-24 21:55 | XMS_ITS | Encounter Summary ---
Author Organization [facility] Address [address] [place] [address] Care Team Providers Care Acid Changer Name Role Phone Hansel Martinez MD Primary Care Provider [phone] Angeles Pineda RN Unavailable [phone] Encounter Details Date Type Department Care Team (Late st Contact Info) Description 01/23/2024 Scanned Document [facility] [address] [facility] [address] [place] [address] Chavo Ying MD [address] [place] [address] Social History Tobacco Use Types Packs/Day Years [...] on filedocumented in this encounter Care Teams Acid Changer Relationship Specialty Start Date End Date Hansel Martinez MD [address] [place] [address] PCP - General Internal Medicine 01/21/24 Angeles Pineda RN [address] [place] [address] Oncology Nurse Navigator 02/11/24 documented as of this encounter
--- OUTSIDE RECORDS SUMMARY | 2024-06-24 21:55 | XMS_ITS | Encounter Summary ---
Author Organization [facility], Address [address] [place] [address] Phone Care Team Providers Care Marble Polisher Name Role Phone Hansel Martinez MD Primary Care Provider [phone] Encounter Details Date Type Department Care Team (Late st Contact Info) Description 07/12/2022 Documentation Only [facility], [address] [place] [phone] Marko Mojica MD [address] [place] [phone] Social History Tobacco Use Types Packs/Day Years [...] on filedocumented in this encounter Care Teams Marble Polisher Relationship Specialty Start Date End Date Hansel Martinez MD [facility] [address] [place], [place] [address] PCP - General 12/16/18 documented as of this encounter
--- OUTSIDE RECORDS SUMMARY | 2024-06-24 21:55 | XMS_ITS | Encounter Summary ---
Author Organization [facility], Address [address] [place] [address] Phone Care Team Providers Care Gold Stamper Name Role Phone Hansel Martinez MD Primary Care Provider [phone] Encounter Details Date Type Department Care Team (Late st Contact Info) Description 03/20/2022 Documentation Only [facility], [address] [place] [phone] Marko Mojica MD [address] [place] [phone] Social History Tobacco Use Types Packs/Day Years [...] on filedocumented in this encounter Care Teams Gold Stamper Relationship Specialty Start Date End Date Hansel Martinez MD [facility] [employer] [address] [place], [place] [address] PCP - General 12/16/18 documented as of this encounter
--- OUTSIDE RECORDS SUMMARY | 2024-06-24 21:55 | XMS_ITS | Encounter Summary ---
Author Organization [facility] Address [address] [place] [address] Care Team Providers Care Finisher Screwdown Name Role Phone Hansel Martinez MD Primary Care Provider [phone] CarrierAngeles RN Unavailable [phone] Encounter Details Date Type Department Care Team (Late st Contact Info) Description 03/30/2024 Scanned Document [facility] Colorectal Surgery [place] [address] [facility] [address] [place] [address] Provider, MD Eliud [address] [place] [address] Social History Tobacco Use Types Packs/Day Years Used Date Smoking Tobacco: Never Smokeless Tobacco: Never Alcohol Use Standard Drinks/Week Comments Not Currently 0 (1 standard drink = 0.6 oz pur e alcohol) [facility] Utilities Answer Date Recorded In the past 12 months has [employer] electric, gas, oil, or water company threatened [...] on filedocumented in this encounter Care Teams Finisher Screwdown Relationship Specialty Start Date End Date Hansel Martinez MD [address] [place] [address] PCP - General Internal Medicine 01/21/24 Angeles Pineda RN [address] [place] [address] Oncology Nurse Navigator 02/11/24 documented as of this encounter
--- OUTSIDE RECORDS SUMMARY | 2024-06-24 21:55 | XMS_ITS | Encounter Summary ---
Author Organization [facility], Address [address] [place] [address] Phone Care Team Providers Care Auto Body Service Mechanic Name Role Phone Hansel Martinez MD Primary Care Provider [phone] Encounter Details Date Type Department Care Team (Late st Contact Info) Description 03/27/2022 Office Communication [facility], [address] [place] [phone] Marko Mojica MD [address] [place] [address] [place] [phone] Social History Tobacco Use Types Packs/Day Years [...] on filedocumented in this encounter Care Teams Auto Body Service Mechanic Relationship Specialty Start Date End Date Hansel Martinez MD [employer] [facility] [address] [facility] [place] PCP - General 12/16/18 documented as of this encounter
--- OUTSIDE RECORDS SUMMARY | 2024-06-24 21:55 | XMS_ITS | Encounter Summary ---
Author Organization [facility], Address [address] [place] [address] Phone Care Team Providers Care Rug Setter Axminster Name Role Phone Hansel Martinez MD Primary Care Provider [phone] Encounter Details Date Type Department Care Team (Late st Contact Info) Description 06/05/2022 Documentation Only [facility], [address] [place] [phone] Marko Mojica MD [address] [place] [phone] Social History Tobacco Use Types Packs/Day Years [...] on filedocumented in this encounter Care Teams Rug Setter Axminster Relationship Specialty Start Date End Date Hansel Martinez MD [facility] EQUIPMENT SUPERVISOR [address] [place], [place] [address] PCP - General 12/16/18 documented as of this encounter
--- OUTSIDE RECORDS SUMMARY | 2024-06-24 21:55 | XMS_ITS | Encounter Summary ---
Author Organization [facility] [place], Address [address] [place] [address] Phone Care Team Providers Care Ccu Nurse Name Role Phone Hansel Martinez MD Primary Care Provider [phone] Encounter Details Date Type Department Care Team (Late st Contact Info) Description 06/07/2020 Orders Only [facility] [address] [facility] [place] [address] Marko Mojica MD [address] [place], [place] [address] [place] [phone] Social History Tobacco Use Types Packs/Day Years [...] on filedocumented in this encounter Care Teams Ccu Nurse Relationship Specialty Start Date End Date Hansel Martinez MD CHAMBERINO MANAGER [employer] [address] [place] [address] [address] [facility] [place] PCP - General 12/16/18 documented as of this encounter
--- OUTSIDE RECORDS SUMMARY | 2024-06-24 21:55 | XMS_ITS | Encounter Summary ---
Author Organization [facility] Address [address] [place] [address] Phone Care Team Providers Care Geek Squad Manager Name Role Phone Hansel Martinez MD Primary Care Provider [phone] Encounter Details Date Type Department Care Team (Late st Contact Info) Description 04/13/2022 Documentation Only [facility] [place], [address] [place] [address] [place], [place] [address] [place] [address] Social History Tobacco Use Types [...] on filedocumented in this encounter Care Teams Geek Squad Manager Relationship Specialty Start Date End Date Hansel Martinez MD CANTON BELT SANDER [address] [place] [address] PCP - General 12/16/18 documented as of this encounter
--- OUTSIDE RECORDS SUMMARY | 2024-06-24 21:55 | XMS_ITS | Clinical Summary ---
Author Organization [facility] Address [address] [place] [address] Phone Care Team Providers Care Business Practices Supervisor Name Role Phone Hansel Martinez MD Primary Care Provider [phone] Social History Tobacco Use Types Packs/Day Years [...] patient's age to complete this topic Insurance [facility] [place] [id number] Care Teams Business Practices Supervisor Relationship Specialty Start Date End Date Hansel Martinez MD [address] [place] [address] PCP - General Internal Medicine 01/30/24
--- OUTSIDE RECORDS SUMMARY | 2024-06-24 21:55 | XMS_ITS | Encounter Summary ---
Author Organization [facility] Address [address] [place] [address] Care Team Providers Care Medical Assembler Name Role Phone Hansel Martinez MD Primary Care Provider [phone] Angeles Pineda RN Unavailable Encounter Details Date Type Department Care Team (Late st Contact Info) Description 03/18/2024 Scanned Document [facility] Colorectal Surgery [place] [address] [address] Yenny Garcia MD [address] [id number] Social History Tobacco Use Types Packs/Day Years Used Date Smoking Tobacco: Never Smokeless Tobacco: Never Alcohol Use Standard Drinks/Week Comments Not Currently 0 (1 standard drink = 0.6 oz pur e alcohol) [facility] Utilities Answer Date Recorded In the past 12 months has [employer] electric, gas, oil, or water [employer] threatened to shut off services in your [...] time in the past [address] [facility], were you homeless or living in [...] on filedocumented in this encounter Care Teams Medical Assembler Relationship Specialty Start Date End Date Hansel Martinez MD [address] [place] [address] PCP - General Internal Medicine 01/21/24 Angeles Pineda RN [address] [place] [address] Oncology Nurse Navigator 02/11/24 documented as of this encounter
--- OUTSIDE RECORDS SUMMARY | 2024-06-24 21:55 | XMS_ITS | Encounter Summary ---
Author Organization [facility] [place], Address [address] [place] [address] Phone Care Team Providers Care Director Acute Name Role Phone Hansel Martinez MD Primary Care Provider [phone] Encounter Details Date Type Department Care Team (Late st Contact Info) Description 03/27/2022 Office Communication [facility], [address] [place] [phone] Marko Mojica MD [address] [place] [phone] Social History Tobacco Use Types Packs/Day Years [...] on filedocumented in this encounter Care Teams Director Acute Relationship Specialty Start Date End Date Hansel Martinez MD [facility] IRONWORKER FOREMAN [address] [place], [place] [address] PCP - General 12/16/18 documented as of this encounter
--- OUTSIDE RECORDS SUMMARY | 2024-06-24 21:55 | XMS_ITS | Encounter Summary ---
Author Organization [facility] Address [address] [place] [address] Phone Care Team Providers Care Revenue Director Name Role Phone Hansel Martinez MD Primary Care Provider [phone] Encounter Details Date Type Department Care Team (Late st Contact Info) Description 04/13/2022 Documentation Only [facility] [place], [address] [place] [address] [place], [place] [address] [place] [address] Social History Tobacco Use Types [...] on filedocumented in this encounter Care Teams Revenue Director Relationship Specialty Start Date End Date Hansel Martinez MD SIMS LICENSED EMBALMER SUPERVISOR [address] [place] [address] PCP - General 12/16/18 documented as of this encounter
--- OUTSIDE RECORDS SUMMARY | 2024-06-24 21:55 | XMS_ITS | Clinical Summary ---
Author Organization [facility], Address [address] [place] [address] [address] [place] [address] Phone Care Team Providers Care Grooving Lathe Tender Name Role Phone Hansel Martinez MD Primary Care Provider [phone] Allergies No known active allergies Medications adalimumab [...] patient's age to complete this topic Insurance [facility] Care Teams Grooving Lathe Tender Relationship Specialty Start Date End Date Hansel Martinez MD [employer] PUBLIC TRANSPORTATION INSPECTOR [address] [place] [address] PCP - General 12/16/18
--- OUTSIDE RECORDS SUMMARY | 2024-06-24 21:55 | XMS_ITS | Clinical Summary ---
Author Organization [facility] Address [address] [place] [address] Care Team Providers Care Water Registrar Name Role Phone Unavailable Primary Care Provider [...]
--- OUTSIDE RECORDS SUMMARY | 2024-06-24 21:55 | XMS_ITS | Clinical Summary ---
Author Organization [facility] Address [address] [place] [address] Care Team Providers Care Supervisor Remelt Name Role Phone Hansel Martinez MD Primary Care Provider [phone] Angeles Pineda RN Unavailable [phone] Allergies No known active allergies Medications acetaminophen [...] at [facility] [place]. Crohn's disease of colon with complication 02/27 Assessment & Plan (02/28/2024 11:24 AM EST): Diagnosed 1975. S/p total colectomy with a right mid quadrant ileostomy in 1979, then resected twice d/t fistulas with most recent resection of ileostomy 2019. On Grantira under the management of gastroenterology, Dr. Manny Jefferson, at [facility]. Continue plan and follow up as previously indicated by provider. Hydronephrosis 02/25/2024 Malignant neoplasm of urinary bladder 01/24/2024 Assessment & Plan (02/28/2024 11:24 AM EST): Diagnosed 01/2024. No chemo or radiation. Followed by urology. Planned for above scheduled procedure. Encounters Date Type Department Care Team Description 03/30/2024 Orders Only [facility] Colorectal Surgery [address] [address] Eliud Rodriguez MD 03/30/2024 Scanned Document [facility] Colorectal Surgery [place] [address] [address] Eliud Rodriguez MD 03/30/2024 Scanned Document [facility] Colorectal Surgery [place] [address] [address] Eliud Rodriguez MD 03/30/2024 Scanned Document [facility] Colorectal Surgery [place] [address] [place] [address] Huong Hoang MD 03/30/2024 Scanned Document [facility] Colorectal Surgery [place] [address] [place] [address] Eliud Rodriguez MD 03/30/2024 Scanned Document [facility] Colorectal Surgery [place] [address] [place] [address] Eliud Rodriguez MD 03/30/2024 Scanned Document [facility] Colorectal Surgery [place] [address] [place] [address] Eliud Rodriguez MD 03/30/2024 Scanned Document [facility] Colorectal Surgery [place] [address] [place] [address] Jabari Vann MD 03/30/2024 Scanned Document [facility] Colorectal Surgery [address] [place] [address] Eliud Rodriguez MD 03/27/2024 11:20 AM EST Office Visit [facility] Colorectal Surgery [address] [place] [address] Nimisha Quintana PA Malignant neoplasm of urinary bladder, unspecified site (HCC) (Primary Dx) 03/27/2024 Travel from Last 3 Months Family History Medical History Relation Name Comments Cancer, Bladder Neg Hx Cancer, Kidney Neg Hx Cancer, Prostate Neg Hx Social History Tobacco Use Types Packs/Day Years Used Date Smoking Tobacco: Never Smokeless Tobacco: Never Tobacco Cessation:Counseling Given: Not Answered Alcohol Use Standard Drinks/Week Comments Not Currently 0 (1 standard drink = 0.6 oz pur e alcohol) [facility] Utilities Answer Date Recorded In the past 12 months has [employer] electric, gas, oil, or water company threatened [...] time in the past 12 m [facility], were you homeless or living in a [...] Comments XR SACRUM AND COCCYX MINIMUM 2 [id number] Routine 03/30/2024 9:[address] PELVIS W/O CONTRAST Routine 03/30/2024 9:[address] ABD AND PELVIS WITH CONTRAST Routine 03/30/2024 9:45 AM EST PATHOLOGY REPORT Routine 03/30/2024 9:40 AM EST PATHOLOGY REPORT Routine 03/30/2024 9:37 AM EST from Last 3 Months Results * XR SACRUM AND COCCYX MINIMUM 2 [id number] (03/30/2024 9:51 AM EST) Anatomical Region Laterality Modality Other us External Provider MD [facility] LEGACY PROCEDURES Final Result * CT Pelvis without IV contrast (03/30/2024 9:48 AM EST) Anatomical Region Laterality Modality Pelvis Computed Tomogra phy us External Provider MD WILLIS CT ORDERABLES Final Res ult * CT ABD AND PELVIS WITH CONTRAST (03/30/2024 9:45 AM EST) Anatomical Region Laterality Modality Other us External Provider MD [facility] LEGACY PROCEDURES Final Result * Pathology (03/30/2024 9:40 AM EST) Only the most recent of2 resultswithin the time period is included. Tissue External Provider PATHOLOGY/CYTOLOGY ORDERABL ES Final Result from Last 3 Months Insurance [employer] Advance Directives * Full Code (Latest Code Status on File) Date Activated Date Inactivated Comments 03/13/2024 5:14 PM * Full Code Date Activated Date Inactivated Comments 03/13/2024 7:50 AM 03/13/2024 5:14 PM Healthcare Agents on File Name Relationship Healthcare Agent Relationshi p Communication vickey Jay Spouse 4. Next of Kin ( Spouse, Adult Child, Parent, Adult Sibling, Grandparent) Care Teams Supervisor Remelt Relationship Specialty Start Date End Date Hansel Martinez MD [address] [place] [address] PCP - General Internal Medicine 01/21/24 Angeles Pineda RN [address] [place] [address] Oncology Nurse Navigator 02/11/24
--- OUTSIDE RECORDS SUMMARY | 2024-06-24 21:55 | XMS_ITS | Encounter Summary ---
Author Organization [facility] Address [address] [place] [address] Care Team Providers Care Vocational Services Specialist Name Role Phone Hansel Martinez MD Primary Care Provider [phone] Angeles Pineda RN Unavailable Reason for Visit * Reason Comments Appointment Encounter Details Date Type Department Care Team (Late st Contact Info) Description 01/21/2024 Telephone [facility] Urologic Surgery [address] [place] [address] Provider, Generic Appointment Social History Tobacco [...] Dr. Driscoll. Spoke with Marie Ying medical coder and they will fax the records today. documented in this encounter Plan of Treatment Not on file documented as of this encounter Visit Diagnoses Not on filedocumented in this encounter Care Teams Vocational Services Specialist Relationship Specialty Start Date End Date Hansel Martinez MD [address] [place] [address] PCP - General Internal Medicine 01/21/24 Angeles Pineda RN [address] [place] [address] Oncology Nurse Navigator 02/11/24 documented as of this encounter
--- OUTSIDE RECORDS SUMMARY | 2024-06-24 21:55 | XMS_ITS | Encounter Summary ---
Author Organization [facility], Address [address] [place] [address] Phone Care Team Providers Care Guidance Secretary Name Role Phone Hansel Martinez MD Primary Care Provider [phone] Encounter Details Date Type Department Care Team (Late st Contact Info) Description 06/12/2022 Documentation Only [facility], [address] [place] [phone] Marko Mojica MD [address] [place] [phone] Social History Tobacco Use Types Packs/Day Years [...] on filedocumented in this encounter Care Teams Guidance Secretary Relationship Specialty Start Date End Date Hansel Martinez MD [facility] STAPLER [address] [place], [place] [address] PCP - General 12/16/18 documented as of this encounter
[2024-06-24] MEDS: Morphine Sulfate 4 MG/ML CARTRIDGE IVPUSH (22:08)
[2024-06-24] MEDS: ondansetron HCL 4 MG/2 ML VIAL IVPUSH ×2 (22:08→23:27)
[2024-06-24] MEDS: 0.9 % Sodium Chloride 1,000 ML 999 ML IV (22:09)
[2024-06-24 22:11] VITALS: BP 173/95; PULSE 89; RESP 18; O2SAT 100
[2024-06-24 22:16] LABS: MANUAL DIFF FLAG NO
[2024-06-24 22:17] LABS: Basophils Percent Auto 0.1 % (0-2); Eosinophils Absolute Auto 0.2 X10*3/uL (0.0-0.4); Eosinophils Percent Auto 2.5 % (0-4); Hematocrit 34.8 % (42.0-52.0); Hemoglobin 11.6 g/dl (14.0-18.0); Imm Gran Abs Auto 0.03 X10*3/uL (0.00-0.03); Imm Gran Pct Auto 0.3 % (0.0-0.4); Lymphocytes Percent Auto 34.2 % (20-40); Mean Corpuscular HGB Conc 33.3 g/dl (31.0-36.0); Mean Corpuscular Hemoglobin 31.1 pg (27.0-33.0); Mean Corpuscular Volume 93.3 fL (80.0-98.0); Mean Platelet Volume 8.9 fL (9.4-12.4); Monocytes Absolute Auto 0.5 X10*3/uL (0.1-1.2); Neutrophils Percent Auto 56.9 % (45-73); Platelet Count 224 X10*3/uL (160-400); Red Blood Count 3.73 X10*6/uL (4.60-5.80); Red Cell Distribution Width 14.3 % (11.0-16.0); White Blood Count 8.8 X10*3/uL (4.8-10.8)
[2024-06-24 22:30] LABS: Alanine Aminotransferase 30 U/L (0-40); Albumin Level 3.4 g/dL (3.5-5.0); Alkaline Phosphatase 105 U/L (39-117); Anion Gap 16 (12-20); Aspartate Amino Transferase 31 U/L (5-37); Bilirubin Total 0.2 mg/dL (0.0-1.0); Blood Urea Nitrogen 29 mg/dL (9-16); Calcium 8.4 mg/dL (8.4-10.2); Carbon Dioxide 22 mmol/L (22-29); Chloride 109 mmol/L (96-108); Creatinine Clr Calc Pharmacy 40.8; Estimated Glomerular Filt Rate 37; Glucose Random 124 mg/dL (60-115); Lipase 17 U/L (8-78); Potassium 4.1 mmol/L (3.3-5.1); Sodium 143 mmol/L (135-145); Total Protein 7.6 g/dL (6.5-8.0)
[2024-06-24 22:33] VITALS: RESP 24
[2024-06-24] MEDS: HYDROmorphone HCl 2 MG/ML VIAL IVPUSH (22:33)
--- NOTE | 2024-06-24 23:06 | PC.NURSE ---
Report given to THONG Beltran.
[2024-06-25] VITALS (8 sets, daily range): BP systolic 116–172; BP diastolic 71–104; PULSE 98–121; RESP 15–20; TEMP 36.6–37.1; O2SAT 97–100
[2024-06-25 00:02] LABS: Appearance Urine Cloudy; Color Urine Yellow; Glucose Urine UA Negative (Negative); Leukocyte Esterase Urine Large (3+) (Negative); Nitrite Urine Positive (Negative); PH 5.5 (5.0-9.0); Specific Gravity - Urine 1.015 (1.005-1.025); UMIC TRIGGER UACC YES; Urine Blood Moderate (2+) (Negative); Urine Ketones Negative (Negative); Urine Protein 100 (2+) mg/dL (Neg-Trace)
[2024-06-25 00:13] LABS: Bacteria Urine Trace (None Seen); Hyaline Casts Urine 0-2 /LPF (0-2); Squamous Epithelial Cell Urine 0-2 /HPF (0-2); UACC Culture Trigger YES; WBC Clumps Urine Present
[2024-06-25] MEDS: HYDROmorphone HCl 1 MG/ML SYRINGE IVPUSH ×2 (00:17→06:06)
[2024-06-25] MEDS: Ketorolac Tromethamine 30 MG/ML VIAL IVPUSH (00:51)
[2024-06-25] MEDS: Morphine Sulfate 4 MG/ML CARTRIDGE IVPUSH (00:52)
--- NOTE | 2024-06-25 01:02 | PC.NURSE ---
Pt medicated per MAR for continued 5/10 flank pain. he is laying in his stretcher without acute distress noted. Pt aware of and agreeable to plan for blood cultures x2 and lactic prior to IV abx administration
[2024-06-25] MEDS: cefTRIAXone sodium 1 GM VIAL IVPUSH (01:17)
[2024-06-25 01:27] LABS: Lactic Acid 1.9 mmol/L (0.5-2.0)
--- NOTE | 2024-06-25 08:04 | PC.NURSE ---
Provider spoke with IR. Pt to go to procedure today. Unsure of what time
[2024-06-25] MEDS: oxyCODONE HCl Immed Release 5 MG TABLET 10 MG PO (08:45)
--- NOTE | 2024-06-25 09:12 | PHA.MEDREC ---
Addendum entered by Alex Hernandes [facility] 06/25/24 09:38: MED REC CHECKED BY [facility] Original Note: Pharmacy Consult ? Medication Reconciliation Pharmacy has completed the medication reconciliation. Spoke with patient and he confirmed his medications. Patient confirmed he is still taking the Vancomycin 125mg regimen stating he starting it when he got home from his last discharge (I found in records the patient was discharged 05/25 and to be starting the Vancomycin then.) and confirmed he is taking it Mo We Fr until he is done.
--- NOTE | 2024-06-25 11:07 | PC.NURSE ---
patient returned from IR, awaiting discharge from provider. resting comfortably in room at this time - provided with martin hightower
== END 2024-06-25 11:39 | disposition home or self-care (01) ==
PROVIDERS: Internal Medicine; Radiology Diagnostic Radiology; Emergency Provider Emergency Medicine; PCP Internal Medicine
DX: N39.0 Urinary tract infection, site not specified (principal); N13.9 Obstructive and reflux uropathy, unspecified; R11.0 Nausea; R10.2 Pelvic and perineal pain; Z79.899 Other long term (current) drug therapy
CPT/HCPCS: 36415; 50430; 74176; 80053; 81001; 81003; 83605; 83690; 85025; 87040; 87077; 87086; 87088; 87186; 87205; 96361; 96374; 96375; 96376; 99285; J0696; J1171; J1885; J2003; J2250; J2270; J2405; J3010; Q9967

== ENCOUNTER → 2024-06-24 21:56 | Outpatient (BNV) | payer OTHER, SELFPAY | PROVIDERS: Emergency Provider Internal Medicine; PCP Internal Medicine; Visit Provider Radiology Diagnostic Radiology | DX: R10.812 Left upper quadrant abdominal tenderness (principal) | CPT/HCPCS: 74176 ==

== ENCOUNTER → 2024-06-25 07:53 | Outpatient (BNV) | payer OTHER, SELFPAY | PROVIDERS: Emergency Provider Emergency Medicine; PCP Internal Medicine; Visit Provider Radiology Diagnostic Radiology | DX: T83.092A Other mechanical complication of nephrostomy catheter, initial encounter (principal); R10.32 Left lower quadrant pain | CPT/HCPCS: 50431 ==

== ENCOUNTER 2024-06-25 15:12 | Inpatient (IN) | payer OTHER, SELFPAY ==
[2024-06-25 15:22] VITALS: BP 101/58; PULSE 97; RESP 18; TEMP 36.6; O2SAT 96; BMI 26.5
--- NOTE | 2024-06-25 15:35 | ED_ITS ---
HPI - General Adult General Chief complaint: General Medical Stated complaint: abnormal labs Time Seen by Provider: 06/25/24 15:26 Source: patient, RN notes reviewed and old records reviewed Mode of arrival: ambulatory Limitations: no limitations History of Present Illness ED Provider: Sidney HPI narrative: 64-year-old male presents after being called to return due to abnormal labs. The patient is here late last night into this morning due to flank pain and he was found to have a mechanical obstruction of his left nephrostomy tube. The patient has a history of bladder adenocarcinoma. He is on chemotherapy Interventional Radiology was able to correct the obstruction in the patient's pain resolved. However he had blood cultures drawn that were found to be positive for gram-n egative rods in both bottles. Currently he denies any fevers or chills The patient follows with Urology, Dr. Ying. He received a dose of ceftriaxone after having blood cultures drawn this morning. Related Data Home Medications ?Medication ?Instructions ?Recorded ?Confirmed adalimumab-atto 40 mg/0.4 mL 40 mg subcut WE@1000 05/25/24 06/25/24 subcutaneous auto-injector (Amjevita(CF) Autoinjector) hydromorphone 4 mg tablet 2 mg PO Q6H PRN Breakthrough Pain, 05/25/24 06/25/24 Moderate methocarbamol 500 mg tablet 500 mg PO TID PRN Muscle Spasm 05/25/24 06/25/24 morphine 30 mg tablet,extended 30 mg PO BID PRN Pain 05/25/24 06/25/24 release ondansetron 4 mg disintegrating 4 mg PO Q6H PRN nausea induced by 05/25/24 06/25/24 tablet chemo prochlorperazine maleate 10 mg 10 mg PO Q6H PRN nausea induced 05/25/24 06/25/24 tablet from chemo acetaminophen 500 mg tablet 500 mg PO Q8H PRN Pain 06/25/24 06/25/24 vancomycin 125 mg capsule 125 mg PO MOWEFR 06/25/24 06/25/24 Allergies Allergy/AdvReac Type Severity Reaction Status Date / Time No Known Allergies Allergy Verified 06/25/24 15:25 Review of Systems Constitutional: Constitutional: Denies body ache(s), Denies chills, Denies fever(s) and Denies headache(s) ENT: Denies vertigo, Denies dizziness and Denies headache(s) Cardiovascular: Cardiovascular: Denies chest pain Respiratory: Respiratory: Denies cough Gastrointestinal: Gastrointestinal: Denies abdominal pain Genitourinary: Genitourinary: Denies genital pain and Denies flank pain Neurologic: Denies vertigo, Denies dizziness and Denies headache(s) [facility] Past Medical History Medical History Bladder mass Family history of adverse response to anesthesia in father Renal calculus Colostomy in place Kidney disease Crohn's disease Surgical History H/O colonoscopy Hx of cystoscopy History of ileostomy Family History Family History Father Colon cancer Social History Social History Household Members: Spouse Housing: House Are you a primary home health care physician to a significant other at home: No Do you presently have visiting nurse or other home services: No Alcohol intake: current Alcohol intake frequency: holidays/special occasions only Patient Tobacco Use Status: Never used Tobacco Second Hand Smoke Exposure: No service: No Current occupational status: employed 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, right handed Physical Exam ED Vital Signs: Vital Signs - 24 hr 06/25/24 15:22 Temperature 97.9 F Pulse Rate 97 Respiratory Rate 18 Blood Pressure 101/58 L Pulse Oximetry 96 Oxygen Delivery Method Room Air BMI result Body Mass Index 26.5 Const General: healthy appearing, comfortable, no acute distress, alert and awake Nutritional Appearance: well nourished Orientation/consciousness: patient oriented x3 HENMT Head: Yes normocephalic and Yes atraumatic Eyes Eyelids: Yes eyelids normal Conjunctivae: conjunctivae normal Sclerae: sclerae normal Corneas: corneas normal Pupils: Equal, round and reactive pupils present EOM: EOMs intact bilaterally Neck Neck: Yes full ROM Resp Effort & Inspection: normal respiratory effort, able to speak in complete sentences and not labored GI Inspection: No distended Palpation (GI): Soft to palpation, not firm, nontender, no guarding and not rigid Back/Spine/Pelvis Other: Bilateral nephrostomy tubes in place Skin General skin exam: elasticity normal Neuro General: patient oriented x3 Cranial nerves: Yes Equal, round and reactive pupils present and Yes Bilaterally intact EOM present Cognition (Neuro): normal cognition Extrem Other: Moving all extremities well without any obvious deformities Medical Decision Making Medical Decision Making MDM Narrative: 64-year-old male with past medical history as above presents for evaluation of positive blood cultures. He was found to have Gram-negative rods in both bottles, this is highly unlikely to be a contaminate and the patient will be admitted due to bacteremia. We will treat with cefepime until sensitivities are back. Since his labs were drawn recently, I did not order repeat labs. I did let Dr. Ying know that his patient has returned to the ER for admission due to bacteremia. No further recommendations per urology Differential Diagnosis Differential Diagnoses: The differential diagnosis associated with the presentation includes Bacteremia Sepsis Obstructive uropathy UTI Admission/Observation Consideration of admission/observation: Escalation of care including admission/observation considered Consult Healthcare Provider Management of the patient was discussed with: Hospitalist and Hospital Aides And Assistants Teacher Discharge Plan Discharge Clinical Impression: Bacteremia due to Gram-negative bacteria Patient Disposition: Admitted As Inpatient Print Language: Sinhala
--- OUTSIDE RECORDS SUMMARY | 2024-06-25 16:08 | XMS_ITS | Encounter Summary ---
Author Organization [facility] Address [address] [place] [address] Care Team Providers Care Human Resource Professional Name Role Phone Hansel Martinez MD Primary Care Provider [phone] Angeles Pineda RN Unavailable [phone] Encounter Details Date Type Department Care Team (Late st Contact Info) Description 03/18/2024 Scanned Document [facility] Colorectal Surgery [place] [address] [address] Yenny Garcia MD [address] [id number] Social History Tobacco Use Types Packs/Day Years Used Date Smoking Tobacco: Never Smokeless Tobacco: Never Alcohol Use Standard Drinks/Week Comments Not Currently 0 (1 standard drink = 0.6 oz pur e alcohol) [facility] Utilities Answer Date Recorded In the past 12 months has [employer] electric, gas, oil, or water [employer] threatened to shut off services in your [...] any time in the past 12 m [facility], were you homeless or [...] on filedocumented in this encounter Care Teams Human Resource Professional Relationship Specialty Start Date End Date Hansel Martinez MD [address] [place] [address] PCP - General Internal Medicine 01/21/24 [place] Pineda RN [address] [place] [address] Oncology Nurse Navigator 02/11/24 documented as of this encounter
--- OUTSIDE RECORDS SUMMARY | 2024-06-25 16:08 | XMS_ITS | Encounter Summary ---
Author Organization [facility] Address [address] [place] [address] Care Team Providers Care Special Education Instructor Name Role Phone Hansel Martinez MD Primary Care Provider [phone] CarrierAngeles RN Unavailable [phone] Encounter Details Date Type Department Care Team (Late st Contact Info) Description 03/30/2024 Scanned Document [facility] Colorectal Surgery [place] 85 [facility] [address] [place] [address] Provider, MD Eliud [address] [place] [address] Social History Tobacco Use Types Packs/Day Years Used Date Smoking Tobacco: Never Smokeless Tobacco: Never Alcohol Use Standard Drinks/Week Comments Not Currently 0 (1 standard drink = 0.6 oz pur e alcohol) [facility] Utilities Answer Date Recorded In the past 12 months has [employer] electric, gas, oil, or water company threatened [...] any time in the past 12 m [facility], were you homeless or living [...] on filedocumented in this encounter Care Teams Special Education Instructor Relationship Specialty Start Date End Date Hansel Martinez MD [address] [place] [address] PCP - General Internal Medicine 01/21/24 [place] Pineda RN [address] [place] [address] Oncology Nurse Navigator 02/11/24 documented as of this encounter
--- OUTSIDE RECORDS SUMMARY | 2024-06-25 16:08 | XMS_ITS | Clinical Summary ---
Author Organization [facility] Address [address] [place] [address] Care Team Providers Care Associate Director Data & Analytics Name Role Phone Hansel Martinez MD Primary Care Provider [phone] Angeles Pineda RN Unavailable [phone] Allergies No known active allergies Medications acetaminophen [...] at [facility] [place]. Crohn's disease of colon with complication 02/27 Assessment & Plan (02/28/2024 11:24 AM EST): Diagnosed 1975. S/p total colectomy with a right mid quadrant ileostomy in 1979, then resected twice d/t fistulas with most recent resection of ileostomy 2019. On Grantira under the management of gastroenterology, Dr. Manny Jefferson, at [facility]. Continue plan and follow up as previously indicated by provider. Hydronephrosis 02/25/2024 Malignant neoplasm of urinary bladder 01/24/2024 Assessment & Plan (02/28/2024 11:24 AM EST): Diagnosed 01/2024. No chemo or radiation. Followed by urology. Planned for above scheduled procedure. Encounters Date Type Department Care Team Description 03/30/2024 Orders Only [facility] Colorectal Surgery [address] [address] Eliud Rodriguez MD 03/30/2024 Scanned Document [facility] Colorectal Surgery [place] [address] [address] Eliud Rodriguez MD 03/30/2024 Scanned Document [facility] Colorectal Surgery [place] [address] [address] Eliud Rodriguez MD 03/30/2024 Scanned Document [facility] Colorectal Surgery [place] [address] [place] [address] Huong Hoang MD 03/30/2024 Scanned Document [facility] Colorectal Surgery [place] [address] [place] [address] Eliud Rodriguez MD 03/30/2024 Scanned Document [facility] Colorectal Surgery [place] [address] [place] [address] Eliud Rodriguez MD 03/30/2024 Scanned Document [facility] Colorectal Surgery [place] [address] [place] [address] Eliud Rodriguez MD 03/30/2024 Scanned Document [facility] Colorectal Surgery [place] [address] [place] [address] Jabari Vann MD 03/30/2024 Scanned Document [facility] Colorectal Surgery [address] [place] [address] ProviderEliud MD from Last 3 Months Family History Medical History Relation Name Comments Cancer, Bladder Neg Hx Cancer, Kidney Neg Hx Cancer, Prostate Neg Hx Social History Tobacco Use Types Packs/Day Years Used Date Smoking Tobacco: Never Smokeless Tobacco: Never Tobacco Cessation:Counseling Given: Not Answered Alcohol Use Standard Drinks/Week Comments Not Currently 0 (1 standard drink = 0.6 oz pur e alcohol) [facility] Utilities Answer Date Recorded In the past 12 months has [employer], oil, or water [employer] threatened to shut off services in your [...] Comments XR SACRUM AND COCCYX MINIMUM 2 [id number] Routine 03/30/2024 9:[address] PELVIS W/O CONTRAST Routine 03/30/2024 9:[address] ABD AND PELVIS WITH CONTRAST Routine 03/30/2024 9:45 AM EST PATHOLOGY REPORT Routine 03/30/2024 9:40 AM EST PATHOLOGY REPORT Routine 03/30/2024 9:37 AM EST from Last 3 Months Results * XR SACRUM AND COCCYX MINIMUM 2 [id number] (03/30/2024 9:51 AM EST) Anatomical Region Laterality [...] Laterality Modality Other us External Provider MD IMG LEGACY PROCEDURES Final Result * Pathology (03/30/2024 9:40 AM EST) Only the most recent of2 resultswithin the time period is included. Tissue us External Provider MD PATHOLOGY/CYTOLOGY ORDERABL ES Final Result from Last [...] Child, Parent, Adult Sibling, Grandparent) Care Teams Associate Director Data & Analytics Relationship Specialty Start Date End Date Hansel Martinez MD [facility] [place] [address] PCP - General Internal Medicine 01/21/24 [place] Pineda RN [address] [place] [address] Oncology Nurse Navigator 02/11/24
--- OUTSIDE RECORDS SUMMARY | 2024-06-25 16:08 | XMS_ITS | Encounter Summary ---
Author Organization [facility] Address [address] [place] [address] Care Team Providers Care Airport Traffic Controller Name Role Phone Hansel Martinez MD Primary Care Provider [phone] CarrierAngeles RN Unavailable [phone] Encounter Details Date Type Department Care Team (Late st Contact Info) Description 03/30/2024 Scanned Document [facility] Colorectal Surgery [place] 85 [place] [facility] [address] [place] [address] Provider, MD Eliud [address] [place] [address] Social History Tobacco Use Types Packs/Day Years Used Date Smoking Tobacco: Never Smokeless Tobacco: Never Alcohol Use Standard Drinks/Week Comments Not Currently 0 (1 standard drink = 0.6 oz pur e alcohol) [facility] Utilities Answer Date Recorded In the past 12 months has [employer] electric, gas, oil, or water company threatened [...] any time in the past 12 m [facility], were you homeless or [...] on filedocumented in this encounter Care Teams Airport Traffic Controller Relationship Specialty Start Date End Date Hansel Martinez MD [address] [place] [address] PCP - General Internal Medicine 01/21/24 [place] Pineda RN [address] [place] [address] Oncology Nurse Navigator 02/11/24 documented as of this encounter
--- OUTSIDE RECORDS SUMMARY | 2024-06-25 16:08 | XMS_ITS | Encounter Summary ---
Author Organization [facility] Address [address] [place] [address] Care Team Providers Care Chute Tapper Name Role Phone Hansel Martinez MD Primary Care Provider [phone] [place] Pnieda RN Unavailable [phone] Encounter Details Date Type Department Care Team (Late st Contact Info) Description 01/23/2024 Scanned Document [facility] [address] [facility] [address] [place] [address] Chavo Ying MD [address] [place] [address] Social History Tobacco Use Types Packs/Day Years [...] on filedocumented in this encounter Care Teams Chute Tapper Relationship Specialty Start Date End Date Hansel Martinez MD [address] [place] [address] PCP - General Internal Medicine 01/21/24 [place] Pineda RN [address] [place] [address] Oncology Nurse Navigator 02/11/24 documented as of this encounter
--- OUTSIDE RECORDS SUMMARY | 2024-06-25 16:08 | XMS_ITS ---
Author Organization [facility] Address [address] [place] [address] Care Team Providers Care Bdr Name Role Phone Hansel Martinez MD Primary Care Provider [phone] [place] Pineda RN Unavailable [phone] Active Problems Problem Noted Date Diagnosed Date [...] [facility] at [facility] [place] [place]. Crohn's disease of colon with complication 02/27 Assessment & Plan (02/28/2024 11:24 AM EST): Diagnosed 1975. S/p total colectomy with a right mid quadrant ileostomy in 1979, then resected twice d/t fistulas with most recent resection of ileostomy 2019. On Humira under the management of gastroenterology, Dr. Manny Jefferson, at [facility]. Continue plan and follow up as previously [...]
--- OUTSIDE RECORDS SUMMARY | 2024-06-25 16:08 | XMS_ITS | Encounter Summary ---
Author Organization [facility] Address [address] [place] [address] Care Team Providers Care Social Secretary Name Role Phone Hansel Martinez MD Primary Care Provider [phone] CarrierAngeles RN Unavailable [phone] Encounter Details Date Type Department Care Team (Late st Contact Info) Description 03/30/2024 Scanned Document [facility] Colorectal Surgery [place] 85 [facility] [address] [place] [address] Provider, MD Eliud [address] [place] [address] Social History Tobacco Use Types Packs/Day Years Used Date Smoking Tobacco: Never Smokeless Tobacco: Never Alcohol Use Standard Drinks/Week Comments Not Currently 0 (1 standard drink = 0.6 oz pur e alcohol) [facility] Utilities Answer Date Recorded In the past 12 months has [employer] electric, gas, oil, or water company threatened [...] any time in the past 12 m [facility], were you homeless or living [...] on filedocumented in this encounter Care Teams Social Secretary Relationship Specialty Start Date End Date Hansel Martinez MD [address] [place] [address] PCP - General Internal Medicine 01/21/24 [place] Pineda RN [address] [place] [address] Oncology Nurse Navigator 02/11/24 documented as of this encounter
--- OUTSIDE RECORDS SUMMARY | 2024-06-25 16:08 | XMS_ITS | Encounter Summary ---
Author Organization [facility], Address [address] [place] [address] Phone Care Team Providers Care Fruit Harvest Machine Operator Name Role Phone Hansel Martinez MD Primary Care Provider [phone] Encounter Details Date Type Department Care Team (Late st Contact Info) Description 03/20/2022 Documentation Only [facility], [address] [phone] Marko Mojica MD [address] [facility] [place] [phone] Social History Tobacco Use Types Packs/Day Years [...] filedocumented in this encounter Care Teams Fruit Harvest Machine Operator Relationship Specialty Start Date End Date Hansel Martinez MD [facility] [employer] [employer] [address] [place], [place] [address]D[place] PCP - General 12/16/18 documented as of this encounter
--- OUTSIDE RECORDS SUMMARY | 2024-06-25 16:08 | XMS_ITS | Encounter Summary ---
Author Organization [facility] Address [address] [place] [address] Care Team Providers Care Running Rigger Name Role Phone Hansel Martinez MD Primary Care Provider [phone] CarrierAngeles RN Unavailable [phone] Encounter Details Date Type Department Care Team (Late st Contact Info) Description 03/30/2024 Scanned Document [facility] Colorectal Surgery [place] 85 [facility] [address] [place] [address] Provider, MD Eliud [address] [place] [address] Social History Tobacco Use Types Packs/Day Years Used Date Smoking Tobacco: Never Smokeless Tobacco: Never Alcohol Use Standard Drinks/Week Comments Not Currently 0 (1 standard drink = 0.6 oz pur e alcohol) [facility] Utilities Answer Date Recorded In the past 12 months has [employer] electric, gas, oil, or water company threatened [...] on filedocumented in this encounter Care Teams Running Rigger Relationship Specialty Start Date End Date Hansel Martinez MD [address] [place] [address] PCP - General Internal Medicine 01/21/24 [place] Pineda RN [address] [place] [address] Oncology Nurse Navigator 02/11/24 documented as of this encounter
--- OUTSIDE RECORDS SUMMARY | 2024-06-25 16:08 | XMS_ITS | Encounter Summary ---
Author Organization [facility], Address [address] [place] [address] Phone Care Team Providers Care Acid Washer Operator Name Role Phone Hansel Martinez MD Primary Care Provider [phone] Encounter Details Date Type Department Care Team (Late st Contact Info) Description 06/07/2020 Orders Only [facility] [address] [facility] [place] [address] Marko Mojica MD [address] [place], [place] [address] [place] [phone] Social History Tobacco Use Types Packs/Day Years [...] filedocumented in this encounter Care Teams Acid Washer Operator Relationship Specialty Start Date End Date Hansel Martinez MD [employer] COUNSEL[employer] [address] [place] [address] [address] [facility] [place] PCP - General 12/16/18 documented as of this encounter
--- OUTSIDE RECORDS SUMMARY | 2024-06-25 16:08 | XMS_ITS | Encounter Summary ---
Author Organization [facility] Address [address] [place] [address] Care Team Providers Care Docking Saw Operator Name Role Phone Hansel Martinez MD Primary Care Provider [phone] CarrierAngeles RN Unavailable [phone] Encounter Details Date Type Department Care Team (Late st Contact Info) Description 03/30/2024 Scanned Document [facility] Colorectal Surgery [place] 85 [facility] [address] [place] [address] Provider, MD Eliud [address] [place] [address] Social History Tobacco Use Types Packs/Day Years Used Date Smoking Tobacco: Never Smokeless Tobacco: Never Alcohol Use Standard Drinks/Week Comments Not Currently 0 (1 standard drink = 0.6 oz pur e alcohol) [facility] Utilities Answer Date Recorded In the past 12 months has [employer] electric, gas, oil, or water company threatened [...] on filedocumented in this encounter Care Teams Docking Saw Operator Relationship Specialty Start Date End Date Hansel Martinez MD [address] [place] [address] PCP - General Internal Medicine 01/21/24 [place] Pineda RN [address] [place] [address] Oncology Nurse Navigator 02/11/24 documented as of this encounter
--- OUTSIDE RECORDS SUMMARY | 2024-06-25 16:08 | XMS_ITS | Encounter Summary ---
Author Organization [facility] Address [address] [place] [address] Care Team Providers Care Mining Speculator Name Role Phone Hansel Martinez MD Primary Care Provider [phone] [place] Pineda RN Unavailable [phone] Encounter Details Date Type Department Care Team (Late st Contact Info) Description 03/30/2024 Scanned Document [facility] Colorectal Surgery [place] 85 [facility] [address] [place] [phone] Huong Hoang MD Medical [facility] [address] [place] [address] Social History Tobacco Use Types Packs/Day Years Used Date Smoking Tobacco: Never Smokeless Tobacco: Never Alcohol Use Standard Drinks/Week Comments Not Currently 0 (1 standard drink = 0.6 oz pur e alcohol) [facility] Utilities Answer Date Recorded In the past 12 months has [employer] electric, gas, oil, or water company threatened [...] any time in the past 12 m [facility], were you homeless or living in a correction (including now)? No 03/14/2024 Sex and Gender [...] on filedocumented in this encounter Care Teams Mining Speculator Relationship Specialty Start Date End Date Hansel Martinez MD [address] [place] [address] PCP - General Internal Medicine 01/21/24 [place] Pineda RN [address] [place] [address] Oncology Nurse Navigator 02/11/24 documented as of this encounter
--- OUTSIDE RECORDS SUMMARY | 2024-06-25 16:08 | XMS_ITS | Clinical Summary ---
Author Organization [facility] Address [address] [place] [address] Care Team Providers Care Vp Clinical Name Role Phone Unavailable Primary Care Provider [...]
--- OUTSIDE RECORDS SUMMARY | 2024-06-25 16:08 | XMS_ITS | Encounter Summary ---
Author Organization [facility] Address [address] [place] [address] Care Team Providers Care Eye Surgeon Name Role Phone Hansel Martinez MD Primary Care Provider [phone] CarrierAngeles RN Unavailable [phone] Encounter Details Date Type Department Care Team (Late st Contact Info) Description 03/30/2024 Scanned Document [facility] Colorectal Surgery [place] [address] [facility] [address] [place] [address] Provider, MD Eliud [address] [place] [address] Social History Tobacco Use Types Packs/Day Years Used Date Smoking Tobacco: Never Smokeless Tobacco: Never Alcohol Use Standard Drinks/Week Comments Not Currently 0 (1 standard drink = 0.6 oz pur e alcohol) [facility] Utilities Answer Date Recorded In the past 12 months has [employer] electric, gas, oil, or water company threatened [...] on filedocumented in this encounter Care Teams Eye Surgeon Relationship Specialty Start Date End Date Hansel Martinez MD [address] [place] [address] PCP - General Internal Medicine 01/21/24 Angeles Pineda RN [address] [place] [address] Oncology Nurse Navigator 02/11/24 documented as of this encounter
--- OUTSIDE RECORDS SUMMARY | 2024-06-25 16:08 | XMS_ITS | Encounter Summary ---
Author Organization [facility] Address [address] [place] [address] Care Team Providers Care Coffee Shop Aide Name Role Phone Hansel Martinez MD Primary Care Provider [phone] Angeles Pineda RN Unavailable [phone] Encounter Details Date Type Department Care Team (Late st Contact Info) Description 03/30/2024 Scanned Document [facility] Colorectal Surgery [place] [address] [facility] [address] [place] [address] Jabari Vann MD [address] [place] [address] Social History Tobacco Use Types Packs/Day Years Used Date Smoking Tobacco: Never Smokeless Tobacco: Never Alcohol Use Standard Drinks/Week Comments Not Currently 0 (1 standard drink = 0.6 oz pur e alcohol) [facility] Utilities Answer Date Recorded In the past 12 months has [employer] electric, gas, oil, or water company threatened [...] on filedocumented in this encounter Care Teams Coffee Shop Aide Relationship Specialty Start Date End Date Hansel Martinez MD [address] [place] [address] PCP - General Internal Medicine 01/21/24 Angeles Pineda RN [address] [place] [address] Oncology Nurse Navigator 02/11/24 documented as of this encounter
--- OUTSIDE RECORDS SUMMARY | 2024-06-25 16:08 | XMS_ITS | Encounter Summary ---
Author Organization [facility] Address [address] [place] [address] Care Team Providers Care Willower Name Role Phone Hansel Martinez MD Primary Care Provider Angeles Pineda RN Unavailable [phone] Reason for Visit * Reason Comments Appointment Encounter Details Date Type Department Care Team (Late st Contact Info) Description 01/21/2024 Telephone [facility] Urologic Surgery [address] [place] [address] Provider, Generic Appointment Social History Tobacco [...] Dr. Driscoll. Spoke with [facility] Y[facility] medical practitioners and they will fax the records today. documented in this encounter Plan of Treatment Not on file documented as of this encounter Visit Diagnoses Not on filedocumented in this encounter Care Teams Willower Relationship Specialty Start Date End Date Hansel Martinez MD [address] [place] [address] PCP - General Internal Medicine 01/21/24 Angeles Pineda RN [address] [place] [address] Oncology Nurse Navigator 02/11/24 documented as of this encounter
--- OUTSIDE RECORDS SUMMARY | 2024-06-25 16:09 | XMS_ITS | Clinical Summary ---
Author Organization [facility], Address [address] [place] [address] [address] [place] [address] Phone Care Team Providers Care State Game Protector Name Role Phone Hansel Martinez MD Primary Care Provider [phone] Allergies No known active allergies Medications adalimumab [...] patient's age to complete this topic Insurance [facility] Care Teams State Game Protector Relationship Specialty Start Date End Date Hansel Martinez MD [place] COLLISION MECHANIC [address] [place] [address] PCP - General 12/16/18
--- OUTSIDE RECORDS SUMMARY | 2024-06-25 16:09 | XMS_ITS | Encounter Summary ---
Author Organization [facility] [place], Address [address] [place] [address] Phone Care Team Providers Care Customs Brokerage Agent Name Role Phone Hansel Martinez MD Primary Care Provider [phone] Encounter Details Date Type Department Care Team (Late st Contact Info) Description 07/12/2022 Documentation Only [facility], [address] [place] [phone] Marko Mojica MD [address] [place] [phone] Social History Tobacco Use Types Packs/Day Years [...] on filedocumented in this encounter Care Teams Customs Brokerage Agent Relationship Specialty Start Date End Date Hansel Martinez MD [facility] BOBBIN INSPECTOR [address] [place], [place] [address] PCP - General 12/16/18 documented as of this encounter
--- OUTSIDE RECORDS SUMMARY | 2024-06-25 16:09 | XMS_ITS | Encounter Summary ---
Author Organization [facility] [place], Address [address] [place] [address] Phone Care Team Providers Care Manager Bar Name Role Phone Hansel Martinez MD Primary Care Provider [phone] Encounter Details Date Type Department Care Team (Late st Contact Info) Description 06/05/2022 Documentation Only [facility] [place], [address] [place] [phone] Marko Mojica MD [address] [facility] [place] [phone] Social History Tobacco Use Types Packs/Day Years [...] filedocumented in this encounter Care Teams Manager Bar Relationship Specialty Start Date End Date Hansel Martinez MD [facility] FLAT GRINDER OPERATOR [address] [place], [place] [address] PCP - General 12/16/18 documented as of this encounter
--- OUTSIDE RECORDS SUMMARY | 2024-06-25 16:09 | XMS_ITS | Encounter Summary ---
Author Organization [facility] [place], Address [address] [place] [address] Phone Care Team Providers Care Pipe Roller Name Role Phone Hansel Martinez MD Primary Care Provider [phone] Encounter Details Date Type Department Care Team (Late st Contact Info) Description 06/12/2022 Documentation Only [facility] [place], [address] [place] [phone] Marko Mojica MD [address] [facility] [place] [phone] Social History Tobacco Use Types Packs/Day Years [...] on filedocumented in this encounter Care Teams Pipe Roller Relationship Specialty Start Date End Date Hansel Martinez MD [facility] MOTOR VEHICLE INSPECTOR [address] [place], [place] [address] PCP - General 12/16/18 documented as of this encounter"
--- OUTSIDE RECORDS SUMMARY | 2024-06-25 16:09 | XMS_ITS | Encounter Summary ---
Author Organization [facility] Address [address] [place] [address] Phone Care Team Providers Care Retail Associate Name Role Phone Hansel Martinez MD Primary Care Provider [phone] Encounter Details Date Type Department Care Team (Late st Contact Info) Description 04/13/2022 Documentation Only [facility] [place], [address] [place] [address] [place], [place] [address] [place] [address] Social History Tobacco Use Types [...] on filedocumented in this encounter Care Teams Retail Associate Relationship Specialty Start Date End Date Hansel Martinez MD [employer] F[employer] OFFICER [address] [place] [address] PCP - General 12/16/18 documented as of this encounter
--- OUTSIDE RECORDS SUMMARY | 2024-06-25 16:09 | XMS_ITS | Clinical Summary ---
Author Organization [facility] Address [address] [place] [address] Phone Care Team Providers Care Legal Instruments Examiner Name Role Phone Hansel Martinez MD Primary Care Provider [phone] Social History Tobacco Use Types Packs/Day Years [...] patient's age to complete this topic Insurance [facility] [place] [id number] Care Teams Legal Instruments Examiner Relationship Specialty Start Date End Date Hansel Martinez MD [address] [place] [address] PCP - General Internal Medicine 01/30/24
--- OUTSIDE RECORDS SUMMARY | 2024-06-25 16:09 | XMS_ITS | Encounter Summary ---
Author Organization [facility] Address [address] [place] [address] Phone Care Team Providers Care Youth Care Worker Name Role Phone Hansel Martinez MD Primary Care Provider [phone] Encounter Details Date Type Department Care Team (Late st Contact Info) Description 04/13/2022 Documentation Only [facility] [place], [address] [place] [address] [place], [place] [address] [place] [address] Social History Tobacco Use Types [...] on filedocumented in this encounter Care Teams Youth Care Worker Relationship Specialty Start Date End Date Hansel Martinez MD [place] INSTRUCTIONAL SUPERVISOR [address] [place] [address] PCP - General 12/16/18 documented as of this encounter
--- OUTSIDE RECORDS SUMMARY | 2024-06-25 16:09 | XMS_ITS | Encounter Summary ---
Author Organization [facility] [place], Address [address] [place] [address] Phone Care Team Providers Care Rag Grader Name Role Phone Hansel Martinez MD Primary Care Provider [phone] Encounter Details Date Type Department Care Team (Late st Contact Info) Description 03/27/2022 Office Communication [facility] [place], [address] [place] [phone] Marko Mojica MD [address] [place] [address] [place] [phone] Social History Tobacco Use Types Packs/Day Years [...] on filedocumented in this encounter Care Teams Rag Grader Relationship Specialty Start Date End Date Hansel Martinez MD MOORE TOOL TENDER [address] [facility] [place] PCP - General 12/16/18 documented as of this encounter
--- OUTSIDE RECORDS SUMMARY | 2024-06-25 16:09 | XMS_ITS | Encounter Summary ---
Author Organization [facility] [place], Address [address] [place] [address] Phone Care Team Providers Care Prosthetic Technician Name Role Phone Hansel Martinez MD Primary Care Provider [phone] Encounter Details Date Type Department Care Team (Late st Contact Info) Description 03/27/2022 Office Communication [facility] [place], [address] [place] [phone] Marko Mojica MD [address] [facility] [place] [phone] Social History Tobacco Use Types Packs/Day Years [...] on filedocumented in this encounter Care Teams Prosthetic Technician Relationship Specialty Start Date End Date Hansel Martinez MD [facility] [employer] FLATBED DRIVER [address] [place], [place] [address] PCP - General 12/16/18 documented as of this encounter
[2024-06-25 16:38] VITALS: BP 104/57; PULSE 78; RESP 19; TEMP 36.7; O2SAT 97
[2024-06-25] MEDS: cefEPime HCl/D5W 2 GM/50 ML PIGGYBACK IV (16:48)
[2024-06-25] MEDS: 0.9 % Sodium Chloride 1,000 ML 999 ML IV (16:50)
--- NOTE | 2024-06-25 18:37 | P.HPHOSP_ITS ---
History of Present Illness Date of Service: 06/25/24 Attending physician on admission: Sixto Rios Chief Complaint: bacteremia HPI:64-year-old male with a past medical history of Crohn's status post colostomy, history of bladder cancer-on chemotherapy(f/u with dr Lindo in [facility] ,last chemo on 06/17/24), history of hydronephrosis status post bilateral nephrostomy tube. patient is here late last night into this morning due to flank pain and he was found to have a mechanical obstruction of his left nephrostomy tube. Interventional Radiology was able to correct the obstruction in the patient's pain resolved, his blood cultures drawn that were found to be positive for gram-negative rods in both bottles. So patient was asked why ED to come back to the hospital today. His left-sided nephrostomy tube is draining well as per the patient but has pinkish urine. Right-sided nephrostomy tube also draining well. Currently he denies any fevers or chills The patient follows with Urology, Dr. Ying. He received a dose of ceftriaxone after having blood cultures drawn this morning Review of Systems Review of Systems: As above. Yes all other systems are reviewed and are negative [facility] Medical History Bladder mass Family history of adverse response to anesthesia in father Renal calculus Colostomy in place Kidney disease Crohn's disease Family History Father Colon cancer Surgical History H/O colonoscopy Hx of cystoscopy History of ileostomy Social History Household Members: Spouse Housing: House Are you a primary career coordinator to a significant other at home: No Do you presently have visiting nurse or other home services: No Alcohol intake: current Alcohol intake frequency: holidays/special occasions only Patient Tobacco Use Status: Never used Tobacco Second Hand Smoke Exposure: No Advance Directives: No Advance Directives Information Provided: No service: No Current occupational status: employed 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, right handed Meds Allergies Allergy/AdvReac Type Severity Reaction Status Date / Time No Known Allergies Allergy Verified 06/25/24 15:25 Active Medications: Current Medications Acetaminophen (Acetaminophen 325 Mg Tablet) 650 mg PO Q6H PRN PRN Reason: Pain, Mild 1-3,fever,headache Calcium Carbonate (Calcium Carbonate 750 Mg Tab.Chew) 750 mg PO Q4H PRN PRN Reason: Heartburn Cefepime HCl (Maxipime) 2 gm in 50 mls @ 100 mls/hr IV Q12H [facility] Lactated Ringer's (Lr) 1,000 mls @ 80 mls/hr IVCONT .[id number] [facility] Magnesium Hydroxide (Milk Of Magnesia 30 Ml Oral.Susp) 30 ml PO DAILY PRN PRN Reason: Constipation Melatonin (Melatonin 3 Mg Tablet) 6 mg PO BEDTIME PRN PRN Reason: Insomnia Sodium Chloride (0.9 % Sodium Chloride Flush 3 Ml Syringe) 3 ml IVFLUSH QSHIFT [facility] Vancomycin HCl (Vancomycin Hcl 125 Mg Capsule) 125 mg PO MOWEFR [facility] Home Medications ?Medication ?Instructions ?Recorded ?Confirmed ?Last Taken ?Type adalimumab-atto 40 mg/0.4 mL 40 mg subcut WE@1000 05/25/24 06/25/24 06/24/24 History subcutaneous auto-injector (Amjevita(CF) Autoinjector) hydromorphone 4 mg tablet 2 mg PO Q6H PRN Breakthrough Pain, 05/25/24 06/25/24 Unknown History Moderate methocarbamol 500 mg tablet 500 mg PO TID PRN Muscle Spasm 05/25/24 06/25/24 05/25/24 History morphine 30 mg tablet,extended 30 mg PO BID PRN Pain 05/25/24 06/25/24 05/25/24 History release ondansetron 4 mg disintegrating 4 mg PO Q6H PRN nausea induced by 05/25/24 06/25/24 06/24/24 History tablet chemo prochlorperazine maleate 10 mg 10 mg PO Q6H PRN nausea induced 05/25/24 06/25/24 Unknown History tablet from chemo acetaminophen 500 mg tablet 500 mg PO Q8H PRN Pain 06/25/24 06/25/24 Unknown History vancomycin 125 mg capsule 125 mg PO MOWEFR 06/25/24 06/25/24 06/24/24 History Physical Exam Vital Signs and Narrative: Vital Signs: Last Vital Signs Temp 98.1 F 06/25/24 16:38 Pulse 78 06/25/24 16:38 Resp 19 06/25/24 16:38 BP 104/57 L 06/25/24 16:38 Pulse Ox 97 06/25/24 16:38 O2 Del Method Room Air 06/25/24 16:38 BMI result Body Mass Index 26.5 Appearance: Alert.? Oriented X3.? cvs: rrr, [id number] , no murmur res: clear to auscultation ,no rhonchii or wheezing abd: no rebound or guarding ,nt, bs present.colostomy bag and nephrostomy tubes in place. ext pulses present , no cyanosis . neuro: axo3 , nonfocal. Assessment and Plan (1) Bacteremia due to Gram-negative bacteria: Status: Acute Plan 64-year-old male with a past medical history of Crohn's status post colostomy, history of bladder cancer-on chemotherapy(f/u with dr Lindo in [facility] ,last chemo on 06/17/24), history of hydronephrosis status post bilateral nephrostomy tube. patient is here late last night into this morning due to flank pain and he was found to have a mechanical obstruction of his left nephrostomy tube. Interventional Radiology was able to correct the obstruction in the patient's pain resolved, his blood cultures drawn that were found to be positive for gram-negative rods. Gram-negative bacteremia in the setting of recent urological procedure(likely urinary source). Nephrostomy g after procedure:The existing left nephrostomy catheter is widely patent. No exchange was performed. Sterile dressing applied post procedure. No conscious sedation utilized. Urine culture pending Lactic acid normal Started on cefepime No fever chills No sepsis at present Urology evaluation CKD stage 3 : Creatinine is seem at his baseline. Recent C diff infection: No abdominal pain or diarrhea at present He is on prolonged p.o. vanco taper. Bladder cancer-Currently receiving FOLFOX(last cycle was not last Saturday) out patient follow up with his oncologist DVT prophylax: SCD since patient has some pinkish urine in the view of recent procedure could be mild hematuria. His med reconciliation still pending. Patient will benefit from 2 midnight stay considering recent urological procedure and bacteremia: Patient will need IV antibiotics, urology evaluation, need to wait until blood culture identification and sensitivity come back. May need urological workup/ID evaluation. Above management discussed with the patient detail length he understand and in agreement with the above plan, time spent was 70 minute, patient full code. Quality Stroke Does the patient have a stroke diagnosis?: No VTE Prior VTE?: No VTE Risk Level:: Medical - moderate - high VTE Device Contraindication: N/A - Device Ordered VTE Drug Contraindication: N/A - Med Ordered
[2024-06-25 18:42] VITALS: BP 118/68; PULSE 92; RESP 16; TEMP 36.2; O2SAT 99; BMI 26.5
[2024-06-25] MEDS: Lactated Ringers 1,000 ML 80 ML IVCONT (19:22)
--- NOTE | 2024-06-25 19:32 | PHA.MEDREC ---
Addendum entered by Humaira Rehman RPh 06/25/24 19:52: reviewed by [facility]. Original Note: Pharmacy Consult ? Medication Reconciliation Pharmacy has completed the medication reconciliation. Spoke to patient to confirm med list. Patient was able to tell me all of his medications. Patient confirmed Amjevita 40 mg every Saturday, last dose 06/24/24, Vancomycin 125 mg on Saturday, Saturday and Saturday.
[2024-06-25 19:50] VITALS: BP 122/66; PULSE 82; RESP 16; TEMP 36.7; O2SAT 98
[2024-06-25] MEDS: Morphine Sulfate Immed Release 15 MG TABLET 30 MG PO (21:32)
[2024-06-25] MEDS: methocarbamoL 500 MG TABLET PO (21:40)
[2024-06-25] MEDS: HYDROmorphone HCl 2 MG TABLET PO (21:40)
[2024-06-25] MEDS: Acetaminophen 325 MG TABLET 650 MG PO (21:40)
[2024-06-26 03:42] VITALS: BP 153/81; PULSE 85; RESP 20; TEMP 37.1; O2SAT 96
[2024-06-26] MEDS: cefEPime HCl/D5W 2 GM/50 ML PIGGYBACK IV ×2 (05:03→17:03)
[2024-06-26] MEDS: Lactated Ringers 1,000 ML 80 ML IVCONT (05:03)
[2024-06-26 06:31] LABS: Anion Gap 12 (12-20); Blood Urea Nitrogen 30 mg/dL (9-16); Calcium 8.3 mg/dL (8.4-10.2); Carbon Dioxide 23 mmol/L (22-29); Chloride 108 mmol/L (96-108); Creatinine Clr Calc Pharmacy 39.5; Estimated Glomerular Filt Rate 36; Glucose Random 120 mg/dL (60-115); Potassium 4.1 mmol/L (3.3-5.1); Sodium 139 mmol/L (135-145)
--- NOTE | 2024-06-26 07:50 | P.PNIM_ITS ---
Subjective Subjective Date of Service: 06/27/24 Interval History: gram negative bacteremia Review of Systems no new events no fever or chills Review of Systems: Yes all other systems are reviewed and are negative Physical Exam 2 Vital Signs: Vital Signs: Last Vital Signs Temp 98.8 F 06/26/24 03:42 Pulse 85 06/26/24 03:42 Resp 20 06/26/24 03:42 BP 153/81 H 06/26/24 03:42 Pulse Ox 96 06/26/24 03:42 O2 Del Method Room Air 06/26/24 03:42 BMI result Body Mass Index 26.5 Appearance: Alert.? Oriented X3.? cvs: rrr, [id number] , no murmur res: clear to auscultation ,no rhonchii or wheezing abd: no rebound or guarding ,nt, bs present.colostomy bag and nephrostomy tubes in place. ext pulses present , no cyanosis . neuro: axo3 , nonfocal. Objective Data Active Medications Acetaminophen (Acetaminophen 325 Mg Tablet) 650 mg PO Q6H PRN PRN Reason: Pain, Mild 1-3,fever,headache Last Admin: 06/25/24 21:40 Dose: 650 mg Documented By: CLIFTON Calcium Carbonate (Calcium Carbonate 750 Mg Tab.Chew) 750 mg PO Q4H PRN PRN Reason: Heartburn Hydromorphone HCl (Hydromorphone Hcl 2 Mg Tablet) 2 mg PO Q6H PRN PRN Reason: Breakthrough Pain, Moderate Last Admin: 06/25/24 21:40 Dose: 2 mg Documented By: CLIFTON Cefepime HCl (Maxipime) 2 gm in 50 mls @ 100 mls/hr IV Q12H [facility] Last Infusion: 06/26/24 05:34 Dose: Infused Documented By: CLIFTON Lactated Ringer's (Lr) 1,000 mls @ 80 mls/hr IVCONT .[id number] [facility] Last Admin: 06/26/24 05:03 Dose: 80 mls/hr Documented By: CLIFTON Magnesium Hydroxide (Milk Of Magnesia 30 Ml Oral.Susp) 30 ml PO DAILY PRN PRN Reason: Constipation Melatonin (Melatonin 3 Mg Tablet) 6 mg PO BEDTIME PRN PRN Reason: Insomnia Methocarbamol (Methocarbamol 500 Mg Tablet) 500 mg PO TID PRN PRN Reason: Muscle Spasm Last Admin: 06/25/24 21:40 Dose: 500 mg Documented By: CLIFTON Ondansetron HCl (Ondansetron Odt 4 Mg Tab.Rapdis) 4 mg TRANSLINGU Q6H PRN PRN Reason: nausea induced by chemo Prochlorperazine Maleate (Prochlorperazine Maleate 5 Mg Tablet) 10 mg PO Q6H PRN PRN Reason: nausea induced from chemo Sodium Chloride (0.9 % Sodium Chloride Flush 3 Ml Syringe) 3 ml IVFLUSH QSHIFT [facility] Last Admin: 06/26/24 07:10 Dose: Not Given Documented By: MARIELA Non-Admin Reason: IV Running Vancomycin HCl (Vancomycin Hcl 125 Mg Capsule) 125 mg PO MOWEFR [facility] Labs 06/26/24 05:31 Labs: Laboratory Results - last 24 hr 06/26/24 05:31 Hold Purple Top SEE NOTE Anion Gap 12 Estim Creat Clear Calc 39.5 Estimated GFR 36 Random Glucose 120 H Calcium 8.3 L Assessment and Plan (1) Bacteremia due to Gram-negative bacteria: Status: Acute Assessment and Plan: 64-year-old male with a past medical history of Crohn's status post colostomy, history of bladder cancer-on chemotherapy(f/u with dr Lindo in [facility] ,last chemo on 06/17/24), history of hydronephrosis status post bilateral nephrostomy tube. patient is here late last night into this morning due to flank pain and he was found to have a mechanical obstruction of his left nephrostomy tube. Interventional Radiology was able to correct the obstruction in the patient's pain resolved, his blood cultures drawn that were found to be positive for gram-negative rods. Gram-negative bacteremia in the setting of recent urological procedure(likely urinary source). Nephrostomy g after procedure:The existing left nephrostomy catheter is widely patent. No exchange was performed. Sterile dressing applied post procedure. No conscious sedation utilized. Urine culture and blood culture -both gram neg sal-identification/senstivities . Lactic acid normal Started on cefepime d/w Urology -continue antibiotics ,await culture results hematuria improving-more clear urine . CKD stage 3 : Creatinine is seem at his baseline. Recent C diff infection: No abdominal pain or diarrhea at present He is on prolonged p.o. vanco taper. Bladder cancer-Currently receiving FOLFOX(last cycle was not last Saturday). patient oncologist Dr lindo updated on patient request . out patient follow up with his oncologist DVT prophylax: SCD since patient has some pinkish urine in the view of recent procedure . ongoing need : gram negative bacteremia- Quality Stroke Does the patient have a stroke diagnosis?: No VTE Prior VTE?: No VTE Risk Level:: Medical - moderate - high VTE Device Contraindication: N/A - Device Ordered VTE Drug Contraindication: N/A - Med Ordered
[2024-06-26 08:00] VITALS: BP 134/76; PULSE 92; RESP 16; TEMP 37.1; O2SAT 96
[2024-06-26] MEDS: Acetaminophen 325 MG TABLET 650 MG PO (08:21)
[2024-06-26] MEDS: HYDROmorphone HCl 2 MG TABLET PO ×3 (08:21→21:34)
[2024-06-26] MEDS: methocarbamoL 500 MG TABLET PO ×2 (08:21→20:06)
[2024-06-26] MEDS: Morphine Sulfate ER 30 MG TABLET.ER PO ×2 (09:19→20:06)
[2024-06-26] MEDS: 0.9 % Sodium Chloride Flush 3 ML SYRINGE IVFLUSH ×2 (14:53→20:08)
[2024-06-26 15:12] VITALS: BP 141/81; PULSE 88; RESP 18; TEMP 37.6; O2SAT 98
--- NOTE | 2024-06-26 16:10 | MHC.CM.PN ---
PT REPORTS HE LIVES WITH HIS AND IS INDEPENDENT WITH CARE HE HAS NO DME AND NO SERVICES HE REPORTS HE HAS A HCP NAMING HIS , COPY REQUESTED PCP: COLT SIMPSON DCP: HOME NO SERVICES VIA PRIVATE TRANSPORT
[2024-06-26] MEDS: vancomycin HCL 125 MG CAPSULE PO (17:01)
[2024-06-26 19:22] VITALS: BP 167/84; PULSE 89; RESP 18; TEMP 36.8; O2SAT 96
[2024-06-27 03:34] VITALS: BP 130/79; PULSE 82; RESP 18; TEMP 37.1; O2SAT 97
[2024-06-27] MEDS: HYDROmorphone HCl 2 MG TABLET PO ×4 (05:00→23:06)
[2024-06-27] MEDS: methocarbamoL 500 MG TABLET PO ×3 (05:00→21:06)
[2024-06-27] MEDS: cefEPime HCl/D5W 2 GM/50 ML PIGGYBACK IV ×2 (05:02→17:04)
[2024-06-27 07:23] VITALS: BP 145/86; PULSE 85; RESP 16; TEMP 36.8; O2SAT 96
[2024-06-27] MEDS: Morphine Sulfate ER 30 MG TABLET.ER PO ×2 (08:50→21:06)
[2024-06-27] MEDS: 0.9 % Sodium Chloride Flush 3 ML SYRINGE IVFLUSH ×3 (08:51→21:07)
[2024-06-27] MEDS: Acetaminophen 325 MG TABLET 650 MG PO (11:18)
[2024-06-27 15:02] VITALS: BP 117/63; PULSE 78; RESP 18; TEMP 36.6; O2SAT 97
--- NOTE | 2024-06-27 16:07 | P.PNIM_ITS ---
Subjective Subjective Date of Service: 06/27/24 Interval History: bacteremia Review of Systems seems improving blood cultures -klebsiella urine cultures -citrobacter Review of Systems: Yes all other systems are reviewed and are negative Physical Exam 2 Vital Signs: Vital Signs: Last Vital Signs Temp 97.8 F 06/27/24 15:02 Pulse 78 06/27/24 15:02 Resp 18 06/27/24 15:02 BP 117/63 06/27/24 15:02 Pulse Ox 97 06/27/24 15:02 O2 Del Method Room Air 06/27/24 07:23 BMI result Body Mass Index 26.5 Appearance: Alert.? Oriented X3.? cvs: [id number], [id number] , no murmur res: clear to auscultation ,no rhonchii or wheezing abd: no rebound or guarding ,nt, bs present.colostomy bag and nephrostomy tubes in place. ext pulses present , no cyanosis . neuro: axo3 , nonfocal. Objective Data Active Medications Acetaminophen (Acetaminophen 325 Mg Tablet) 650 mg PO Q6H PRN PRN Reason: Pain, Mild 1-3,fever,headache Last Admin: 06/27/24 11:18 Dose: 650 mg Documented By: KATHERYN Calcium Carbonate (Calcium Carbonate 750 Mg Tab.Chew) 750 mg PO Q4H PRN PRN Reason: Heartburn Hydromorphone HCl (Hydromorphone Hcl 2 Mg Tablet) 2 mg PO Q6H PRN PRN Reason: Breakthrough Pain, Moderate Last Admin: 06/27/24 11:10 Dose: 2 mg Documented By: KATHERYN Cefepime HCl (Maxipime) 2 gm in 50 mls @ 100 mls/hr IV Q12H [facility] Last Infusion: 06/27/24 05:33 Dose: Infused Documented By: MARILOU Magnesium Hydroxide (Milk Of Magnesia 30 Ml Oral.Susp) 30 ml PO DAILY PRN PRN Reason: Constipation Melatonin (Melatonin 3 Mg Tablet) 6 mg PO BEDTIME PRN PRN Reason: Insomnia Methocarbamol (Methocarbamol 500 Mg Tablet) 500 mg PO TID PRN PRN Reason: Muscle Spasm Last Admin: 06/27/24 13:01 Dose: 500 mg Documented By: KATHERYN Morphine Sulfate (Morphine Sulfate Er 30 Mg Tablet.Er) 30 mg PO BID PRN PRN Reason: Pain, Severe (Pain Scale 7-10) Last Admin: 06/27/24 08:50 Dose: 30 mg Documented By: NAOMIE Non-Formulary Medication (Adalimumab-Atto [Amjevita(Cf) Autoinjector]) 40 mg SUBCUT WE@1000 [facility] Ondansetron HCl (Ondansetron Odt 4 Mg Tab.Rapdis) 4 mg TRANSLINGU Q6H PRN PRN Reason: nausea induced by chemo Prochlorperazine Maleate (Prochlorperazine Maleate 5 Mg Tablet) 10 mg PO Q6H PRN PRN Reason: nausea induced from chemo Sodium Chloride (0.9 % Sodium Chloride Flush 3 Ml Syringe) 3 ml IVFLUSH QSHIFT [facility] Last Admin: 06/27/24 08:51 Dose: 3 ml Documented By: NAOMIE Vancomycin HCl (Vancomycin Hcl 125 Mg Capsule) 125 mg PO MOWEFR [facility] Last Admin: 06/26/24 17:01 Dose: 125 mg Documented By: MARIELA Labs 06/26/24 05:31 Assessment and Plan (1) Bacteremia due to Gram-negative bacteria: Status: Acute Assessment and Plan: 64-year-old male with a past medical history of Crohn's status post colostomy, history of bladder cancer-on chemotherapy(f/u with dr Lindo in [facility] ,last chemo on 06/17/24), history of hydronephrosis status post bilateral nephrostomy tube. patient is here late last night into this morning due to flank pain and he was found to have a mechanical obstruction of his left nephrostomy tube. Interventional Radiology was able to correct the obstruction in the patient's pain resolved, his blood cultures drawn that were found to be positive for gram-negative rods. Gram-negative bacteremia in the setting of recent urological procedure(likely urinary source). Nephrostomy g after procedure:The existing left nephrostomy catheter is widely patent. No exchange was performed. Sterile dressing applied post procedure. No conscious sedation utilized. Urine culture and blood culture -both gram neg sal-identification/senstivities . Lactic acid normal Started on cefepime d/w Urology -continue antibiotics ,await culture results hematuria improving-more clear urine . CKD stage 3 : Creatinine is seem at his baseline. Recent C diff infection: No abdominal pain or diarrhea at present He is on prolonged p.o. vanco taper. Bladder cancer-Currently receiving FOLFOX(last cycle was not last Saturday). patient oncologist Dr lindo updated on patient request . out patient follow up with his oncologist DVT prophylax: SCD since patient has some pinkish urine in the view of recent procedure . ongoing need : gram negative bacteremia-cultures back-klebsiella bacteremia , citrobacter(urine )- need iv antibiotics , need Id eval. Quality Stroke Does the patient have a stroke diagnosis?: No VTE Prior VTE?: No VTE Risk Level:: Medical - moderate - high VTE Device Contraindication: N/A - Device Ordered VTE Drug Contraindication: N/A - Med Ordered
--- NOTE | 2024-06-27 17:18 | P.CNID_ITS ---
History of Present Illness Data of Consult Service Date: 06/27/24 Requesting physician: Sixto Rios Primary Care Provider: Hansel Martinez MD HPI Reason for consult: bacteremia He has 6/10 pain left flank area He had change in nephrostomy tube one week ago. He has had nephrostomy tubes since March 2024 due to bladder adenocarcinoma and obstruction. Blood Klebsiella and urine is citrobacter Review of Systems 2 Review of Systems: Yes all other systems are reviewed and are negative PMFSH Past Medical History Medical History Bladder mass Family history of adverse response to anesthesia in father Renal calculus Colostomy in place Kidney disease Crohn's disease Family History Family History Father Colon cancer Family history: reviewed and not pertinent Surgical History Surgical History H/O colonoscopy Hx of cystoscopy History of ileostomy Social History Social History Household Members: Spouse Housing: House Are you a primary career specialist to a significant other at home: No Do you presently have visiting nurse or other home services: No Alcohol intake: current Alcohol intake frequency: holidays/special occasions only Patient Tobacco Use Status: Never used Tobacco Second Hand Smoke Exposure: No Currently Displaying Signs/Symptoms of Drug Intoxication Withdrawal: No Have you been hit, kicked, punched, or otherwise hurt by someone within the past year? If so, by whom?: No Do you feel safe in your current relationship?: Yes Is there a partner from a previous relationship who is making you feel unsafe now?: No Are you made to feel afraid or neglected: No Advance Directives: No Advance Directives Information Provided: No Do you have a plan to hurt others: No Plan Recently lost weight without trying: No Nutrition Risks: No Nutritional Risk Poor oral hygiene: No service: No Current occupational status: employed 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, right handed Meds Allergies Allergy/AdvReac Type Severity Reaction Status Date / Time No Known Allergies Allergy Verified 06/25/24 15:25 Active Medications: Current Medications Acetaminophen (Acetaminophen 325 Mg Tablet) 650 mg PO Q6H PRN PRN Reason: Pain, Mild 1-3,fever,headache Last Admin: 06/27/24 11:18 Dose: 650 mg Calcium Carbonate (Calcium Carbonate 750 Mg Tab.Chew) 750 mg PO Q4H PRN PRN Reason: Heartburn Hydromorphone HCl (Hydromorphone Hcl 2 Mg Tablet) 2 mg PO Q6H PRN PRN Reason: Breakthrough Pain, Moderate Last Admin: 06/27/24 17:04 Dose: 2 mg Cefepime HCl (Maxipime) 2 gm in 50 mls @ 100 mls/hr IV Q12H [facility] Last Admin: 06/27/24 17:04 Dose: 100 mls/hr Magnesium Hydroxide (Milk Of Magnesia 30 Ml Oral.Susp) 30 ml PO DAILY PRN PRN Reason: Constipation Melatonin (Melatonin 3 Mg Tablet) 6 mg PO BEDTIME PRN PRN Reason: Insomnia Methocarbamol (Methocarbamol 500 Mg Tablet) 500 mg PO TID PRN PRN Reason: Muscle Spasm Last Admin: 06/27/24 13:01 Dose: 500 mg Morphine Sulfate (Morphine Sulfate Er 30 Mg Tablet.Er) 30 mg PO BID PRN PRN Reason: Pain, Severe (Pain Scale 7-10) Last Admin: 06/27/24 08:50 Dose: 30 mg Non-Formulary Medication (Adalimumab-Atto [Amjevita(Cf) Autoinjector]) 40 mg SUBCUT WE@1000 [facility] Ondansetron HCl (Ondansetron Odt 4 Mg Tab.Rapdis) 4 mg TRANSLINGU Q6H PRN PRN Reason: nausea induced by chemo Prochlorperazine Maleate (Prochlorperazine Maleate 5 Mg Tablet) 10 mg PO Q6H PRN PRN Reason: nausea induced from chemo Sodium Chloride (0.9 % Sodium Chloride Flush 3 Ml Syringe) 3 ml IVFLUSH QSHIFT [facility] Last Admin: 06/27/24 17:05 Dose: 3 ml Vancomycin HCl (Vancomycin Hcl 125 Mg Capsule) 125 mg PO MOWEFR [facility] Last Admin: 06/26/24 17:01 Dose: 125 mg Home Medications ?Medication ?Instructions ?Recorded ?Confirmed ?Last Taken ?Type adalimumab-atto 40 mg/0.4 mL 40 mg subcut WE@1000 05/25/24 06/25/24 06/24/24 History subcutaneous auto-injector (Amjevita(CF) Autoinjector) hydromorphone 4 mg tablet 2 mg PO Q6H PRN Breakthrough Pain, 05/25/24 06/25/24 06/25/24 History Moderate methocarbamol 500 mg tablet 500 mg PO TID PRN Muscle Spasm 05/25/24 06/25/24 06/25/24 History morphine 30 mg tablet,extended 30 mg PO BID PRN Pain 05/25/24 06/25/24 06/25/24 History release ondansetron 4 mg disintegrating 4 mg PO Q6H PRN nausea induced by 05/25/24 06/25/24 06/25/24 History tablet chemo prochlorperazine maleate 10 mg 10 mg PO Q6H PRN nausea induced 05/25/24 06/25/24 06/25/24 History tablet from chemo acetaminophen 500 mg tablet 500 mg PO Q8H PRN Pain 06/25/24 06/25/24 06/25/24 History vancomycin 125 mg capsule 125 mg PO MOWEFR 06/25/24 06/25/24 06/24/24 History Physical Exam 2 Vital Signs: Vital Signs: Last Vital Signs Temp 97.8 F 06/27/24 15:02 Pulse 78 06/27/24 15:02 Resp 18 06/27/24 15:02 BP 117/63 06/27/24 15:02 Pulse Ox 97 06/27/24 15:02 O2 Del Method Room Air 06/27/24 07:23 BMI result Body Mass Index 26.5 Const: General: cooperative HEENT: Head: Yes normal to inspection Face and sinus: Yes normal facial exam Mouth: Normal oral and palatal mucosa present Teeth and gingiva: d entition normal Eyes: General: appearance normal, both eyes and all related structures P upils: Equal, round and reactive pupils present Resp: Effort & Inspection: normal respiratory effort Cardio: Rate: regular rate Rhythm: regular rhythm GI: Palpation (GI): Soft to palpation and nontender : General: Yes no CVA tenderness Back/Spine/Pelvis: Back: no CVA tenderness Skin: Other: left bladder drain General skin exam: no rashes or lesions noted Neuro: General: moves all extremities Cranial nerves: Yes Equal, round and reactive pupils present Extrem: General: Yes normal to inspection Psych: Appearance: grossly normal Results Labs 06/26/24 05:31 Assessment and Plan (1) Bacteremia due to Gram-negative bacteria: Status: Acute (2) C. difficile colitis: Status: Acute (3) Primary bladder adenocarcinoma: Status: Acute Plan He should receive cephalosporin,Ceftriaxone good and then switch to po cephalosporin 14 days. Vancomycin 125 mg qid while on antibiotic and then 48 hours after. Follow Urology.
[2024-06-27 20:00] VITALS: BP 114/64; PULSE 88; RESP 18; TEMP 37; O2SAT 93
[2024-06-28 03:33] VITALS: BP 128/78; PULSE 83; RESP 18; TEMP 36.4; O2SAT 97
[2024-06-28] MEDS: cefEPime HCl/D5W 2 GM/50 ML PIGGYBACK IV (05:02)
[2024-06-28] MEDS: HYDROmorphone HCl 2 MG TABLET PO ×4 (05:16→23:26)
[2024-06-28] MEDS: methocarbamoL 500 MG TABLET PO ×3 (05:16→20:44)
[2024-06-28 06:16] VITALS: RESP 18
[2024-06-28 07:33] VITALS: BP 99/65; PULSE 73; RESP 16; TEMP 36.7; O2SAT 96
[2024-06-28] MEDS: 0.9 % Sodium Chloride Flush 3 ML SYRINGE IVFLUSH ×3 (08:38→23:26)
[2024-06-28] MEDS: cefTRIAXone sodium 2 GM VIAL IVPUSH (08:38)
[2024-06-28] MEDS: Morphine Sulfate ER 30 MG TABLET.ER PO ×2 (08:38→20:44)
--- NOTE | 2024-06-28 11:15 | P.PNIM_ITS ---
Subjective Subjective Date of Service: 06/28/24 Interval History: klebsiella bacteremia Review of Systems denies new c/o, no fevers Review of Systems: Yes all other systems are reviewed and are negative Physical Exam 2 Vital Signs: Vital Signs: Last Vital Signs Temp 98.0 F 06/28/24 07:33 Pulse 73 06/28/24 07:33 Resp 16 06/28/24 07:33 BP 99/65 06/28/24 07:33 Pulse Ox 96 06/28/24 07:33 O2 Del Method Room Air 06/28/24 07:33 BMI result Body Mass Index 26.5 Appearance: Alert.? Oriented X3.? cvs: rrr, [id number] . res: clear to auscultation ,no rhonchii or wheezing abd: no rebound or guarding ,nt, bs present, nephrostomy tubes in place. ext pulses present , no cyanosis . neuro: axo3 , nonfocal. Objective Data Active Medications Acetaminophen (Acetaminophen 325 Mg Tablet) 650 mg PO Q6H PRN PRN Reason: Pain, Mild 1-3,fever,headache Last Admin: 06/27/24 11:18 Dose: 650 mg Documented By: KATHERYN Calcium Carbonate (Calcium Carbonate 750 Mg Tab.Chew) 750 mg PO Q4H PRN PRN Reason: Heartburn Ceftriaxone Sodium (Ceftriaxone Sodium 2 Gm Vial) 2 gm IVPUSH Q24H [facility] Last Admin: 06/28/24 08:38 Dose: 2 gm Documented By: KATHERYN Hydromorphone HCl (Hydromorphone Hcl 2 Mg Tablet) 2 mg PO Q6H PRN PRN Reason: Breakthrough Pain, Moderate Last Admin: 06/28/24 11:09 Dose: 2 mg Documented By: KATHERYN Magnesium Hydroxide (Milk Of Magnesia 30 Ml Oral.Susp) 30 ml PO DAILY PRN PRN Reason: Constipation Melatonin (Melatonin 3 Mg Tablet) 6 mg PO BEDTIME PRN PRN Reason: Insomnia Methocarbamol (Methocarbamol 500 Mg Tablet) 500 mg PO TID PRN PRN Reason: Muscle Spasm Last Admin: 06/28/24 05:16 Dose: 500 mg Documented By: MARILOU Morphine Sulfate (Morphine Sulfate Er 30 Mg Tablet.Er) 30 mg PO BID PRN PRN Reason: Pain, Severe (Pain Scale 7-10) Last Admin: 06/28/24 08:38 Dose: 30 mg Documented By: KATHERYN Non-Formulary Medication (Adalimumab-Atto [Amjevita(Cf) Autoinjector]) 40 mg SUBCUT WE@1000 [facility] Ondansetron HCl (Ondansetron Odt 4 Mg Tab.Rapdis) 4 mg TRANSLINGU Q6H PRN PRN Reason: nausea induced by chemo Prochlorperazine Maleate (Prochlorperazine Maleate 5 Mg Tablet) 10 mg PO Q6H PRN PRN Reason: nausea induced from chemo Sodium Chloride (0.9 % Sodium Chloride Flush 3 Ml Syringe) 3 ml IVFLUSH QSHIFT [facility] Last Admin: 06/28/24 08:38 Dose: 3 ml Documented By: KATHERYN Vancomycin HCl (Vancomycin Hcl 125 Mg Capsule) 125 mg PO MOWEFR [facility] Last Admin: 06/26/24 17:01 Dose: 125 mg Documented By: MARIELA Labs 06/26/24 05:31 Assessment and Plan (1) Bacteremia due to Gram-negative bacteria: Status: Acute Assessment and Plan: 64-year-old male with a past medical history of Crohn's status post colostomy, history of bladder cancer-on chemotherapy(f/u with dr Lindo in [facility] ,last chemo on 06/17/24), history of hydronephrosis status post bilateral nephrostomy tube. patient is here late last night into this morning due to flank pain and he was found to have a mechanical obstruction of his left nephrostomy tube. Interventional Radiology was able to correct the obstruction in the patient's pain resolved, his blood cultures drawn that were found to be positive for gram-negative rods. Gram-negative bacteremia in the setting of recent urological procedure(likely urinary source). Nephrostomy g after procedure:The existing left nephrostomy catheter is widely patent. No exchange was performed. Sterile dressing applied post procedure. No conscious sedation utilized. Urine culture and blood culture -both gram neg sal-identification/senstivities . Lactic acid normal Id eval -switched to ceftriaxone to continue for today d/w Urology -continue antibiotics ,await culture results hematuria improving-more clear urine . CKD stage 3 : Creatinine is seem at his baseline. Recent C diff infection: No abdominal pain or diarrhea at present He is on prolonged p.o. vanco taper. Bladder cancer-Currently receiving FOLFOX(last cycle was not last Saturday). patient oncologist Dr lindo updated on patient request . out patient follow up with his oncologist DVT prophylax: SCD since patient has some pinkish urine in the view of recent procedure . ongoing need : gram negative bacteremia-cultures back-klebsiella bacteremia , citrobacter(urine )- need iv antibiotics , need Id eval. Quality Stroke Does the patient have a stroke diagnosis?: No VTE Prior VTE?: No VTE Risk Level:: Medical - moderate - high VTE Device Contraindication: N/A - Device Ordered VTE Drug Contraindication: N/A - Med Ordered
[2024-06-28] MEDS: Acetaminophen 325 MG TABLET 650 MG PO (13:08)
[2024-06-28 15:16] VITALS: BP 115/69; PULSE 68; RESP 18; TEMP 36.2; O2SAT 97
[2024-06-28 19:21] VITALS: BP 110/68; PULSE 73; RESP 18; TEMP 36.3; O2SAT 98
[2024-06-29 03:33] VITALS: BP 107/68; PULSE 75; RESP 18; TEMP 36.1; O2SAT 99
[2024-06-29] MEDS: HYDROmorphone HCl 2 MG TABLET PO (06:06)
[2024-06-29] MEDS: methocarbamoL 500 MG TABLET PO (06:07)
[2024-06-29 07:14] VITALS: BP 117/75; PULSE 67; RESP 16; TEMP 36.4; O2SAT 99
[2024-06-29] MEDS: vancomycin HCL 125 MG CAPSULE PO (09:07)
[2024-06-29] MEDS: Morphine Sulfate ER 30 MG TABLET.ER PO (09:07)
[2024-06-29] MEDS: cefTRIAXone sodium 2 GM VIAL IVPUSH (09:08)
[2024-06-29] MEDS: 0.9 % Sodium Chloride Flush 3 ML SYRINGE IVFLUSH (09:08)
--- NOTE | 2024-06-29 11:37 | P.DS_ITS ---
DS: Providers Provider Date of Service: 06/29/24 Date of admission: 06/25/24 15:55 Date of discharge: 06/29/24 Primary care physician: Hansel Martinez MD Consults: 06/25/24 18:35 Consult to Urology [place]ine [place] [facility] [place] [facility] Reason for consultation: UTI/BACTERMIA /left nephrostomy blockage Has provider been notified: No 06/27/24 11:11 Consult to Infectious Diseases Routine Consulting Provider[place] [facility] [place] [facility] Reason for consultation: Klebsiella bactermia Has provider been notified: No Attending physician on discharge: Sixto Rios Discharging clinician: Sixto Rios DS: Diagnosis Discharge Diagnosis (1) Bacteremia due to Gram-negative bacteria: Status: Acute DS: Summary Hospital Course Hospital Course: HPI:64-year-old male with a past medical history of Crohn's status post colostomy, history of bladder cancer-on chemotherapy(f/u with dr Lindo in [facility] ,last chemo on 06/17/24), history of hydronephrosis status post bilateral nephrostomy tube. patient is here late last night into this morning due to flank pain and he was found to have a mechanical obstruction of his left nephrostomy tube. Interventional Radiology was able to correct the obstruction in the patient's pain resolved, his blood cultures drawn that were found to be positive for gram-negative rods in both bottles. So patient was asked why ED to come back to the hospital today. His left-sided nephrostomy tube is draining well as per the patient but has pinkish urine. Right-sided nephrostomy tube also draining well. Currently he denies any fevers or chills The patient follows with Urology, Dr. Ying. He received a dose of ceftriaxone after having blood cultures drawn this morning Hospital course: Gram-negative bacteremia in the setting of recent urological procedure(likely urinary source-possible uti): Patient was admitted for Gram-negative bacteremia after procedure-started on IV antibiotics, ua showed pyuria/bacteruria (06/24) urine cultures sent: With above management patient seems to be feeling better, urine culture and blood cultures sensitivity/bacteria as reviewed with Infectious Disease: Recommended p.o. Ceftin 500 mg p.o. b.i.d. for 14 days.Vancomycin 125 mg qid while on antibiotic and then 48 hours after. CKD stage 3 :Creatinine is seem at his baseline. Recent C diff infection: No abdominal pain or diarrhea at present added p.o. vanco as above. Bladder cancer-Currently receiving FOLFOX(last cycle was not last Saturday). patient oncologist Dr lindo updated on patient request . plan: continue Ceftin 500 mg p.o. b.i.d. for 14 days.Vancomycin 125 mg qid while on antibiotic and then 48 hours after. Patient is to follow-up with Urology outpatient . Above management discussed with the patient detail length he understand and in agreement with the above plan, time spent 40 minute, all question answered, staff present during conversation. Time Attestation Total time managing care of this patient today: 40 mintues. Discharge Coordination Time (in mins): 40 min Quality: Safe Use of Opioids Does Pt have an Active Cancer Diagnosis on the Problem List?: No Quality: Stroke Does the patient have a stroke diagnosis?: No Physical Exam Vital Signs: Vital Signs: Last Vital Signs Temp 97.5 F 06/29/24 07:14 Pulse 67 06/29/24 07:14 Resp 16 06/29/24 07:14 BP 117/75 06/29/24 07:14 Pulse Ox 99 06/29/24 07:14 O2 Del Method Room Air 06/29/24 07:14 BMI result Body Mass Index 26.5 Appearance: Alert.? Oriented X3.? cvs: rrr, [id number] . res: clear to auscultation ,no rhonchii or wheezing abd: no rebound or guarding ,nt, bs present.colostomy bag and nephrostomy tubes in place. ext pulses present , no cyanosis . neuro: axo3 , nonfocal. DS: Data Data Completed and Pending Completed studies during hospitalization [Text1]: Procedures Dilation of Bilateral Ureters with Intraluminal Device, Via Natural or Artificial Opening Endoscopic (01/11/24) Dilation of Left Ureter with Intraluminal Device, Via Natural or Artificial Opening Endoscopic (01/25/22) Excision of Bladder, Via Natural or Artificial Opening Endoscopic (01/11/24) Excision of Right Ureter, Via Natural or Artificial Opening Endoscopic (01/11/24) Fluoroscopy of Kidneys, Ureters and Bladder (01/11/24) Discharge Plan Discharge Anticipated Discharge Date/Time: 06/29/24 11:30 Patient Disposition: Home, Self-Care Discharge Diagnosis: uti,bactermia Referrals: Hansel Martinez MD [Primary Care Provider] - 1 Week Discharge Medications: New cefuroxime axetil 500 mg Tablet 500 mg PO Q12H Qty: 27 0RF vancomycin 125 mg capsule 125 mg PO QID Qty: 64 0RF Continued acetaminophen 500 mg Tablet 500 mg PO Q8H PRN (Reason: Pain) methocarbamol 500 mg Tablet 500 mg PO TID PRN (Reason: Muscle Spasm) morphine 30 mg tablet extended release 30 mg PO BID PRN (Reason: Pain) Amjevita(CF) Autoinjector 40 mg/0.4 mL auto-injector 40 mg SUBCUT WE@1000 prochlorperazine maleate 10 mg Tablet 10 mg PO Q6H PRN (Reason: nausea induced from chemo) ondansetron 4 mg Tablet,Disintegrating 4 mg PO Q6H PRN (Reason: nausea induced by chemo) hydromorphone 4 mg Tablet 2 mg PO Q6H PRN (Reason: Breakthrough Pain, Moderate) Held vancomycin 125 mg capsule 125 mg PO MOWEFR Hold Instructions: Resume on 07/13/24. Rx Instructions: po Vancomycin 125 qid for 8 days,125 tid for a week,125 bid for a week,125 daily for a week and then 125 mg every ,,Saturday. Would keep on ,, Discharge Orders: Discharge Order (Routine); Ordered 06/29/24 Ordered By: Sixto Rios Diet: Advance to usual diet Activity on Discharge: As tolerated Stand Alone Forms: Patient Portal Discharge page Print Language: Danish Care Plan Goals: Gram-negative bacteremia in the setting of recent urological procedure(likely urinary source): Patient was admitted for Gram-negative bacteremia after procedure-started on IV antibiotics, urine cultures sent: With above management patient seems to be feeling better, urine culture and blood cultures sensitivity/bacteria as reviewed with Infectious Disease: Recommended p.o. Ceftin 500 mg p.o. b.i.d. for 14 days.Vancomycin 125 mg qid while on antibiotic and then 48 hours after. Health Concerns: continue Ceftin 500 mg p.o. b.i.d. for 14 days.Vancomycin 125 mg qid while on antibiotic and then 48 hours after. Patient is to follow-up with Urology outpatient . Plan of Treatment: As above. Assessment: As above. Patient Instructions: Bacteremia (DC) Discharge Date/Time: 06/29/24 12:28
[2024-06-29] MEDS: cefuroxime axetiL 500 MG TABLET PO (11:46)
--- NOTE | 2024-06-29 12:13 | MHC.CM.PN ---
Per MD, patient medically cleared for dc home self care. Patient reports he independently manages nephro tube and ostomy. to transport.
[2024-06-29 12:26] VITALS: BP 102/65; PULSE 79; RESP 16; TEMP 36.6; O2SAT 97
== END 2024-06-29 12:28 | disposition home or self-care (01) | DRG 690 ==
LOC: HO.ED 15:56 → HO.EDOVER 16:01 → HO.S3 17:11
PROVIDERS: Admitting Provider Student in an Organized Health Care Education/Training Program; Emergency Provider Emergency Medicine; PCP Internal Medicine; Visit Provider Internal Medicine
DX: N39.0 Urinary tract infection, site not specified (principal); R78.81 Bacteremia; K50.90 Crohn's disease, unspecified, without complications; C67.9 Malignant neoplasm of bladder, unspecified; N18.30 Chronic kidney disease, stage 3 unspecified; B96.1 Klebsiella pneumoniae [K. pneumoniae] as the cause of diseases classified elsewhere; Z93.6 Other artificial openings of urinary tract status; Z79.899 Other long term (current) drug therapy
CPT/HCPCS: 36415; 80048; 99285; J0692; J0696; J7120

== ENCOUNTER → 2024-06-25 15:55 | Outpatient (BNV) | payer OTHER, SELFPAY | PROVIDERS: Admitting Provider Student in an Organized Health Care Education/Training Program; Emergency Provider Emergency Medicine; PCP Internal Medicine; Visit Provider Internal Medicine | DX: R78.81 Bacteremia (principal) | CPT/HCPCS: 99222; 99231; 99232; 99239 ==

== ENCOUNTER → 2024-06-25 15:55 | Outpatient (BNV) | payer OTHER, SELFPAY | PROVIDERS: Admitting Provider Student in an Organized Health Care Education/Training Program; Emergency Provider Emergency Medicine; PCP Internal Medicine; Visit Provider Internal Medicine | DX: R78.81 Bacteremia (principal); A04.72 Enterocolitis due to Clostridium difficile, not specified as recurrent; C67.9 Malignant neoplasm of bladder, unspecified | CPT/HCPCS: 99222 ==

== ENCOUNTER 2024-08-17 10:01 | Day surgery (SDC) | payer OTHER, SELFPAY ==
--- OUTSIDE RECORDS SUMMARY | 2024-06-19 06:47 | XMS_ITS | Encounter Summary ---
Author Organization [facility] Address [address] [place] [address] Care Team Providers Care Chain Mortiser Operator Name Role Phone Hansel Martinez MD Primary Care Provider [phone] Angeles Pineda RN Unavailable [phone] Encounter Details Date Type Department Care Team (Late st Contact Info) Description 03/30/2024 Scanned Document [facility] Colorectal Surgery [place] [address] [facility] [address] [place] [phone] Huong Hoang MD Medical [facility] [address] [place] [address] Social History Tobacco Use Types Packs/Day Years Used Date Smoking Tobacco: Never Smokeless Tobacco: Never Alcohol Use Standard Drinks/Week Comments Not Currently 0 (1 standard drink = 0.6 oz pur e alcohol) [facility] Utilities Answer Date Recorded In the past 12 months has [employer] electric, gas, oil, or water company threatened [...] any time in the past 12 m [facility], were you homeless or [...] on filedocumented in this encounter Care Teams Chain Mortiser Operator Relationship Specialty Start Date End Date Hansel Martinez MD [address] [place] [address] PCP - General Internal Medicine 01/21/24 Angeles Pineda RN [address] [place] [address] Oncology Nurse Navigator 02/11/24 documented as of this encounter
--- OUTSIDE RECORDS SUMMARY | 2024-06-19 06:47 | XMS_ITS ---
Author Organization [facility] Address [address] [place] [address] Care Team Providers Care Inside Meter Tester Name Role Phone Hansel Martinez MD Primary Care Provider [phone] Angeles Pineda RN Unavailable [phone] Active Problems Problem Noted Date Diagnosed Date [...] [facility]ica at [facility] [place], [place]. Crohn's disease of colon with complication 02/27 Assessment & Plan (02/28/2024 11:24 AM EST): Diagnosed 1975. S/p total colectomy with a right mid quadrant ileostomy in 1979, then resected twice d/t fistulas with most recent resection of ileostomy 2019. On Humira under the management of gastroenterology, Dr. Manny Jefferson, at [facility]. Continue plan and follow up [...]
--- OUTSIDE RECORDS SUMMARY | 2024-06-19 06:47 | XMS_ITS | Encounter Summary ---
Author Organization [facility] Address [address] [place] [address] Phone Care Team Providers Care Supervisor Gas Meter Repair Name Role Phone Hansel Martinez MD Primary Care Provider [phone] Encounter Details Date Type Department Care Team (Late st Contact Info) Description 04/13/2022 Documentation Only [facility], [address] [place] [address] [place], [place] [address] [place] [address] Social History Tobacco Use Types [...] filedocumented in this encounter Care Teams Supervisor Gas Meter Repair Relationship Specialty Start Date End Date Hansel Martinez MD [facility] [address] [place] [address] PCP - General 12/16/18 documented as of this encounter
--- OUTSIDE RECORDS SUMMARY | 2024-06-19 06:47 | XMS_ITS | Clinical Summary ---
Author Organization [facility] Address [address] [place] [address] Care Team Providers Care Spine Surgeon Name Role Phone Hansel Martinez MD Primary Care Provider Angeles Pineda RN Unavailable [phone] Allergies No known active allergies Medications acetaminophen [...] at [facility] [place]. Crohn's disease of colon with complication 02/27 Assessment & Plan (02/28/2024 11:24 AM EST): Diagnosed 1975. S/p total colectomy with a right mid quadrant ileostomy in 1979, then resected twice d/t fistulas with most recent resection of ileostomy 2019. On Grantira under the management of gastroenterology, Dr. Manny Jefferson, at [facility]. Continue plan and follow up as previously indicated by provider. Hydronephrosis 02/25/2024 Malignant neoplasm of urinary bladder 01/24/2024 Assessment & Plan (02/28/2024 11:24 AM EST): Diagnosed 01/2024. No chemo or radiation. Followed by urology. Planned for above scheduled procedure. Encounters Date Type Department Care Team Description 03/30/2024 Orders Only [facility] Colorectal Surgery [address] [address] Eliud Rodriguez MD 03/30/2024 Scanned Document [facility] Colorectal Surgery [place] [address] [address] Eliud Rodriguez MD 03/30/2024 Scanned Document [facility] Colorectal Surgery [place] [address] [address] Eliud Rodriguez MD 03/30/2024 Scanned Document [facility] Colorectal Surgery [place] [address] [place] [address] Huong Hoang MD 03/30/2024 Scanned Document [facility] Colorectal Surgery [place] [address] [place] [address] Eliud Rodriguez MD 03/30/2024 Scanned Document [facility] Colorectal Surgery [place] [address] [place] [address] Eliud Rodriguez MD 03/30/2024 Scanned Document [facility] Colorectal Surgery [place] [address] [place] [address] Eliud Rodriguez MD 03/30/2024 Scanned Document [facility] Colorectal Surgery [place] [address] [place] [address] Jabari Vann MD 03/30/2024 Scanned Document [facility] Colorectal Surgery [place] [address] [place] [address] Eliud Rodriguez MD 03/27/2024 11:20 AM EST Office Visit [facility] Colorectal Surgery [place] [address] [place] [address] Nimisha Quintana PA Malignant neoplasm of urinary bladder, unspecified site (HCC) (Primary Dx) 03/27/2024 Travel 03/26/2024 11:30 AM EST Ancillary Procedure [facility] Radiology [address] [place] [address] Provider, File Room 03/26/2024 11:25 AM EST Ancillary Procedure [facility] Radiology [address] [place] [address] Provider, File Room 03/26/2024 11:20 AM EST Ancillary Procedure [facility] Radiology [address] [place] [address] Provider, File Room 03/26/2024 11:15 AM EST Ancillary Procedure [facility] Radiology [address] [place] [address] Provider, File Room from Last 3 Months Family History Medical History Relation Name Comments Cancer, Bladder Neg Hx Cancer, Kidney Neg Hx Cancer, Prostate Neg Hx Social History Tobacco Use Types Packs/Day Years Used Date Smoking Tobacco: Never Smokeless Tobacco: Never Tobacco Cessation:Counseling Given: Not Answered Alcohol Use Standard Drinks/Week Comments Not Currently 0 (1 standard drink = 0.6 oz pur e alcohol) [facility] Utilities Answer Date Recorded In the past 12 months has th e [employer], [employer], oil, or water [employer] threatened to shut off services in your [...] any time in the past 12 m [facility], were you homeless or living in a long-term (including now)? No 03/14/2024 Sex and Gender [...] 2023 06/25/2021, 01/07/2021, 03/08/2020, Additional history exists Influenza Vaccine 09/11/2024 11/11/2023, , 01/23/2022, Additional history exists RSV Vaccine 60 years and older and Patients (1 - 1-dose 75+ series) 02/08/2036 Hepatitis B Vaccines Aged Out No long er eligible based on patient's age to complete this topic Procedures Procedure Name Priority Date/Time Associated Diagnosis Comments XR SACRUM AND COCCYX MINIMUM 2 [id number] Routine 03/30/2024 9:[address] PELVIS [...] REFERENCE ONLY Routine 03/26/2024 11:12 AM EST from Last 3 Months Results * XR SACRUM AND COCCYX MINIMUM 2 [id number] (03/30/2024 9:51 AM EST) Anatomical Region Laterality Modality Other us External Provider IM[facility]imm[facility] LEGACY PROCEDURES Final Result * CT Pelvis without IV contrast (03/30/2024 9:48 AM EST) Anatomical Region Laterality Modality Pelvis Computed Tomogra phy External Provider IMKimmie CT ORDERABLES Final Res ult * CT ABD AND PELVIS WITH CONTRAST (03/30/2024 9:45 AM EST) Anatomical Region Laterality Modality Other us External Provider IM[facility]imm[facility] LEGACY PROCEDURES Final Result * Pathology (03/30/2024 9:40 AM EST) Only the most recent of2 resultswithin the time period is included. Tissue us External Provider PATHOLOGY/CYTOLOGY ORDERABL ES Final Result * CARLA Archive for reference only CT (03/26/2024 11:20 AM EST) Narrative JOSE CRUZ - 03/26/2024 11:15 AM EST This order has been auto-finalized and does not contain a result. us File Room Provider IMG DIGITIZE FILMS Final Resu lt Performing Organization Address [facility] de Phone Number JOSE CRUZ [phone] * CT Head Archive for Reference Only (03/26/2024 11:19 AM EST) Narrative JOSE CRUZ - 03/26/2024 11:19 AM EST This study has been auto finalized and does not contain a result. us File Room Provider IMG DIGITIZE FILMS Final Resu lt Performing Organization Address [facility] de Phone Number JOSE CRUZ [phone] * CT Abdomen Archive for Reference Only (03/26/2024 11:18 AM EST) Only the most recent of2 resultswithin the time period is included. Narrative ST[place]TON - 03/26/2024 11:18 AM EST This study has been auto finalized and does not contain a result. File Room Provider IMG DIGITIZE FILMS Final Resu lt Performing Organization Address [facility] de Phone Number JOSE CRUZ [phone] from Last 3 Months Insurance [facility] Advance Directives * Full Code (Latest Code Status on File) Date Activated Date Inactivated Comments 03/13/2024 5:14 PM * Full Code Date Activated Date Inactivated Comments 03/13/2024 7:50 AM 03/13/2024 5:14 PM Healthcare Agents on File Name Relationship Healthcare Agent Relationshi p Communication vickey Jay Spouse 4. Next of Kin ( Spouse, Adult Child, Parent, Adult Sibling, Grandparent) Care Teams Spine Surgeon Relationship Specialty Start Date End Date Hansel Martinez MD [address] [place] [address] PCP - General Internal Medicine 01/21/24 Angeles Pineda RN [address] [place] [address] Oncology Nurse Navigator 02/11/24
--- OUTSIDE RECORDS SUMMARY | 2024-06-19 06:47 | XMS_ITS | Encounter Summary ---
Author Organization [facility] Address [address] [place] [address] Care Team Providers Care Loan Auditor Name Role Phone Hansel Martinez MD Primary Care Provider [phone] Angeles Pineda RN Unavailable [phone] Encounter Details Date Type Department Care Team (Late st Contact Info) Description 03/18/2024 Scanned Document [facility] Colorectal Surgery [place] [address] [address] Yenny Garcia MD [address] [id number] Social History Tobacco Use Types Packs/Day Years Used Date Smoking Tobacco: Never Smokeless Tobacco: Never Alcohol Use Standard Drinks/Week Comments Not Currently 0 (1 standard drink = 0.6 oz pur e alcohol) [facility] Utilities Answer Date Recorded In the past 12 months has [employer] electric, gas, oil, or water [employer] threatened to shut off services in your [...] in the past 12 m [facility], were you homeless or living in a [...] on filedocumented in this encounter Care Teams Loan Auditor Relationship Specialty Start Date End Date Hansel Martinez MD [address] [place] [address] PCP - General Internal Medicine 01/21/24 Angeles Pineda RN [address] [place] [address] Oncology Nurse Navigator 02/11/24 documented as of this encounter
--- OUTSIDE RECORDS SUMMARY | 2024-06-19 06:47 | XMS_ITS | Encounter Summary ---
Author Organization [facility] Address [address] [place] [address] Care Team Providers Care Facility Service Associate Name Role Phone Hansel Martinez MD Primary Care Provider [phone] CarrierAngeles RN Unavailable [phone] Encounter Details Date Type Department Care Team (Late st Contact Info) Description 03/30/[address] [facility] Colorectal Surgery [place] [address] [facility] [address] [place] [address] Provider, MD Eliud [address] [place] [address] Social History Tobacco Use Types Packs/Day Years Used Date Smoking Tobacco: Never Smokeless Tobacco: Never Alcohol Use Standard Drinks/Week Comments Not Currently 0 (1 standard drink = 0.6 oz pur e alcohol) [facility] Utilities Answer Date Recorded In the past 12 months has [employer] electric, gas, oil, or water company threatened [...] any time in the past 12 m [facility], were you homeless or living in [...] on filedocumented in this encounter Care Teams Facility Service Associate Relationship Specialty Start Date End Date Hansel Martinez MD [address] [place] [address] PCP - General Internal Medicine 01/21/24 Angeles Pineda RN [address] [place] [address] Oncology Nurse Navigator 02/11/24 documented as of this encounter
--- OUTSIDE RECORDS SUMMARY | 2024-06-19 06:47 | XMS_ITS | Encounter Summary ---
Author Organization [facility] Address [address] [place] [address] Care Team Providers Care Blue Prints Trimmer Name Role Phone Hansel Martinez MD Primary Care Provider [phone] CarrierAngeles RN Unavailable [phone] Encounter Details Date Type Department Care Team (Late st Contact Info) Description 03/30/2024 Scanned Document [facility] Colorectal Surgery [place] [address] [facility] [address] [place] [address] Provider, MD Eliud [address] [place] [address] Social History Tobacco Use Types Packs/Day Years Used Date Smoking Tobacco: Never Smokeless Tobacco: Never Alcohol Use Standard Drinks/Week Comments Not Currently 0 (1 standard drink = 0.6 oz pur e alcohol) [facility] Utilities Answer Date Recorded In the past 12 months has [employer] electric, gas, oil, or water company threatened [...] any time in the past 12 m [facility], were you homeless or living in a [place] facility (including now)? No 03/14/2024 Sex and Gender [...] on filedocumented in this encounter Care Teams Blue Prints Trimmer Relationship Specialty Start Date End Date Hansel Martinez MD [address] [place] [address] PCP - General Internal Medicine 01/21/24 Angeles Pineda RN [address] [place] [address] Oncology Nurse Navigator 02/11/24 documented as of this encounter
--- OUTSIDE RECORDS SUMMARY | 2024-06-19 06:47 | XMS_ITS | Clinical Summary ---
Author Organization [facility] Address [address] [place] [address] Phone Care Team Providers Care Research Professional Name Role Phone Hansel Martinez MD Primary Care Provider [phone] Social History Tobacco Use Types Packs/Day Years [...] patient's age to complete this topic Insurance [facility] R[place]Y [place]IN [id number] Care Teams Research Professional Relationship Specialty Start Date End Date Hansel Martinez MD [address] [place] [address] PCP - General Internal Medicine 01/30/24
--- OUTSIDE RECORDS SUMMARY | 2024-06-19 06:47 | XMS_ITS | Encounter Summary ---
Author Organization [facility] Address [address] [place] [address] Care Team Providers Care Sales Office Assistant Name Role Phone Hansel Martinez MD Primary Care Provider [phone] CarrierAngeles RN Unavailable [phone] Encounter Details Date Type Department Care Team (Late st Contact Info) Description 03/30/2024 Scanned Document [facility] Colorectal Surgery [place] [address] [facility] [address] [place] [address] Provider, MD Eliud [address] [place] [address] Social History Tobacco Use Types Packs/Day Years Used Date Smoking Tobacco: Never Smokeless Tobacco: Never Alcohol Use Standard Drinks/Week Comments Not Currently 0 (1 standard drink = 0.6 oz pur e alcohol) [facility] Utilities Answer Date Recorded In the past 12 months has [employer], gas, oil, or water company threatened [...] any time in the past 12 m [facility], were you homeless or living in [...] on filedocumented in this encounter Care Teams Sales Office Assistant Relationship Specialty Start Date End Date Hansel Martinez MD [address] [place] [address] PCP - General Internal Medicine 01/21/24 Angeles Pineda RN [address] [place] [address] Oncology Nurse Navigator 02/11/24 documented as of this encounter
--- OUTSIDE RECORDS SUMMARY | 2024-06-19 06:47 | XMS_ITS | Encounter Summary ---
Author Organization [facility], Address [address] [place] [address] Phone Care Team Providers Care Lay Out And Detail Drafter Name Role Phone Hansel Martinez MD Primary Care Provider [phone] Encounter Details Date Type Department Care Team (Late st Contact Info) Description 06/12/2022 Documentation Only [facility], [address] [place] [phone] Marko Mojica MD [address] [facility] [place] [phone] Social History Tobacco Use Types Packs/Day Years [...] on filedocumented in this encounter Care Teams Lay Out And Detail Drafter Relationship Specialty Start Date End Date Hansel Martinez MD [facility] FOUR CORNER FORMER MACHINE OPERATOR [address] [place], [place] [address] PCP - General 12/16/18 documented as of this encounter
--- OUTSIDE RECORDS SUMMARY | 2024-06-19 06:47 | XMS_ITS | Encounter Summary ---
Author Organization [facility] Address [address] [place] [address] Care Team Providers Care Overhead Cleaner Maintainer Name Role Phone Hansel Martinez MD Primary Care Provider [phone] CarrierAngeles RN Unavailable [phone] Encounter Details Date Type Department Care Team (Late st Contact Info) Description 03/30/2024 Scanned Document [facility] Colorectal Surgery [place] [address] [facility] [address] [place] [address] Provider, MD Eliud [address] [place] [address] Social History Tobacco Use Types Packs/Day Years Used Date Smoking Tobacco: Never Smokeless Tobacco: Never Alcohol Use Standard Drinks/Week Comments Not Currently 0 (1 standard drink = 0.6 oz pur e alcohol) [facility] Utilities Answer Date Recorded In the past 12 months has [employer] electric, gas, oil, or water company threatened [...] any time in the past 12 m [facility], were you homeless or living in a [facility] (including now)? No 03/14/2024 Sex and Gender [...] on filedocumented in this encounter Care Teams Overhead Cleaner Maintainer Relationship Specialty Start Date End Date Hansel Martinez MD [address] [place] [address] PCP - General Internal Medicine 01/21/24 Angeles Pineda RN [address] [place] [address] Oncology Nurse Navigator 02/11/24 documented as of this encounter
--- OUTSIDE RECORDS SUMMARY | 2024-06-19 06:47 | XMS_ITS | Encounter Summary ---
Author Organization [facility] Address [address] [place] [address] Care Team Providers Care Head Operator Name Role Phone Hansel Martinez MD Primary Care Provider Angeles Pineda RN Unavailable [phone] Reason for Visit * Reason Comments Appointment Encounter Details Date Type Department Care Team (Late st Contact Info) Description 01/21/2024 Telephone [facility] Urologic Surgery [address] [place] [address] Provider, Generic Appointment Social History Tobacco [...] to Dr. Driscoll. Spoke with Marie Ying family practice medical doctor and they will fax the records today. documented in this encounter Plan of Treatment Not on file documented as of this encounter Visit Diagnoses Not on filedocumented in this encounter Care Teams Head Operator Relationship Specialty Start Date End Date Hansel Martinez MD [address] [place] [address] PCP - General Internal Medicine 01/21/24 Angeles Pineda RN [address] [place] [address] Oncology Nurse Navigator 02/11/24 documented as of this encounter
--- OUTSIDE RECORDS SUMMARY | 2024-06-19 06:47 | XMS_ITS | Encounter Summary ---
Author Organization [facility], Address [address] [place] [address] Phone Care Team Providers Care Email Marketing Executive Name Role Phone Hansel Martinez MD Primary Care Provider [phone] Encounter Details Date Type Department Care Team (Late st Contact Info) Description 06/05/2022 Documentation Only [facility], [address] [facility] [place] [phone] Marko Mojica MD [address] [facility] [place] [phone] Social History Tobacco Use Types Packs/Day Years [...] on filedocumented in this encounter Care Teams Email Marketing Executive Relationship Specialty Start Date End Date Hansel Martinez MD [facility] H[facility] COORDINATOR [address] [place], [place] [address] PCP - General 12/16/18 documented as of this encounter
--- OUTSIDE RECORDS SUMMARY | 2024-06-19 06:47 | XMS_ITS | Encounter Summary ---
Author Organization [facility], Address [address] [place] [address] Phone Care Team Providers Care Senior Patrol Agent Name Role Phone Hansel Martinez MD Primary Care Provider [phone] Encounter Details Date Type Department Care Team (Late st Contact Info) Description 03/27/2022 Office Communication [facility], [address] [facility] [facility] [place] [phone] Marko Mojica MD [address] [place] [address] [place] [address] Social History Tobacco Use Types Packs/Day Years [...] on filedocumented in this encounter Care Teams Senior Patrol Agent Relationship Specialty Start Date End Date Hansel Martinez MD [place] MANAGER DRUG SAFETY [address] [facility] [place] PCP - General 12/16/18 documented as of this encounter
--- OUTSIDE RECORDS SUMMARY | 2024-06-19 06:47 | XMS_ITS | Encounter Summary ---
Author Organization [facility], Address [address] [place] [address] Phone Care Team Providers Care Compressor House Operator Name Role Phone Hansel Martinez MD Primary Care Provider [phone] Encounter Details Date Type Department Care Team (Late st Contact Info) Description 03/27/2022 Office Communication [facility], [address] [facility] [place] [phone] Marko Mojica MD [address] [facility] [address] [place] [phone] Social History Tobacco Use Types Packs/Day Years [...] on filedocumented in this encounter Care Teams Compressor House Operator Relationship Specialty Start Date End Date Hansel Martinez MD [facility] PARAEDUCATOR [address] [place], [place] [address] PCP - General 12/16/18 documented as of this encounter
--- OUTSIDE RECORDS SUMMARY | 2024-06-19 06:47 | XMS_ITS | Encounter Summary ---
Author Organization [facility] Address [address] [place] [address] Care Team Providers Care Hat Measurer Name Role Phone Hansel Martinez MD Primary Care Provider [phone] CarrierAngeles RN Unavailable [phone] Encounter Details Date Type Department Care Team (Late st Contact Info) Description 03/30/2024 Scanned Document [facility] Colorectal Surgery [place] [address] [facility] [address] [place] [address] Provider, MD Eliud [address] [place] [address] Social History Tobacco Use Types Packs/Day Years Used Date Smoking Tobacco: Never Smokeless Tobacco: Never Alcohol Use Standard Drinks/Week Comments Not Currently 0 (1 standard drink = 0.6 oz pur e alcohol) [facility] Utilities Answer Date Recorded In the past 12 months has [employer] electric, gas, oil, or water company threatened [...] any time in the past 12 m [facility], were you homeless or living in [...] on filedocumented in this encounter Care Teams Hat Measurer Relationship Specialty Start Date End Date Hansel Martinez MD [address] [place] [address] PCP - General Internal Medicine 01/21/24 Angeles Pineda RN [address] [place] [address] Oncology Nurse Navigator 02/11/24 documented as of this encounter
--- OUTSIDE RECORDS SUMMARY | 2024-06-19 06:47 | XMS_ITS | Encounter Summary ---
Author Organization [facility] Address [address] [place] [address] Phone Care Team Providers Care Configuration Management Specialist Name Role Phone Hansel Martinez MD Primary Care Provider [phone] Encounter Details Date Type Department Care Team (Late st Contact Info) Description 04/13/2022 Documentation Only [facility], [address] [place] [address] [place], [place] [address] [place] [address] Social History Tobacco Use Types [...] on filedocumented in this encounter Care Teams Configuration Management Specialist Relationship Specialty Start Date End Date Hansel Martinez MD [place] CUTTING MACHINE FEEDER [address] [place] [address] PCP - General 12/16/18 documented as of this encounter
--- OUTSIDE RECORDS SUMMARY | 2024-06-19 06:47 | XMS_ITS | Clinical Summary ---
Author Organization [facility], Address [address] [place] [address] [address] [place] [address] Phone Care Team Providers Care 21 Dealer Name Role Phone Hansel Martinez MD Primary Care Provider [phone] Allergies No known active allergies Medications adalimumab [...] patient's age to complete this topic Insurance [facility] Care Teams 21 Dealer Relationship Specialty Start Date End Date Hansel Martinez MD [facility] [employer] SUPERVISOR [address] [place] [address] PCP - General 12/16/18
--- OUTSIDE RECORDS SUMMARY | 2024-06-19 06:47 | XMS_ITS | Encounter Summary ---
Author Organization [facility] Address [address] [place] [address] Care Team Providers Care Hot Blaster Name Role Phone Hansel Martinez MD Primary Care Provider [phone] Angeles Pineda RN Unavailable [phone] Encounter Details Date Type Department Care Team (Late st Contact Info) Description 03/30/2024 Scanned Document [facility] Colorectal Surgery [place] [address] [facility] [address] [place] [address] Jabari Vann MD [address] [place] [address] Social History Tobacco Use Types Packs/Day Years Used Date Smoking Tobacco: Never Smokeless Tobacco: Never Alcohol Use Standard Drinks/Week Comments Not Currently 0 (1 standard drink = 0.6 oz pur e alcohol) [facility] Utilities Answer Date Recorded In the past 12 months has [employer] electric, gas, oil, or water company threatened [...] any time in the past 12 m [facility], were you homeless or living in [...] on filedocumented in this encounter Care Teams Hot Blaster Relationship Specialty Start Date End Date Hansel Martinez MD [address] [place] [address] PCP - General Internal Medicine 01/21/24 Angeles Pineda RN [address] [place] [address] Oncology Nurse Navigator 02/11/24 documented as of this encounter
--- OUTSIDE RECORDS SUMMARY | 2024-06-19 06:47 | XMS_ITS | Clinical Summary ---
Author Organization [facility] Address [address] [place] [address] Care Team Providers Care Top Distribution Executive Name Role Phone Unavailable Primary Care Provider [...]
--- OUTSIDE RECORDS SUMMARY | 2024-06-19 06:47 | XMS_ITS | Encounter Summary ---
Author Organization [facility] Address [address] [place] [address] Care Team Providers Care Bottle Assembler Name Role Phone Hansel Martinez MD Primary Care Provider [phone] Angeles Pineda RN Unavailable [phone] Encounter Details Date Type Department Care Team (Late st Contact Info) Description 01/23/2024 Scanned Document [facility] [address] [facility] [address] [place] [address] Chavo Ying MD [address] [place] [address] Social History Tobacco Use Types Packs/Day Years [...] on filedocumented in this encounter Care Teams Bottle Assembler Relationship Specialty Start Date End Date Hansel Martinez MD [address] [place] [address] PCP - General Internal Medicine 01/21/24 Angeles Pineda RN [address] [place] [address] Oncology Nurse Navigator 02/11/24 documented as of this encounter
--- OUTSIDE RECORDS SUMMARY | 2024-06-19 06:47 | XMS_ITS | Encounter Summary ---
Author Organization [facility], Address [address] [place] [address] Phone Care Team Providers Care Wardrobe Assistant Name Role Phone Hansel Martinez MD Primary Care Provider [phone] Encounter Details Date Type Department Care Team (Late st Contact Info) Description 06/07/2020 Orders Only [facility] [address] [place] [address] Marko Mojica MD [address] [place], [place] [address] [place] [phone] Social History Tobacco Use Types Packs/Day Years [...] on filedocumented in this encounter Care Teams Wardrobe Assistant Relationship Specialty Start Date End Date Hansel Martinez MD [place] FLIGHT ATTENDANT/INFLIGHT MANAGER [address] [place] [address] [address] [facility] [place] PCP - General 12/16/18 documented as of this encounter
--- OUTSIDE RECORDS SUMMARY | 2024-06-19 06:47 | XMS_ITS | Encounter Summary ---
Author Organization [facility] Address [address] [place] [address] Care Team Providers Care Synthetic Resin Operator Name Role Phone Hansel Martinez MD Primary Care Provider [phone] CarrierAngeles RN Unavailable [phone] Encounter Details Date Type Department Care Team (Late st Contact Info) Description 03/30/2024 Scanned Document [facility] Colorectal Surgery [place] [address] [facility] [address] [place] [address] Provider, MD Eliud [address] [place] [address] Social History Tobacco Use Types Packs/Day Years Used Date Smoking Tobacco: Never Smokeless Tobacco: Never Alcohol Use Standard Drinks/Week Comments Not Currently 0 (1 standard drink = 0.6 oz pur e alcohol) [facility] Utilities Answer Date Recorded In the past 12 months has [employer] electric, gas, oil, or water company threatened [...] time in the past 12 m [facility], were you homeless or living in a senior living (including now)? No 03/14/2024 Sex and Gender [...] on filedocumented in this encounter Care Teams Synthetic Resin Operator Relationship Specialty Start Date End Date Hansel Martinez MD [address] [place] [address] PCP - General Internal Medicine 01/21/24 Angeles Pineda RN [address] [place] [address] Oncology Nurse Navigator 02/11/24 documented as of this encounter
--- OUTSIDE RECORDS SUMMARY | 2024-06-19 06:47 | XMS_ITS | Encounter Summary ---
Author Organization [facility], Address [address] [place] [address] Phone Care Team Providers Care Genetic Counselor Name Role Phone Hansel Martinez MD Primary Care Provider [phone] Encounter Details Date Type Department Care Team (Late st Contact Info) Description 07/12/2022 Documentation Only [facility], [address] [facility] [phone] Marko Mojica MD [address] [facility] [address] [place] [address] Social History Tobacco Use Types Packs/Day Years [...] on filedocumented in this encounter Care Teams Genetic Counselor Relationship Specialty Start Date End Date Hansel Martinez MD [facility] MACHINE OPERATOR [address] [place], [place] [address] PCP - General 12/16/18 documented as of this encounter
--- OUTSIDE RECORDS SUMMARY | 2024-06-19 06:47 | XMS_ITS | Encounter Summary ---
Author Organization [facility] [place], Address [address] [place] [address] Phone Care Team Providers Care Business Systems Administrator Name Role Phone Hansel Martinez MD Primary Care Provider [phone] Encounter Details Date Type Department Care Team (Late st Contact Info) Description 03/20/2022 Documentation Only [facility] [place], [address] [facility] [place] [phone] Marko Mojica MD [address] [facility] [address] [place] [address] Social History Tobacco Use Types Packs/Day Years [...] on filedocumented in this encounter Care Teams Business Systems Administrator Relationship Specialty Start Date End Date Hansel Martinez MD [facility] REP [address] [place], [place] [address] PCP - General 12/16/18 documented as of this encounter
--- NOTE | 2024-08-13 09:11 | HO.ANESPROP2 ---
Documented by User: Nimisha Tuttle NP 08/13/24 09:15 HPI - Anesthesia Eval Consult details Narrative: 64yo M for Bilateral Cystoscopy, Ureteroroscopy, Retro, Laser,RIGHT side stent exchange with LEFT side stent placement PMFSH Active Problems Active Problems: All Active Problems Bacteremia due to Gram-negative bacteria (Acute) Acute hypokalemia (Acute) Acute hyponatremia (Acute) Primary bladder adenocarcinoma (Acute) Weak urinary stream (Acute) Osteoarthritis of right AC (acromioclavicular) joint (Acute) Tendinitis of right rotator cuff (Acute) Chronic kidney disease (Acute) Hematuria (Acute) Recurrent nephrolithiasis (Acute) Crohn's disease (Acute) Past Medical History Medical History Chronic renal insufficiency C. difficile colitis Bladder mass Family history of adverse response to anesthesia in father Renal calculus Colostomy in place Crohn's disease Family History Family History Father Colon cancer Family history of problems with anesthesia: No Surgical History Surgical History (Updated 08/12/24 @ 10:51 by Pau Mckinney RN) H/O colonoscopy Hx of cystoscopy History of ileostomy History of Problems with Anesthesia: No Social History Social History Household Members: Spouse Housing: House Are you a primary point of care technician to a significant other at home: No Do you presently have visiting nurse or other home services: No Alcohol intake: current Alcohol intake frequency: holidays/special occasions only Patient Tobacco Use Status: Never used Tobacco Second Hand Smoke Exposure: No Use of substances other than those prescribed or required for medical reasons: No Advance Directives: No Advance Directives Information Provided: Yes service: No Current occupational status: employed 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, right handed Meds Allergies Allergy/AdvReac Type Severity Reaction Status Date / Time No Known Allergies Allergy Verified 06/25/24 15:25 Home Medications ?Medication ?Instructions ?Recorded ?Confirmed ?Last Taken ?Type adalimumab-atto 40 mg/0.4 mL 40 mg subcut WE@1000 05/25/24 08/12/24 06/24/24 History subcutaneous auto-injector (Amjevita(CF) Autoinjector) hydromorphone 4 mg tablet 2 mg PO Q6H PRN Breakthrough Pain, 05/25/24 08/17/24 08/17/24 08:00 History Moderate methocarbamol 500 mg tablet 500 mg PO TID PRN Muscle Spasm 05/25/24 08/12/24 06/25/24 History morphine 30 mg tablet,extended 30 mg PO BID PRN Pain 05/25/24 08/12/24 06/25/24 History release ondansetron 4 mg disintegrating 4 mg PO Q6H PRN nausea induced by 05/25/24 08/12/24 06/25/24 History tablet chemo prochlorperazine maleate 10 mg 10 mg PO Q6H PRN nausea induced 05/25/24 08/12/24 06/25/24 History tablet from chemo acetaminophen 500 mg tablet 500 mg PO Q8H PRN Pain 06/25/24 06/25/24 06/25/24 History vancomycin 125 mg capsule 125 mg PO MOWEFR 06/25/24 06/25/24 06/24/24 History Held on 06/29/24. Instructions: Resume on 07/13/24. Exam Height,Weight and Vital Signs: Height 5 ft 9 in Pertinent Lab Results Pertinent Lab Results: Laboratory Tests 06/24/24 06/26/24 22:11 05:31 WBC 8.8 Hgb 11.6 L Hct 34.8 L Plt Count 224 Sodium 139 Potassium 4.1 Chloride 108 Carbon Dioxide 23 BUN 30 H Creatinine 1.91 H Assessment and Plan Assessment Anesthesia Assessment: Chart Reviewed Final Anesthetic Review Family History of Problems with Anesthesia: No History of Problems with Anesthesia: No Documented by User: Catracho Dougherty MD 08/17/24 11:28 [facility] Past Medical History Medical History Chronic renal insufficiency C. difficile colitis Bladder mass Family history of adverse response to anesthesia in father Renal calculus Colostomy in place Crohn's disease Family History Family History Father Colon cancer Surgical History Surgical History (Updated 08/12/24 @ 10:51 by Pau Mckinney RN) H/O colonoscopy Hx of cystoscopy History of ileostomy Social History Social History Household Members: Spouse Housing: House Are you a primary point of care technician to a significant other at home: No Do you presently have visiting nurse or other home services: No Alcohol intake: current Alcohol intake frequency: holidays/special occasions only Patient Tobacco Use Status: Never used Tobacco Second Hand Smoke Exposure: No Use of substances other than those prescribed or required for medical reasons: No Advance Directives: No Advance Directives Information Provided: Yes service: No Current occupational status: employed 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, right handed Meds Allergies Allergy/AdvReac Type Severity Reaction Status Date / Time No Known Allergies Allergy Verified 06/25/24 15:25 Home Medications ?Medication ?Instructions ?Recorded ?Confirmed ?Last Taken ?Type adalimumab-atto 40 mg/0.4 mL 40 mg subcut WE@1000 05/25/24 08/12/24 06/24/24 History subcutaneous auto-injector (Amjevita(CF) Autoinjector) hydromorphone 4 mg tablet 2 mg PO Q6H PRN Breakthrough Pain, 05/25/24 08/17/24 08/17/24 08:00 History Moderate methocarbamol 500 mg tablet 500 mg PO TID PRN Muscle Spasm 05/25/24 08/12/24 06/25/24 History morphine 30 mg tablet,extended 30 mg PO BID PRN Pain 05/25/24 08/12/24 06/25/24 History release ondansetron 4 mg disintegrating 4 mg PO Q6H PRN nausea induced by 05/25/24 08/12/24 06/25/24 History tablet chemo prochlorperazine maleate 10 mg 10 mg PO Q6H PRN nausea induced 05/25/24 08/12/24 06/25/24 History tablet from chemo acetaminophen 500 mg tablet 500 mg PO Q8H PRN Pain 06/25/24 06/25/24 06/25/24 History vancomycin 125 mg capsule 125 mg PO MOWEFR 06/25/24 06/25/24 06/24/24 History Held on 06/29/24. Instructions: Resume on 07/13/24. Exam Airway Mallampati Class: II TM Dist: <=3cm Neck ROM: Full Loose/Missing/Broken Teeth: No Heart: ok Lungs: ok Assessment and Plan Assessment Anesthesia Assessment: Anesthesia Plan Discussed Final Anesthetic Review NPO: Yes ASA Class: III Final Preanesthetic Review: No Changes in Pt Med Stat, Meds/Allgs Chart Reviewed, Consent Obtained/Reviewed and Anes Risks/Benef Reviewed Patient Risk: Intermediate Procedure Risk: Low Anesthetic Plan Anesthetic Plan: GA and Agree w/ Assess. and Plan Disposition: Standard PACU
[2024-08-17] VITALS (7 sets, daily range): BP systolic 91–124; BP diastolic 58–74; PULSE 75–87; RESP 16–17; TEMP 36.5–36.6; O2SAT 98–99; BMI 26.6
--- NOTE | ~2024-08-17 | FL_ITS ---
EXAMINATION: FL GUIDANCE ONLY HISTORY: bilateral stones COMPARISON: Correlation is made with a CT of the abdomen and pelvis without contrast dated 06/24/2024. TECHNIQUE: Fluoroscopy time: 29.8 seconds. Cumulative Dose: 10.31 mGy. Images: 4. FINDINGS: Fluoroscopic spot films demonstrate bilateral nephroureteral stents. FL/FL guidance in OR IMPRESSION: Fluoroscopy during procedure. Please see procedure report for additional information. Electronically signed by: Bassam Castillo MD 08/17/2024 12:37 PM EDT
[2024-08-17] MEDS: Lactated Ringers 1,000 ML 100 ML IVCONT (10:30)
--- NOTE | 2024-08-17 11:24 | P.HPSUR_ITS ---
Pre-Procedural Eval Section A - 24 Hr Update-Section A only Date of Service: 08/17/24 The patient is an INPATIENT: No Changes since office visit: No Cold of Flu in the past 2 weeks, No New Medical Problems, No Changes in Medication and No Patient answered all questions The patient has been examined within 24 hours of the surgical procedure. The History & Physical has been completed within 30 days and I have reviewed it.: Yes Section B - Complete if H&P > 30 days Chief Complaint: Calculus of kidney Details of Present Illness: Left ureteric stones, bilateral indwelling stents Allergies: Allergies Allergy/AdvReac Type Severity Reaction Status Date / Time No Known Allergies Allergy Verified 06/25/24 15:25 Review of Systems Sugical H&P ROS: Negative: Constitution, Cardiovascular, Respiratory, Neurological, Psychiatric, Hem-Onc, Allergic/Immunologic, Gastrointestinal, Genitourinary, Musculoskeletal, Integumentary, Endocrine and Eyes/Ears/Nose/Throat Exam Surgical H&P Exam: Normal: HEENT, Normal: Heart, Normal: Lungs, Normal: Extremities, Normal: Abdomen, Normal: Skin and Normal: Neurological Plan Diagnosis/Plan: Unchanged (Cystoscopy, bilateral stent exchange, bilateral re trograde, left ureteroscopy with laser lithotripsy) I have reviewed the history and physical and performed a pertinent physical examination on my patient. No changes have occurred unless specified. Time Spent With Patient Time: Total time managing care of this patient today ____ minutes.
--- NOTE | 2024-10-07 17:03 | W.PM.OPN ---
Operative Note Operative Note Date of Service: 08/17/24 Narrative: PreOperative Diagnosis: Left renal stone Post Operative Diagnosis: Left renal stone Procedure: Cystoscopy, attempted left retrograde Surgeon: Dr Chavo Ying Anesthesia: LMA Indications for procedure: Left renal stone. Initial plan try to address. Known invasive small cell bladder cancer with bilateral PCN tubes for drainage. Procedure: After informed consent was verified the patient was brought to the operating room and placed in modified dorsal lithotomy position. Anesthesia was administered per protocol. The patient was prepped and draped in a sterile fashion. Safety pause time-out was performed. Antibiotics being given. Twenty-two Macedonian cystoscope inserted per urethra. Bladder drained of decayed bladder cellular material. 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 Attempts made to find left ureteric orifice for retrograde examination. Retrograde attempted through possible orifices however they were not easily found. After 20 minutes decision made to not proceed with case. The patient tolerated the procedure well was extubated in the operating room and transferred in stable condition to the recovery area Pathology: [] Drains: []
== END 2024-08-17 13:36 | disposition home or self-care (01) ==
PROVIDERS: PCP Internal Medicine; Visit Provider Urology
PROC: (CPT 52005; principal; 2024-08-17 12:10)
DX: N20.0 Calculus of kidney (principal); C67.4 Malignant neoplasm of posterior wall of bladder; Z96.0 Presence of urogenital implants; N18.9 Chronic kidney disease, unspecified; K50.90 Crohn's disease, unspecified, without complications; Z53.8 Procedure and treatment not carried out for other reasons; Z93.3 Colostomy status; Z79.899 Other long term (current) drug therapy
CPT/HCPCS: 52005; C1758; C1769; C2617; J0131; J1956; J2003; J2704; J3010; Q9967

== ENCOUNTER → 2024-08-17 10:01 | Outpatient (BNV) | payer OTHER, SELFPAY | PROVIDERS: PCP Internal Medicine; Visit Provider Urology | DX: N20.0 Calculus of kidney (principal) | CPT/HCPCS: 52000 ==

== ENCOUNTER 2024-08-26 13:33 | Outpatient (AMB) | payer OTHER, SELFPAY ==
--- NOTE | 2024-08-26 13:39 | MHC.OFFVIS ---
Intake Visit Reasons: Stent removal Intake Note: Patient is present for STENT REMOVAL Urology Medication:NONE Antibiotic Allergy:NONE Blood Thinner:NONE LOT:[id number] EXP:05/07/27 Organ Recovery Coordinator Required: No Allergies No Known Allergies Allergy (Verified 08/26/24 13:40) HPI Comments Details: Sarbjit is a pleasant male. He is a patient of Dr. Martinez. 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 His ureters are strictured from locally invasive bladder cancer disease. At this point he will be unable to urinate normally for the rest of his projected life expectancy. He is reliant on wearing bilateral PCN tubes to protect what is left of his kidney function. Should these be removed he will quickly enter acute renal failure. Patients with bilateral percutaneous nephrostomy (PCN) tubes to protect their kidneys from acute renal failure often experience significant disability impacts. These tubes, while lifesaving, impose considerable physical and psychological burdens. Patients frequently report chronic discomfort, restricted mobility, and challenges in performing daily activities such as bathing, dressing, and sleeping. The presence of external drainage systems also increases the risk of infections, skin breakdown, and tube dislodgement, which necessitates ongoing medical oversight. Psychosocially, patients often struggle with body image issues, social isolation, and emotional distress. Overall, while bilateral PCN tubes are critical for renal preservation, their use markedly affects quality of life and functional independence. Overall these tubes represent significant disability. In addition his renal function is a creatinine of 2.0, GFR under 40 - This is in line with chronic renal disease CKD3b and consistent with [id number] renal damage. 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 Driscoll 04/07 MRI complete - There is an irregular/infiltrative enhancing mass at the posterior aspect of the bladder wall measuring 4.1 x 2.6 x 3.5 cm. 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 Comment: The differential includes a primary bladder adenocarcinoma and metastatic adenocarcinoma from a GI source (including lower and upper GI, appendix, and pancreatico-biliary). Imaging and clinical correlation are necessary. Additional immunostains are pending; addendum to follow. Discussed management. This is an unusual and uncommon form of bladder cancer. Typically the best responses are found with urgent surgical resection. To date there is a minimal role for radiation and chemotherapy in the neoadjuvant or adjuvant setting. Nephrolithiasis Distal left ureteric stones [facility] Medical History (Updated 08/28/24 @ 13:44 by Chavo Ying MD) Chronic renal insufficiency C. difficile colitis Bladder mass Family history of adverse response to anesthesia in father Renal calculus Colostomy in place Crohn's disease Surgical History (Updated 08/12/24 @ 10:51 by Pau Mckinney RN) H/O colonoscopy Hx of cystoscopy History of ileostomy Family History Father Colon cancer Social History Household Members: Spouse Housing: House Are you a primary dog daycare provider to a significant other at home: No Do you presently have visiting nurse or other home services: No Alcohol intake: current Alcohol intake frequency: holidays/special occasions only Patient Tobacco Use Status: Never used Tobacco Second Hand Smoke Exposure: No service: No Current occupational status: employed 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, right handed Review of Systems Const Denies chills and Denies fever(s) Card Reports no additional complaints and Denies syncope Resp Denies cough GI Denies abdominal pain and Denies heartburn Reports as per HPI and Denies change in libido Neuro Denies syncope Psych Denies change in libido Endo Denies change in libido Physical Exam Const General: cooperative, healthy appearing, comfortable and no acute distress Orientation/consciousness: patient oriented x3 HEENT Face and sinus: Yes normal facial exam Mouth: moist mucous membranes Neck Neck: Yes normal visual inspection, Yes full ROM and Yes trachea midline Chest Chest palpation & inspection: normal inspection of the chest Resp Effort & Inspection: normal respiratory effort, able to speak in complete sentences and no respiratory distress GI Inspection: Yes normal to inspection Back/Spine/Pelvis Cervical Spine: normal cervical lordosis Thoracic/Lumbar Spine: thoracic and lumbar spine normal to inspection Skin General skin exam: no rashes or lesions noted Neuro General: patient oriented x3, gait normal, tone normal and moves all extremities Extrem General: Yes normal to inspection and Yes capillary refill normal Assessment & Plan Assessment & Plan (1) Primary bladder adenocarcinoma: Code(s): C67.9 - Malignant neoplasm of bladder, unspecified Category: Medical (2) Bacteremia due to Gram-negative bacteria: Code(s): R78.81 - Bacteremia Category: Medical (3) Chronic kidney disease (CKD) stage G3b/A1, moderately decreased glomerular filtration rate (GFR) between 30-44 mL/min/1.73 square meter and albuminuria creatinine ratio less than 30 mg/g: Code(s): N18.32 - Chronic kidney disease, stage 3b Category: Medical Plan Continue PCN changes Patient Instructions: This note is constructed using voice recognition software. While every effort has been made to ensure accuracy finished cloth examiner errors may have been included. Imaging studies, laboratory and physical exam results were discussed and reviewed in detail. No major barriers to patient understanding were identified. An opportunity to ask questions regarding the treatment plan was provided. All questions were answered. The patient expressed understanding and agreement with the above treatment plan. The patient is aware they should contact our office by phone for worsening of their current condition or the appearance of new urologic symptoms. Compliance is encouraged with any medications and followup testing that is ordered. It is a privilege to participate in the urologic care of your patient. If you have any questions or concerns regarding treatment for the above conditions, or other urologic issues, please do not hesitate to contact me. The office telephone contact is [phone]. Sincerely, Dr Chavo Ying MD, [facility] - Urology Compassionate Specialist Care for the Genitourinary System Coding Level of Care Code Est Pt Level 4 (89009) Diagnoses Primary bladder adenocarcinoma C67.9 Bacteremia due to Gram-negative bacteria R78.81 Chronic kidney disease (CKD) stage G3b/A1, moderately decreased glomerular filtration rate (GFR) between 30-44 mL/min/1.73 square meter and albuminuria creatinine ratio less than 30 mg/g N18.32
--- OUTSIDE RECORDS SUMMARY | 2024-08-26 14:23 | XMS_ITS ---
Author Name [facility] Organization Unknown Results Test Name/Text Value Interpretation Date Range Source Creat SerPl-mCnc 2.04 mg/dL Above high normal 03/21/2024 0.7 - 1.35 [facility] eGFRcr SerPlBld CKD-EPI 2020 36.0 mL/min/1.73m2 Below low normal 03/21/2024 - [facility] BUN SerPl-mCnc 28.0 mg/dL Above high normal 03/21/2024 7 - 2 5 [facility] Albumin/Glob SerPl 1.1 (calc) Normal 03/21/2024 1 - 2.5 [facility] AST SerPl-cCnc 26.0 U/L Normal 03/21/2024 10 - 35 [facility] T CO2 SerPl-sCnc 27.0 mmol/L Normal 03/21/2024 20 - 32 QU EST Potassium SerPl-sCnc 4.1 mmol/L Normal 03/21/2024 3.5 - 5.3 [facility] Sodium SerPl-sCnc 134.0 mmol/L Below low normal 03/21/2024 1 35 - 146 [facility] Calcium SerPl-mCnc 8.1 mg/dL Below low normal 03/21/2024 8.6 - 10.3 [facility] Bilirub SerPl-mCnc 0.4 mg/dL Normal 03/21/2024 0.2 - 1.2 [facility] ALT SerPl-cCnc 22.0 U/L Normal 03/21/2024 9 - 46 [facility] T Albumin SerPl-mCnc 3.7 g/dL Normal 03/21/2024 3.6 - 5.1 [facility] ALP SerPl-cCnc 74.0 U/L Normal 03/21/2024 35 - 144 [facility] T Globulin Ser Calc-mCnc 3.4 g/dL (calc) Normal 03/21/2024 1.9 - 3.7 [facility] Prot SerPl-mCnc 7.1 g/dL Normal 03/21/2024 6.1 - 8.[address] BUN/Creat SerPl 14.0 (calc) Normal 03/21/2024 6 - 22 [facility] Chloride SerPl-sCnc 99.0 mmol/L Normal 03/21/2024 98 - 11 0 [facility] Glucose SerPl-mCnc 103.0 mg/dL Normal 03/21/2024 65 - 139 [facility] Magnesium SerPl-mCnc 2.2 mg/dL Normal 03/18/2024 1.6 - 2.7 [facility] Phosphate SerPl-mCnc 1.9 mg/dL Below low normal 03/18/2024 2.7 - 4.5 [facility] Chloride SerPl-sCnc 105.0 mmol/L Normal 03/18/2024 98 - 1 07 [facility] Creat SerPl-mCnc 1.9 mg/dL Above high normal 03/18/2024 0.5 - 1.3 [facility] BUN SerPl-mCnc 25.0 mg/dL Above high normal 03/18/2024 8 - 2 1 [facility] Potassium SerPl-sCnc 3.7 mmol/L Normal 03/18/2024 3.4 - 5.3 [facility] GFR/BSA.pred SerPlBld ALW-AVM-JfJFxx 39.0 Below low normal 03/18/2024 59 - [facility] Anion Gap Bld-sCnc 10.0 Normal 03/18/2024 7 - 17 [facility] Glucose SerPl-mCnc 109.0 mg/dL Above high normal 03/18/2024 65 - 99 [facility] Calcium SerPl-mCnc 7.5 mg/dL Below low normal 03/18/2024 8.7 - 10.5 [facility] BUN/Creat SerPl 13.0 Ratio Normal 03/18/2024 10 - 25 [facility] CCT CO2 SerPl-sCnc 26.0 mmol/L Normal 03/18/2024 22 - 33 [facility] CCT Sodium SerPl-sCnc 141.0 mmol/L Normal 03/18/2024 136 - 14 5 [facility] Phosphate SerPl-mCnc 1.7 mg/dL Below low normal 03/18/2024 2.7 - 4.5 [facility] Magnesium SerPl-mCnc 1.9 mg/dL Normal 03/18/2024 1.6 - 2.7 [facility] Calcium SerPl-mCnc 7.4 mg/dL Below low normal 03/18/2024 8.7 - 10.5 [facility] Sodium SerPl-sCnc 142.0 mmol/L Normal 03/18/2024 136 - 14 5 [facility] Glucose SerPl-mCnc 105.0 mg/dL Above high normal 03/18/2024 65 - 99 [facility] CO2 SerPl-sCnc 25.0 mmol/L Normal 03/18/2024 22 - 33 HH CCT Chloride SerPl-sCnc 107.0 mmol/L Normal 03/18/2024 98 - 1 07 [facility] Creat SerPl-mCnc 2.1 mg/dL Above high normal 03/18/2024 0.5 - 1.3 [facility] BUN SerPl-mCnc 25.0 mg/dL Above high normal 03/18/2024 8 - 2 1 [facility] GFR/BSA.pred SerPlBld CKB-FVX-DsWBlf 35.0 Below low normal 03/18/2024 59 - [facility] Anion Gap Bld-sCnc 10.0 Normal 03/18/2024 7 - 17 [facility] Potassium SerPl-sCnc 3.2 mmol/L Below low normal 03/18/2024 3.4 - 5.3 [facility] BUN/Creat SerPl 12.0 Ratio Normal 03/18/2024 10 - 25 HH CCT Potassium SerPl-sCnc 3.5 mmol/L Normal 03/17/2024 3.4 - 5.3 [facility] Creat SerPl-mCnc 2.4 mg/dL Above high normal 03/17/2024 0.5 - 1.3 [facility] Anion Gap Bld-sCnc 12.0 Normal 03/17/2024 7 - 17 [facility] CO2 SerPl-sCnc 26.0 mmol/L Normal 03/17/2024 22 - 33 HH CCT Glucose SerPl-mCnc 104.0 mg/dL Above high normal 03/17/2024 65 - 99 [facility] Calcium SerPl-mCnc 7.3 mg/dL Below low normal 03/17/2024 8.7 - 10.5 [facility] Chloride SerPl-sCnc 104.0 mmol/L Normal 03/17/2024 98 - 1 07 [facility] GFR/BSA.pred SerPlBld QWM-HNO-FeSLjn 30.0 Below low normal 03/17/2024 59 - [facility] Sodium SerPl-sCnc 142.0 mmol/L Normal 03/17/2024 136 - 14 5 [facility] BUN/Creat SerPl 12.0 Ratio Normal 03/17/2024 10 - 25 HH CCT BUN SerPl-mCnc 29.0 mg/dL Above high normal 03/17/2024 8 - 2 1 [facility] Calcium SerPl-mCnc 7.3 mg/dL Below low normal 03/17/2024 8.7 - 10.5 [facility] Glucose SerPl-mCnc 113.0 mg/dL Above high normal 03/17/2024 65 - 99 [facility] Chloride SerPl-sCnc 105.0 mmol/L Normal 03/17/2024 98 - 1 07 [facility] Potassium SerPl-sCnc 2.9 mmol/L Below low normal 03/17/2024 3.4 - 5.3 [facility] Sodium SerPl-sCnc 141.0 mmol/L Normal 03/17/2024 136 - 14 5 [facility] BUN SerPl-mCnc 33.0 mg/dL Above high normal 03/17/2024 8 - 2 1 [facility] BUN/Creat SerPl 13.0 Ratio Normal 03/17/2024 10 - 25 HH CCT CO2 SerPl-sCnc 24.0 mmol/L Normal 03/17/2024 22 - 33 HH CCT Anion Gap Bld-sCnc 12.0 Normal 03/17/2024 7 - 17 [facility] GFR/BSA.pred SerPlBld LOC-JZS-OkCQfy 28.0 Below low normal 03/17/2024 59 - [facility] Creat SerPl-mCnc 2.5 mg/dL Above high normal 03/17/2024 0.5 - 1.3 [facility] Phosphate SerPl-mCnc 2.3 mg/dL Below low normal 03/17/2024 2.7 - 4.5 [facility] Magnesium SerPl-mCnc 1.7 mg/dL Normal 03/17/2024 1.6 - 2.7 [facility] Phosphate SerPl-mCnc 2.1 mg/dL Below low normal 03/16/2024 2.7 - 4.5 [facility] Magnesium SerPl-mCnc 2.3 mg/dL Normal 03/16/2024 1.6 - 2.7 [facility] BUN SerPl-mCnc 42.0 mg/dL Above high normal 03/16/2024 8 - 2 1 [facility] Sodium SerPl-sCnc 140.0 mmol/L Normal 03/16/2024 136 - 14 5 [facility] Creat SerPl-mCnc 3.3 mg/dL Above high normal 03/16/2024 0.5 - 1.3 [facility] Potassium SerPl-sCnc 3.2 mmol/L Below low normal 03/16/2024 3.4 - 5.3 [facility] Glucose SerPl-mCnc 121.0 mg/dL Above high normal 03/16/2024 65 - 99 [facility] CO2 SerPl-sCnc 27.0 mmol/L Normal 03/16/2024 22 - 33 HH CCT Calcium SerPl-mCnc 7.6 mg/dL Below low normal 03/16/2024 8.7 - 10.5 [facility] Anion Gap Bld-sCnc 8.0 Normal 03/16/2024 7 - 17 [facility] GFR/BSA.pred SerPlBld IJQ-XRQ-MuEGvt 20.0 Below low normal 03/16/2024 59 - [facility] BUN/Creat SerPl 13.0 Ratio Normal 03/16/2024 10 - 25 HH CCT Chloride SerPl-sCnc 105.0 mmol/L Normal 03/16/2024 98 - 1 07 [facility] Chloride SerPl-sCnc 106.0 mmol/L Normal 03/16/2024 98 - 1 07 [facility] Potassium SerPl-sCnc 2.6 mmol/L Critically low 03/16/2024 3.4 - 5.3 [facility] Glucose SerPl-mCnc 96.0 mg/dL Normal 03/16/2024 65 - 99 [facility] Anion Gap Bld-sCnc 11.0 Normal 03/16/2024 7 - 17 [facility] BUN/Creat SerPl 14.0 Ratio Normal 03/16/2024 10 - 25 HH CCT Calcium SerPl-mCnc 7.4 mg/dL Below low normal 03/16/2024 8.7 - 10.5 [facility] Sodium SerPl-sCnc 140.0 mmol/L Normal 03/16/2024 136 - 14 5 [facility] GFR/BSA.pred SerPlBld HOO-UZE-FcOGuz 19.0 Below low normal 03/16/2024 59 - [facility] Creat SerPl-mCnc 3.5 mg/dL Above high normal 03/16/2024 0.5 - 1.3 [facility] BUN SerPl-mCnc 50.0 mg/dL Above high normal 03/16/2024 8 - 2 1 [facility] CO2 SerPl-sCnc 23.0 mmol/L Normal 03/16/2024 22 - 33 [facility] CCT Magnesium SerPl-mCnc 1.8 mg/dL Normal 03/16/2024 1.6 - 2.7 [facility] Phosphate SerPl-mCnc 2.5 mg/dL Below low normal 03/16/2024 2.7 - 4.5 [facility] CA 19-9 847.0 U/mL Above high normal 03/20/2024 - 34 [facility] CO2 SerPl-sCnc 18.0 mmol/L Below low normal 03/15/2024 22 - 33 [facility] GFR/BSA.pred SerPlBld QHV-AXU-UoAXai 12.0 Below low normal 03/15/2024 59 - [facility] BUN/Creat SerPl 14.0 Ratio Normal 03/15/2024 10 - 25 HH CCT Glucose SerPl-mCnc 95.0 mg/dL Normal 03/15/2024 65 - 99 [facility] Potassium SerPl-sCnc 3.3 mmol/L Below low normal 03/15/2024 3.4 - 5.3 [facility] Anion Gap Bld-sCnc 15.0 Normal 03/15/2024 7 - 17 [facility] Chloride SerPl-sCnc 107.0 mmol/L Normal 03/15/2024 98 - 1 07 [facility] Creat SerPl-mCnc 5.1 mg/dL Above high normal 03/15/2024 0.5 - 1.3 [facility] BUN SerPl-mCnc 73.0 mg/dL Above high normal 03/15/2024 8 - 2 1 [facility] Sodium SerPl-sCnc 140.0 mmol/L Normal 03/15/2024 136 - 14 5 [facility] Calcium SerPl-mCnc 7.7 mg/dL Below low normal 03/15/2024 8.7 - 10.5 [facility] Magnesium SerPl-mCnc 1.8 mg/dL Normal 03/15/2024 1.6 - 2.7 [facility] CEA SerPl-mCnc 113.0 ng/mL Above high normal 03/15/2024 0 - 3.8 [facility] Phosphate SerPl-mCnc 5.3 mg/dL Above high normal 03/15/2024 2.7 - 4.5 [facility] Potassium SerPl-sCnc 3.7 mmol/L Normal 03/14/2024 3.4 - 5.3 [facility] Anion Gap Bld-sCnc 16.0 Normal 03/14/2024 7 - 17 [facility] Calcium SerPl-mCnc 7.8 mg/dL Below low normal 03/14/2024 8.7 - 10.5 [facility] CO2 SerPl-sCnc 14.0 mmol/L Below low normal 03/14/2024 22 - 33 [facility] Glucose SerPl-mCnc 107.0 mg/dL Above high normal 03/14/2024 65 - 99 [facility] BUN/Creat SerPl 12.0 Ratio Normal 03/14/2024 10 - 25 HH CCT Creat SerPl-mCnc 5.6 mg/dL Above high normal 03/14/2024 0.5 - 1.3 [facility] BUN SerPl-mCnc 68.0 mg/dL Above high normal 03/14/2024 8 - 2 1 [facility] Sodium SerPl-sCnc 136.0 mmol/L Normal 03/14/2024 136 - 14 5 [facility] Chloride SerPl-sCnc 106.0 mmol/L Normal 03/14/2024 98 - 1 07 [facility] GFR/BSA.pred SerPlBld IQU-QFE-IxDFnr 11.0 Below low normal 03/14/2024 59 - [facility] Magnesium SerPl-mCnc 1.8 mg/dL Normal 03/14/2024 1.6 - 2.7 [facility] Phosphate SerPl-mCnc 7.3 mg/dL Above high normal 03/14/2024 2.7 - 4.5 [facility] TT imm Bovine Thrombin PPP 16.2 seconds Normal 03/13/2024 12.7 - 19.2 [facility] Anticoagulant SUB Q UNFRACTIONATED HEPARIN Normal 03/13/2024 [facility] aPTT PPP 24.0 seconds Below low normal 03/13/2024 25 - 36 [facility] Anticoagulant SUBCUTANEOUS UNFRACTIONATED HEPARIN Normal 03/13/2024 [facility] Prothrombin time 12.3 seconds Normal 03/13/2024 10 - 13.5 [facility] INR PPP 1.1 Normal 03/13/2024 [facility] Anticoagulant SUB Q UNFRACTIONATED HEPARIN Normal 03/13/2024 [facility] Fibrinogen PPP-mCnc 349.0 mg/dL Normal 03/13/2024 148 - 4 35 [facility] Platelet num Bld Auto 199.0 Thou/uL Normal 03/13/2024 150 - 450 [facility] WBC num Bld Auto 17.7 Thou/uL Above high normal 03/13/2024 4 - 11 [facility] Hct VFr Bld Auto 36.6 % Below low normal 03/13/2024 39 - 54 [facility] MCHC RBC Auto-mCnc 35.5 g/dL Normal 03/13/2024 30 - 36 [facility] Hgb Bld-mCnc 13.0 g/dL Normal 03/13/2024 13 - 17.7 [facility] RDW RBC Auto-Rto 12.1 % Normal 03/13/2024 11.5 - 14.5 [facility] MCH RBC Qn Auto 33.0 pg Above high normal 03/13/2024 27 - 31 [facility] PMV Bld Auto 9.5 fL Normal 03/13/2024 7.5 - 12.5 [facility] MCV RBC Auto 93.0 fL Normal 03/13/2024 80 - 100 [facility] RBC num Bld Auto 3.94 Mil/uL Below low normal 03/13/2024 4.5 - 6.2 [facility] Calcium SerPl-mCnc 7.8 mg/dL Below low normal 03/13/2024 8.7 - 10.5 [facility] Potassium SerPl-sCnc 3.6 mmol/L Normal 03/13/2024 3.4 - 5.3 [facility] CO2 SerPl-sCnc 15.0 mmol/L Below low normal 03/13/2024 22 - 33 [facility] GFR/BSA.pred SerPlBld GSD-YQH-GhCMoi 11.0 Below low normal 03/13/2024 59 - [facility]CT Chloride SerPl-sCnc 107.0 mmol/L Normal 03/13/2024 98 - 1 07 [facility] BUN SerPl-mCnc 56.0 mg/dL Above high normal 03/13/2024 8 - 2 1 [facility] Sodium SerPl-sCnc 136.0 mmol/L Normal 03/13/2024 136 - 14 5 [facility] Glucose SerPl-mCnc 144.0 mg/dL Above high normal 03/13/2024 65 - 99 [facility] Anion Gap Bld-sCnc 14.0 Normal 03/13/2024 7 - 17 [facility] Creat SerPl-mCnc 5.4 mg/dL Above high normal 03/13/2024 0.5 - 1.3 [facility] BUN/Creat SerPl 10.0 Ratio Normal 03/13/2024 10 - 25 HH CCT Magnesium SerPl-mCnc 1.8 mg/dL Normal 03/13/2024 1.6 - 2.7 [facility]CT Phosphate SerPl-mCnc 6.5 mg/dL Above high normal 03/13/2024 2.7 - 4.5 H[facility]CT Hgb Bld-mCnc 12.0 g/dL Below low normal 03/13/2024 13 - 17.7 HHCCT Hct VFr Bld Auto 33.9 % Below low normal 03/13/2024 39 - 54 [facility] History of Medication Use Medication Directions Dispensed Refills Start Date End Date [facility] acetaminophen (TYLENOL) 325 MG tablet Take 3 [...] of colon with complication active 2024-02-[address] [facility] Severe malnutrition active 2024-03-[address] [facility] Hydronephrosis active 2024-02-25 ProblemAct [facility] Stage 4 chronic kidney disease active 2024-02-[address] [facility] Bladder cancer active 2024-03-13 ProblemAct [facility] CT Encounters Encounter Type Encounter Reason Primary Diagnosis Location Date Ambulatory Malignant neoplasm o f bladder, unspecified Malignant neoplasm of bladder, unspecified [facility] 03/27/2024 Ambulatory [facility] 03/26/2024 Ambulatory [facility] 03/26/2024 Ambulatory [facility] 03/26/2024 Ambulatory [facility] 03/26/2024 Inpatient Malignant neoplasm o f bladder, unspecified Malignant neoplasm of bladder, unspecified [facility] 03/13/2024 Ambulatory Malignant neoplasm o f bladder, unspecified Malignant neoplasm of bladder, unspecified [facility] 03/04/2024 Ambulatory Encounter for other preprocedural examination Encounter for other preprocedural examination [facility] 02/28/2024 Ambulatory Malignant neoplasm o f bladder, unspecified Malignant neoplasm of bladder, unspecified [facility] 02/24/2024 Ambulatory [facility] 02/11/2024 Ambulatory MUCINOUS ADENOCARCINOMA MUCINOUS ADENOCARCINOMA [facility] 02/03/2024 Ambulatory [facility] 01/31/2024 Ambulatory [facility] 01/27/2024 Ambulatory [facility] 01/27/2024 Ambulatory [facility] 01/27/2024 Ambulatory [facility] 01/27/2024 Ambulatory [facility] 01/27/2024 Ambulatory Malignant neoplasm o f bladder, unspecified Malignant neoplasm of bladder, unspecified [facility] 01/27/2024 Care Team Organization Name Specialty Phone Email Start Date End Keon jones [facility] 01/31/2024 05/06/2024 [facility] 01/22/2024
--- OUTSIDE RECORDS SUMMARY | 2024-08-26 14:23 | XMS_ITS | Clinical Summary ---
Author Organization [facility] Address [address] [place] [address] Care Team Providers Care Creel Operator Name Role Phone Unavailable Primary Care Provider [...] (1 of 2) 2011 Influenza Vaccine (#1) 2024 RSV Adult > 60+ Yrs or Pregn [...]
--- OUTSIDE RECORDS SUMMARY | 2024-08-26 14:23 | XMS_ITS | Encounter Summary ---
Author Organization [facility], Address [address] [place] [address] Phone Care Team Providers Care Migrant Leader Name Role Phone Hansel Martinez MD Primary Care Provider [phone] Encounter Details Date Type Department Care Team (Late st Contact Info) Description 06/07/2020 Orders Only [facility] [address] [place] [address] Marko Mojica MD [address] [place], [place] [address]Carl[facility] [place] [id number] Social History Tobacco Use Types Packs/Day Years [...] on filedocumented in this encounter Care Teams Migrant Leader Relationship Specialty Start Date End Date Hansel Martinez MD [employer] [address] [place] [address] [address] [facility] [place] P[facility] - General 12/16/18 documented as of this encounter
--- OUTSIDE RECORDS SUMMARY | 2024-08-26 14:23 | XMS_ITS | Clinical Summary ---
Author Organization [facility] Address [address] [place] [address] Phone Care Team Providers Care Brand Sales Consultant Name Role Phone Hansel Martinez MD Primary Care Provider Social History Tobacco Use Types Packs/Day Years [...] 01/30/2024 Social Influencers of Health Screening 01/30/2024 Influenza Vaccine (#1) 2024 , 11/26/2022, 01/23/2022, Additional history exists DTaP,Tdap,and Td Vaccines (3 - Td or Tdap) 12/26/2025 12/27/2015, 09/07/2005 RSV Immunization Adult Patients (1 - 1-dose 75+ series) 02/08/2036 HIB Vaccines Aged Out No longer eligi [...] patient's age to complete this topic Insurance [facility] [address] Care Teams Brand Sales Consultant Relationship Specialty Start Date End Date Hansel Martinez MD [address] [place] [address] PCP - General Internal Medicine 01/30/24
--- OUTSIDE RECORDS SUMMARY | 2024-08-26 14:23 | XMS_ITS ---
Author Organization [facility] Address [address] [place] [address] Care Team Providers Care Field Director Name Role Phone Hansel Martinez MD Primary Care Provider [phone] Angeles Pineda RN Unavailable Active Problems Problem Noted Date Diagnosed Date [...] Mojica at [facility] [place], [place]. Crohn's disease of colon with complication 02/27 Assessment & Plan (02/28/2024 11:24 AM EST): Diagnosed 1975. S/p total colectomy with a right mid quadrant ileostomy in 1979, then resected twice d/t fistulas with most recent resection of ileostomy 2019. On Humira under the management of gastroenterology, Dr. Manny Jefferson, at [facility]. Continue plan and follow up [...]
== END 2024-08-26 14:19 | disposition home or self-care (01) ==
LOC: HO.HUSH 13:33
PROVIDERS: PCP Internal Medicine; Visit Provider Urology
DX: C67.9 Malignant neoplasm of bladder, unspecified (principal); R78.81 Bacteremia; N18.32 Chronic kidney disease, stage 3b
CPT/HCPCS: 99214